=== PATIENT | male | born 1945 | race Caucasian/White ===

== ENCOUNTER → 2018-07-23 21:23 | Emergency (ER) | payer MEDICARE ==
[~2018-07-23 21:23] MED LIST: Albuterol/Ipratropium NEB.SOL* Albuterol 2.5 MG/Ipratropium 0.5 MG 3 ML INH ONE; Azithromycin TAB* 250 MG PO ONE; Benzonatate CAP* 100 MG PO ONE; Furosemide IV* 10 MG/ML VIAL (40 MG) IV SLOW PU ONE; methylPREDNISolone 125 MG* 2 ML VIAL IV ONE
--- NOTE | 2018-07-23 22:07 | ED ---
Respiratory - HPI Summary HPI Summary: 72-year-old male presents with hemoptysis today. He states that he had large amount of blood in sputum but it has now decreased to pink flecks. He is only on daily aspirin. He has history of COPD. He has been using his inhaler more frequently. He says that had a recent changes COPD medication. Has history of open heart surgery and hypertension. Admits to increase swelling in legs. has an increase in cough frequency. no chest pain or abdominal pain. admits to occasionally wheezing and SOB. is not on blood thinners. no fevers. no vomiting. admits to sore throat. no headache. this happened a week ago. is a smoker. had a normal chest CT 6 months ago without any nodules or masses. has not tried anything for symptoms beside albuterol. denies any recent weight change. - History of Current Complaint Chief Complaint: EDUpperRespComplaint Stated Complaint: COUGH Time Seen by Provider: 07/23/18 21:50 Pain Intensity: 0 Sputum Amount: Scant Sputum Color: Red Specks - Allergy/Home Medications Allergies/Adverse Reactions: Allergies Allergy/AdvReac Type Severity Reaction Status Date / Time Sulfa (Sulfonamide Allergy Rash And Verified 07/23/18 21:28 Antibiotics) Itching PMH/Surg Hx/FS Hx/Imm Hx Endocrine/Hematology History: Reports: Hx Diabetes Cardiovascular History: Reports: Hx Congestive Heart Failure, Hx Coronary Artery Disease - QUAD BYPASS, Hx Hypertension, Other Cardiovascular Problems/ Disorders - possible aortic aneurysm vs. scar tissue - Dr. Pringle Denies: Hx Pacemaker/ICD Respiratory History: Reports: Hx Chronic Obstructive Pulmonary Disease (COPD) GI History: Denies: Hx Gall Bladder Disease, Hx Gastroesophageal Reflux Disease History: Denies: Hx Acute Renal Failure, Hx Chronic Renal Failure, Hx Dialysis, Hx Renal Disease Musculoskeletal History: Reports: Other Musculoskeletal History - R below elbow amp RT cancer Sensory History: Denies: Hx Hearing Aid Psychiatric History: Denies: Hx Panic Disorder - Cancer History Cancer Type, Location and Year: bone cancer right arm 1989 - Surgical History Surgery Procedure, Year, and Place: bypass x 4; right arm removed 1989 - Immunization History Date of Tetanus Vaccine: UTD Date of Influenza Vaccine: 04/25/15 Infectious Disease History: No Infectious Disease History: Denies: Hx Clostridium Difficile, Hx Hepatitis, Hx Human Immunodeficiency Virus (HIV), Hx of Known/Suspected MRSA, Hx Shingles, Hx Tuberculosis, Hx Known/ Suspected VRE, Hx Known/Suspected VRSA, History Other Infectious Disease, Traveled Outside the [place] in Last 30 Days - Family History Known Family History: Positive: Other - lung cancer, ovarian ca - Social History Alcohol Use: Rare Substance Use Type: Reports: None Hx Tobacco Use: Yes Smoking Status (MU): Current Every Day Smoker Amount Used/How Often: 1ppd Have You Smoked in the Last Year: Yes Review of Systems Negative: Fever Negative: Chest Pain Positive: Shortness Of Breath, Cough, Other - hemoptysis Negative: Abdominal Pain All Other Systems Reviewed And Are Negative: Yes Physical Exam Triage Information Reviewed: Yes Vital Signs On Initial Exam: Initial Vitals Temp Pulse Resp BP Pulse Ox 97.5 F 78 18 173/82 96 07/23/18 21:24 07/23/18 21:24 07/23/18 21:24 07/23/18 21:24 07/23/18 21:24 Vital Signs Reviewed: Yes Appearance: Positive: Well-Appearing Skin: Positive: Warm, Dry Head/Face: Positive: Normal Head/Face Inspection Eyes: Positive: Normal, EOMI, ZEESHAN, Conjunctiva Clear ENT: Positive: Normal ENT inspection, Pharynx normal, TMs normal Respiratory/Lung Sounds: Positive: Breath Sounds Present, Wheezes Cardiovascular: Positive: Normal, RRR Abdomen Description: Positive: Nontender, Soft Bowel Sounds: Positive: Present Musculoskeletal: Positive: Normal Neurological: Positive: Normal Psychiatric: Positive: Normal Diagnostics - Vital Signs Vital Signs Temp Pulse Resp BP Pulse Ox 07/23/18 22:03 16 07/23/18 21:24 97.5 F 78 18 173/82 96 - Laboratory Result Diagrams: 07/23/18 22:10 07/23/18 22:10 Lab Statement: Any lab studies that have been ordered have been reviewed, and results considered in the medical decision making process. - Radiology chest Radiology Interpretation Completed By: ED Physician Summary of Radiographic Findings: pulmonary edema, may be pneumonia present, COPD - EKG No standard instances Cardiac Rate: NL EKG Rhythm: Sinus Rhythm EKG Comparison: No Significant Change Summary of EKG Findings: sinus rhythm Re-Evaluation - Re-Evaluation First Eval Change: Improved Comment: feeling better after treatment Second Eval Re-Evaluation Time: 23:58 Change: Improved Comment: able to ambulate well in ED, wants to go home Disposition - Course Course Of Treatment: 72 year old male presents with hemoptysis today. He states that the amount has been decreasing. He states that now has some tinted sputum. He admits to worsening cough and shortness breath the past couple days. He has a history of COPD. He denies any chest pain. He admits to sore throat. No fever. On exam some wheezing noted. EKG shows sinus rhythm. Troponin normal. D-dimer normal. White blood cell and CRP normal. Lactic elevated. Chest x-ray read by me as pulmonary edema may be underlying pneumonia. bnp elevated at 382. did not given fluid due to elevated bnp. patient able to ambulate around ED and sats about 90. patient has streaks of blood in sputum in ED but is not coughing frequently and is not losing significant amount of blood. h/h is better than previous. gave duoneb and steriod and feeling better. gave dose of lasix and azithromycin. on evaulation patient states feels comfortable going home. will discharge on azithromycin, steriod and tessalon. told to increase lasix and follow up with primary. gave strict return precautions. patient understand and agrees with plan. - Differential Dx - Cardiopulmonary Differential Diagnoses - Cardiopulmonary: Bronchitis, Exacerbation Of COPD, Influenza, Lower Resp Infection - Diagnoses Provider Diagnoses: COPD (chronic obstructive pulmonary disease), Bronchitis, CHF (congestive heart failure), Hemoptysis Discharge - Sign-Out/Discharge Documenting (check all that apply): Patient Departure - Discharge Plan Condition: Good Disposition: HOME Prescriptions: Azithromycin TAB* [Zithromax TAB (Z-MARISELA) 250 mg #6 tabs] 250 mg PO DAILY #4 tab Benzonatate CAP* [Tessalon 100 MG CAP*] 100 mg PO TID PRN #21 cap PRN Reason: Cough predniSONE TAB* [Deltasone TAB*] 50 mg PO DAILY #4 tab Patient Education Materials: Acute Bronchitis (ED) Referrals: Kesha Goff RN [Primary Care Provider] - Additional Instructions: Use nebulizer every 4 hours for cough and wheezing Take steroid once a day for 4 more days starting tomorrow Take antibiotic once daily starting tomorrow for 4 days take two 20mg lasix in morning and one tablet 20mg evening take tessalon three times a day for cough Take Tylenol for pain every 6 hours follow up with primary within 5 days Return to ED if develop severe shortness of breath, chest pain, or any new or worsening symptoms - Billing Disposition and Condition Condition: GOOD Disposition: Home
[2018-07-23 22:20] LABS: ABS Basophils 0.1 10^3/ul (0-0.2); ABS Eosinophils 0.4 10^3/ul (0-0.6); ABS Neutrophils 4.8 10^3/ul (1.5-7.7); ABS Nucleated RBC 0 10^3/ul; Eosinophil % 4.6 %; Hematocrit 41 % (42-52); Hemoglobin 13.9 g/dl (14.0-18.0); Lymphocyte % 23.9 %; Mean Corpuscular HGB Conc 34 g/dl (31-36); Mean Corpuscular Hemoglobin 30 pg (27-31); Mean Corpuscular Volume 88 fL (80-94); Mean Platelet Volume 7.8 fL (7.4-10.4); Nucleated Red Blood Cells % 0; Platelet Count 256 10^3/ul (150-450); Red Blood Count 4.62 10^6/ul (4.00-5.40); Red Cell Distribution Width 14 % (10.5-15); White Blood Count 8.3 10^3/ul (3.5-10.8)
[2018-07-23 22:33] LABS: INR 0.98 (0.77-1.02)
[2018-07-23 22:38] LABS: Albumin 4.1 g/dL (3.2-5.2); Albumin/Globulin Ratio 1.6 (1-3); BUN/Creatinine Ratio 16.3 (8-20); C Reactive Protein 5.63 mg/L (<8.01); Calcium 9.4 mg/dL (8.6-10.3); EGFR Non-African American 42.8 (>60); Globulin 2.5 g/dL (2-4); Total Bilirubin 0.6 mg/dL (0.2-1.0); Total Protein 6.6 g/dL (6.4-8.9)
[2018-07-24 00:25] VITALS: BP 124/87
== END | disposition home or self-care (01) ==
LOC: ED 21:23
DX: J44.9 Chronic obstructive pulmonary disease, unspecified (principal); I50.9 Heart failure, unspecified; R04.2 Hemoptysis; I25.10 Atherosclerotic heart disease of native coronary artery without angina pectoris; I10 Essential (primary) hypertension; Z95.1 Presence of aortocoronary bypass graft; Z88.2 Allergy status to sulfonamides; F17.200 Nicotine dependence, unspecified, uncomplicated
CPT/HCPCS: 36415; 71046; 80053; 83605; 83880; 84484; 85025; 85379; 85610; 86140; 87040; 93005; 96374; 96375; 99283; A9270-GY; J1940; J2930

== ENCOUNTER 2019-01-15 11:58 | Observation (INO) | payer MEDICARE ==
[2019-01-15 12:45] LABS: ABS Basophils 0.3 10^3/ul (0-0.2); ABS Eosinophils 0.2 10^3/ul (0-0.6); ABS Lymphocytes 1.8 10^3/ul (1.0-4.8); ABS Neutrophils 7.4 10^3/ul (1.5-7.7); Eosinophil % 2.2 %; Hematocrit 42 % (42-52); Hemoglobin 14.3 g/dL (14.0-18.0); Lymphocyte % 16.4 %; Mean Corpuscular HGB Conc 34 g/dL (31-36); Mean Corpuscular Hemoglobin 29 pg (27-31); Mean Corpuscular Volume 86 fL (80-94); Mean Platelet Volume 8.2 fL (7.4-10.4); Nucleated Red Blood Cells % 0.1; Platelet Count 273 10^3/uL (150-450); Red Blood Count 4.87 10^6 /uL (4.18-5.48); Red Cell Distribution Width 15 % (10-15); White Blood Count 10.7 10^3/uL (3.5-10.8)
--- NOTE | 2019-01-15 12:48 | ED ---
Shortness of Breath - HPI Summary HPI Summary: A 73 y/o male presents to [facility] with a chief complaint of intermittent SOB for the past three weeks. He also complains of intermittent chest discomfort and dizziness for the past three weeks. He saw his PCP, Mirtha Tolliver, who did an EKG and told the patient that his Vitamin D was low. He is on his second week of taking 50,000 units Vitamin D. He denies any of his symptoms currently, besides abdominal pain. His last BM was this morning and was normal. He rated his pain as a 0/10 in severity. He has a Hx of COPD, GERD and CHF. He denies taking medication for GERD, and does not use O2 at home. The patient claims that his right arm had to be amputated in 2000 because he had bone cancer in 1990 and his bone broke and never healed well from radiation. 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 Pt has a SHx of bypass. He claims that he is allergic to sulfur and his reaction is breaking out in a rash. - History of Current Complaint Chief Complaint: EDShortnessOfBreath Time Seen by Provider: 01/15/19 12:36 Hx Obtained From: Patient Onset/Duration: Gradual Onset, Lasting Weeks, Still Present Timing: Intermittent Episodes Lasting: - for the past three weeks Current Severity: None Dyspnea At: Rest Aggravating Factors: Nothing Alleviating Factors: Nothing Associated Signs & Symptoms: Chest Pain Unrelated to Cough - Allergy/Home Medications Allergies/Adverse Reactions: Allergies Allergy/AdvReac Type Severity Reaction Status Date / Time Sulfa (Sulfonamide Allergy Rash And Verified 01/15/19 12:05 Antibiotics) Itching Home Medications: Home Medications Ergocalciferol (Vitamin D2) [Drisdol] 1 cap PO WEEKLY 01/15/19 [History Confirmed 01/15/19] Isosorbide Mononitrate [Isosorbide Mononitrate ER] 30 mg PO DAILY 01/15/19 [ History Confirmed 01/15/19] Lisinopril 40 mg PO DAILY 01/15/19 [History Confirmed 01/15/19] Sertraline* [Zoloft*] 25 mg PO DAILY 01/15/19 [History Confirmed 01/15/19] PMH/Surg Hx/FS Hx/Imm Hx Endocrine/Hematology History: Reports: Hx Diabetes Cardiovascular History: Reports: Hx Congestive Heart Failure, Hx Coronary Artery Disease - QUAD BYPASS, Hx Hypertension, Other Cardiovascular Problems/ Disorders - possible aortic aneurysm vs. scar tissue - Dr. Pringle Denies: Hx Pacemaker/ICD Respiratory History: Reports: Hx Asthma, Hx Chronic Obstructive Pulmonary Disease (COPD) GI History: Denies: Hx Gall Bladder Disease, Hx Gastroesophageal Reflux Disease History: Denies: Hx Acute Renal Failure, Hx Chronic Renal Failure, Hx Dialysis, Hx Renal Disease Musculoskeletal History: Reports: Other Musculoskeletal History - R below elbow amp RT cancer Sensory History: Denies: Hx Hearing Aid Psychiatric History: Denies: Hx Panic Disorder - Cancer History Cancer Type, Location and Year: bone cancer right arm 1989 - Surgical History Surgery Procedure, Year, and Place: bypass x 4; right arm removed 1989 - Immunization History Date of Tetanus Vaccine: UTD Date of Influenza Vaccine: 04/25/15 Infectious Disease History: No Infectious Disease History: Denies: Hx Clostridium Difficile, Hx Hepatitis, Hx Human Immunodeficiency Virus (HIV), Hx of Known/Suspected MRSA, Hx Shingles, Hx Tuberculosis, Hx Known/ Suspected VRE, Hx Known/Suspected VRSA, History Other Infectious Disease, Traveled Outside the [place] in Last 30 Days - Family History Known Family History: Positive: Other - lung cancer, ovarian ca - Social History Alcohol Use: Rare Hx Substance Use: No Substance Use Type: Reports: None Hx Tobacco Use: Yes Smoking Status (MU): Light Every Day Tobacco Smoker Amount Used/How Often: 1ppd Have You Smoked in the Last Year: Yes Review of Systems Negative: Fever Positive: Chest Pain Positive: Shortness Of Breath Positive: Abdominal Pain All Other Systems Reviewed And Are Negative: Yes Physical Exam - Summary Physical Exam Summary: GENERAL: Patient is a well-developed and nourished M who is lying comfortable in the stretcher. Patient is not in any acute respiratory distress. HEAD AND FACE: Normocephalic EYES: PERRLA, EOMI x 2. EARS: Hearing grossly intact. MOUTH: Oropharynx within normal limits. NECK: Supple, trachea is midline, no adenopathy, no JVD, no carotid bruit. CHEST: Symmetric, no tenderness at palpation LUNGS: Clear to auscultation bilaterally. No wheezing or crackles. CVS: Regular rate and rhythm, S1 and S2 present, no murmurs or gallops appreciated. ABDOMEN: obese, mild TTP in mid upper abdomen, Bowel sounds OK anteriorly EXTREMITIES: Full ROM in all major joints, no edema, no cyanosis or clubbing. NEURO: Alert and oriented x 3. No acute neurological deficits. Speech is normal and follows commands. SKIN: Dry and warm Triage Information Reviewed: Yes Vital Signs On Initial Exam: Initial Vitals Temp Pulse Resp BP Pulse Ox 98 F 66 16 142/80 95 01/15/19 11:59 01/15/19 11:59 01/15/19 11:59 01/15/19 11:59 01/15/19 11:59 Vital Signs Reviewed: Yes Diagnostics - Vital Signs Vital Signs Temp Pulse Resp BP Pulse Ox 01/15/19 12:26 31 01/15/19 12:22 43 95 01/15/19 11:59 98 F 66 16 142/80 95 - Laboratory Result Diagrams: 01/15/19 12:31 01/15/19 12:31 Lab Statement: Any lab studies that have been ordered have been reviewed, and results considered in the medical decision making process. - Radiology CXR Radiology Interpretation Completed By: Radiologist Summary of Radiographic Findings: Stigmata of chronic obstructive pulmonary disease. Cardiomegaly. No acute cardiopulmonary process evident. ED physician has reviewed this imaging report. - CT abdomen/pelvis CT Interpretation Completed By: Radiologist Summary of CT Findings: Hepatosteatosis. Colonic diverticulosis without findings of acute diverticulitis. Atrophic LEFT kidney. Negative for obstructive uropathy. 4.2 cm maximum diameter fusiform aneurysm of the infrarenal abdominal aorta. ED physician has reviewed this imaging report. Course/Dx - Course Course Of Treatment: A 73 y/o male presents to [facility] with a chief complaint of intermittent SOB for the past three weeks. The physical exam revealed that the patient was obese, mild TTP in mid upper abdomen, Bowel sounds OK anteriorly. CT abdomen/pelvis impression: Hepatosteatosis. Colonic diverticulosis without findings of acute diverticulitis. Atrophic LEFT kidney. Negative for obstructive uropathy. 4.2 cm maximum diameter fusiform aneurysm of the infrarenal abdominal aorta. CXR impression: Stigmata of chronic obstructive pulmonary disease. Cardiomegaly. No acute cardiopulmonary process evident. In the ED course the patient was given Aspirin PO, Iodixanol IV and NTG SL. Bloodwork and chemistries obtained. BUN/Creatinine Ratio 21.4 at 12:31. The patient will be admitted. Case discussed with Dr. Thomas, hospitalist, who accepted the patient for admission. I discussed results with patient. The patient agrees with this plan. - Diagnoses Provider Diagnoses: Chest pain, Abdominal aortic aneurysm (AAA) - Physician Notifications Discussed Care of Patient With: Marlys Thomas Time Discussed With Above Provider: 14:33 Instructed by Provider To: Admit As Inpatient Discharge - Sign-Out/Discharge Documenting (check all that apply): Patient Departure - admit Patient Received Moderate/Deep Sedation with Procedure: No - Discharge Plan Condition: Fair Disposition: ADMITTED TO [facility] - Billing Disposition and Condition Condition: FAIR Disposition: Admitted to [facility] - Attestation Statements Document Initiated by Toñitoibe: Yes Documenting Scribe: Tony Lowe Provider For Whom Inez is Documenting (Include Credential): Toby Lopez MD Scribe Attestation: ITony, scribed for Toby Lopez MD on 01/15/19 at 1812. Scribe Documentation Reviewed: Yes Provider Attestation: The documentation as recorded by the Tony arzola accurately reflects the service I personally performed and the decisions made by me, Jalil Lopez MD Status of Scribe Document: Viewed
[2019-01-15] MEDS ORDERED: Aspirin 81 mg CHEW TAB* 81 MG TAB.CHEW PO ONE (12:59)
[2019-01-15] MEDS ORDERED: Nitroglycerin TAB 0.4 MG* 0.4 MG TAB SL ONE (13:00)
[2019-01-15 13:05] LABS: Albumin 4.1 g/dL (3.2-5.2); Albumin/Globulin Ratio 1.6 (1-3); BUN/Creatinine Ratio 21.4 (8-20); Calcium 9.6 mg/dL (8.6-10.3); EGFR African American 47.2 (>60); Globulin 2.6 g/dL (2-4); Total Bilirubin 0.6 mg/dL (0.2-1.0); Total Protein 6.7 g/dL (6.4-8.9)
[2019-01-15 13:07] LABS: Troponin I 0.03 ng/mL (<0.04)
[2019-01-15 13:17] LABS: INR 1.06 (0.82-1.09)
[2019-01-15] MEDS ORDERED: Iodixanol* (CONTRAST) 320 MG/ML 100 ML SDV IV ONE (13:22)
[2019-01-15] MEDS ORDERED: Acetaminophen TAB* 325 MG PO PRN (15:19)
[2019-01-15] MEDS ORDERED: Albuterol HFA INHALER* 8 gm MDI INH PRN (15:19)
[2019-01-15] MEDS ORDERED: Dextrose 50% Syringe 50 ML* 25 GM/50 ML SYRINGE IV PUSH PRN (15:21)
[2019-01-15] MEDS ORDERED: Ergocalciferol CAP* 50000 UNIT PO SCH (16:00)
[2019-01-15] MEDS: Nitroglycerin TAB 0.4 MG* 0.4 MG TAB SL SCH ×2 (16:06→20:10)
--- NOTE | 2019-01-15 16:45 | HP ---
CC: Mirtha Tolliver NP * [facility] MEDICINE HISTORY AND PHYSICAL: DATE OF PLACEMENT ON OBSERVATION: 01/15/19 PRIMARY CARE PHYSICIAN: Mirtha Tolliver NP. ATTENDING PHYSICIAN: Dr. Marlys Thomas *(dictation provided by Bertha Belle NP) . CHIEF COMPLAINT: Chest pain and feeling fatigued. HISTORY OF PRESENT ILLNESS: Mr. Cabrera is a 73-year-old male with past medical history of coronary artery disease with CABG in 2010, chronic kidney disease, COPD, and dex-[id number] type 2 diabetes, who presents today to the hospital with concern for chest pain and not feeling well for 2 weeks. Mr. Cabrera states that his symptoms began 2 weeks ago. He has been randomly having symptoms of chest pain. He feels much more tired than usual. He feels "lousy." He had some episodes of feeling a bit woozy on his feet and dizzy. He has been feeling a little bit short of breath. He states all these symptoms occur randomly and do not necessarily appear to be related to any particular activity. He states that he had a stress test and echocardiogram about 2 or 3 weeks ago at [facility] and as far as he was aware, these tests showed no concerning abnormalities. He went for these testing as part of routine care and he was not experiencing symptoms at that time and only developed them thereafter. In the emergency room, Mr. Cabrera had labs that showed a troponin of 0.03. His EKG showed a sinus rhythm with no evidence of ischemia, but showing ventricular bigemini. He had chest x-ray that showed no acute process, and abdomen and pelvis CT that showed only an incidental finding of a 4.2 cm infrarenal abdominal aortic aneurysm that he was unaware of previously. PAST MEDICAL HISTORY: 1. Coronary artery disease with CABG in 2010. 2. Chronic kidney disease. 3. COPD. 4. Nqe-csjsbpe-yqoikbsbv type 2 diabetes. 5. Hypertension. 6. Hyperlipidemia. 7. History of bone cancer to the right arm with amputation in the . MEDICATIONS: 1. Lisinopril 40 mg p.o. daily. 2. Trelegy Ellipta 1 puff inhaled daily. 3. Aspirin 81 mg p.o. daily. 4. Ergocalciferol 1 cap p.o. daily. 5. Sertraline 25 mg p.o. daily. 6. Isosorbide mononitrate 30 mg p.o. daily. 7. Albuterol p.r.n. via inhaler. 8. Tylenol 650 mg p.o. q.4 hours p.r.n. 9. Furosemide 40 mg p.o. daily. 10. Clopidogrel 75 mg p.o. daily. 11. Carvedilol 6.25 mg p.o. b.i.d. 12. Atorvastatin 80 mg p.o. daily. 13. Metformin 500 mg p.o. b.i.d. 14. Amlodipine 10 mg p.o. daily. 15. Nitroglycerin 0.4 mg sublingually p.r.n. FAMILY HISTORY: Reviewed, noncontributory. SOCIAL HISTORY: No report of alcohol, tobacco, or drug use. The patient states his daughter Tamara will be his healthcare proxy. REVIEW OF SYSTEMS: A 14-point review of systems was completed with Mr. Cabrera and all those not mentioned above were negative. PHYSICAL EXAMINATION GENERAL: Mr. Cabrera is sitting in the bed. He is in no acute distress. VITAL SIGNS: Temperature 98, pulse rate 70, respiratory rate 26, O2 saturation 95% on room air, and blood pressure 119/60. LUNGS: Clear to auscultation bilaterally with no accessory muscle use and good aeration. HEART: S1, S2. No murmur, rub, or gallop, and regular. ABDOMEN: Soft, nontender with bowel sounds positive x4. EXTREMITIES: No cyanosis, no edema. SKIN: Intact. NEUROLOGIC: He is alert and oriented x3. He moves all extremities equally. There is no facial asymmetry or focal weakness. Extraocular movements are intact. DIAGNOSTIC STUDIES LAB DATA: WBC 10.7, hemoglobin 14.3, hematocrit 42, platelet count 273. INR 1.06. Sodium 136, potassium 5.0, chloride 106, serum bicarbonate 23, BUN 37, creatinine 1.73, glucose 102. Abdomen and pelvis CT is read as follows: Hepatosteatosis, colonic diverticulosis without findings of acute diverticulitis, atrophic left kidney, negative for obstructive uropathy, 4.2 cm maximum diameter fusiform aneurysm of the infrarenal abdominal aorta. ASSESSMENT: Mr. Cabrera is a 73-year-old male with past history of coronary artery disease, coronary artery bypass grafting, type 2 diabetes, hypertension, hyperlipidemia, who presented to the hospital with concern for chest pain, feeling tired, feeling dizzy, feeling short of breath. Plan is for observation in the hospital for the followin. Chest pain: The patient's first troponin is negative. Plan to cycle x2. We will repeat EKGs with his troponins. He is currently chest pain free. We will monitor on the telemetry unit. Given that he had a recent negative stress test, I think that an additional stress testing is unnecessary, but I plan to review the results of the stress test and echocardiogram and I have requested the results from [facility] in the emergency room. The patient is on isosorbide, so presumably he does have some intermittent angina. He may benefit from an adjustment of isosorbide. 2. Shortness of breath. Again, workup as per above. His chest x-ray is negative. He has no evidence of COPD exacerbation. He is not tachycardic or hypoxic. Blood pressure is stable. He is afebrile. 3. Chronic obstructive pulmonary disease. Plan to continue his home therapy, although Alesia Saucedo is not available inpatient. 4. Chronic kidney disease, is at baseline. 5. Type 2 diabetes. Plan to hold metformin and continue with blood glucoses q.a.c. with lispro sliding scale. 6. Hypertension. Continue amlodipine, carvedilol, furosemide, isosorbide, lisinopril. 7. Depression. Continue sertraline. 8. Hyperlipidemia. Continue atorvastatin. 9. History of coronary artery disease. Continue aspirin and Plavix. 10. Code status is full code. TIME SPENT: Approximately 60 minutes were spent on the admission of this patient, more than half of the time spent with the patient at the bedside reviewing the events leading up to this hospitalization, performing the physical examination, and reviewing the plan of care. BERTHA BELLE, ALICJA [id number]/CPS #: [id number] [place]
[2019-01-15] MEDS: Insulin LISPRO* 1 UNITS UNIT SUBCUT SCH (18:37)
[2019-01-15] MEDS: Carvedilol TAB* 6.25 MG PO SCH (20:10)
[2019-01-15] MEDS: Albuterol/Ipratropium NEB.SOL* Albuterol 2.5 MG/Ipratropium 0.5 MG 3 ML INH SCH (20:41)
[2019-01-15] MEDS: Heparin VIAL(*) 5000 UNITS/ML VIAL (FIVE THOUSAND) SUBCUT SCH (22:23)
[2019-01-16] MEDS: Albuterol/Ipratropium NEB.SOL* Albuterol 2.5 MG/Ipratropium 0.5 MG 3 ML INH SCH ×3 (01:16→12:50)
[2019-01-16] MEDS: Nitroglycerin TAB 0.4 MG* 0.4 MG TAB SL SCH (02:46)
[2019-01-16] MEDS ORDERED: Nitroglycerin TAB 0.4 MG* 0.4 MG TAB SL PRN (02:55)
[2019-01-16] MEDS: Heparin VIAL(*) 5000 UNITS/ML VIAL (FIVE THOUSAND) SUBCUT SCH ×2 (05:27→13:27)
[2019-01-16] MEDS: Insulin LISPRO* 1 UNITS UNIT SUBCUT SCH ×2 (07:58→11:32)
[2019-01-16] MEDS ORDERED: amLODIPine TAB* 5 MG PO SCH (09:00)
[2019-01-16] MEDS ORDERED: Furosemide TAB* 40 MG PO SCH (09:00)
[2019-01-16] MEDS ORDERED: Atorvastatin* 80 MG TAB PO SCH (09:00)
[2019-01-16] MEDS ORDERED: Sertraline* 25 MG TAB PO SCH (09:00)
[2019-01-16] MEDS ORDERED: Aspirin EC TAB* 81 MG TAB.EC PO SCH (09:00)
[2019-01-16] MEDS ORDERED: Isosorbide Mononitrate ER TAB* 30 MG PO SCH (09:00)
[2019-01-16] MEDS ORDERED: Clopidogrel TAB* 75 MG PO SCH (09:00)
[2019-01-16] MEDS ORDERED: Lisinopril TAB* 10 MG PO SCH (09:00)
[2019-01-16] MEDS: Carvedilol TAB* 6.25 MG PO SCH (09:02)
[2019-01-16 11:11] VITALS: BP 131/64
--- NOTE | 2019-01-16 13:57 | DS ---
CC: Mirtha Tolliver NP in [place]; Dr. Crowell, Cardiology, at [facility] DISCHARGE SUMMARY: DATE OF ADMISSION: 01/15/2019 DATE OF DISCHARGE: 01/15/2019 PRIMARY DIAGNOSIS: Angina. SECONDARY DIAGNOSES: 1. Coronary artery disease status post myocardial infarction in the past. 2. Status post coronary artery bypass graft in 2010. 3. Chronic kidney disease. 4. Chronic obstructive pulmonary disease. 5. Type 2 diabetes. 6. Hypertension. 7. Hyperlipidemia. 8. Ischemic cardiomyopathy. 9. Depression. 10. History of bone cancer in the right arm, status post amputation in . MEDICATIONS ON DISCHARGE: The only medication change is increase in isosorbide mononitrate to 60 mg p.o. q. day. Other medications are: 1. Ventolin inhaler 2 puffs q.4 hours p.r.n. wheezing. 2. Lipitor 80 mg p.o. q.p.m. 3. Carvedilol 6.25 mg p.o. b.i.d. 4. Clopidogrel 75 mg p.o. q. day. 5. Vitamin D2 50,000 units p.o. weekly. 6. Furosemide 40 mg p.o. q.a.m. 7. Lisinopril 40 mg p.o. q. day. 8. Metformin 500 mg p.o. b.i.d. 9. Nitroglycerin 0.4 mg sublingually q.5 minutes x3, p.r.n. chest pain. 10. Sertraline 25 mg p.o. q.a.m. 11. Trelegy Ellipta 1 inhalation daily. 12. Acetaminophen as needed. 13. Albuterol/ipratropium nebulizer 4 times a day p.r.n. 14. Amlodipine 10 mg p.o. q. day. 15. Aspirin 81 mg p.o. q. day. HOSPITAL COURSE: This 73-year-old male with known heart disease was admitted with chest heaviness and dizziness. He did not have exertional chest pain. He did report some dyspnea when lying flat consistent with orthopnea. The records were obtained from the patient's outpatient providers. He had a transthoracic echocardiogram on 12/30/18, that showed egdl-yu-kzkwirhs aortic stenosis, ejection fraction 35% to 40% with inferolateral akinesis. There is mild-to- moderate mitral regurgitation as well. The patient also had a stress nuclear test on 11/03/18 at [facility], which showed mainly a large infarct in the anterior, anterolateral and inferolateral lin, ejection fraction calculated at 36% with global hypokinesis and no significant reversibility to suggest ischemia. The patient was admitted to observation due to his known heart disease and chest heaviness. His troponin was repeated on 3 occasions and was 0.03 in all 3 occasions. His telemetry showed no arrhythmias. Other laboratory tests of interest showed normal CBC, normal coagulation studies, hemoglobin A1c was 6.8, consistent with good control of his diabetes. His creatinine was 1.73, which is at his baseline. BNP was 346. The patient is suspected to have a degree of angina and suspect some chronic orthopnea due to COPD and/or CHF. Decision was made to increase his isosorbide mononitrate to 60 mg q. day because his blood pressure was in the range of 131/ 54 up to 172/50 in the last 24 hours he is in the hospital, he should be able to tolerate increased nitrates. STATUS: Observation. CONDITION: Fair. DISPOSITION: To home. FOLLOWUP: Should be with his primary care provider, Mirtha Tolliver and his sports medicine specialist, Dr. Crowell. DIET: Low salt, low fat, diabetic. ACTIVITY: As tolerated. [id number]/[facility] #: [id number] [place]
[2019-01-17] MEDS ORDERED: Isosorbide Mononitrate ER TAB* 30 MG PO SCH (09:00)
== END 2019-01-16 15:07 | disposition home or self-care (01) ==
LOC: ED 11:58 → MEDTELE 15:13
PROVIDERS: ADMIT Internal Medicine; ATTEND Internal Medicine
DX: I20.9 Angina pectoris, unspecified (principal); I25.10 Atherosclerotic heart disease of native coronary artery without angina pectoris; I25.2 Old myocardial infarction; Z95.5 Presence of coronary angioplasty implant and graft; E11.22 Type 2 diabetes mellitus with diabetic chronic kidney disease; I12.9 Hypertensive chronic kidney disease with stage 1 through stage 4 chronic kidney disease, or unspecified chronic kidney disease; N18.9 Chronic kidney disease, unspecified; E78.5 Hyperlipidemia, unspecified; I25.5 Ischemic cardiomyopathy; F32.9 Major depressive disorder, single episode, unspecified; Z85.830 Personal history of malignant neoplasm of bone; Z79.899 Other long term (current) drug therapy; Z79.82 Long term (current) use of aspirin; Z88.2 Allergy status to sulfonamides; F17.210 Nicotine dependence, cigarettes, uncomplicated
CPT/HCPCS: 36415; 71045; 74177; 80053; 83036; 83880; 84484; 85025; 85610; 93005; 94640; 94660; 96372; 99284; A9270-GY; G0378; J1644; Q9967

== ENCOUNTER 2019-02-08 15:07 | Emergency (ER) | payer MEDICARE ==
[2019-02-08 15:59] VITALS: BP 00/00
--- NOTE | 2019-02-08 17:27 | UC ---
Knee Pain HPI - HPI Summary HPI Summary: 73-year-old male with a history of COPD, coronary artery disease status post bypass, arthritis who presents with bilateral knee pain ongoing and worsening over several months. Patient reports 3/10 aching pain to his bilateral knees worse in the morning when he goes to stand up that improves with ambulation. Patient states that Tylenol and Motrin [id number]-[id number] helped with his pain. No trauma no fevers or chills. Patient also states that several days ago he had pain radiating in his feet felt like marbles and therefore he was having difficulty ambulating. Patient denies history of diabetes but states he is prediabetic, no known peripheral neuropathy. Patient follows with a outside primary physician - History of Current Complaint Chief Complaint: UCLowerExtremity Stated Complaint: RT. KNEE PAIN, SWOLLEN ANKLES Time Seen by Provider: 02/08/19 16:58 Hx Obtained From: Patient Pain Intensity: 5 - Allergies/Home Medications Allergies/Adverse Reactions: Allergies Allergy/AdvReac Type Severity Reaction Status Date / Time Sulfa (Sulfonamide Allergy Rash And Verified 02/08/19 15:59 Antibiotics) Itching PMH/Surg Hx/FS Hx/Imm Hx - Surgical History Surgical History: Yes Surgery Procedure, Year, and Place: bypass x 4; right arm removed 1989 - Family History Known Family History: Positive: Other - lung cancer, ovarian ca - Social History Alcohol Use: Rare Substance Use Type: None Smoking Status (MU): Heavy Every Day Tobacco Smoker Type: Cigarettes Amount Used/How Often: 1ppd Have You Smoked in the Last Year: Yes When Did the Patient Quit Smoking/Using Tobacco: 3 wks ago - Immunization History Most Recent Influenza Vaccination: n/a Most Recent Tetanus Shot: unk Most Recent Pneumonia Vaccination: <10 yr Review of Systems Constitutional: Positive: Negative Skin: Positive: Negative ENT: Positive: Negative Cardiovascular: Positive: Negative Gastrointestinal: Positive: Negative Genitourinary: Positive: Negative Motor: Positive: Decreased ROM. Negative: Weakness Musculoskeletal: Positive: Arthralgia. Negative: Calf Tenderness, Edema, Myalgia Physical Exam - Summary Physical Exam Summary: Constitutional: Well-developed, Well-nourished, Alert. (-) Distressed Skin: Warm, Dry HENT: Normocephalic; Atraumatic Eyes: Conjunctiva normal Neck: Musculoskeletal ROM normal neck. (-) JVD, (-) Stridor Cardio: Rhythm regular, rate normal, Heart sounds normal; Intact distal pulses; Radial pulses are 2+ and symmetric. DP pulses 1+ (-) Murmur Pulmonary/Chest wall: Effort normal. (-) Respiratory distress, (-) Wheezes, (-) Rales Abd: Soft, (-) tenderness, Musculoskeletal: s/p amputation R forearm. RLE: no deformity effusions, soft tissue swelling or discoloration, no crepitus palpated, compartments soft and compressible 1+ DP brisk cap refill x 5 Hip: no ttp, no pain with log roll Knee: mild ttp, FROM without pain, no lig laxity Ankle: no ttp, FROM without pain, no instability Toes: no ttp, FROM without pain LLE: no deformity effusions, soft tissue swelling or discoloration, no crepitus palpated, compartments soft and compressible 1+ DP brisk cap refill x 5 Hip: no ttp, no pain with log roll Knee: mild ttp, FROM without pain, no lig laxity Ankle: mild ttp, FROM without pain, no instability Toes: no ttp, FROM without pain Lymph: (-) Cervical adenopathy Neuro: Alert, Oriented x3 Psych: Mood and affect Normal Vital Signs: Initial Vital Signs Temp 98.2 F 02/08/19 15:51 Pulse 78 02/08/19 15:51 Resp 18 02/08/19 15:51 BP 00/00 02/08/19 15:51 Pulse Ox 97 02/08/19 15:51 Knee Pain Course/Dx - Course Course Of Treatment: 73-year-old male with a history of arthritis presents with bilateral knee pain worsening over several months Discharge - Discharge Plan Condition: Stable Disposition: HOME Patient Education Materials: Knee Pain (ED), Arthritis (ED) Referrals: Mirtha Tolliver [Primary Care Provider] - 1 Week (for follow up ) Additional Instructions: You were seen in the ER for knee pain. This is likely secondary to arthritis. You were given a referral for physical therapy. You can follow up with your primary care doctor as well to get new insoles for your shoes. Return or go to the ED for worsening symptoms or if you're concerned - Billing Disposition and Condition Condition: STABLE Disposition: Home
--- NOTE | 2019-02-08 17:44 | UC ---
Knee Pain HPI - HPI Summary HPI Summary: 73-year-old male with a history of coronary artery disease status post bypass, COPD and tobacco use, chronic arthritis who presents with worsening bilateral knee pain over the past several months. Patient states he has had E keep in his knees for several years worse when he gets up in the morning. Patient states that the pain improves upon immunizations up-to-date, and was better with Motrin however his doctor told him not to take too much motrin as it can affect his kidneys. Patient states he tried Tylenol and daee-cwv-fldlaze creams with some success. No recent trauma, fevers or chills. Currently rates the pain. 10, achy located in his knees radiating down to his feet. Patient states that several days ago while walking he felt like "there were marbles underneath his feet" however this resolved spontaneously. No weakness numbness or back pain. - History of Current Complaint Chief Complaint: UCLowerExtremity Stated Complaint: RT. KNEE PAIN, SWOLLEN ANKLES Time Seen by Provider: 02/08/19 16:58 Hx Obtained From: Patient Pain Intensity: 3 Pain Scale Used: 0-10 Numeric - Allergies/Home Medications Allergies/Adverse Reactions: Allergies Allergy/AdvReac Type Severity Reaction Status Date / Time Sulfa (Sulfonamide Allergy Rash And Verified 02/08/19 15:59 Antibiotics) Itching PMH/Surg Hx/FS Hx/Imm Hx Previously Healthy: No Endocrine History: Diabetes Cardiovascular History: Cardiac Disease, Hypertension Respiratory History: COPD - Surgical History Surgical History: Yes Surgery Procedure, Year, and Place: bypass x 4; right arm removed 1989 - Family History Known Family History: Positive: Other - lung cancer, ovarian ca - Social History Occupation: Disabled, Retired Alcohol Use: Rare Substance Use Type: None Smoking Status (MU): Heavy Every Day Tobacco Smoker Type: Cigarettes Amount Used/How Often: 1ppd Have You Smoked in the Last Year: Yes When Did the Patient Quit Smoking/Using Tobacco: 3 wks ago Household Exposure Type: Cigarettes Cessation Counseling: Counseled 3+Min - 10 Min - Immunization History Most Recent Influenza Vaccination: n/a Most Recent Tetanus Shot: unk Most Recent Pneumonia Vaccination: <10 yr Review of Systems All Other Systems Reviewed And Are Negative: Yes Musculoskeletal: Positive: Arthralgia, Decreased ROM. Negative: Calf Tenderness , Edema, Myalgia Physical Exam - Summary Physical Exam Summary: Constitutional: NAD, obese elderly male Skin: Warm, Dry HENT: Normocephalic; Atraumatic Eyes: Conjunctiva normal Neck: Musculoskeletal ROM normal neck. (-) JVD, (-) Stridor Cardio: Rhythm regular, rate normal, Heart sounds normal. (-) Murmur Pulmonary/Chest wall: Effort normal. (-) Respiratory distress, (-) Wheezes, (-) Rales Abd: Soft, (-) tenderness, (-) Distension, (-) Guarding, (-) Rebound Musculoskeletal: s/p R forearm amputation RLE: no deformity effusions, soft tissue swelling or discoloration, no crepitus palpated, compartments soft and compressible SILT 1+ DP, brisk cap refill x 5 FROM of joints without pain Hip: no ttp, no pain with log roll Knee: mild ttp, pain w ROM and ambulation, no lig laxity Ankle: no ttp, FROM without pain, no instability Toes: no ttp, FROM without pain LLE: no deformity effusions, soft tissue swelling or discoloration, no crepitus palpated, compartments soft and compressible SILT 1+ DP, brisk cap refill x 5 FROM of joints without pain Hip: no ttp, no pain with log roll Knee: mild ttp, pain w ROM and ambulation, no lig laxity Ankle: mild ttp, FROM without pain, no instability Toes: no ttp, FROM without pain Neuro: Alert, Oriented x3 Psych: Mood and affect Normal Vital Signs: Initial Vital Signs Temp 98.2 F 02/08/19 15:51 Pulse 78 02/08/19 15:51 Resp 18 02/08/19 15:51 BP 00/00 02/08/19 15:51 Pulse Ox 97 02/08/19 15:51 Knee Pain Course/Dx - Course Course Of Treatment: 73-year-old male who presents with gradual worsening of chronic arthritis and bilateral knees No known trauma, no recent fevers or infectious symptoms suspect worsening pain secondary to progressive arthritis Patient advised that he could follow up with physical therapy, referral given. Patient also advised to follow-up with his primary care doctor to get new insoles for his shoes Patient had reported feeling "marbles" under his speech Wednesday could be secondary to peripheral neuropathy this patient has a history of prediabetes however on exam he does not have any obvious sensory deficits. Patient has tenderness near the arch of foot which could be secondary to plantar fasciitis or poor fitting shoes - Differential Dx/Diagnosis Provider Diagnosis: Knee pain, bilateral Discharge - Sign-Out/Discharge Documenting (check all that apply): Patient Departure All imaging exams completed and their final reports reviewed: No Studies - Discharge Plan Condition: Stable Disposition: HOME Patient Education Materials: Knee Pain (ED), Arthritis (ED) Referrals: Mirtha Tolliver [Primary Care Provider] - 1 Week (for follow up ) Additional Instructions: You were seen in the ER for knee pain. This is likely secondary to arthritis. You were given a referral for physical therapy. You can follow up with your primary care doctor as well to get new insoles for your shoes. Return or go to the ED for worsening symptoms or if you're concerned - Billing Disposition and Condition Condition: STABLE Disposition: Home
== END 2019-02-08 17:36 | disposition home or self-care (01) ==
LOC: UCEAST 15:07
DX: M25.562 Pain in left knee (principal); M25.561 Pain in right knee; J44.9 Chronic obstructive pulmonary disease, unspecified; I25.810 Atherosclerosis of coronary artery bypass graft(s) without angina pectoris; E11.9 Type 2 diabetes mellitus without complications; I10 Essential (primary) hypertension; F17.210 Nicotine dependence, cigarettes, uncomplicated; Z89.201 Acquired absence of right upper limb, unspecified level
CPT/HCPCS: 99211; G0463

== ENCOUNTER 2019-09-21 04:04 | Inpatient (IN) | payer MEDICARE ==
[2019-09-21] MEDS ORDERED: Albuterol/Ipratropium NEB.SOL* Albuterol 2.5 MG/Ipratropium 0.5 MG 3 ML INH ONE (04:41)
--- NOTE | 2019-09-21 04:48 | ED ---
HPI Cardiac - HPI Summary HPI Summary: Patient is a 73 y/o M presenting to [facility] with chief complaint of SOB. SOB has been present for the past three days and progressively worsened. He states that he has SOB at rest and has not been wearing his o2 at home. Cough productive of thick white sputum is reported. No fever noted. Hx of CHF, HTN, Diabetes, COPD, emphysema, quadruple bypass 2011 noted. Patient is a current smoker. Home medications and allergies are reviewed. - History of Current Complaint Chief Complaint: EDShortnessOfBreath Stated Complaint: SOB PER PT Time Seen by Provider: 09/21/19 04:23 Hx Obtained From: Patient Onset/Duration: Started Days Ago, Still Present Timing: Lasting Days Current Severity: None Pain Intensity: 0 Pain Scale Used: 0-10 Numeric Associated Signs and Symptoms: Positive: Shortness of Breath, Cough, Productive Cough. Negative: Fever - Additional Pertinent History Primary Care Physician: ZACKERY - Allergy/Home Medications Allergies/Adverse Reactions: Allergies Allergy/AdvReac Type Severity Reaction Status Date / Time Sulfa (Sulfonamide Allergy Rash And Verified 09/21/19 04:25 Antibiotics) Itching Home Medications: Home Medications Atorvastatin* [Lipitor 40 MG*] 80 mg PO DAILY 05/26/15 [History Confirmed ] Acetaminophen TAB* [Tylenol TAB*] 650 mg PO Q4H PRN #0 tab 04/15/16 [Rx Confirmed 09/21/19] Aspirin EC TAB* [Ecotrin EC Low Dose 81 MG*] 81 mg PO DAILY tab.ec 04/15/16 [ Rx Confirmed 09/21/19] amLODIPine TAB* [Norvasc 5 mg TAB*] 10 mg PO DAILY tab 04/15/16 [Rx Confirmed 09/21/19] Albuterol HFA INHALER* [Ventolin HFA Inhaler*] 2 puff INH QID 09/22/18 [History Confirmed 09/21/19] Clopidogrel TAB* [Plavix TAB*] 75 mg PO DAILY 09/22/18 [History Confirmed ] Furosemide TAB* [Lasix TAB*] 40 mg PO DAILY 09/22/18 [History Confirmed 09/21/19 ] Nitroglycerin 0.4 mg SL Q5M PRN MDD 3 09/22/18 [History Confirmed 09/21/19] carvediloL [Carvedilol] 6.25 mg PO BID 09/22/18 [History Confirmed 09/21/19] metFORMIN* [Glucophage 500 MG TAB *] 1,000 mg PO DAILY 09/22/18 [History Confirmed 09/21/19] Ergocalciferol (Vitamin D2) [Drisdol] 50,000 units PO WEEKLY 01/15/19 [History Confirmed 09/21/19] lisinopriL [Lisinopril] 40 mg PO DAILY 01/15/19 [History Confirmed 09/21/19] Albuterol 2.5MG/3ML (0.083%)* [Ventolin 2.5 MG/3 ML NEB.GURINDER*] 2.5 mg INH Q6H PRN 09/21/19 [History Confirmed 09/21/19] Diclofenac 1% GEL (NF) [Voltaren 1% GEL (NF)] 1 applic TOPICAL QID 09/21/19 [ History Confirmed 09/21/19] Fluticasone/Umeclidin/Vilanter [Trelegy Ellipta 100-62.5-25] 1 puff INH DAILY [History Confirmed 09/21/19] Gabapentin CAP(*) [Neurontin 100 mg CAP(*)] 100 mg PO TID 09/21/19 [History Confirmed 09/21/19] Isosorbide Mononitrate ER TAB* [Imdur ER TAB*] 30 mg PO DAILY 09/21/19 [History Confirmed 09/21/19] Nystatin SUSPENSION ORAL SYR* 5 ml PO QID 09/21/19 [History Confirmed 09/21/19] PARoxetine HCL TAB* [Paxil TAB*] 10 mg PO DAILY 09/21/19 [History Confirmed ] PMH/Surg Hx/FS Hx/Imm Hx Endocrine/Hematology History: Reports: Hx Diabetes - type 2 Cardiovascular History: Reports: Hx Angina, Hx Congestive Heart Failure, Hx Coronary Artery Disease - QUAD BYPASS, Hx Hypertension, Other Cardiovascular Problems/Disorders - possible aortic aneurysm vs. scar tissue - Dr. Pringle Denies: Hx Pacemaker/ICD Respiratory History: Reports: Hx Asthma, Hx Chronic Obstructive Pulmonary Disease (COPD), Hx Pneumonia, Hx Sleep Apnea GI History: Denies: Hx Gall Bladder Disease, Hx Gastroesophageal Reflux Disease History: Denies: Hx Acute Renal Failure, Hx Chronic Renal Failure, Hx Dialysis, Hx Renal Disease Musculoskeletal History: Reports: Hx Back Problems, Other Musculoskeletal History - R below elbow amp RT cancer Sensory History: Reports: Hx Contacts or Glasses Denies: Hx Hearing Aid Opthamlomology History: Reports: Hx Contacts or Glasses Psychiatric History: Denies: Hx Panic Disorder - Cancer History Cancer Type, Location and Year: bone cancer right arm 1989 Hx Radiation Therapy: Yes - Surgical History Surgery Procedure, Year, and Place: bypass x 4; right arm removed 1989 - Immunization History Date of Tetanus Vaccine: UTD Date of Influenza Vaccine: 04/25/15 Infectious Disease History: No Infectious Disease History: Denies: Hx Clostridium Difficile, Hx Hepatitis, Hx Human Immunodeficiency Virus (HIV), Hx of Known/Suspected MRSA, Hx Shingles, Hx Tuberculosis, Hx Known/ Suspected VRE, Hx Known/Suspected VRSA, History Other Infectious Disease, Traveled Outside the [place] in Last 30 Days - Family History Known Family History: Positive: Other - lung cancer, ovarian ca - Social History Alcohol Use: Rare Hx Substance Use: No Substance Use Type: Reports: None Hx Tobacco Use: Yes Smoking Status (MU): Current Some Day Smoker Type: Cigarettes Amount Used/How Often: 1ppd Have You Smoked in the Last Year: Yes Review of Systems - ROS Summary Review of Systems Summary: Home Medications Medication Instructions Recorded Confirmed Type Atorvastatin* [Lipitor 40 MG*] 80 mg PO DAILY 05/26/15 01/15/19 History Acetaminophen TAB* [Tylenol TAB*] 650 mg PO Q4H PRN #0 tab 04/15/16 01/15/19 Rx Albuterol/Ipratropium NEB.GURINDER* 1 neb INH [id number] AWAKE 04/15/16 01/15/19 Rx [Duoneb (Albuterol 2.5 neb.soln MG/Ipratropium 0.5 MG)] Aspirin EC TAB* [Ecotrin EC Low 81 mg PO DAILY tab.ec 04/15/16 01/15/19 Rx Dose 81 MG*] amLODIPine TAB* [Norvasc 5 mg TAB*] 10 mg PO DAILY tab 04/15/16 01/15/19 Rx Albuterol HFA INHALER* [Ventolin 2 puff INH Q4H PRN 09/22/18 01/15/19 History HFA Inhaler*] Clopidogrel TAB* [Plavix TAB*] 75 mg PO DAILY 09/22/18 01/15/19 History Furosemide TAB* [Lasix TAB*] 40 mg PO DAILY 09/22/18 01/15/19 History Nitroglycerin 0.4 mg SL Q5H MDD 3 09/22/18 01/15/19 History Trelegy Ellipta 100-62.5-25 1 puff INH DAILY 09/22/18 01/15/19 History carvediloL [Carvedilol] 6.25 mg PO BID 09/22/18 01/15/19 History metFORMIN* [Glucophage 500 MG TAB 500 mg PO BID 09/22/18 01/15/19 History *] Ergocalciferol (Vitamin D2) 1 cap PO WEEKLY 01/15/19 01/15/19 History [Drisdol] Sertraline* [Zoloft*] 25 mg PO DAILY 01/15/19 01/15/19 History lisinopriL [Lisinopril] 40 mg PO DAILY 01/15/19 01/15/19 History Isosorbide Mononitrate ER TAB* 60 mg PO DAILY #30 tab.er 01/16/19 Rx [Imdur ER TAB*] Negative: Fever Positive: Shortness Of Breath, Cough All Other Systems Reviewed And Are Negative: Yes Physical Exam - Summary Physical Exam Summary: General: Well-developed, Obese Male. Moderate respiratory distress. HEENT: Normocephalic, Atraumatic. Eyes: Conjuctiva normal, PERRL. Oropharynx: Clear, mucous membranes moist, (-) exudates. Neck: Soft, FROM, (-) lymphadenopathy, (-) thyromegaly, (-) JVD. Cardiovascular: Tachycardic and with irregularly irregular rhythm, (-) murmur. Lungs: Moderate respiratory distress, pulse ox of 85% on RA, using accessory muscles to breath, decreased breath sounds bilaterally, bibasilar crackles, tight wheezing throughout. Abdomen: Soft, non-tender, non-distended, (-) organomegaly, normal bowel sounds. Back: (-) CVA tenderness Extremities: 1+ BLE edema Skin: Warm, dry, (-) rash. Neuro: Alert and oriented x3, moves all extremities equally. No ataxia. No gait disturbance. No sensory deficit. Normal strength, normal sensation. Psychiatric: Mildly anxious appearing. Triage Information Reviewed: Yes Vital Signs On Initial Exam: Initial Vitals Temp Pulse Resp BP Pulse Ox 100.1 F 124 24 192/104 90 09/21/19 04:05 09/21/19 04:05 09/21/19 04:05 09/21/19 04:05 09/21/19 04:05 Vital Signs Reviewed: Yes Procedures - Procedure Summary Procedure Summary: At 0543, Etomidate 30 mg and Succinylcholine 100 mg administered. 8.0 tube was used. The first attempt was unsuccessful due to thick, white secretions in the oropharynx. Suction was used, secretions removed. Second attempt was successful , no complications. ET tube is 24 cm at the lip. Breath sounds equal bilaterally. Good color change. Patient started on Propofol drip. Post- intubation CXR showed significant cephalization indicating CHF, tube above balta. - Sedation Patient Received Moderate/Deep Sedation with Procedure: No - Intubation Time of Intubation: 05:46 - finished intubation Tube Size (cm): 8.0 - 24 at the lips Medications: Succinylcholine - w/ etomidate Breath Sounds after Intubation: equal Intubation Complications: oral-unsuccessful attempt - once, suction used to remove white thick secretions, 2nd attempt successful without complication Post Intubation Xray: Yes Progress/Xray Impression: Significant cephalization indicating CHF, tube above balta Diagnostics - Vital Signs Vital Signs Temp Pulse Resp BP Pulse Ox 09/21/19 04:21 118 100 09/21/19 04:05 100.1 F 124 24 192/104 90 - Laboratory Result Diagrams: 09/21/19 20:30 09/21/19 20:30 Lab Statement: Any lab studies that have been ordered have been reviewed, and results considered in the medical decision making process. - Radiology CXR Radiology Interpretation Completed By: ED Physician Summary of Radiographic Findings: CXR showed significant cephalization indicating CHF, tube above balta. Pending official report. - EKG 0416 Cardiac Rate: Other Rate - afib with rate of 133 BPM EKG Rhythm: Atrial Fibrillation Summary of EKG Findings: EKG showed afib with rate of 133 BPM, no STEMI. ED physician has reviewed and interpreted this EKG. Re-Evaluation - Re-Evaluation First Eval Re-Evaluation Time: 04:46 Change: Worse Comment: Patient's o2 saturation decreased to high around 45% while on 5 L o2. Patient placed on bipap. Second Eval Re-Evaluation Time: 05:10 Change: Improved Comment: Currently 88% o2 saturation while on bipap. ABG pending. Review of medical records suggest patient is in new-onset afib. Third Eval Re-Evaluation Time: 05:27 Change: Improved Comment: Nurse reports suctioning out mucus plug from oropharynx, o2 saturation improved to 100% while on bipap. Fourth Eval Re-Evaluation Time: 05:32 Comment: Brief episode of asystole, patients eye open upon arrival to room. Patient still using accessory muscles to breath. Patient to be intubated. Fifth Eval Re-Evaluation Time: 06:03 Comment: Patient is intubated. Daughter arrives to ED and reports Hx of flash pulmonary edema and COPD. Patient to be admitted. Disposition - Course Course Of Treatment: 73-year-old male presents with shortness of breath. States he hasn't been able to breathe for about 3 days now. Describes cough with thick phlegm. Known COPD. Describes chest tightness. Pulse ox 85% on room air upon arrival. Patient notes he has not been on his oxygen at home. Has stopped using it. Still smoking. On physical exam pulse ox 85% on room air. Patient with moderate respiratory distress. Given DuoNeb. Steroids. Blood work drawn and patient placed on oxygen. During his history and physical patient has sudden decrease in consciousness. Pulse ox decreased significantly. His skin started modeling. ABG on BiPAP are ordered. Patient improved significantly with suction and a large amount of mucous plug was removed. Patient became more alert. ABG showed a significant abnormalities in pH and retention of CO2. Patient was intubated via RSI. Etomidate and succinylcholine were used and 8.0 ETT at 24 cm placed at the lip. Chest x-ray confirmed placement. Patient ventilated well. Placed on propofol drip for sedation. Laboratories demonstrated a significantly elevated BNP. Troponin 0.07. Slightly elevated white count. Chest x-ray also demonstrated CHF. Patient was given 80 mg of Lasix after exam. He is referred to hospitalist for admission. - Diagnoses Provider Diagnoses: Flash pulmonary edema, Acute respiratory failure - Physician Notifications Discussed Care Of Patient With: Vielka Villa Time Discussed With Above Provider: 06:07 Instructed by Provider To: Other - Patient's case was discussed with Dr. Villa , Dr. Villa accepts for admission. - Critical Care Time Critical Care Time: 75-104 min - 76 minutes CCT Discharge ED - Sign-Out/Discharge Documenting (check all that apply): Patient Departure - admit - Discharge Plan Condition: Guarded Disposition: ADMITTED TO [facility] - Billing Disposition and Condition Condition: GUARDED Disposition: Admitted to [facility] - Attestation Statements Document Initiated by Inez: Yes Documenting Scribe: BARRERA CRUZ Provider For Whom Inez is Documenting (Include Credential): MICHAEL MELVIN MD Scribe Attestation: I, BARRERA CRUZ, scribed for MICHAEL MELVIN MD on 09/21/19 at 2311. Scribe Documentation Reviewed: Yes Provider Attestation: The documentation as recorded by the scribeBARRERA accurately reflects the service I personally performed and the decisions made by me, MICHAEL MELVIN MD Status of Scribe Document: Viewed
[2019-09-21 05:01] LABS: ABS Basophils 0.1 10^3/ul (0-0.2); ABS Lymphocytes 0.9 10^3/ul (1.0-4.8); ABS Monocytes 1.3 10^3/ul (0-0.8); ABS Neutrophils 9.4 10^3/ul (1.5-7.7); Eosinophil % 0.4 %; Hematocrit 44 % (42-52); Hemoglobin 14.8 g/dL (14.0-18.0); Lymphocyte % 7.6 %; Mean Corpuscular HGB Conc 34 g/dL (31-36); Mean Corpuscular Hemoglobin 30 pg (27-31); Mean Corpuscular Volume 88 fL (80-94); Mean Platelet Volume 8.1 fL (7.4-10.4); Platelet Count 273 10^3/uL (150-450); Red Blood Count 4.97 10^6 /uL (4.18-5.48); Red Cell Distribution Width 15 % (10-15); White Blood Count 11.8 10^3/uL (3.5-10.8)
[2019-09-21] MEDS ORDERED: Furosemide IV* 10 MG/ML VIAL (40 MG) ONE (05:09)
[2019-09-21] MEDS ORDERED: Furosemide IV* 10 MG/ML VIAL (40 MG) IV SLOW PU ONE ×2 (05:10→13:53)
[2019-09-21 05:21] LABS: Activated Partial Thrombo Time 35.1 seconds (26.0-38.0); INR 1.11 (0.82-1.09)
[2019-09-21 05:24] LABS: Albumin 4.5 g/dL (3.2-5.2); Anion Gap 11 mmol/L (2-11); CO2 Carbon Dioxide 22 mmol/L (22-32); Calcium 9.6 mg/dL (8.6-10.3); Chloride 102 mmol/L (101-111); Potassium 4.4 mmol/L (3.5-5.0); Sodium 135 mmol/L (135-145)
[2019-09-21 05:30] LABS: ALT 18 U/L (7-52); AST 18 U/L (13-39); Albumin/Globulin Ratio 1.5 (1-3); Alkaline Phosphatase 113 U/L (34-104); Blood Urea Nitrogen 23 mg/dL (6-24); EGFR African American 54.4 (>60); Globulin 3.1 g/dL (2-4); Glucose 140 mg/dL (70-100); Total Protein 7.6 g/dL (6.4-8.9)
[2019-09-21] MEDS ORDERED: Diltiazem IV push/loading dose 5 MG/ML 5 ML vial (25 mg) ONE (05:35)
[2019-09-21 05:37] LABS: Troponin I 0.07 ng/mL (<0.03)
[2019-09-21] MEDS ORDERED: Propofol* 100 ML ONE (05:41)
[2019-09-21] MEDS ORDERED: Etomidate* 2 MG/ML 20 ML VIAL (40 MG) ONE (05:43)
[2019-09-21] MEDS ORDERED: Succinylcholine* 20 MG/ML 10 ML VIAL ONE (05:43)
[2019-09-21] MEDS: Propofol* 100 ML IV ONE ×4 (05:51→10:42)
[2019-09-21] MEDS ORDERED: Diltiazem IV push/loading dose 5 MG/ML 5 ML vial (25 mg) IV SLOW PU ONE (05:57)
[2019-09-21] MEDS ORDERED: methylPREDNISolone 125 MG* 2 ML VIAL IV ONE (06:27)
[2019-09-21] MEDS ORDERED: Albuterol/Ipratropium NEB.SOL* Albuterol 2.5 MG/Ipratropium 0.5 MG 3 ML INH PRN (06:27)
[2019-09-21] MEDS ORDERED: Enoxaparin(*) 150 MG/ML 1 ML SYRINGE SUBCUT ONE (07:03)
[2019-09-21 07:18] LABS: Influenza A Molecular POSITIVE (Negative)
[2019-09-21 07:32] LABS: Urine Appearance Cloudy; Urine Bilirubin Negative (Negative); Urine Blood 2+ (Negative); Urine Color Yellow; Urine Glucose Negative (Negative); Urine Ketones Negative (Negative); Urine Nitrite Negative (Negative); Urine Protein 2+(100 mg/dL) (Negative); Urine Specific Gravity 1.017 (1.010-1.030); Urine Urobilinogen Negative (Negative)
[2019-09-21 07:35] LABS: Urine Bacteria Absent (Absent); Urine Red Blood Cell 2+(6-10/hpf) (Absent); Urine Squamous Epithelial Cell Present (Absent); Urine White Blood Cell 1+(6-10/hpf) (Absent)
[2019-09-21] MEDS ORDERED: Diltiazem IV BAG* D5W Premix 125 MG/125 ML BAG IV SCH (08:00)
[2019-09-21] MEDS ORDERED: Acetaminophen TAB* 325 MG PO PRN (08:26)
[2019-09-21] MEDS: Insulin REGULAR(*) 1 UNITS UNIT SUBCUT SCH ×3 (09:16→17:28)
[2019-09-21 09:24] LABS: Troponin I 0.82 ng/mL (<0.03)
[2019-09-21] MEDS: Albuterol/Ipratropium NEB.SOL* Albuterol 2.5 MG/Ipratropium 0.5 MG 3 ML INH SCH ×5 (10:00→23:05)
[2019-09-21] MEDS: Acetaminophen ADULT LIQ* 650 MG/20.3 ML UDC PO PRN (10:40)
[2019-09-21] MEDS: Oseltamivir SUSP* ORALSYR 6 MG/ML PO SCH ×2 (10:41→21:16)
[2019-09-21] MEDS ORDERED: Perflutren Lipid Microsphere* 3 ML VIAL ONE (11:19)
[2019-09-21] MEDS: Propofol* 100 ML IV SCH ×4 (11:55→23:22)
--- NOTE | 2019-09-21 12:52 | HP ---
CC: Mirtha Tolliver NP * HISTORY AND PHYSICAL: DATE OF ADMISSION: 09/21/19 TIME OF EVALUATION: 6:15 a.m. PRIMARY CARE PROVIDER: Mirtha Tolliver NP CHIEF COMPLAINT: Shortness of breath. HISTORY OF PRESENT ILLNESS: Mr. 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 At the time of my evaluation, the patient is intubated, so my history is obtained from his records and some limited information from his daughter at bedside. The patient's daughter states that he is always short of breath and she last saw him 2 days ago and he seemed to be in good spirits with no complaints. As per ED documentation, the patient had complaints of dyspnea for 3 days associated with productive cough with thick white sputum. He was described as tachypneic with audible wheezing and also had chest pain from coughing. He was taken to the emergency room bed and his oxygen saturation dropped to 45% on 5 L nasal cannula while he was trying to boost himself in bed. The emergency room provider was at the bedside immediately and the patient was started on BiPAP. His blood gas showed a pH of 7.03 with a pCO2 of 83 and he was intubated. At the time of my evaluation, the patient is lying in the ED stretcher, intubated, still tachypneic, but he had just been started on propofol. The patient is not able to provide any other meaningful information. PAST MEDICAL HISTORY: 1. Coronary artery disease status post CABG in 2010. 2. CKD stage 3. 3. COPD. 4. Type 2 diabetes. 5. Hypertension. 6. Hyperlipidemia. 7. History of bone malignancy in the arm requiring forearm amputation in the . 8. Hyperlipidemia. 9. Hypertension. 10. History of admission to [facility] [place] in 2016 with severe sepsis secondary to right arm stump cellulitis and possible osteomyelitis. During that admission the patient developed flash pulmonary edema and required intubation. MEDICATIONS: Medication list is not available at this time but will be obtained. ALLERGIES: With SULFA the patient had a rash. FAMILY HISTORY: I am unable to obtain from the patient at this time due to the fact he is intubated and sedated. As per old records, his mother in her 70s of a malignancy and father of heart disease. SOCIAL HISTORY: I am unable to obtain from the patient. As per prior records, he was a smoker, 3 packs a day for more than 20 years, but he quit 5 or 6 years ago. The daughter is not sure if he has really quit or not. No history of alcohol or drug use. 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 Surrogate decision maker is his daughter, Tamara Tuan, phone number is [phone]. REVIEW OF SYSTEMS: I am not able to obtain 14-point review of systems as the patient is sedated and intubated. PHYSICAL EXAMINATION GENERAL: The patient is a morbid obese gentleman with significant central obesity, lying in the ED stretcher, intubated with tachypnea but not in respiratory distress at this time. VITAL SIGNS: Temperature 100.1, heart rate is 117, respiratory rate is 30, oxygen saturation is 96% after the patient is intubated, blood pressure is 169/ 82. HEENT: Pupils are equal. Moist mucous membranes. CHEST: Breath sounds bilaterally with diffuse rhonchi and wheezing, bibasilar crackles. CVS: Normal S1, S2. Regular rate and rhythm. ABDOMEN: Morbidly obese, soft, nontender, nondistended. Bowel sounds present. When I arrived to the bedside the patient had some accessory muscle use including abdominal muscles but as his propofol infusion was increased, the patient further relaxed and by the time I left the room, his accessory muscle use was much improved. EXTREMITIES: No edema. NEURO: The patient is sedated on propofol at this time. Withdraws all 4 extremities from touch. SKIN: The patient has multiple purple lesions on lower extremities and abdomen that appear to be mottling but the patient's daughter states that those are chronic. DIAGNOSTIC STUDIES/LAB DATA: The patient had a CBC that showed WBC of 11.8, hemoglobin 14.8, hematocrit 44, platelets of 273 with 79% neutrophils. INR 1.1. APTT was 35.1. ABG showed a pH of 7.03, pCO2 of 83, PaO2 of 72, bicarb of 16.4, oxygen saturation of 90%. Chemistry showed sodium of 135, potassium of 4.4, chloride 102, bicarb 22, BUN of 23, creatinine 1.5, glucose of 140. Lactic acid 4.2. Calcium 9.6. LFTs are normal except for an Alk phos 113. Troponin of 0.07. BNP 448. EKG done 09/21/19 at 4:14 a.m. shows atrial fibrillation at 133 beats per minute with some ST depressions in the lateral leads. This is new from his prior EKG from December 2018. Chest x-ray is not yet officially read, but shows significant pulmonary edema. Repeat chest x-ray was done at 5:54 a.m. and the ET tube appears to be in appropriate position, but we will need to follow up the official report. ASSESSMENT AND PLAN: Mr. Cabrera is a 73-year-old male with multiple comorbidities including morbid obesity, type 2 diabetes, coronary artery disease , bone malignancy of the right upper extremity requiring right forearm amputation, hyperlipidemia, hypertension, prior admission in 2016 with severe sepsis secondary to right stump cellulitis and probable osteomyelitis complicated by flash pulmonary edema requiring intubation, who presented to the emergency room with complaints of a couple days of shortness of breath, who developed flash pulmonary edema in the emergency room once again. 1. Acute hypoxemic and hypercapnic respiratory failure. This is secondary to a combination of chronic obstructive pulmonary disease exacerbation and pulmonary edema. The patient was already intubated in the emergency room and he will be admitted to the intensive care unit for further management. 2. Systemic inflammatory response syndrome. The patient does meet systemic inflammatory response syndrome criteria with his tachycardia and tachypnea but it is unclear to me if this patient has a true infection, although information is limited. As per daughter, he was at his baseline a couple days ago and the sudden onset of his symptoms suggest likely a chronic obstructive pulmonary disease exacerbation that drove the pulmonary edema. I did discuss the case with the brothel keeper (Dr. Albert) and we will not start antibiotics at this time. We will check a flu swab and we will continue to monitor. Of course, if he develops other signs of infection, the management will be changed but at this time, I do not believe this patient is septic. 3. Acute chronic obstructive pulmonary disease exacerbation. The patient will be continued on bronchodilators. We will add steroids. Flu swab will be checked. 4. Flash pulmonary edema. The patient's echocardiogram in 2016 showed the ejection fraction of 40% to 50%, although it was a limited study due to his body habitus and history of chronic obstructive pulmonary disease. We will repeat an echocardiogram to reassess his left ventricle function. 5. Lactic acidosis. I believe, this is secondary to per perfusion in the setting of impending respiratory arrest. I do not think this number is related to sepsis. The patient is hypertensive, has good peripheral perfusion and although, he has some areas on lower extremities and abdomen that to me looks like mottling. The daughter tells me that those are chronic. I believe as we diurese him, control his atrial fibrillation, and his respiratory failure, his perfusion should improve and his lactic acid should trend down too. We do not have a current medication list, but in the past the patient was on metformin that can also cause lactic acidosis. 6. Atrial fibrillation with rapid ventricular rate. This appears to be new. The patient does not have a history of atrial fibrillation. We will start him on a Cardizem drip for rate control. His CHADs-2 VASc score is 5, so we will also give him one dose of Lovenox, and I will request a cardiology consultation to see if cardioversion or any other measures are indicated. 7. Type 2 diabetes. This patient is going to be n.p.o. for now and he will have a regular insulin sliding scale. 8. DVT prophylaxis: The patient has a score of 3 on the DVT prophylaxis Assessment Guide, and he will receive Lovenox. 9. Code status is full. TIME SPENT: Approximately 65 minutes of critical care time was spent to complete admission. This case was discussed and signed out to Dr. Albert who will be assuming his care. [id number]/[facility] #: [id number] [place]
[2019-09-21] MEDS ORDERED: Heparin VIAL(*) 5000 UNITS/ML VIAL (FIVE THOUSAND) SUBCUT SCH (14:00)
[2019-09-21] MEDS: methylPREDNISolone SOD 40 MG* 1 ML VIAL IV SCH (17:29)
[2019-09-21 17:51] LABS: Troponin I 5.81 ng/mL (<0.03)
[2019-09-21] MEDS: cefTRIAXone(*) 1 GM in NS 0.9% 50 ML* 50 ML IVPB SCH (18:36)
[2019-09-21] MEDS: Azithromycin 500 mg/250 ml NS 500 MG/250 ML BAG IVPB SCH (19:34)
[2019-09-21] MEDS ORDERED: Heparin DRIP 25,000 UNITS(*) 25,000 UNITS/500 ML BAG IV SCH (19:45)
[2019-09-21] MEDS ORDERED: NS 0.9% 1000 ML** 1,000 ML IV ONE (19:51)
[2019-09-21] MEDS ORDERED: Heparin VIAL(*) 5000 UNITS/ML VIAL (FIVE THOUSAND) IV SCH (20:00)
--- NOTE | 2019-09-21 20:11 | CONS ---
CARDIOLOGY CONSULTATION REPORT: DATE OF CONSULT: 09/21/19 REFERRAL PHYSICIAN: Vielka Gauthier MD REASON FOR CARDIOLOGY CONSULTATION: Paroxysmal atrial fibrillation. HISTORY OF PRESENT ILLNESS: I was kindly asked to see this patient by Dr. Gauthier for cardiology consultation regarding PAF. The patient is currently intubated and mechanically ventilated. His daughter is present, but is only able to offer that the patient had some respiratory distress according to a friend of his yesterday, apparently developed respiratory failure this morning and required intubation. She saw the patient several days ago and he did not have any acute complaints at that time. He is currently intubated, mechanically ventilated. The patient has a history of CAD, status post four-vessel bypass surgery 2010 further details unknown; and cardiomyopathy. He may have a history of an arrhythmia (as his daughter states the patient had a heart monitor in the past year and then "started a new medication"). The patient when he was admitted to the hospital today with respiratory failure was found to have transient atrial fibrillation, but he has reverted back to normal sinus rhythm. OTHER PAST MEDICAL HISTORY: 1. Coronary artery disease, status post CABG in 2010, four vessels, further details unknown. 2. Chronic kidney disease, stage 3. 3. COPD. 4. Type 2 diabetes. 5. Hypertension. 6. Hyperlipidemia. 7. 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 8. Cardiomyopathy. MEDICATIONS: Outpatient medications are listed as: 1. Lipitor 80 mg p.o. daily. 2. Aspirin 81 mg once a day. 3. Norvasc 10 mg once a day. 4. Plavix 75 mg once a day. 5. Coreg 6.25 mg once a day. 6. Glucophage 1 g p.o. daily. 7. Lasix 40 mg p.o. daily. 8. Lisinopril 40 mg p.o. daily. 9. Paxil 10 mg p.o. daily. 10. Imdur 30 mg p.o. daily. 11. Albuterol inhalers. ALLERGIES TO MEDICATIONS: Listed as SULFA. FAMILY HISTORY: Unable to obtain. SOCIAL HISTORY: Unable to obtain other than the patient's daughter notes that the patient occasionally smokes cigarettes. REVIEW OF SYSTEMS: Unable to obtain other than as above. PHYSICAL EXAM: Vital Signs: Temperature 99.5 degrees Fahrenheit, pulse 74, O2 saturation 94%, blood pressure 119/57. General Exam: He is intubated and appears comfortable. HEENT: Shows cranium is normocephalic and atraumatic. He has dry mucosal membranes. Neck veins unable to assess. There are no carotid bruits. Visible skin warm and perfused. Affect unable to ascertain. There is no significant kyphoscoliosis on recumbent back exam. Lungs: Reveal occasional rhonchi. Cardiac Exam: S1, S2. Regular rate. Soft holosystolic murmur heard without radiation. No rub or gallop. PMI is nondisplaced. Abdomen: Soft, appears obese. Extremities: With 1+ peripheral edema. Pulses appear grossly intact. DIAGNOSTIC STUDIES/LAB DATA: A 12-lead EKG completed 09/21/19 at 4:14 a.m. demonstrates atrial fibrillation with borderline low voltage, nonspecific ST-T wave changes and a nonspecific QRS widening. Telemetry now clearly shows NSR. Transthoracic echocardiogram done earlier today (please also see full report for further details) showed ejection fraction of 35% to 40%. Right ventricle dilated and hypokinetic. White blood cell count 11.8, hematocrit 44, platelet count 273. Sodium 135, potassium 4.4, chloride 102, bicarbonate 22, BUN 23, creatinine 1.53, troponin is 5.8 and had been 5.81 earlier today and was 0.07 on admission. IMPRESSION: Mr. Cabrera is a 73-year-old gentleman with known history of coronary artery disease, status post bypass surgery with known cardiomyopathy, questionable history of paroxysmal atrial fibrillation and chronic obstructive pulmonary disease admitted with respiratory failure due to the flu. His prior paroxysmal atrial fibrillation is now resolved. He does have elevated troponin , likely related to myocardial strain from his respiratory failure and prior rapid atrial fibrillation. The patient is back in sinus rhythm at this time. Echocardiogram shows persistent, but stable cardiomyopathy and decreased RV function is likely due to his history of chronic obstructive pulmonary disease compounded by current respiratory failure. RECOMMENDATIONS: 1. Continue supportive management per Critical Care Medicine. 2. Obtain old cardiac records from prior network internship. 3. Would recommend restarting aspirin, Coreg, lisinopril, statin. 4. Recommend start of Eliquis 5 mg p.o. b.i.d. when able to start an oral anticoagulant. 5. The patient should follow up with his usual network internship in [place], [place] post discharge. 6. Would give IV heparin until troponin peaks. 7. Diurese as able to. 8. Further management as per the Critical Care Medicine Service. I have discussed the case with Dr. Albert of [facility]. Dear Dr. Gauthier, many thanks for this kind cardiac consultation opportunity. Please do not hesitate contact me if you have any questions or concerns regarding this patient's cardiovascular consultative care. [id number] #: [id number] MTDD
[2019-09-21 20:47] LABS: ABS Lymphocytes 0.4 10^3/ul (1.0-4.8); ABS Monocytes 0.7 10^3/ul (0-0.8); Hematocrit 37 % (42-52); Hemoglobin 12.7 g/dL (14.0-18.0); Lymphocyte % 2.4 %; Mean Corpuscular HGB Conc 35 g/dL (31-36); Mean Corpuscular Hemoglobin 30 pg (27-31); Mean Corpuscular Volume 88 fL (80-94); Mean Platelet Volume 8.4 fL (7.4-10.4); Platelet Count 216 10^3/uL (150-450); Red Blood Count 4.17 10^6 /uL (4.18-5.48); Red Cell Distribution Width 15 % (10-15); White Blood Count 17.2 10^3/uL (3.5-10.8)
[2019-09-21 21:03] LABS: EGFR African American 30.7 (>60); EGFR Non-African American 25.4 (>60)
[2019-09-22 00:03] LABS: Troponin I 4.48 ng/mL (<0.03)
[2019-09-22] MEDS ORDERED: NS 0.9% 1000 ML** 1,000 ML IV SCH (00:30)
[2019-09-22] MEDS: Insulin REGULAR(*) 1 UNITS UNIT SUBCUT SCH ×4 (00:58→18:27)
[2019-09-22] MEDS: Propofol* 100 ML IV SCH ×10 (01:25→23:59)
[2019-09-22] MEDS: Pantoprazole IV* 40 MG IV SCH ×2 (03:14→21:04)
[2019-09-22 03:46] LABS: ABS Lymphocytes 0.6 10^3/ul (1.0-4.8); ABS Neutrophils 15.2 10^3/ul (1.5-7.7); Hematocrit 36 % (42-52); Lymphocyte % 3.6 %; Mean Corpuscular HGB Conc 34 g/dL (31-36); Mean Corpuscular Hemoglobin 30 pg (27-31); Mean Corpuscular Volume 88 fL (80-94); Mean Platelet Volume 8.2 fL (7.4-10.4); Platelet Count 221 10^3/uL (150-450); Red Blood Count 4.04 10^6 /uL (4.18-5.48); Red Cell Distribution Width 15 % (10-15); White Blood Count 16.8 10^3/uL (3.5-10.8)
[2019-09-22 04:01] LABS: BUN/Creatinine Ratio 17.8 (8-20); Calcium 8.2 mg/dL (8.6-10.3); EGFR African American 30.4 (>60); EGFR Non-African American 25.2 (>60); Potassium 4.4 mmol/L (3.5-5.0)
[2019-09-22] MEDS: Albuterol/Ipratropium NEB.SOL* Albuterol 2.5 MG/Ipratropium 0.5 MG 3 ML INH SCH ×6 (04:05→23:17)
[2019-09-22] MEDS: methylPREDNISolone SOD 40 MG* 1 ML VIAL IV SCH ×2 (05:11→18:28)
[2019-09-22] MEDS: Chlorhexidine MOUTHWASH 0.12%* 15 ML UDC SWISH SPIT SCH ×5 (05:11→20:20)
[2019-09-22] MEDS ORDERED: Heparin VIAL(*) 5000 UNITS/ML VIAL (FIVE THOUSAND) SUBCUT SCH (06:00)
[2019-09-22] MEDS: Sodium Bicarbonate 8.4% IV* 75 MEQ in NS 0.45% 1000 ML BAG* 1,000 ML IV SCH (09:22)
[2019-09-22] MEDS: Gabapentin CAP(*) 100 MG PO SCH ×3 (09:32→21:07)
[2019-09-22] MEDS: Atorvastatin* 80 MG TAB PO SCH (09:33)
[2019-09-22] MEDS: Clopidogrel TAB* 75 MG PO SCH (09:33)
[2019-09-22] MEDS: Aspirin EC TAB* 81 MG TAB.EC PO SCH (09:33)
[2019-09-22] MEDS: Isosorbide Mononitrate ER TAB* 30 MG PO SCH (09:35)
[2019-09-22] MEDS: Oseltamivir SUSP* ORALSYR 6 MG/ML PO SCH ×2 (09:36→21:21)
--- NOTE | 2019-09-22 09:58 | PN ---
Date of Service: 09/22/19 Critical Care Services: 73 y.o male admitted with Flu pneumonitis, vent dependent hypercapnic failure; follows commands off sedation intubated not on pressors. Vital Signs: Temp Pulse Resp BP SpO2 FiO2 99.1 F 109 26 156/73 93 40 09/22/19 09:00 09/22/19 09:00 09/22/19 09:00 09/22/19 09:00 09/22/19 09:00 09/22 08:00 Physical Exam: Gen: intubated and sedated currently HEENT: nc/at perrla Lungs: Rhonchi and bilateral Air entry Cardiac: s1 s2 rrr no murmurs and no rubs Abdomen: soft nt/nd bs+ and no guarding and no rebound tenderness Extremities: no edema. wamr extremiteis Neuro: Alert and awake off sedation Fluid Balance (Past 24 Hours): I= O= Net Intake & Output 09/20/19 09/21/19 09/22/19 09/23/19 06:59 06:59 06:59 06:59 Intake Total 2684 52.8 Output Total 1290 200 Balance 1394 -147.2 Weight 270 lb 272 lb 1.937 oz Intake: IV Fluids 1771 ABX - AZITHROMYCIN 265 NS (0.9%) 1411 Medicated IV 913 CC - Propofol/Diprivan 753 Heparin 160 Heparin 52.8 Output: Motta 1290 200 Other: Date of Last Bowel unknown Movement Labs: Laboratory Results - last 24 hr 09/21/19 09/21/19 09/21/19 11:45 17:18 17:20 WBC RBC Hgb Hct MCV MCH MCHC RDW Plt Count MPV Neut % (Auto) Lymph % (Auto) Lipscomb % (Auto) Eos % (Auto) Baso % (Auto) Absolute Neuts (auto) Absolute Lymphs (auto) Absolute Monos (auto) Absolute Eos (auto) Absolute Basos (auto) Absolute Nucleated RBC Nucleated RBC % APTT Sodium Potassium Chloride Carbon Dioxide Anion Gap BUN Creatinine Est GFR ( Amer) Est GFR (Non-Af Amer) BUN/Creatinine Ratio Glucose POC Glucose (mg/dL) 125 H 131 H Calcium Troponin I 5.81 H* 09/21/19 09/21/19 09/21/19 18:14 20:30 20:30 WBC RBC Hgb Hct MCV MCH MCHC RDW Plt Count MPV Neut % (Auto) Lymph % (Auto) Lipscomb % (Auto) Eos % (Auto) Baso % (Auto) Absolute Neuts (auto) Absolute Lymphs (auto) Absolute Monos (auto) Absolute Eos (auto) Absolute Basos (auto) Absolute Nucleated RBC Nucleated RBC % APTT 34.2 Sodium Potassium Chloride Carbon Dioxide Anion Gap BUN 38 H Creatinine 2.51 H Est GFR ( Amer) 30.7 Est GFR (Non-Af Amer) 25.4 BUN/Creatinine Ratio Glucose POC Glucose (mg/dL) Calcium Troponin I 5.80 H* 09/21/19 09/21/19 09/22/19 20:30 23:31 03:12 WBC 17.2 H RBC 4.17 L Hgb 12.7 L Hct 37 L MCV 88 MCH 30 MCHC 35 RDW 15 Plt Count 216 MPV 8.4 Neut % (Auto) 93.2 Lymph % (Auto) 2.4 Lipscomb % (Auto) 4.3 Eos % (Auto) 0.0 Baso % (Auto) 0.1 Absolute Neuts (auto) 16.0 H Absolute Lymphs (auto) 0.4 L Absolute Monos (auto) 0.7 Absolute Eos (auto) 0.0 Absolute Basos (auto) 0.0 Absolute Nucleated RBC 0.0 Nucleated RBC % 0.0 APTT 73.2 H Sodium Potassium Chloride Carbon Dioxide Anion Gap BUN Creatinine Est GFR ( Amer) Est GFR (Non-Af Amer) BUN/Creatinine Ratio Glucose POC Glucose (mg/dL) Calcium Troponin I 4.48 H* 09/22/19 09/22/19 03:12 03:12 WBC 16.8 H RBC 4.04 L Hgb 12.0 L Hct 36 L MCV 88 MCH 30 MCHC 34 RDW 15 Plt Count 221 MPV 8.2 Neut % (Auto) 90.5 Lymph % (Auto) 3.6 Lipscomb % (Auto) 5.9 Eos % (Auto) 0.0 Baso % (Auto) 0.0 Absolute Neuts (auto) 15.2 H Absolute Lymphs (auto) 0.6 L Absolute Monos (auto) 1.0 H Absolute Eos (auto) 0.0 Absolute Basos (auto) 0.0 Absolute Nucleated RBC 0.0 Nucleated RBC % 0.0 APTT Sodium 134 L Potassium 4.4 Chloride 104 Carbon Dioxide 21 L Anion Gap 9 BUN 45 H Creatinine 2.53 H Est GFR ( Amer) 30.4 Est GFR (Non-Af Amer) 25.2 BUN/Creatinine Ratio 17.8 Glucose 151 H POC Glucose (mg/dL) Calcium 8.2 L Troponin I Impression: Assessment 1. Acute hypercapnic vent dependent respiratory failure 2. Flu pneumonitis 3. Acute CHF with depressed EF 35-40% 4. acute on chronic kidney dz 5. COPD not on home oxygen 6. CAD 7. 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 Nstemi Plan: -Continue ventilatory support. Reduce inspiratory time for auto peep -Chest ray congesion or pneumonitis; hold diuretics in light of worsening renal failure -Continue abx and await culture as well as tamiflu -continue cardiac meds -Insulin sliding scale tube feed continue -on steroid taper he is not wheezing currently -Troponins going down; stop the Heparin gtt and we will switch to heparin 5000 units tid -Cardiology is on board; no immediate plans for a cardiac cath -1/2 ns with 0.45 sodium bicarbonate at 50 ml/hr -Daughter is updated -Daily chest xrarys Critical Care Time: The patient requires intensive medical decison making to prevent adverse outcomes. The ccm time is 32 minutes.
[2019-09-22] MEDS: Heparin VIAL(*) 5000 UNITS/ML VIAL (FIVE THOUSAND) SUBCUT SCH ×2 (14:05→21:03)
[2019-09-22] MEDS: cefTRIAXone(*) 1 GM in NS 0.9% 50 ML* 50 ML IVPB SCH (18:29)
[2019-09-22] MEDS: Azithromycin 500 mg/250 ml NS 500 MG/250 ML BAG IVPB SCH (18:33)
[2019-09-22] MEDS: fentaNYL* 50 MCG/ML 2 ML VIAL (100 MCG VIAL) IV SLOW PU PRN ×2 (19:58→22:22)
[2019-09-23] MEDS: Insulin REGULAR(*) 1 UNITS UNIT SUBCUT SCH ×4 (01:43→17:14)
[2019-09-23] MEDS: Chlorhexidine MOUTHWASH 0.12%* 15 ML UDC SWISH SPIT SCH ×6 (01:43→21:38)
[2019-09-23] MEDS: Propofol* 100 ML IV SCH ×9 (01:44→23:12)
[2019-09-23] MEDS: Albuterol/Ipratropium NEB.SOL* Albuterol 2.5 MG/Ipratropium 0.5 MG 3 ML INH SCH ×2 (02:56→07:50)
[2019-09-23] MEDS: Heparin VIAL(*) 5000 UNITS/ML VIAL (FIVE THOUSAND) SUBCUT SCH ×3 (05:44→21:38)
[2019-09-23] MEDS: methylPREDNISolone SOD 40 MG* 1 ML VIAL IV SCH ×2 (05:46→17:14)
[2019-09-23] MEDS: Sodium Bicarbonate 8.4% IV* 75 MEQ in NS 0.45% 1000 ML BAG* 1,000 ML IV SCH (05:47)
[2019-09-23 06:06] LABS: Hematocrit 36 % (42-52); Hemoglobin 12.1 g/dL (14.0-18.0); Mean Corpuscular HGB Conc 34 g/dL (31-36); Mean Corpuscular Hemoglobin 30 pg (27-31); Mean Corpuscular Volume 89 fL (80-94); Platelet Count 234 10^3/uL (150-450); Red Blood Count 4.07 10^6 /uL (4.18-5.48); Red Cell Distribution Width 15 % (10-15); White Blood Count 17.6 10^3/uL (3.5-10.8)
[2019-09-23 06:23] LABS: BUN/Creatinine Ratio 26.4 (8-20); Calcium 7.9 mg/dL (8.6-10.3); EGFR African American 41.6 (>60); EGFR Non-African American 34.4 (>60); Potassium 4.9 mmol/L (3.5-5.0)
[2019-09-23] MEDS: Aspirin EC TAB* 81 MG TAB.EC PO SCH (08:09)
[2019-09-23] MEDS: Gabapentin CAP(*) 100 MG PO SCH ×3 (08:09→21:38)
[2019-09-23] MEDS: Clopidogrel TAB* 75 MG PO SCH (08:09)
[2019-09-23] MEDS: Isosorbide Mononitrate ER TAB* 30 MG PO SCH (08:09)
[2019-09-23] MEDS: Oseltamivir SUSP* ORALSYR 6 MG/ML PO SCH ×2 (08:09→21:39)
[2019-09-23] MEDS: Atorvastatin* 80 MG TAB PO SCH (08:09)
[2019-09-23 10:08] LABS: Albumin 3.3 g/dL (3.2-5.2); Albumin/Globulin Ratio 1.4 (1-3); Globulin 2.4 g/dL (2-4); Indirect Bilirubin 0.4 mg/dL (0.3-1.0); Total Bilirubin 0.5 mg/dL (0.2-1.0); Total Protein 5.7 g/dL (6.4-8.9)
--- NOTE | 2019-09-23 10:47 | PN ---
Date of Service: 09/23/19 Critical Care Services: On the vent oxygen requirements increased overnight; tube feed type secretions coming out. Vital Signs: Temp Pulse Resp BP SpO2 FiO2 100.0 F 89 30 136/64 93 70 09/23/19 10:00 09/23/19 10:00 09/23/19 10:00 09/23/19 10:00 09/23/19 10:00 08:00 Physical Exam: Gen: on the vent and sedated on propfol HEENT: nc/at perrla Lungs: Rhonchi and Bilateral Air entry Cardiac: s1s2 rrr no murmurs an no rub Abdomen: soft nt/nt and bs+ with no guarding and no rebound tenderness Extremities: no edema. Neuro: moves extremities sedation vacation is planned. Fluid Balance (Past 24 Hours): I= O= Net Intake & Output 09/21/19 09/22/19 09/23/19 09/24/19 06:59 06:59 06:59 06:59 Intake Total 2684 2794.8 120 Output Total 1290 2291 475 Balance 1394 503.8 -355 Weight 270 lb 272 lb 1.937 oz 274 lb 11.135 oz Intake: IV Fluids 1771 1689 ABX - AZITHROMYCIN 265 NS (0.9%) 1411 466 sodium bicarbonate 1223 Medicated IV 913 1008 CC - Propofol/Diprivan 753 1008 Heparin 160 Heparin 52.8 Tube Feeding 45 120 Output: Motta 1290 2291 475 Other: Date of Last Bowel unknown unknown Movement Labs: Laboratory Results - last 24 hr 09/21/19 09/22/19 09/22/19 23:39 05:11 12:38 WBC RBC Hgb Hct MCV MCH MCHC RDW Plt Count MPV Sodium Potassium Chloride Carbon Dioxide Anion Gap BUN Creatinine Est GFR ( Amer) Est GFR (Non-Af Amer) BUN/Creatinine Ratio Glucose POC Glucose (mg/dL) 179 H 152 H 143 H Calcium Total Bilirubin Direct Bilirubin Indirect Bilirubin AST ALT Alkaline Phosphatase Total Protein Albumin Globulin Albumin/Globulin Ratio 09/22/19 09/23/19 09/23/19 17:47 00:02 05:57 WBC RBC Hgb Hct MCV MCH MCHC RDW Plt Count MPV Sodium 134 L Potassium 4.9 Chloride 107 Carbon Dioxide 21 L Anion Gap 6 BUN 51 H Creatinine 1.93 H Est GFR ( Amer) 41.6 Est GFR (Non-Af Amer) 34.4 BUN/Creatinine Ratio 26.4 H Glucose 140 H POC Glucose (mg/dL) 151 H 167 H Calcium 7.9 L Total Bilirubin 0.50 Direct Bilirubin 0.10 Indirect Bilirubin 0.4 AST 34 ALT 23 Alkaline Phosphatase 69 Total Protein 5.7 L Albumin 3.3 Globulin 2.4 Albumin/Globulin Ratio 1.4 09/23/19 05:57 WBC 17.6 H RBC 4.07 L Hgb 12.1 L Hct 36 L MCV 89 MCH 30 MCHC 34 RDW 15 Plt Count 234 MPV 8.0 Sodium Potassium Chloride Carbon Dioxide Anion Gap BUN Creatinine Est GFR ( Amer) Est GFR (Non-Af Amer) BUN/Creatinine Ratio Glucose POC Glucose (mg/dL) Calcium Total Bilirubin Direct Bilirubin Indirect Bilirubin AST ALT Alkaline Phosphatase Total Protein Albumin Globulin Albumin/Globulin Ratio Impression: 1. Acute hypercapnic vent dependent respiratory failure 2. Flu pneumonitis 3. Acute CHF with depressed EF 35-40% 4. acute on chronic kidney dz 5. COPD not on home oxygen 6. CAD 7. 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 Nstemi Plan: Plan: -Oxygenation is worse now n 60% fio2 and a peep of 8. -Ng tube was possible in the Right mainstem bronchus. -We will consider a bronchoscopy -Stop IV fluids and monitor Urine output -new ng tube and start tube feeds -Cardiac meds and antiplatlet agents to continue -cardiology following; no plans for a cath -change tamiflu to 75 mg po bid -Renal function is better avoid nephrotoxic meds. -We will do sbt; he will most likely need precedex at extubation per history -ppi and chemical dvt ppx -spoke to the daughter. -30 minutes into the SBT the patient's HR went up to 40. He is put back on the AC/VC mode. Critical Care Time: The pateint requires intensive medical decision making to prevent adverse outcomes. The ccm time is 32 minutes.
[2019-09-23] MEDS ORDERED: Oseltamivir SUSP* ORALSYR 6 MG/ML PO ONE (11:00)
[2019-09-23 11:17] LABS: ABS Lymphocytes 0.9 10^3/ul (1.0-4.8); ABS Monocytes 1.8 10^3/ul (0-0.8); ABS Neutrophils 15.2 10^3/ul (1.5-7.7); Eosinophil % 0.1 %
[2019-09-23] MEDS: cefTRIAXone(*) 1 GM in NS 0.9% 50 ML* 50 ML IVPB SCH (17:13)
[2019-09-23] MEDS: Azithromycin 500 mg/250 ml NS 500 MG/250 ML BAG IVPB SCH (18:02)
[2019-09-23] MEDS: Pantoprazole IV* 40 MG IV SCH (21:38)
[2019-09-24] MEDS: Insulin REGULAR(*) 1 UNITS UNIT SUBCUT SCH ×4 (00:59→18:43)
[2019-09-24] MEDS: Propofol* 100 ML IV SCH ×10 (00:59→23:44)
[2019-09-24] MEDS: Sodium Bicarbonate 8.4% IV* 75 MEQ in NS 0.45% 1000 ML BAG* 1,000 ML IV SCH (01:33)
[2019-09-24] MEDS: Chlorhexidine MOUTHWASH 0.12%* 15 ML UDC SWISH SPIT SCH ×6 (03:23→21:39)
[2019-09-24 05:37] LABS: Hematocrit 36 % (42-52); Mean Corpuscular HGB Conc 34 g/dL (31-36); Mean Corpuscular Hemoglobin 29 pg (27-31); Mean Corpuscular Volume 87 fL (80-94); Platelet Count 235 10^3/uL (150-450); Red Blood Count 4.08 10^6 /uL (4.18-5.48); Red Cell Distribution Width 15 % (10-15); White Blood Count 11.6 10^3/uL (3.5-10.8)
[2019-09-24] MEDS: methylPREDNISolone SOD 40 MG* 1 ML VIAL IV SCH ×2 (05:43→18:29)
[2019-09-24] MEDS: Heparin VIAL(*) 5000 UNITS/ML VIAL (FIVE THOUSAND) SUBCUT SCH ×3 (05:43→21:39)
[2019-09-24 05:54] LABS: BUN/Creatinine Ratio 36.2 (8-20); Calcium 8.3 mg/dL (8.6-10.3); EGFR African American 46.9 (>60); EGFR Non-African American 38.8 (>60); Magnesium 3.2 mg/dL (1.9-2.7); Phosphorus 4.8 mg/dL (2.5-5.0); Potassium 5.4 mmol/L (3.5-5.0)
[2019-09-24] MEDS: Aspirin EC TAB* 81 MG TAB.EC PO SCH (08:16)
[2019-09-24] MEDS: Atorvastatin* 80 MG TAB PO SCH (08:16)
[2019-09-24] MEDS: Oseltamivir SUSP* ORALSYR 6 MG/ML PO SCH ×2 (08:16→21:40)
[2019-09-24] MEDS: Gabapentin CAP(*) 100 MG PO SCH ×3 (08:16→21:40)
[2019-09-24] MEDS: Isosorbide Mononitrate ER TAB* 30 MG PO SCH (08:16)
[2019-09-24] MEDS: Clopidogrel TAB* 75 MG PO SCH (08:17)
--- NOTE | 2019-09-24 10:30 | PN ---
Date of Service: 09/24/19 Critical Care Services: Stable on vent overnight Vital Signs: Temp Pulse Resp BP SpO2 FiO2 37.9 C 77 25 158/76 93 50 09/24/19 10:15 09/24/19 10:15 09/24/19 06:00 09/24/19 10:15 09/24/19 10:15 09/23 07:20 Physical Exam: Gen: sedated HEENT: intubated, NCAT, PERRL Lungs: coarse entry bilat Cardiac: S1S2 regular Abdomen: soft, NT, ND, +BS Extremities: mild edema Neuro: moves all 4 spont Fluid Balance (Past 24 Hours): I= O= Net Intake & Output 09/22/19 09/23/19 09/24/19 09/25/19 06:59 06:59 06:59 06:59 Intake Total 2684 2794.8 3044 821 Output Total 1290 2291 1945 365 Balance 1394 503.8 1099 456 Weight 123.432 kg 124.6 kg 127.006 kg Intake: IV Fluids 1771 1689 241 ABX - AZITHROMYCIN 265 NS (0.9%) 1411 466 19 sodium bicarbonate 1223 222 Medicated IV 913 1008 1295 CC - Propofol/Diprivan 753 1008 1295 Heparin 160 Heparin 52.8 Tube Feeding 45 1448 821 NG Tube Irrigate Amount 60 Output: Motta 1290 2291 1945 365 Other: Date of Last Bowel unknown unknown Movement Labs: Laboratory Results - last 24 hr 09/23/19 09/23/19 09/23/19 05:57 12:01 13:25 WBC RBC Hgb Hct MCV MCH MCHC RDW Plt Count MPV Neut % (Auto) 84.7 Lymph % (Auto) 5.0 Alpine % (Auto) 9.9 Eos % (Auto) 0.1 Baso % (Auto) 0.3 Absolute Neuts (auto) 15.2 H Absolute Lymphs (auto) 0.9 L Absolute Monos (auto) 1.8 H Absolute Eos (auto) 0.0 Absolute Basos (auto) 0.0 Absolute Nucleated RBC 0.0 Nucleated RBC % 0.0 Sodium Potassium Chloride Carbon Dioxide Anion Gap BUN Creatinine Est GFR ( Amer) Est GFR (Non-Af Amer) BUN/Creatinine Ratio Glucose POC Glucose (mg/dL) 186 H Lactic Acid 1.1 Calcium Phosphorus Magnesium 09/23/19 09/24/19 09/24/19 17:07 00:50 05:23 WBC RBC Hgb Hct MCV MCH MCHC RDW Plt Count MPV Neut % (Auto) Lymph % (Auto) Alpine % (Auto) Eos % (Auto) Baso % (Auto) Absolute Neuts (auto) Absolute Lymphs (auto) Absolute Monos (auto) Absolute Eos (auto) Absolute Basos (auto) Absolute Nucleated RBC Nucleated RBC % Sodium Potassium Chloride Carbon Dioxide Anion Gap BUN Creatinine Est GFR ( Amer) Est GFR (Non-Af Amer) BUN/Creatinine Ratio Glucose POC Glucose (mg/dL) 144 H 188 H 154 H Lactic Acid Calcium Phosphorus Magnesium 09/24/19 09/24/19 09/24/19 05:32 05:32 05:32 WBC 11.6 H RBC 4.08 L Hgb 12.0 L Hct 36 L MCV 87 MCH 29 MCHC 34 RDW 15 Plt Count 235 MPV 8.0 Neut % (Auto) Lymph % (Auto) Alpine % (Auto) Eos % (Auto) Baso % (Auto) Absolute Neuts (auto) Absolute Lymphs (auto) Absolute Monos (auto) Absolute Eos (auto) Absolute Basos (auto) Absolute Nucleated RBC Nucleated RBC % Sodium 136 Potassium 5.4 H Chloride 106 Carbon Dioxide 27 Anion Gap 3 BUN 63 H Creatinine 1.74 H Est GFR ( Amer) 46.9 Est GFR (Non-Af Amer) 38.8 BUN/Creatinine Ratio 36.2 H Glucose 137 H POC Glucose (mg/dL) Lactic Acid Calcium 8.3 L Phosphorus 4.8 Magnesium 3.2 H Studies: ECHO with EF 35-40, biatrial enlargement, CXR with pulmonary edema Nutrition: TF Impression: 74 y/o male with COPD/CHF and Flu now intubated for same, improving slowly. Plan: Acute Hypoxic Respiratory Failure - stable ventilator requirement. CXR with CHF , will diurese today. Acute on Chronic Combined Systolic and Diastolic Heart Failure - BP high, will use it support diuresis. When euvolemic, if still hypertensive will focus on afterload reduction. Influenza - continue Tamiflu and droplet isolation. COPD Exacerbation - steroids, bronchodilators, and CAP Abx for possible pneumonia. GI/DVT prophylaxis and TF with glycemic control continue. Critical Care Time: 35 minutes
[2019-09-24] MEDS: Furosemide IV* 10 MG/ML 10 ML VIAL (100 MG) IV SCH ×2 (12:50→23:26)
[2019-09-24] MEDS: Azithromycin 500 mg/250 ml NS 500 MG/250 ML BAG IVPB SCH (18:29)
[2019-09-24] MEDS: cefTRIAXone(*) 1 GM in NS 0.9% 50 ML* 50 ML IVPB SCH (18:29)
[2019-09-24] MEDS: Pantoprazole IV* 40 MG IV SCH (21:39)
[2019-09-24] MEDS: fentaNYL* 50 MCG/ML 2 ML VIAL (100 MCG VIAL) IV SLOW PU PRN (22:12)
[2019-09-24] MEDS: Acetaminophen ADULT LIQ* 650 MG/20.3 ML UDC PO PRN (22:13)
[2019-09-25] MEDS: Chlorhexidine MOUTHWASH 0.12%* 15 ML UDC SWISH SPIT SCH ×7 (01:59→23:41)
[2019-09-25] MEDS: Insulin REGULAR(*) 1 UNITS UNIT SUBCUT SCH ×4 (01:59→17:36)
[2019-09-25] MEDS: Propofol* 100 ML IV SCH ×8 (01:59→23:40)
[2019-09-25 04:53] LABS: Hematocrit 38 % (42-52); Hemoglobin 13.2 g/dL (14.0-18.0); Mean Corpuscular HGB Conc 34 g/dL (31-36); Mean Corpuscular Hemoglobin 30 pg (27-31); Mean Corpuscular Volume 87 fL (80-94); Mean Platelet Volume 8.2 fL (7.4-10.4); Platelet Count 264 10^3/uL (150-450); Red Blood Count 4.39 10^6 /uL (4.18-5.48); Red Cell Distribution Width 15 % (10-15); White Blood Count 12.6 10^3/uL (3.5-10.8)
[2019-09-25 05:10] LABS: Albumin 3.6 g/dL (3.2-5.2); Albumin/Globulin Ratio 1.2 (1-3); BUN/Creatinine Ratio 39.3 (8-20); EGFR African American 47.2 (>60); Globulin 2.9 g/dL (2-4); Magnesium 3.1 mg/dL (1.9-2.7); Phosphorus 5.3 mg/dL (2.5-5.0); Total Bilirubin 0.5 mg/dL (0.2-1.0); Total Protein 6.5 g/dL (6.4-8.9)
[2019-09-25 05:25] LABS: Potassium 5.4 mmol/L (3.5-5.0)
[2019-09-25] MEDS: Heparin VIAL(*) 5000 UNITS/ML VIAL (FIVE THOUSAND) SUBCUT SCH ×3 (06:21→21:22)
[2019-09-25] MEDS: methylPREDNISolone SOD 40 MG* 1 ML VIAL IV SCH ×2 (06:22→17:36)
[2019-09-25] MEDS: fentaNYL* 50 MCG/ML 2 ML VIAL (100 MCG VIAL) IV SLOW PU PRN ×5 (06:42→19:45)
[2019-09-25] MEDS: Oseltamivir SUSP* ORALSYR 6 MG/ML PO SCH (08:17)
[2019-09-25] MEDS: Clopidogrel TAB* 75 MG PO SCH (08:17)
[2019-09-25] MEDS: Gabapentin CAP(*) 100 MG PO SCH ×2 (08:17→14:57)
[2019-09-25] MEDS: Atorvastatin* 80 MG TAB PO SCH (08:17)
[2019-09-25] MEDS: Polyethylene Glycol 3350* 17 GM PACKET PO PRN (09:11)
[2019-09-25] MEDS ORDERED: Aspirin 81 mg CHEW TAB* 81 MG TAB.CHEW ONE (09:50)
[2019-09-25] MEDS: Carvedilol TAB* 6.25 MG PO SCH (09:54)
[2019-09-25] MEDS: amLODIPine TAB* 5 MG PO SCH (09:54)
[2019-09-25] MEDS: Aspirin 81 mg CHEW TAB* 81 MG TAB.CHEW PO SCH (09:54)
[2019-09-25] MEDS: Furosemide IV* 10 MG/ML VIAL (40 MG) IV SCH ×2 (09:55→23:40)
[2019-09-25] MEDS: Aspirin EC TAB* 81 MG TAB.EC PO SCH (10:11)
[2019-09-25] MEDS: Isosorbide Mononitrate ER TAB* 30 MG PO SCH (10:22)
[2019-09-25] MEDS ORDERED: Calcium Gluconate INJ* 2 GM in NS 0.9% 100 ML* 100 ML IV ONE (10:30)
--- NOTE | 2019-09-25 11:23 | PN ---
Date of Service: 09/25/19 Critical Care Services: Stable on vent Vital Signs: Temp Pulse Resp BP SpO2 FiO2 37.7 C 82 30 167/80 91 50 09/25/19 11:00 09/25/19 11:00 09/25/19 10:00 09/25/19 11:00 09/25/19 11:00 09/24 08:00 Physical Exam: Gen: comfortably sedated HEENT: intubated, NCAT, PERRL Lungs: rales Cardiac: S1S2 regular Abdomen: soft, NT, +BS Extremities: no edema Neuro: sedated, moves ext x 4 Fluid Balance (Past 24 Hours): I= O= Net Intake & Output 09/23/19 09/24/19 09/25/19 09/26/19 06:59 06:59 06:59 06:59 Intake Total 2794.8 3044 2526 100 Output Total 2291 1945 6065 1085 Balance 503.8 1099 -3539 -985 Weight 124.6 kg 127.006 kg 120.4 kg Intake: IV Fluids 1689 241 267 ABX - AZITHROMYCIN 267 NS (0.9%) 466 19 sodium bicarbonate 1223 222 Medicated IV 1008 1295 970 CC - Propofol/Diprivan 1008 1295 970 Heparin 52.8 Oral 0 Tube Feeding 45 1448 1289 Tube Feeding Flush Amount 100 NG Tube Irrigate Amount 60 Output: G Tube 300 Motta 2291 1945 5765 1085 Other: Date of Last Bowel unknown unknown Movement Labs: Laboratory Results - last 24 hr 09/24/19 09/24/19 09/25/19 11:58 18:29 04:31 WBC RBC Hgb Hct MCV MCH MCHC RDW Plt Count MPV Sodium 138 Potassium 5.4 H Chloride 102 Carbon Dioxide 30 Anion Gap 6 BUN 68 H Creatinine 1.73 H Est GFR ( Amer) 47.2 Est GFR (Non-Af Amer) 39.0 BUN/Creatinine Ratio 39.3 H Glucose 142 H POC Glucose (mg/dL) 165 H 131 H Calcium 9.0 Ionized Calcium Phosphorus 5.3 H Magnesium 3.1 H Total Bilirubin 0.50 AST 18 ALT 29 Alkaline Phosphatase 61 Total Protein 6.5 Albumin 3.6 Globulin 2.9 Albumin/Globulin Ratio 1.2 03/02/20 03/02/20 04:31 04:31 WBC 12.6 H RBC 4.39 Hgb 13.2 L Hct 38 L MCV 87 MCH 30 MCHC 34 RDW 15 Plt Count 264 MPV 8.2 Sodium Potassium Chloride Carbon Dioxide Anion Gap BUN Creatinine Est GFR ( Amer) Est GFR (Non-Af Amer) BUN/Creatinine Ratio Glucose POC Glucose (mg/dL) Calcium Ionized Calcium 1.12 L Phosphorus Magnesium Total Bilirubin AST ALT Alkaline Phosphatase Total Protein Albumin Globulin Albumin/Globulin Ratio Nutrition: Awais TF at goal Impression: Acute Hypoxic Respiratory Failure secondary to Influenza and decompensated heart failure Plan: Acute Hypoxic Respiratory Failure - secondary to Influenza and decompensated heart failure. Negative balance 4.5 liters last 24H with stable Cr and BP actually up. Restarted his Coreg and Amlodipine this AM to get his afterload under control. Stable ventilator requirement. Needs time for Flu to run its course. Acute on Chronic Combined Systolic and Diastolic Heart Failure - BP higher today as above, negative balance 4.5 liters and will start afterload reduction. Influenza - continue Tamiflu and droplet isolation. COPD Exacerbation - steroids, bronchodilators, and CAP Abx for possible pneumonia to continue GI/DVT prophylaxis and TF with glycemic control continue. D/W daughter at bedside on AM rounds. Critical Care Time: 40 minutes
[2019-09-25] MEDS: cefTRIAXone(*) 1 GM in NS 0.9% 50 ML* 50 ML IVPB SCH (17:35)
[2019-09-25] MEDS: Azithromycin 500 mg/250 ml NS 500 MG/250 ML BAG IVPB SCH (18:36)
[2019-09-25] MEDS: Pantoprazole IV* 40 MG IV SCH (23:40)
[2019-09-26] MEDS: Gabapentin CAP(*) 100 MG PO SCH ×4 (00:18→21:20)
[2019-09-26] MEDS: Oseltamivir SUSP* ORALSYR 6 MG/ML PO SCH ×3 (00:18→21:59)
[2019-09-26] MEDS: Carvedilol TAB* 6.25 MG PO SCH ×4 (00:18→21:56)
[2019-09-26] MEDS: Insulin REGULAR(*) 1 UNITS UNIT SUBCUT SCH ×4 (00:59→17:40)
[2019-09-26 04:10] LABS: Albumin 3.5 g/dL (3.2-5.2); Albumin/Globulin Ratio 1.3 (1-3); BUN/Creatinine Ratio 49.7 (8-20); Calcium 8.8 mg/dL (8.6-10.3); EGFR African American 50.6 (>60); EGFR Non-African American 41.8 (>60); Globulin 2.7 g/dL (2-4); Magnesium 3.1 mg/dL (1.9-2.7); Phosphorus 5.7 mg/dL (2.5-5.0); Total Bilirubin 0.5 mg/dL (0.2-1.0); Total Protein 6.2 g/dL (6.4-8.9)
[2019-09-26 04:35] LABS: Potassium 5.6 mmol/L (3.5-5.0)
[2019-09-26] MEDS ORDERED: Sodium Polystyrene ORAL.SUSP* 15 GM/60 ML BTL PO ONE (05:00)
[2019-09-26] MEDS: Chlorhexidine MOUTHWASH 0.12%* 15 ML UDC SWISH SPIT SCH ×5 (05:11→20:47)
[2019-09-26] MEDS: Heparin VIAL(*) 5000 UNITS/ML VIAL (FIVE THOUSAND) SUBCUT SCH ×3 (05:11→21:07)
[2019-09-26] MEDS: methylPREDNISolone SOD 40 MG* 1 ML VIAL IV SCH (05:11)
[2019-09-26] MEDS: Polyethylene Glycol 3350* 17 GM PACKET PO PRN (05:12)
[2019-09-26] MEDS: Propofol* 100 ML IV SCH ×5 (06:23→22:46)
[2019-09-26] MEDS: Atorvastatin* 80 MG TAB PO SCH (09:20)
[2019-09-26] MEDS: Furosemide IV* 10 MG/ML VIAL (40 MG) IV SCH ×2 (09:20→20:59)
[2019-09-26] MEDS: Clopidogrel TAB* 75 MG PO SCH (09:20)
[2019-09-26] MEDS: Aspirin 81 mg CHEW TAB* 81 MG TAB.CHEW PO SCH (09:20)
[2019-09-26] MEDS: amLODIPine TAB* 5 MG PO SCH (09:20)
[2019-09-26] MEDS: Isosorbide Mononitrate ER TAB* 30 MG PO SCH (09:22)
--- NOTE | 2019-09-26 10:42 | PN ---
Date of Service: 09/26/19 Critical Care Services: Stable overnight with thick creamy secretions via ETT Vital Signs: Temp Pulse Resp BP SpO2 FiO2 37.9 C 78 27 154/73 90 50 09/26/19 10:01 09/26/19 10:01 09/26/19 08:15 09/26/19 10:01 09/26/19 10:01 09/25 08:15 Physical Exam: Gen: rousing off diprivan HEENT: intubated, NCAT, PERRL Lungs: rhonchi bilat Cardiac: S1S2 regular Abdomen: obese, soft, NT, ND, +BS Extremities: no edema Neuro: moves ext x 4, sedation wearing off Fluid Balance (Past 24 Hours): I= O= Net Intake & Output 09/24/19 09/25/19 09/26/19 09/27/19 06:59 06:59 06:59 06:59 Intake Total 3044 2526 3142 70 Output Total 0628 4926 3065 150 Balance 1099 -3539 -628 -80 Weight 127.006 kg 120.4 kg 118.2 kg Intake: IV Fluids 241 267 206 ABX - AZITHROMYCIN 267 ABX - CEFTRIAXONE 33 NS (0.9%) 19 173 sodium bicarbonate 222 IVPB 467 ABX - AZITHROMYCIN 271 ABX - CEFTRIAXONE 72 Calcium gluconate 124 Medicated IV 1295 970 670 CC - Propofol/Diprivan 1295 970 670 Oral 0 Tube Feeding 1448 1289 1699 Tube Feeding Flush Amount 100 NG Tube Irrigate Amount 60 70 Output: G Tube 300 Motta 1942 3150 3771 150 Other: Date of Last Bowel unknown Movement Labs: Laboratory Results - last 24 hr 09/25/19 09/25/19 09/25/19 00:38 11:07 17:06 Sodium Potassium Chloride Carbon Dioxide Anion Gap BUN Creatinine Est GFR ( Amer) Est GFR (Non-Af Amer) BUN/Creatinine Ratio Glucose POC Glucose (mg/dL) 205 H 178 H 141 H Calcium Ionized Calcium Phosphorus Magnesium Total Bilirubin AST ALT Alkaline Phosphatase Total Protein Albumin Globulin Albumin/Globulin Ratio 09/26/19 09/26/19 09/26/19 00:53 03:36 03:36 Sodium 136 Potassium 5.6 H Chloride 100 L Carbon Dioxide 30 Anion Gap 6 BUN 81 H Creatinine 1.63 H Est GFR ( Amer) 50.6 Est GFR (Non-Af Amer) 41.8 BUN/Creatinine Ratio 49.7 H Glucose 140 H POC Glucose (mg/dL) 169 H Calcium 8.8 Ionized Calcium 1.04 L Phosphorus 5.7 H Magnesium 3.1 H Total Bilirubin 0.50 AST 14 ALT 23 Alkaline Phosphatase 56 Total Protein 6.2 L Albumin 3.5 Globulin 2.7 Albumin/Globulin Ratio 1.3 09/26/19 05:49 Sodium Potassium Chloride Carbon Dioxide Anion Gap BUN Creatinine Est GFR ( Amer) Est GFR (Non-Af Amer) BUN/Creatinine Ratio Glucose POC Glucose (mg/dL) 142 H Calcium Ionized Calcium Phosphorus Magnesium Total Bilirubin AST ALT Alkaline Phosphatase Total Protein Albumin Globulin Albumin/Globulin Ratio Studies: Persistent LLL pneumonia Nutrition: Awais TF Impression: Acute Hypoxic Respiratory Failure secondary to Influenza and decompensated heart failure with persistent LLL pneumonia Plan: Acute Hypoxic Respiratory Failure - secondary to Influenza and decompensated heart failure. CXR this AM with persistent LLL pneumonia. Increased secretions last 24H but no new sig fever, WBC stable at 12. Will send for sputum culture, broaden Abx to cefepime to include more broad GNR coverage in this diabetic. Also noted to have thrush on exam this AM, will add nystatin for now. Vent adjusted to APRV to try and enhance his recruitment of that LLL. Acute on Chronic Combined Systolic and Diastolic Heart Failure - BP better today on his antiHTN regimen. Influenza - continue Tamiflu and droplet isolation. COPD Exacerbation - steroids, bronchodilators, and Abx as above GI/DVT prophylaxis and TF with glycemic control continue. D/W daughter at bedside on AM rounds. Critical Care Time: 40 minutes
[2019-09-26] MEDS: Cefepime 1 GM in Dextrose(*) 1 GM/50 ML BAG IV SCH ×2 (11:10→22:46)
[2019-09-26] MEDS: Nystatin SUSPENSION* 100000 UNITS/ML 5 ML UDC PO SCH ×3 (13:37→21:08)
[2019-09-26] MEDS: Acetaminophen ADULT LIQ* 650 MG/20.3 ML UDC PO PRN ×2 (15:06→21:20)
[2019-09-26] MEDS ORDERED: Norepinephrine 16MCG/ML IVPRE* 4,000 MCG/250 ML BAG IV ONE (15:41)
[2019-09-26] MEDS: Azithromycin 500 mg/250 ml NS 500 MG/250 ML BAG IVPB SCH (17:42)
[2019-09-26] MEDS: Norepinephrine 16MCG/ML IVPRE* 4,000 MCG/250 ML BAG IV SCH (18:40)
[2019-09-26] MEDS: Pantoprazole IV* 40 MG IV SCH (21:03)
[2019-09-27] MEDS: Insulin REGULAR(*) 1 UNITS UNIT SUBCUT SCH ×4 (00:24→17:16)
[2019-09-27] MEDS: Chlorhexidine MOUTHWASH 0.12%* 15 ML UDC SWISH SPIT SCH ×6 (00:24→21:10)
[2019-09-27] MEDS: Propofol* 100 ML IV SCH (04:44)
[2019-09-27 04:49] LABS: Hematocrit 44 % (42-52); Hemoglobin 14.6 g/dL (14.0-18.0); Mean Corpuscular HGB Conc 34 g/dL (31-36); Mean Corpuscular Hemoglobin 29 pg (27-31); Mean Corpuscular Volume 87 fL (80-94); Mean Platelet Volume 8.4 fL (7.4-10.4); Platelet Count 291 10^3/uL (150-450); Red Blood Count 4.98 10^6 /uL (4.18-5.48); Red Cell Distribution Width 15 % (10-15); White Blood Count 20.3 10^3/uL (3.5-10.8)
[2019-09-27 05:05] LABS: Albumin 3.5 g/dL (3.2-5.2); Albumin/Globulin Ratio 1.1 (1-3); BUN/Creatinine Ratio 49.3 (8-20); Calcium 9.4 mg/dL (8.6-10.3); EGFR African American 36.7 (>60); EGFR Non-African American 30.4 (>60); Globulin 3.2 g/dL (2-4); Magnesium 3.4 mg/dL (1.9-2.7); Phosphorus 5.7 mg/dL (2.5-5.0); Potassium 4.7 mmol/L (3.5-5.0); Total Bilirubin 0.6 mg/dL (0.2-1.0); Total Protein 6.7 g/dL (6.4-8.9)
[2019-09-27] MEDS: Heparin VIAL(*) 5000 UNITS/ML VIAL (FIVE THOUSAND) SUBCUT SCH ×3 (05:17→21:11)
[2019-09-27 05:39] LABS: ABS Basophils 0.2 10^3/ul (0-0.2); ABS Lymphocytes 2.8 10^3/ul (1.0-4.8); ABS Monocytes 2.8 10^3/ul (0-0.8); ABS Neutrophils 14.5 10^3/ul (1.5-7.7); Eosinophil % 0.1 %; Lymphocyte % 13.6 %; Nucleated Red Blood Cells % 0.1
[2019-09-27] MEDS: Polyethylene Glycol 3350* 17 GM PACKET PO PRN (05:41)
[2019-09-27] MEDS: Nystatin SUSPENSION* 100000 UNITS/ML 5 ML UDC PO SCH ×4 (08:40→21:10)
[2019-09-27] MEDS: Clopidogrel TAB* 75 MG PO SCH (08:40)
[2019-09-27] MEDS: Furosemide IV* 10 MG/ML VIAL (40 MG) IV SCH (08:40)
[2019-09-27] MEDS: amLODIPine TAB* 5 MG PO SCH (08:40)
[2019-09-27] MEDS: Carvedilol TAB* 6.25 MG PO SCH ×2 (08:40→21:10)
[2019-09-27] MEDS: Atorvastatin* 80 MG TAB PO SCH (08:40)
[2019-09-27] MEDS: Oseltamivir SUSP* ORALSYR 6 MG/ML PO SCH (08:40)
[2019-09-27] MEDS: Aspirin 81 mg CHEW TAB* 81 MG TAB.CHEW PO SCH (08:40)
[2019-09-27] MEDS: Acetaminophen ADULT LIQ* 650 MG/20.3 ML UDC PO PRN ×3 (08:40→21:20)
[2019-09-27] MEDS: Gabapentin CAP(*) 100 MG PO SCH ×3 (08:40→21:10)
--- NOTE | 2019-09-27 09:56 | PN ---
Date of Service: 09/27/19 Critical Care Services: Some fever overnight, improving ventilator requirement. Vital Signs: Temp Pulse Resp BP SpO2 FiO2 38.2 C 82 14 123/72 97 40 09/27/19 09:15 09/27/19 09:15 09/27/19 09:00 09/27/19 09:15 09/27/19 09:15 09/26 07:38 Physical Exam: Gen: sedated on vent, appears comfortable HEENT: intubated, NCAT, PERRL Lungs: decreased entry to exam Cardiac: S1S2 regular Abdomen: obese, soft, NT, ND, +BS Extremities: trace edema Neuro: sedated, spont moves ext Fluid Balance (Past 24 Hours): I= O= Net Intake & Output 09/25/19 09/26/19 09/27/19 09/28/19 06:59 06:59 06:59 06:59 Intake Total 2526 3142 2511 Output Total 6018 5840 4171 315 Balance -3539 -628 12 -315 Weight 120.4 kg 118.2 kg 116.5 kg Intake: IV Fluids 267 206 226 ABX - AZITHROMYCIN 267 ABX - CEFEPIME 55 ABX - CEFTRIAXONE 33 NS (0.9%) 173 171 IVPB 467 343 ABX - AZITHROMYCIN 271 279 ABX - CEFEPIME 64 ABX - CEFTRIAXONE 72 Calcium gluconate 124 Medicated IV 970 670 514 CC - Norepinephrine/ 57 Levophed CC - Propofol/Diprivan 970 670 457 Oral 0 60 Tube Feeding 1289 1699 1238 Tube Feeding Flush Amount 100 60 NG Tube Irrigate Amount 70 Output: G Tube 300 Motta 5765 3770 7853 218 Labs: Laboratory Results - last 24 hr 09/26/19 09/26/19 09/26/19 12:32 15:56 17:27 WBC RBC Hgb Hct MCV MCH MCHC RDW Plt Count MPV Neut % (Auto) Lymph % (Auto) [place] % (Auto) Eos % (Auto) Baso % (Auto) Absolute Neuts (auto) Absolute Lymphs (auto) Absolute Monos (auto) Absolute Eos (auto) Absolute Basos (auto) Absolute Nucleated RBC Nucleated RBC % Sodium Potassium Chloride Carbon Dioxide Anion Gap BUN Creatinine Est GFR ( Amer) Est GFR (Non-Af Amer) BUN/Creatinine Ratio Glucose POC Glucose (mg/dL) 159 H 150 H Lactic Acid 2.1 H* Calcium Ionized Calcium Phosphorus Magnesium Total Bilirubin AST ALT Alkaline Phosphatase Total Protein Albumin Globulin Albumin/Globulin Ratio 09/27/19 09/27/19 09/27/19 04:40 04:40 04:40 WBC 20.3 H RBC 4.98 Hgb 14.6 Hct 44 MCV 87 MCH 29 MCHC 34 RDW 15 Plt Count 291 MPV 8.4 Neut % (Auto) 71.5 Lymph % (Auto) 13.6 [place] % (Auto) 13.7 Eos % (Auto) 0.1 Baso % (Auto) 1.1 Absolute Neuts (auto) 14.5 H Absolute Lymphs (auto) 2.8 Absolute Monos (auto) 2.8 H Absolute Eos (auto) 0.0 Absolute Basos (auto) 0.2 Absolute Nucleated RBC 0.0 Nucleated RBC % 0.1 Sodium 141 Potassium 4.7 Chloride 102 Carbon Dioxide 28 Anion Gap 11 BUN 106 H Creatinine 2.15 H Est GFR ( Amer) 36.7 Est GFR (Non-Af Amer) 30.4 BUN/Creatinine Ratio 49.3 H Glucose 167 H POC Glucose (mg/dL) Lactic Acid Calcium 9.4 Ionized Calcium 1.03 L Phosphorus 5.7 H Magnesium 3.4 H Total Bilirubin 0.60 AST 14 ALT 26 Alkaline Phosphatase 60 Total Protein 6.7 Albumin 3.5 Globulin 3.2 Albumin/Globulin Ratio 1.1 Studies: CXR with stable LLL infiltrate but with vastly improved aeration Nutrition: Awais TF Impression: Acute Hypoxic Respiratory Failure secondary to Influenza and decompensated heart failure with persistent LLL pneumonia Plan: Acute Hypoxic Respiratory Failure - secondary to Influenza and decompensated heart failure. CXR this AM with persistent LLL pneumonia but improved from yesterday with much better aeration. Increased secretions last 24H and new fever with WBC at 20. Sputum from yesterday now with GPC, will add linezolid for MRSA even though nares negative not responding to cefepime/azithro and GPC with sig REENA will avoid the Vanco. Acute on Chronic Combined Systolic and Diastolic Heart Failure - BP better today on his antiHTN regimen, actually probably lower than his baseline when sedated and was briefly on levo. Now with worsening REENA, will add back some fluid and hold lasix. Now off the sedation BP has risen to the 170s, will not hold the antiHTN regimen. Influenza - Tamiflu complete today. DC. COPD Exacerbation - steroids, bronchodilators, and Abx as above GI/DVT prophylaxis and TF with glycemic control continue. D/W daughter at bedside on AM rounds. Critical Care Time: 35 minutes
[2019-09-27] MEDS: Linezolid 600 MG IVPREMIX(*) 600 MG/300 ML BAG IVPB SCH ×2 (10:23→21:33)
[2019-09-27] MEDS ORDERED: Calcium Gluconate INJ* 2 GM in NS 0.9% 100 ML* 100 ML IV ONE (10:30)
[2019-09-27] MEDS: Cefepime 1 GM in Dextrose(*) 1 GM/50 ML BAG IV SCH ×2 (10:32→22:31)
[2019-09-27] MEDS: Dexmedetomidine* 1,000 MCG in NS 0.9% 250 ML* 240 ML IV SCH (15:55)
[2019-09-27] MEDS: Isosorbide Dinitrate TAB* 10 MG PO SCH (17:06)
[2019-09-27] MEDS: Pantoprazole IV* 40 MG IV SCH (21:11)
[2019-09-28] MEDS: Insulin REGULAR(*) 1 UNITS UNIT SUBCUT SCH ×4 (00:26→17:57)
[2019-09-28] MEDS: Chlorhexidine MOUTHWASH 0.12%* 15 ML UDC SWISH SPIT SCH ×6 (00:26→20:19)
[2019-09-28] MEDS: Isosorbide Dinitrate TAB* 10 MG PO SCH ×2 (02:00→16:45)
[2019-09-28] MEDS: Acetaminophen ADULT LIQ* 650 MG/20.3 ML UDC PO PRN (03:40)
[2019-09-28 05:21] LABS: Hematocrit 42 % (42-52); Hemoglobin 14.1 g/dL (14.0-18.0); Mean Corpuscular HGB Conc 34 g/dL (31-36); Mean Corpuscular Hemoglobin 29 pg (27-31); Mean Corpuscular Volume 87 fL (80-94); Mean Platelet Volume 8.7 fL (7.4-10.4); Platelet Count 292 10^3/uL (150-450); Red Blood Count 4.83 10^6 /uL (4.18-5.48); Red Cell Distribution Width 15 % (10-15); White Blood Count 20.6 10^3/uL (3.5-10.8)
[2019-09-28 05:35] LABS: Albumin 3.4 g/dL (3.2-5.2); Albumin/Globulin Ratio 1.1 (1-3); BUN/Creatinine Ratio 55.6 (8-20); Calcium 8.9 mg/dL (8.6-10.3); EGFR African American 36.9 (>60); EGFR Non-African American 30.5 (>60); Globulin 3.2 g/dL (2-4); Magnesium 3.4 mg/dL (1.9-2.7); Phosphorus 5.3 mg/dL (2.5-5.0); Potassium 4.7 mmol/L (3.5-5.0); Total Bilirubin 0.7 mg/dL (0.2-1.0); Total Protein 6.6 g/dL (6.4-8.9)
[2019-09-28] MEDS: Heparin VIAL(*) 5000 UNITS/ML VIAL (FIVE THOUSAND) SUBCUT SCH (05:44)
[2019-09-28] MEDS: fentaNYL* 50 MCG/ML 2 ML VIAL (100 MCG VIAL) IV SLOW PU PRN (06:22)
[2019-09-28] MEDS ORDERED: Diltiazem IV push/loading dose 5 MG/ML 5 ML vial (25 mg) ONE (07:43)
[2019-09-28] MEDS ORDERED: Diltiazem IV push/loading dose 5 MG/ML 5 ML vial (25 mg) IV SLOW PU ONE (07:43)
[2019-09-28] MEDS ORDERED: Diltiazem IV BAG* D5W Premix 125 MG/125 ML BAG IV SCH (08:00)
[2019-09-28] MEDS: Gabapentin CAP(*) 100 MG PO SCH ×3 (08:28→20:19)
[2019-09-28] MEDS: Carvedilol TAB* 6.25 MG PO SCH ×2 (08:28→20:20)
[2019-09-28] MEDS: amLODIPine TAB* 5 MG PO SCH (08:28)
[2019-09-28] MEDS: Atorvastatin* 80 MG TAB PO SCH (08:28)
[2019-09-28] MEDS: Aspirin 81 mg CHEW TAB* 81 MG TAB.CHEW PO SCH (08:28)
[2019-09-28] MEDS: Clopidogrel TAB* 75 MG PO SCH (08:28)
[2019-09-28] MEDS: Acetaminophen IV 1GM/100ML * 100 ML IVPB SCH ×2 (08:39→17:20)
[2019-09-28] MEDS: Linezolid 600 MG IVPREMIX(*) 600 MG/300 ML BAG IVPB SCH ×2 (10:33→22:14)
[2019-09-28] MEDS: Nystatin SUSPENSION* 100000 UNITS/ML 5 ML UDC PO SCH ×4 (10:34→20:19)
--- NOTE | 2019-09-28 11:15 | PN ---
Date of Service: 09/28/19 Vital Signs: Temp Pulse Resp BP SpO2 FiO2 39.1 C 88 19 136/75 96 30 09/28/19 07:16 09/28/19 10:01 09/28/19 10:00 09/28/19 10:01 09/28/19 10:01 09/27 08:00 Physical Exam: Gen: HEENT: Lungs: Cardiac: Abdomen: Extremities: Neuro: Fluid Balance (Past 24 Hours): I= O= Net Intake & Output 09/26/19 09/27/19 09/28/19 09/29/19 06:59 06:59 06:59 06:59 Intake Total 3142 2511 3880 Output Total 3571 3814 5963 305 Balance -452 18 77402012 Weight 118.2 kg 116.5 kg 117.4 kg Intake: IV Fluids 206 226 315 ABX - CEFEPIME 55 ABX - CEFTRIAXONE 33 NS (0.9%) 173 171 315 IVPB 467 343 882 ABX - AZITHROMYCIN 271 279 ABX - CEFEPIME 64 127 ABX - CEFTRIAXONE 72 ABX - LINEZOLID 627 Calcium gluconate 124 128 Medicated IV 670 514 98 CC - Dexmedetomidine/ 54 Precedex CC - Norepinephrine/ 57 Levophed CC - Propofol/Diprivan 670 457 44 Oral 60 Tube Feeding 1699 1238 1310 Tube Feeding Flush Amount 342 62 5984 NG Tube Irrigate Amount 70 Output: [place] 8480 6621 1262 305 Labs: Laboratory Results - last 24 hr 09/28/19 09/28/19 05:09 05:09 WBC 20.6 H RBC 4.83 Hgb 14.1 Hct 42 MCV 87 MCH 29 MCHC 34 RDW 15 Plt Count 292 MPV 8.7 Sodium 138 Potassium 4.7 Chloride 100 L Carbon Dioxide 28 Anion Gap 10 BUN 119 H Creatinine 2.14 H Est GFR ( Amer) 36.9 Est GFR (Non-Af Amer) 30.5 BUN/Creatinine Ratio 55.6 H Glucose 155 H Calcium 8.9 Phosphorus 5.3 H Magnesium 3.4 H Total Bilirubin 0.70 AST 15 ALT 25 Alkaline Phosphatase 53 Total Protein 6.6 Albumin 3.4 Globulin 3.2 Albumin/Globulin Ratio 1.1 Impression: Acute Hypoxic Respiratory Failure secondary to Influenza and decompensated heart failure with persistent LLL pneumonia now improving. Plan: Acute Hypoxic Respiratory Failure - secondary to Influenza and decompensated heart failure with persistent LLL pneumonia but improving the last 48H with ventilator now on 30% FIO2 and compliance dramatically improved after opening him up with APRV. WBC stable at 20 on Cefepime and Lizezolid with sputum showing GPCs, C&S pending. Finished a course of azithro. New significant fever last 24H with improving respiratory status speaks against pneumonia being the source. It is worth noting that Tamiflu DC'd 24H ago. May need to reswab him. Maintain droplet for now. Acute on Chronic Combined Systolic and Diastolic Heart Failure - BP better overall. Now well controlled on his home agents and Precedex. Afib RVR today, now on cardizem gtt, allowing a little more fluid back the next 24H as well and should help the RVR. Will need to start anticoagulation now that he's out of sinus. Influenza - Tamiflu complete / and DC'd. COPD Exacerbation - steroids, bronchodilators, and Abx as above GI/DVT prophylaxis and TF with glycemic control continue. Encephalopathy - vastly improved, off diprivan x 24H and using precedex for his agitation. He was able to follow commands late yesterday and we are backing off the precedex now hoping to get him back to RASS 0 if possible. With his ventilator success and improving mentation we may be able to look at extubation in the next 24-48H. D/W daughter at bedside on AM rounds. Critical Care Time: 40 minutes
[2019-09-28] MEDS ORDERED: Calcium Gluconate INJ* 2 GM in NS 0.9% 100 ML* 100 ML IV ONE (11:16)
[2019-09-28] MEDS: Cefepime 1 GM in Dextrose(*) 1 GM/50 ML BAG IV SCH ×2 (11:41→23:24)
[2019-09-28 12:12] LABS: Influenza A Molecular POSITIVE (Negative)
[2019-09-28] MEDS: Heparin DRIP 25,000 UNITS(*) 25,000 UNITS/500 ML BAG IV SCH (18:10)
[2019-09-28] MEDS ORDERED: Digoxin TAB* 0.25 MG PO ONE (19:57)
[2019-09-28] MEDS ORDERED: Digoxin IV* 0.5 MG/2 ML AMP (0.25 MG/ML) IV SLOW PU ONE (20:30)
[2019-09-28] MEDS: Norepinephrine 16MCG/ML IVPRE* 4,000 MCG/250 ML BAG IV SCH (22:14)
[2019-09-28] MEDS: Pantoprazole IV* 40 MG IV SCH (22:14)
[2019-09-29] MEDS: Acetaminophen IV 1GM/100ML * 100 ML IVPB SCH (00:24)
[2019-09-29] MEDS: Chlorhexidine MOUTHWASH 0.12%* 15 ML UDC SWISH SPIT SCH ×6 (00:25→21:18)
[2019-09-29] MEDS: Insulin REGULAR(*) 1 UNITS UNIT SUBCUT SCH ×4 (00:33→18:05)
[2019-09-29] MEDS: Dexmedetomidine* 1,000 MCG in NS 0.9% 250 ML* 240 ML IV SCH (01:34)
[2019-09-29] MEDS ORDERED: Digoxin TAB* 0.25 MG PO ONE (02:00)
[2019-09-29] MEDS ORDERED: Digoxin IV* 0.5 MG/2 ML AMP (0.25 MG/ML) IV SLOW PU ONE (02:00)
[2019-09-29] MEDS: Isosorbide Dinitrate TAB* 10 MG PO SCH ×2 (02:48→17:52)
[2019-09-29 05:33] LABS: Hematocrit 39 % (42-52); Mean Corpuscular HGB Conc 33 g/dL (31-36); Mean Corpuscular Hemoglobin 29 pg (27-31); Mean Corpuscular Volume 88 fL (80-94); Mean Platelet Volume 9.1 fL (7.4-10.4); Platelet Count 260 10^3/uL (150-450); Red Blood Count 4.45 10^6 /uL (4.18-5.48); Red Cell Distribution Width 15 % (10-15); White Blood Count 21.8 10^3/uL (3.5-10.8)
[2019-09-29 05:52] LABS: ABS Basophils 0.1 10^3/ul (0-0.2); ABS Monocytes 3.3 10^3/ul (0-0.8); ABS Neutrophils 16.4 10^3/ul (1.5-7.7); Eosinophil % 0.2 %
[2019-09-29 06:25] LABS: Albumin 3.1 g/dL (3.2-5.2); Calcium 8.3 mg/dL (8.6-10.3); Magnesium 3.5 mg/dL (1.9-2.7); Potassium 4.7 mmol/L (3.5-5.0); Total Bilirubin 0.7 mg/dL (0.2-1.0)
[2019-09-29 06:32] LABS: Albumin/Globulin Ratio 1.1 (1-3); EGFR African American 36.9 (>60); EGFR Non-African American 30.5 (>60); Globulin 2.9 g/dL (2-4); Phosphorus 5.9 mg/dL (2.5-5.0)
[2019-09-29 06:47] LABS: BUN/Creatinine Ratio 62.1 (8-20)
[2019-09-29] MEDS: Atorvastatin* 80 MG TAB PO SCH (09:20)
[2019-09-29] MEDS: Clopidogrel TAB* 75 MG PO SCH (09:20)
[2019-09-29] MEDS: amLODIPine TAB* 5 MG PO SCH (09:20)
[2019-09-29] MEDS: Aspirin 81 mg CHEW TAB* 81 MG TAB.CHEW PO SCH (09:20)
[2019-09-29] MEDS: Gabapentin CAP(*) 100 MG PO SCH ×3 (09:20→21:18)
[2019-09-29] MEDS: Carvedilol TAB* 6.25 MG PO SCH ×2 (09:20→20:22)
[2019-09-29] MEDS: Nystatin SUSPENSION* 100000 UNITS/ML 5 ML UDC PO SCH ×4 (09:40→20:23)
[2019-09-29] MEDS: Linezolid 600 MG IVPREMIX(*) 600 MG/300 ML BAG IVPB SCH ×2 (09:42→21:27)
[2019-09-29] MEDS: Cefepime 1 GM in Dextrose(*) 1 GM/50 ML BAG IV SCH ×2 (13:27→23:18)
[2019-09-29] MEDS: Norepinephrine 16MCG/ML IVPRE* 4,000 MCG/250 ML BAG IV SCH (13:48)
[2019-09-29] MEDS: Heparin DRIP 25,000 UNITS(*) 25,000 UNITS/500 ML BAG IV SCH (13:49)
[2019-09-29] MEDS ORDERED: Acetaminophen TAB* 325 MG PO PRN (17:36)
--- NOTE | 2019-09-29 18:17 | PN ---
Date of Service: 09/29/19 - [facility] note Critical Care Services: Pt seen and examined at bedside. Plan of care discussed in interdisciplinary rounds. Pt intermittently in A.fib/A.flutter. Is febrile UO remains good Levo off last night, needing 1mcg this am. PICC line was placed Vital Signs: Temp Pulse Resp BP SpO2 FiO2 101.2 F 89 16 139/79 97 30 09/29/19 17:55 09/29/19 17:16 09/29/19 06:00 09/29/19 17:16 09/29/19 17:16 09/28 16:00 Physical Exam: Gen: Pt in NAD HEENT: PERRLA, ETT+ Lungs: Clear to auscultation, scaterred wheeze+ Cardiac: S1, S2+ Abdomen: Soft, BS+ Extremities: Normal ROM Neuro: Responds appropriately when sedation is lowered Fluid Balance (Past 24 Hours): I= 3477 O= 650 Net 2827 Intake & Output 09/27/19 09/28/19 09/29/19 09/30/19 06:59 06:59 06:59 06:59 Intake Total 2511 3880 2326.4 3477.7 Output Total 2499 1867 1270 650 Balance 2012 1056.4 2827.7 Weight 256 lb 13.416 oz 258 lb 13.163 oz 268 lb 11.896 oz Intake: IV Fluids 226 315 483 368 ABX - CEFEPIME 55 ABX - LINEZOLID 298 Calcium gluconate 100 NS (0.9%) 171 315 85 368 IVPB 343 882 ABX - AZITHROMYCIN 279 ABX - CEFEPIME 64 127 ABX - LINEZOLID 627 Calcium gluconate 128 Medicated IV 514 98 661.7 440 CC - Dexmedetomidine/ 54 223.7 113 Precedex CC - Norepinephrine/ 57 84 68 Levophed CC - Propofol/Diprivan 457 44 GEN - Diltiazem/Cardizem 80 Heparin 274 259 Heparin 48.7 283.7 Oral 60 Tube Feeding 1238 7036 076 2513 Tube Feeding Flush Amount 60 2197 454 3316 NG Tube Irrigate Amount 70 Output: Urine 100 Motta 2499 1867 1270 550 Labs: Laboratory Results - last 24 hr 09/27/19 09/27/19 09/27/19 00:18 05:08 11:35 WBC RBC Hgb Hct MCV MCH MCHC RDW Plt Count MPV Neut % (Auto) Lymph % (Auto) [place] % (Auto) Eos % (Auto) Baso % (Auto) Absolute Neuts (auto) Absolute Lymphs (auto) Absolute Monos (auto) Absolute Eos (auto) Absolute Basos (auto) Absolute Nucleated RBC Nucleated RBC % APTT Sodium Potassium Chloride Carbon Dioxide Anion Gap BUN Creatinine Est GFR ( Amer) Est GFR (Non-Af Amer) BUN/Creatinine Ratio Glucose POC Glucose (mg/dL) 174 H 157 H 233 H Calcium Ionized Calcium Phosphorus Magnesium Total Bilirubin AST ALT Alkaline Phosphatase Total Protein Albumin Globulin Albumin/Globulin Ratio 09/27/19 09/28/19 09/28/19 17:09 00:16 05:37 WBC RBC Hgb Hct MCV MCH MCHC RDW Plt Count MPV Neut % (Auto) Lymph % (Auto) [place] % (Auto) Eos % (Auto) Baso % (Auto) Absolute Neuts (auto) Absolute Lymphs (auto) Absolute Monos (auto) Absolute Eos (auto) Absolute Basos (auto) Absolute Nucleated RBC Nucleated RBC % APTT Sodium Potassium Chloride Carbon Dioxide Anion Gap BUN Creatinine Est GFR ( Amer) Est GFR (Non-Af Amer) BUN/Creatinine Ratio Glucose POC Glucose (mg/dL) 153 H 212 H 152 H Calcium Ionized Calcium Phosphorus Magnesium Total Bilirubin AST ALT Alkaline Phosphatase Total Protein Albumin Globulin Albumin/Globulin Ratio 09/28/19 09/28/19 09/28/19 11:57 23:24 23:34 WBC RBC Hgb Hct MCV MCH MCHC RDW Plt Count MPV Neut % (Auto) Lymph % (Auto) [place] % (Auto) Eos % (Auto) Baso % (Auto) Absolute Neuts (auto) Absolute Lymphs (auto) Absolute Monos (auto) Absolute Eos (auto) Absolute Basos (auto) Absolute Nucleated RBC Nucleated RBC % APTT 68.4 H Sodium Potassium Chloride Carbon Dioxide Anion Gap BUN Creatinine Est GFR ( Amer) Est GFR (Non-Af Amer) BUN/Creatinine Ratio Glucose POC Glucose (mg/dL) 270 H 281 H Calcium Ionized Calcium Phosphorus Magnesium Total Bilirubin AST ALT Alkaline Phosphatase Total Protein Albumin Globulin Albumin/Globulin Ratio 09/29/19 09/29/19 09/29/19 05:11 05:11 05:11 WBC 21.8 H RBC 4.45 Hgb 13.0 L Hct 39 L MCV 88 MCH 29 MCHC 33 RDW 15 Plt Count 260 MPV 9.1 Neut % (Auto) 75.2 Lymph % (Auto) 9.0 [place] % (Auto) 15.1 Eos % (Auto) 0.2 Baso % (Auto) 0.5 Absolute Neuts (auto) 16.4 H Absolute Lymphs (auto) 2.0 Absolute Monos (auto) 3.3 H Absolute Eos (auto) 0.0 Absolute Basos (auto) 0.1 Absolute Nucleated RBC 0.0 Nucleated RBC % 0.0 APTT Sodium 132 L Potassium 4.7 Chloride 96 L Carbon Dioxide 23 Anion Gap 13 H BUN 133 H Creatinine 2.14 H Est GFR ( Amer) 36.9 Est GFR (Non-Af Amer) 30.5 BUN/Creatinine Ratio 62.1 H Glucose 230 H POC Glucose (mg/dL) Calcium 8.3 L Ionized Calcium 0.95 L Phosphorus 5.9 H Magnesium 3.5 H Total Bilirubin 0.70 AST 15 ALT 25 Alkaline Phosphatase 45 Total Protein 6.0 L Albumin 3.1 L Globulin 2.9 Albumin/Globulin Ratio 1.1 09/29/19 09/29/19 09/29/19 05:11 07:40 13:55 WBC RBC Hgb Hct MCV MCH MCHC RDW Plt Count MPV Neut % (Auto) Lymph % (Auto) [place] % (Auto) Eos % (Auto) Baso % (Auto) Absolute Neuts (auto) Absolute Lymphs (auto) Absolute Monos (auto) Absolute Eos (auto) Absolute Basos (auto) Absolute Nucleated RBC Nucleated RBC % APTT >240.0 H* 57.0 H 68.6 H Sodium Potassium Chloride Carbon Dioxide Anion Gap BUN Creatinine Est GFR ( Amer) Est GFR (Non-Af Amer) BUN/Creatinine Ratio Glucose POC Glucose (mg/dL) Calcium Ionized Calcium Phosphorus Magnesium Total Bilirubin AST ALT Alkaline Phosphatase Total Protein Albumin Globulin Albumin/Globulin Ratio Studies: CXR: ETT, PICC line in place. 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 Pt admitted with acute Hypoxic Respiratory Failure secondary to Influenza and decompensated heart failure with persistent LLL pneumonia now improving. Acute hypoxic resp failure s/p intubation Hypotension requiring vasopressors Sepsis 2/2 Influenza and LLL PNA Decompensated heart failure A.fib, rate controlled CRF Fever Plan: 1. Neuro: Sedated with propofol. Sedation vacation daily. Vent bundle ordered. Pt appropriate when sedation lowered. RASS score-2 2. Resp: Acute hypoxic resp failure 2/2 Influenza, LLL PNA. SBT daily. Not ready for extubation. Pulm toilet, nebs prn 3. CVS: A.fib/A.flutter, rate controlled currently. C/w Digoxin. Septic shock- Levophed at 1mcg. H/o CAD. On Heparin drip, f/u PTT 4. ID: Continues to spike fevers. On broad spectrum abx for PNA- Cefepime, Linezolid. Will rpt septic w/u. Tylenol prn 5. Renal: H/o CRF. UO good. No electrolyte abnormalities. 6. GI: c/w tube feeds, c/w PPI 7. Haem: Leucocytosis +, No anemia 8. Musculoskeltal: Frequent positioning and turning 9. DVT px: Pt on Heparin for A.fib Critical Care Time: 30 min
[2019-09-29] MEDS ORDERED: fentaNYL PATCH 50 MCG/HR TRANSDERM SCH (21:00)
[2019-09-29] MEDS: fentaNYL* 50 MCG/ML 2 ML VIAL (100 MCG VIAL) IV SLOW PU PRN (21:17)
[2019-09-29] MEDS: Pantoprazole IV* 40 MG IV SCH (21:18)
[2019-09-30] MEDS: fentaNYL* 50 MCG/ML 2 ML VIAL (100 MCG VIAL) IV SLOW PU PRN ×3 (00:29→05:41)
[2019-09-30] MEDS: Chlorhexidine MOUTHWASH 0.12%* 15 ML UDC SWISH SPIT SCH ×6 (00:32→20:01)
[2019-09-30] MEDS: Insulin REGULAR(*) 1 UNITS UNIT SUBCUT SCH ×4 (00:54→18:34)
[2019-09-30] MEDS: Isosorbide Dinitrate TAB* 10 MG PO SCH ×2 (01:18→18:29)
[2019-09-30] MEDS: Dexmedetomidine* 1,000 MCG in NS 0.9% 250 ML* 240 ML IV SCH ×3 (01:27→13:03)
[2019-09-30] MEDS: Norepinephrine 16MCG/ML IVPRE* 4,000 MCG/250 ML BAG IV SCH (02:17)
[2019-09-30] MEDS: Acetaminophen ADULT LIQ* 650 MG/20.3 ML UDC NG TUBE PRN ×2 (03:40→10:18)
[2019-09-30] MEDS ORDERED: Acetaminophen ADULT LIQ* 650 MG/20.3 ML UDC PO PRN (04:00)
[2019-09-30 04:24] LABS: Hematocrit 38 % (42-52); Hemoglobin 12.4 g/dL (14.0-18.0); Mean Corpuscular HGB Conc 33 g/dL (31-36); Mean Corpuscular Hemoglobin 29 pg (27-31); Mean Corpuscular Volume 88 fL (80-94); Mean Platelet Volume 9.9 fL (7.4-10.4); Platelet Count 232 10^3/uL (150-450); Red Blood Count 4.29 10^6 /uL (4.18-5.48); Red Cell Distribution Width 15 % (10-15); White Blood Count 18.2 10^3/uL (3.5-10.8)
[2019-09-30 04:28] LABS: ABS Lymphocytes 1.5 10^3/ul (1.0-4.8); ABS Monocytes 2.4 10^3/ul (0-0.8); ABS Neutrophils 14.2 10^3/ul (1.5-7.7); Eosinophil % 0.1 %; Lymphocyte % 8.2 %
[2019-09-30 04:47] LABS: Calcium 8.3 mg/dL (8.6-10.3); EGFR African American 27.9 (>60)
[2019-09-30 04:49] LABS: Potassium 5.4 mmol/L (3.5-5.0)
[2019-09-30] MEDS ORDERED: Acetaminophen IV 1GM/100ML * 100 ML IVPB ONE (05:15)
[2019-09-30 05:39] LABS: BUN/Creatinine Ratio 52.7 (8-20)
[2019-09-30] MEDS: Clopidogrel TAB* 75 MG PO SCH (08:54)
[2019-09-30] MEDS: Nystatin SUSPENSION* 100000 UNITS/ML 5 ML UDC PO SCH ×4 (08:54→20:02)
[2019-09-30] MEDS: Atorvastatin* 80 MG TAB PO SCH (08:55)
[2019-09-30] MEDS: amLODIPine TAB* 5 MG PO SCH (08:56)
[2019-09-30] MEDS: Gabapentin CAP(*) 100 MG PO SCH ×3 (08:57→20:02)
[2019-09-30] MEDS: Carvedilol TAB* 6.25 MG PO SCH ×2 (08:57→20:03)
[2019-09-30] MEDS: Aspirin 81 mg CHEW TAB* 81 MG TAB.CHEW PO SCH (09:00)
[2019-09-30 09:01] LABS: Urine Appearance Cloudy; Urine Bilirubin Negative (Negative); Urine Blood Negative (Negative); Urine Color Yellow; Urine Glucose Negative (Negative); Urine Ketones Negative (Negative); Urine Nitrite Negative (Negative); Urine Protein 2+(100 mg/dL) (Negative); Urine Urobilinogen Negative (Negative)
[2019-09-30 09:02] LABS: Urine Bacteria Absent (Absent); Urine Red Blood Cell Absent (Absent); Urine White Blood Cell Trace(0-5/hpf) (Absent)
[2019-09-30] MEDS ORDERED: Norepinephrine 16MCG/ML IVPRE* 4,000 MCG/250 ML BAG IV SCH (09:17)
--- NOTE | 2019-09-30 09:44 | PN ---
Date of Service: 09/30/19 - [facility] note Critical Care Services: Pt seen and examined at bedside this am. Overnight events noted - Pt spiking high grade fevers - On Levophed 4mcg - Septic w/u negative to date, resent this am - UO has been stable - Slight drop in H&H with no active bleeding, likely dilutional - Remains tachycardic Plan of care discussed with bedside RN Vital Signs: Temp Pulse Resp BP SpO2 FiO2 104.0 F 93 22 120/82 97 30 09/30/19 06:30 09/30/19 06:30 09/30/19 06:00 09/30/19 06:30 09/30/19 06:30 09/29 04:00 Physical Exam: Gen: Pt in NAD HEENT: PERRLA, ETT+ Lungs: Diminished air entry b/l Cardiac: S1, S2+ Abdomen: Obese, BS+ Extremities: Cold, clammy, trace edema in LE, RUE- s/p forearm amputation Neuro: Sedated with precedex, able to follow simple commands, RASS -2 Skin: No rash IV access: Lt PICC Fluid Balance (Past 24 Hours): I= 5521 O= 1365 Net 4156 Intake & Output 09/28/19 09/29/19 09/30/19 10/01/19 06:59 06:59 06:59 07:59 Intake Total 3880 2326.4 5521.3 Output Total 1867 1270 1365 Balance 2013 1056.4 4156.3 Weight 258 lb 13.163 oz 268 lb 11.896 oz 265 lb 15.539 oz Intake: IV Fluids 315 483 919 ABX - LINEZOLID 298 300 Calcium gluconate 100 NS (0.9%) 315 85 504 iv tylenol 115 IVPB 882 ABX - CEFEPIME 127 ABX - LINEZOLID 627 Calcium gluconate 128 Medicated IV 98 661.7 1037 CC - Dexmedetomidine/ 54 223.7 448 Precedex CC - Norepinephrine/ 84 146 Levophed CC - Propofol/Diprivan 44 GEN - Diltiazem/Cardizem 80 Heparin 274 443 Heparin 48.7 665.3 Tube Feeding 5867 001 5746 Tube Feeding Flush Amount 3340 494 3885 Output: Urine 815 Mot[place] 1867 1270 550 Other: Estimated Void Large Labs: Laboratory Results - last 24 hr 09/29/19 09/29/19 09/29/19 00:24 06:30 12:47 WBC RBC Hgb Hct MCV MCH MCHC RDW Plt Count MPV Neut % (Auto) Lymph % (Auto) [place] % (Auto) Eos % (Auto) Baso % (Auto) Absolute Neuts (auto) Absolute Lymphs (auto) Absolute Monos (auto) Absolute Eos (auto) Absolute Basos (auto) Absolute Nucleated RBC Nucleated RBC % APTT Sodium Potassium Chloride Carbon Dioxide Anion Gap BUN Creatinine Est GFR ( Amer) Est GFR (Non-Af Amer) BUN/Creatinine Ratio Glucose POC Glucose (mg/dL) 266 H 189 H 184 H Calcium Urine Color Urine Appearance Urine pH Ur Specific [place] Urine Protein Urine Ketones Urine Blood Urine Nitrate Urine Bilirubin Urine Urobilinogen Ur Leukocyte Esterase Urine WBC (Auto) Urine RBC (Auto) Urine Bacteria Urine Glucose 09/29/19 09/29/19 09/29/19 13:55 17:49 20:06 WBC RBC Hgb Hct MCV MCH MCHC RDW Plt Count MPV Neut % (Auto) Lymph % (Auto) [place] % (Auto) Eos % (Auto) Baso % (Auto) Absolute Neuts (auto) Absolute Lymphs (auto) Absolute Monos (auto) Absolute Eos (auto) Absolute Basos (auto) Absolute Nucleated RBC Nucleated RBC % APTT 68.6 H 81.8 H Sodium Potassium Chloride Carbon Dioxide Anion Gap BUN Creatinine Est GFR ( Amer) Est GFR (Non-Af Amer) BUN/Creatinine Ratio Glucose POC Glucose (mg/dL) 171 H Calcium Urine Color Urine Appearance Urine pH Ur Specific [place] Urine Protein Urine Ketones Urine Blood Urine Nitrate Urine Bilirubin Urine Urobilinogen Ur Leukocyte Esterase Urine WBC (Auto) Urine RBC (Auto) Urine Bacteria Urine Glucose 09/30/19 09/30/19 09/30/19 00:39 03:56 03:56 WBC RBC Hgb Hct MCV MCH MCHC RDW Plt Count MPV Neut % (Auto) Lymph % (Auto) [place] % (Auto) Eos % (Auto) Baso % (Auto) Absolute Neuts (auto) Absolute Lymphs (auto) Absolute Monos (auto) Absolute Eos (auto) Absolute Basos (auto) Absolute Nucleated RBC Nucleated RBC % APTT 89.9 H Sodium 129 L Potassium 5.4 H Chloride 95 L Carbon Dioxide 25 Anion Gap 9 BUN 144 H Creatinine 2.73 H Est GFR ( Amer) 27.9 Est GFR (Non-Af Amer) 23.0 BUN/Creatinine Ratio 52.7 H Glucose 149 H POC Glucose (mg/dL) 167 H Calcium 8.3 L Urine Color Urine Appearance Urine pH Ur Specific [place] Urine Protein Urine Ketones Urine Blood Urine Nitrate Urine Bilirubin Urine Urobilinogen Ur Leukocyte Esterase Urine WBC (Auto) Urine RBC (Auto) Urine Bacteria Urine Glucose 09/30/19 09/30/19 03:56 08:35 WBC 18.2 H RBC 4.29 Hgb 12.4 L Hct 38 L MCV 88 MCH 29 MCHC 33 RDW 15 Plt Count 232 MPV 9.9 Neut % (Auto) 78.1 Lymph % (Auto) 8.2 [place] % (Auto) 13.4 Eos % (Auto) 0.1 Baso % (Auto) 0.2 Absolute Neuts (auto) 14.2 H Absolute Lymphs (auto) 1.5 Absolute Monos (auto) 2.4 H Absolute Eos (auto) 0.0 Absolute Basos (auto) 0.0 Absolute Nucleated RBC 0.0 Nucleated RBC % 0.0 APTT Sodium Potassium Chloride Carbon Dioxide Anion Gap BUN Creatinine Est GFR ( Amer) Est GFR (Non-Af Amer) BUN/Creatinine Ratio Glucose POC Glucose (mg/dL) Calcium Urine Color Yellow Urine Appearance Cloudy Urine pH 5.0 Ur Specific [place] 1.020 Urine Protein 2+(100 mg/dl) A Urine Ketones Negative Urine Blood Negative Urine Nitrate Negative Urine Bilirubin Negative Urine Urobilinogen Negative Ur Leukocyte Esterase Negative Urine WBC (Auto) Trace(0-5/hpf) Urine RBC (Auto) Absent Urine Bacteria Absent Urine Glucose Negative Studies: CXR: ETT, PICC line in place. Clear lung [place] Nutrition: Tube feeds Impression: 73 y o obese m with h/o COPD, CAD s/p CABG, bone malignancy s/p rt fore arm amputation. Pt admitted with acute Hypoxic Respiratory Failure secondary to Influenza and decompensated heart failure with LLL pneumonia now improving. Pt has been having hyperpyrexia for 24 hrs. Levo requirement increased slightly. A.fib, HR 90-110. Hyperpyrexia- Drug fever versus infectious source Acute hypoxic resp failure s/p intubation Hypotension requiring vasopressors Sepsis 2/2 Influenza and LLL PNA, improving Decompensated heart failure, stable A.fib, on heparin. On Cardizem drip CRF Plan: 1. Neuro: Sedated with precedex. RASS score -1. Pt able to follow simple commands, was able to recognize family, no focal deficits. Sedation vacation daily. Vent bundle ordered. 2. Resp: Acute hypoxic resp failure 2/2 Influenza, LLL PNA, improving. SBT daily. Not ready for extubation given metabolic issues. Pulm toilet, nebs prn. Pt without signficant secretions. Pt on APRV, pulling good tidal volumes. Resp mechanics are acceptable. 3. CVS: A.fib/A.flutter, rate controlled currently. Received Digoxin yesterday. Septic shock-Levophed at 4mcg. H/o CAD. On Heparin drip, PTT therapeutic 4. ID: Continues to spike fevers. External cooling in place. On broad spectrum abx for PNA- Cefepime, Linezolid d/jm due to concern with drug fever, renal dosing of Vancomycin. Rpt septic w/u sent this am. Tylenol prn 5. Renal: H/o CRF. UO good. No electrolyte abnormalities. Hyponatremia noted today, ? volume overload. Will rpt labs this afternoon. 6. GI: c/w tube feeds, c/w PPI 7. Haem: Leucocytosis +, Slight drop in H&H, no active bleeding, likely dilutional. 8. Musculoskeltal: Frequent positioning and turning. Will order PT for passive ROM on Wednesday. 9. DVT px: Pt on Heparin for A.fib 10. Psycho/Social: Daughter updated at bedside. pt is critically ill requiring ICU care IV access Lt PICC line 09/29/19 Full code Critical Care Time: 40 min
[2019-09-30] MEDS ORDERED: Vancomycin(*) 1,000 MG in NS 0.9% 250 ML* 250 ML IV ONE (10:19)
[2019-09-30] MEDS: Heparin DRIP 25,000 UNITS(*) 25,000 UNITS/500 ML BAG IV SCH (13:04)
[2019-09-30] MEDS: Cefepime 1 GM in Dextrose(*) 1 GM/50 ML BAG IV SCH ×2 (13:05→22:37)
[2019-09-30] MEDS ORDERED: Propofol* 100 ML IV SCH (15:19)
[2019-09-30 20:27] LABS: Hematocrit 37 % (42-52); Hemoglobin 12.8 g/dL (14.0-18.0); Mean Corpuscular HGB Conc 34 g/dL (31-36); Mean Corpuscular Hemoglobin 30 pg (27-31); Mean Corpuscular Volume 86 fL (80-94); Mean Platelet Volume 10.1 fL (7.4-10.4); Platelet Count 213 10^3/uL (150-450); Red Blood Count 4.33 10^6 /uL (4.18-5.48); Red Cell Distribution Width 15 % (10-15)
[2019-09-30 20:44] LABS: Calcium 7.6 mg/dL (8.6-10.3); EGFR African American 32.1 (>60); EGFR Non-African American 26.5 (>60); Potassium 4.4 mmol/L (3.5-5.0)
[2019-09-30 21:14] LABS: BUN/Creatinine Ratio 59.5 (8-20)
[2019-09-30] MEDS: Pantoprazole IV* 40 MG IV SCH (22:37)
[2019-10-01] MEDS: Insulin REGULAR(*) 1 UNITS UNIT SUBCUT SCH ×5 (00:32→23:29)
[2019-10-01] MEDS: Chlorhexidine MOUTHWASH 0.12%* 15 ML UDC SWISH SPIT SCH ×7 (00:34→23:09)
[2019-10-01] MEDS: Isosorbide Dinitrate TAB* 10 MG PO SCH ×2 (03:01→17:19)
[2019-10-01 06:05] LABS: Hematocrit 30 % (42-52); Mean Corpuscular HGB Conc 33 g/dL (31-36); Mean Corpuscular Hemoglobin 29 pg (27-31); Mean Corpuscular Volume 88 fL (80-94); Mean Platelet Volume 9.7 fL (7.4-10.4); Platelet Count 159 10^3/uL (150-450); Red Cell Distribution Width 15 % (10-15)
[2019-10-01 06:07] LABS: ABS Lymphocytes 1.5 10^3/ul (1.0-4.8); ABS Monocytes 2.9 10^3/ul (0-0.8); ABS Neutrophils 15.6 10^3/ul (1.5-7.7); Lymphocyte % 7.6 %
[2019-10-01 06:22] LABS: Calcium 7.7 mg/dL (8.6-10.3); EGFR African American 32.4 (>60); EGFR Non-African American 26.7 (>60); Magnesium 3.8 mg/dL (1.9-2.7); Potassium 4.7 mmol/L (3.5-5.0)
[2019-10-01 06:51] LABS: BUN/Creatinine Ratio 60.4 (8-20)
[2019-10-01] MEDS ORDERED: CALCIUM GLUCONATE 1GM/50ML NS 1 GM/50 ML BAG IV ONE (07:49)
[2019-10-01] MEDS ORDERED: Vancomycin per Pharmacy* NOTE FOLLOW UP PRN (08:13)
[2019-10-01] MEDS: Clopidogrel TAB* 75 MG PO SCH (08:16)
[2019-10-01] MEDS: amLODIPine TAB* 5 MG PO SCH (08:16)
[2019-10-01] MEDS: Carvedilol TAB* 6.25 MG PO SCH ×2 (08:16→21:02)
[2019-10-01] MEDS: Gabapentin CAP(*) 100 MG PO SCH ×3 (08:16→21:02)
[2019-10-01] MEDS: Nystatin SUSPENSION* 100000 UNITS/ML 5 ML UDC PO SCH ×4 (08:16→21:02)
[2019-10-01] MEDS: Atorvastatin* 80 MG TAB PO SCH (08:16)
[2019-10-01] MEDS: Aspirin 81 mg CHEW TAB* 81 MG TAB.CHEW PO SCH (08:16)
[2019-10-01] MEDS ORDERED: Vancomycin Random Level* NOTE FOLLOW UP ONE (08:30)
[2019-10-01] MEDS: fentaNYL* 50 MCG/ML 2 ML VIAL (100 MCG VIAL) IV SLOW PU PRN ×2 (09:42→17:19)
[2019-10-01] MEDS ORDERED: fentaNYL* 50 MCG/ML 2 ML VIAL (100 MCG VIAL) IV SLOW PU ONE (11:20)
--- NOTE | 2019-10-01 12:39 | PN ---
Date of Service: 10/01/19 - [facility] progress note Critical Care Services: Pt seen and examined at bedside. Plan of care discussed with bedside RN and pts daughter Labs, meds reviewed Pt titrated off Levophed last night Temperatures normalized Propofol was held this am for SBT. Pt was also switched to spontaneous mode, required CMV back up. Pt had eyes open however was not tracking or following commands. He became tachypneic, desaturated, vent support was increased. Fentanyl administered with good effect. CT brain and EEG ordered. Neurology consulted. Cefepime was held. Mental status slowly improving, pt able to track voice and was able to follow simple commands when daughter at bedside. Vital Signs: Temp Pulse Resp BP SpO2 FiO2 99.1 F 86 26 120/53 96 40 10/01/19 12:01 10/01/19 12:01 10/01/19 12:00 10/01/19 12:01 10/01/19 12:09/30 11:43 Physical Exam: Gen: Pt is awake HEENT: ETT+, mucus membranes moist Lungs: Diminished at bases, scaterred wheeze+ Cardiac: S1, S2+ Abdomen: Obese, BS+ Extremities: Trace edema, Rt forearm s/p amputation Neuro: Was not able to follow commands even after hr of propofol being held. Gradually improving since, now able to follow simple commands and track voice Skin: No rash IV access Lt PICC Fluid Balance (Past 24 Hours): O=[id number] O= 1425 Net 1789 Intake & Output 09/29/19 09/30/19 10/01/19 10/02/19 05:59 05:59 06:59 06:59 Intake Total 1033 Output Total Balance 1033 Weight Intake: IV Fluids ABX - LINEZOLID Calcium gluconate NS (0.9%) iv tylenol IVPB ABX - CEFEPIME NS (0.9%) Medicated IV CC - Dexmedetomidine/ Precedex CC - Norepinephrine/ Levophed CC - Propofol/Diprivan GEN - Diltiazem/Cardizem Heparin Heparin Tube Feeding 718 Tube Feeding Flush Amount 315 Output: Urine Motta Other: Estimated Void Large # Bowel Movements 2 Estimated Stool Amount Medium # Voids 1 Labs: Laboratory Results - last 24 hr 09/30/19 09/30/19 09/30/19 12:20 18:00 18:26 WBC RBC Hgb Hct MCV MCH MCHC RDW Plt Count MPV Neut % (Auto) Lymph % (Auto) [place] % (Auto) Eos % (Auto) Baso % (Auto) Absolute Neuts (auto) Absolute Lymphs (auto) Absolute Monos (auto) Absolute Eos (auto) Absolute Basos (auto) Absolute Nucleated RBC Nucleated RBC % APTT 95.1 H Sodium Potassium Chloride Carbon Dioxide Anion Gap BUN Creatinine Est GFR ( Amer) Est GFR (Non-Af Amer) BUN/Creatinine Ratio Glucose POC Glucose (mg/dL) 152 H 149 H Calcium Magnesium Random Vancomycin 09/30/19 09/30/19 09/30/19 20:10 20:10 23:55 WBC 21.0 H RBC 4.33 Hgb 12.8 L Hct 37 L MCV 86 MCH 30 MCHC 34 RDW 15 Plt Count 213 MPV 10.1 Neut % (Auto) Lymph % (Auto) [place] % (Auto) Eos % (Auto) Baso % (Auto) Absolute Neuts (auto) Absolute Lymphs (auto) Absolute Monos (auto) Absolute Eos (auto) Absolute Basos (auto) Absolute Nucleated RBC Nucleated RBC % APTT Sodium 130 L Potassium 4.4 Chloride 97 L Carbon Dioxide 22 Anion Gap 11 BUN 144 H Creatinine 2.42 H Est GFR ( Amer) 32.1 Est GFR (Non-Af Amer) 26.5 BUN/Creatinine Ratio 59.5 H Glucose 148 H POC Glucose (mg/dL) 150 H Calcium 7.6 L Magnesium Random Vancomycin 10/01/19 10/01/19 10/01/19 03:09 05:49 05:49 WBC 20.0 H RBC 3.40 L Hgb 10.0 L Hct 30 L MCV 88 MCH 29 MCHC 33 RDW 15 Plt Count 159 MPV 9.7 Neut % (Auto) 77.9 Lymph % (Auto) 7.6 [place] % (Auto) 14.3 Eos % (Auto) 0.0 Baso % (Auto) 0.2 Absolute Neuts (auto) 15.6 H Absolute Lymphs (auto) 1.5 Absolute Monos (auto) 2.9 H Absolute Eos (auto) 0.0 Absolute Basos (auto) 0.0 Absolute Nucleated RBC 0.0 Nucleated RBC % 0.0 APTT 57.6 H Sodium 129 L Potassium 4.7 Chloride 96 L Carbon Dioxide 24 Anion Gap 9 BUN 145 H Creatinine 2.40 H Est GFR ( Amer) 32.4 Est GFR (Non-Af Amer) 26.7 BUN/Creatinine Ratio 60.4 H Glucose 140 H POC Glucose (mg/dL) Calcium 7.7 L Magnesium 3.8 H Random Vancomycin 10/01/19 10/01/19 11:35 11:35 WBC RBC Hgb Hct MCV MCH MCHC RDW Plt Count MPV Neut % (Auto) Lymph % (Auto) [place] % (Auto) Eos % (Auto) Baso % (Auto) Absolute Neuts (auto) Absolute Lymphs (auto) Absolute Monos (auto) Absolute Eos (auto) Absolute Basos (auto) Absolute Nucleated RBC Nucleated RBC % APTT 79.3 H Sodium Potassium Chloride Carbon Dioxide Anion Gap BUN Creatinine Est GFR ( Amer) Est GFR (Non-Af Amer) BUN/Creatinine Ratio Glucose POC Glucose (mg/dL) Calcium Magnesium Random Vancomycin 6.2 Studies: CXR 09/30: ETT in place, no acute air space opacities CT brain-pending Nutrition: Tube feeds Impression: 73 y o obese m with h/o COPD, CAD s/p CABG, bone malignancy s/p rt fore arm amputation. Pt admitted with acute Hypoxic Respiratory Failure secondary to Influenza and decompensated heart failure with LLL pneumonia now improving. Pt has been having hyperpyrexia for 24 hrs. Levo requirement increased slightly. A.fib, HR 90-110. AMS- Metabolic encephalopathy versus post ictal state Hyperpyrexia- resolved Acute hypoxic resp failure s/p intubation Hypotension requiring vasopressors Sepsis 2/2 Influenza and LLL PNA improved, abx d/jm Decompensated heart failure, stable A.fib, on heparin. On Cardizem drip CRF Plan: 1. Neuro: Precedex held yesterday due to concern with drug fever, was started on Propofol which was held this am for weaning trial. Pt was not able to follow commnds and was not tracking which is change from yesterday even after Propofol was held for 2 hrs. Pupils were reactive, pt had corneal reflex, didnot withdraw with pain. CT brain ordered, EEG ordered. Pt with some improvement over the past 30min. Neurology consulted. Suspect metabolic encephalopathy 2/2 Cefepime in setting of underlying RF. Cefepime was d/jm. Will monitor neuro status closely. Vent bundle ordered. 2. Resp: Acute hypoxic resp failure 2/2 Influenza, LLL PNA, Pt on CMV, tolerating well. No infiltrates noted on CXR. Not ready for extubation given metabolic and neurologic issues. Pulm toilet, nebs prn. 3. CVS: A.fib/A.flutter, rate controlled currently. Off vasopressors. Will hold off on Digoxin. On Heparin drip, PTT therapeutic 4. ID: Hyperthermia resolved. Was on abx since 09/25 for presumed PNA post Influenza infection. Received for 7 days. Fever likely drug fever, resolved since linezolid and Precedex have been discontinued. Septic w/u negative to date. Concern with metabolic encephalopathy with Cefepime. Will d/c abx and monitor for now. Tylenol prn 5. Renal: H/o CRF. UO good. No electrolyte abnormalities. Hyponatremia stable. ? volume overload. Will check serum and uring osmolarity, avoid hypotonic fluids. Monitor I/O, Creatinine is improved. 6. GI: c/w tube feeds, c/w PPI 7. Haem: Leucocytosis +, Slight drop in H&H, no active bleeding, likely dilutional and critical illness. F/u CBC closely 8. Musculoskeltal: Frequent positioning and turning. Will order PT for passive ROM on Wednesday. 9. DVT px: Pt on Heparin IV for A.fib 10. Psycho/Social: Daughter updated at bedside. pt is critically ill requiring ICU care IV access Lt PICC line 09/29/19 Full code Critical Care Time: 40 min
[2019-10-01] MEDS ORDERED: Vancomycin(*) 2,000 MG in NS 0.9% 500 ML* 500 ML IVPB ONE (13:00)
[2019-10-01] MEDS: fentaNYL INFUSION 50 MCG/ML* 2,500 MCG/50 ML BAG IV SCH (18:36)
[2019-10-01] MEDS: Pantoprazole IV* 40 MG IV SCH (21:02)
[2019-10-01 23:21] LABS: TSH (Thyroid Stimulating Horm) 0.51 mcIU/mL (0.34-5.60)
--- NOTE | 2019-10-02 00:48 | CONS ---
NEUROLOGY CONSULTATION NOTE: DATE OF CONSULT: 10/01/19 CONSULTING PROVIDER: Dr. Waldron REASON FOR CONSULT: Worsening confusion. CHIEF COMPLAINT: The patient is intubated. HISTORY OF PRESENT ILLNESS: Mr. 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 He was found to have positive influenza A. He was intubated and required sedation due to respiratory insufficiency. The history was mostly obtained by the patient's daughter October via telephone. October stated that over the past 1 week, the patient has had waxing and waning mentation. Initially, it was thought that he may have had too much sedation with propofol. During a sedation holiday, the patient would follow command and squeeze family member's hand. Therefore, the patient was then switched from propofol to Precedex. While on Precedex, the patient developed very high fevers. He has had fevers of 104. The fevers immediately resolved after discontinuing the Precedex and therefore, it was thought that he may have had drug-induced fevers. Please note that the patient started on cefepime on . The cefepime was started for suspected left lower lung pneumonia. Furthermore, he was on linezolid and Precedex at one point during the hospitalization, but those were stopped due to suspected drug-induced fevers. Over the past 48 hours, the patient has had reduction in his interaction. He is still intubated. He does not respond to command. He opens his eyes spontaneously. He no longer squeezes his hand since Wednesday evening and Wednesday morning, so it has been about 48 hours. The patient appears in no acute distress and is resting comfortably on the ventilator. He was given small doses of propofol today. The cefepime has been discontinued yesterday. The patient had laboratory abnormality of WBC of 20,000, which has been stable and has not worsened over the last few days, hemoglobin of 10, hematocrit of 30 , APTT 79 for atrial fibrillation, sodium of 129, chloride of 96, BUN of 145, creatinine is 2.40, glucose of 140. This has been the highest BUN since the patient's hospitalization. PAST MEDICAL HISTORY: Coronary artery disease, status post CABG in 2010; chronic kidney disease, stage 3; COPD; type 2 diabetes mellitus; hypertension; dyslipidemia; cardiomyopathy; history of bone malignancy, status post amputation of the arm in the . The patient does have history of a concussion 20 years ago. HOME MEDICATIONS: 1. Atorvastatin 80 mg nightly. 2. Acetaminophen 650 mg p.o. every 4 hours as needed. 3. Aspirin 81 mg daily. 4. Amlodipine 10 mg p.o. daily. 5. Clopidogrel 75 mg p.o. daily. 6. Carvedilol 6.25 mg p.o. b.i.d. 7. Metformin 1000 mg p.o. daily. 8. Albuterol 2 puffs inhaled 4 times a day. 9. Nitroglycerin 0.4 mg every 5 minutes as needed. 10. Furosemide 40 mg p.o. daily. 11. Lisinopril 40 mg p.o. daily. 12. Vitamin D2 50 units p.o. weekly. 13. Paroxetine 10 mg p.o. daily. 14. Nystatin suspension 5 mg 4 times a day. 15. Isosorbide mononitrate 30 mg p.o. daily. 16. Gabapentin 100 mg p.o. t.i.d. FAMILY HISTORY: No family history of stroke or seizures. NEUROLOGICAL HISTORY: The patient does have a history of a concussion 20 years ago where he fell and hit his head and passed out. He did not require any hospitalization. SOCIAL HISTORY: Unable to obtain due to the patient's intubation. REVIEW OF SYSTEMS: Unable to obtain due to the patient's intubation. PHYSICAL EXAMINATION: Vitals: Temperature of 99.5, heart rate of 112, respiratory rate of 29, oxygen saturation of 95, blood pressure of 150/98. General: Ill- appearing elderly man, who appears older than stated age. Intubated and is off sedation since 8 a.m. today. He was on propofol 5 mcg an hour. Head: Atraumatic and normocephalic without any obvious abnormality. Neck is supple and symmetrical with no carotid bruits. Chest: Diminished breath sounds, especially in the bibasilar area. Cardiovascular: Regular rate and rhythm with normal S1, S2. Extremities: No hammertoes or high arches. Skin : No skin lesions or lacerations. Neurological Examination: Mental Status: The patient is intubated. He is awake. He opens his eyes spontaneously and blinks the eyes bilaterally. With nasal stimulation, the patient withdraws in both areas as well as had an elevation in heart rate during this time. Pupils equal, round and reactive to light. Extraocular muscles are intact when moving from right to left. Corneal reflexes intact. Gag is present. Motor Examination: The patient grimaced and flexed both upper extremities as well as the knees to the distal noxious stimuli. New plantar responses bilaterally. Reflexes are trace throughout with 0 in the lower extremities. Gait was not assessed. ASSESSMENT: Mr. Phillip Cabrera is a 73-year-old man with a history of hypertension, dyslipidemia, coronary artery disease, amputation of the distal right upper extremity due to bone cancer, who presented on 09/21/19 with respiratory failure, thought to be due to pneumonia as well as influenza A. The patient is intubated. He is off sedation. Neurology was consulted to evaluate the patient's waxing and waning mentation over the past 24 to 48 hours. On neurological examination, the patient is awake, does not respond to the examiner, but does have some retained purposeful movements. He has only been off sedation for approximately 4-5 hours before my assessment. CT of the head showed a left frontal encephalomalacia with surrounding calcification with ex vacuo dilatation of the left ventricle. Overall, I suspect the patient has acute toxic-metabolic encephalopathy, which is multifactorial and related to acute kidney injury with elevated uremia causing uremic encephalopathy and toxic encephalopathy, possibly related to cefepime therapy. The patient's mentation worsened after his kidney function worsened and after he was started on cefepime therapy. Other possibility includes nonconvulsive status epilepticus, which is less likely given that he does have retained purposeful movement. I do not think he had a stroke, especially since he is on a heparin drip for atrial fibrillation. RECOMMENDATIONS: Please obtain an EEG to evaluate the degree of encephalopathy and rule out nonconvulsive status epilepticus, which is very low on the differential. Continue neuro checks every 1 hour. Continue to hold all sedation, but treat small doses of propofol or Versed as needed for agitation. Obtain an MRI of the brain to evaluate for the calcified lesion, which I do not suspect it's related to metastatic disease as there is no evidence of vasogenic edema on imaging. Furthermore, I also do not suspect this is an acute stroke given the area of encephalomalacia. However, the family were unaware of this finding. They were updated and informed that further evaluation should be done to exclude any potential [employer] structural abnormality that may be attributing to his encephalopathy. I have ordered an ammonia level, B12, TSH, and a CK level. The CK level was also obtained to rule out any potential underlying myopathy or assess for critical illness myopathy. Please substitute cefepime with a less neurotoxic antibiotic. I have discussed these recommendations with Dr. Waldron. Dr. Gentile will be covering the Neurology Service starting tomorrow. We will discuss this case and sign out. Please call me for any questions or concerns. [id number]/[facility] #: [id number] [place]
[2019-10-02] MEDS: Isosorbide Dinitrate TAB* 10 MG PO SCH ×2 (01:43→17:38)
[2019-10-02] MEDS: Chlorhexidine MOUTHWASH 0.12%* 15 ML UDC SWISH SPIT SCH ×5 (04:00→21:05)
[2019-10-02] MEDS ORDERED: Artificial Tear OPHTH.OINT* 3.5 GM BOTH EYES PRN (04:17)
[2019-10-02] MEDS ORDERED: Vancomycin Random Level* NOTE FOLLOW UP ONE (06:00)
[2019-10-02] MEDS: Insulin REGULAR(*) 1 UNITS UNIT SUBCUT SCH ×3 (06:43→18:19)
[2019-10-02 07:24] LABS: Vancomycin Random 17.3 mcg/mL
[2019-10-02] MEDS: Heparin DRIP 25,000 UNITS(*) 25,000 UNITS/500 ML BAG IV SCH ×2 (08:01→08:39)
[2019-10-02] MEDS: Nystatin SUSPENSION* 100000 UNITS/ML 5 ML UDC PO SCH ×4 (08:23→21:05)
[2019-10-02] MEDS: Gabapentin CAP(*) 100 MG PO SCH ×2 (08:24→21:05)
[2019-10-02] MEDS: Atorvastatin* 80 MG TAB PO SCH (08:24)
[2019-10-02] MEDS: Aspirin 81 mg CHEW TAB* 81 MG TAB.CHEW PO SCH (08:24)
[2019-10-02] MEDS: Carvedilol TAB* 6.25 MG PO SCH ×2 (08:24→21:05)
[2019-10-02] MEDS: amLODIPine TAB* 5 MG PO SCH (08:24)
[2019-10-02] MEDS: Clopidogrel TAB* 75 MG PO SCH (08:24)
[2019-10-02 08:55] LABS: EGFR African American 36.7 (>60); EGFR Non-African American 30.4 (>60)
[2019-10-02] MEDS ORDERED: Furosemide IV* 10 MG/ML VIAL (40 MG) IV ONE (11:35)
--- NOTE | 2019-10-02 11:45 | PN ---
Progress Note - Progress Note Date of Service: 10/02/19 Note: Progress Note -- Critical Care 24 hour events/significant events: -overnight tmax 100, today temp 100.8 this morning -no pressors required; BP stable -on fentanyl infusion -awakens to stimuli but not responsive to commands, some spontaneous movements but not alert/oriented -remains intubated ROS: ROS unable to be obtained secondary to intubated/mental status change Tele: NSR Vitals: Vital Signs Temp 100.8 F 10/02/19 10:31 Pulse 101 10/02/19 10:31 Resp 22 10/02/19 10:00 BP 135/67 10/02/19 10:31 Pulse Ox 96 10/02/19 10:31 Intake & Output 10/01/19 10/02/19 10/02/19 18:59 06:59 18:59 Intake Total 1688 1805 100 Output Total 1000 Balance 688 1805 100 Weight 126.3 kg Intake: IV Fluids 55 93 Calcium gluconate 55 NS (0.9%) 93 IVPB 590 49 NS (0.9%) 60 vancomycin 530 49 Medicated IV 10 271 CC - Propofol/Diprivan 10 Heparin 271 IV Narcotic Infusion 4 Fentanyl 4 Oral 0 Tube Feeding 718 613 Tube Feeding Flush Amount 315 775 100 Output: Urine 1000 Other: Estimated Void Large Large Large # Bowel Movements 2 Estimated Stool Amount Medium # Voids 1 1 1 O2/Vent: PS 10/10 40%; RR 24 now, TV 600-700s Infusions: fentanyl Medications: Acetaminophen (Tylenol Adult Liq*) 650 mg NG TUBE Q6H PRN PRN Reason: TEMPERATURE > 100.4 Last Admin: 09/30/19 10:18 Dose: 650 mg Albuterol/Ipratropium (Duoneb (Albuterol 2.5 Mg/Ipratropium 0.5 Mg)) 1 neb INH Q2H PRN PRN Reason: SOB/WHEEZING Albuterol/Ipratropium (Duoneb (Albuterol 2.5 Mg/Ipratropium 0.5 Mg)) 1 neb INH Q4H PRN PRN Reason: SOB/WHEEZING Amlodipine Besylate (Norvasc Tab*) 10 mg PO DAILY [facility] Last Admin: 10/02/19 08:24 Dose: 10 mg Artificial Tears (Lacrilube Oint*) 1 applic BOTH EYES Q4H PRN PRN Reason: DRY EYE Aspirin (Aspirin 81 Mg Chew Tab*) 81 mg PO DAILY [facility] Last Admin: 10/02/19 08:24 Dose: 81 mg Atorvastatin Calcium (Lipitor*) 80 mg PO DAILY [facility] Last Admin: 10/02/19 08:24 Dose: 80 mg Carvedilol (Coreg Tab*) 6.25 mg PO BID [facility] Last Admin: 10/02/19 08:24 Dose: 6.25 mg Chlorhexidine Gluconate (Peridex Mouth Wash 0.12%*) 15 ml SWISH SPIT Q4H [facility] Last Admin: 10/02/19 08:23 Dose: 15 ml Clopidogrel Bisulfate (Plavix Tab*) 75 mg PO DAILY [facility] Last Admin: 10/02/19 08:24 Dose: 75 mg Fentanyl Citrate (Fentanyl*) 50 mcg IV SLOW PU Q1H PRN PRN Reason: PAIN - SEVERE Last Admin: 10/01/19 17:19 Dose: 50 mcg Gabapentin (Neurontin Cap(*)) 100 mg PO BID [facility] Heparin Sodium (Porcine) (Heparin Flush Picc/Ml/Cvc(*)) 0 ml FLUSH .PER PROTOCOL [facility] Heparin Sodium (Porcine) (Heparin Vial(*)) 0 units IV .PER PROTOCOL [facility] Heparin Sodium/Dextrose (Heparin Drip 25,000 Units(*)) 25,000 units in 500 mls @ 0 mls/hr IV PER RATE [facility]; Protocol Last Admin: 10/02/19 08:39 Dose: 11 mls/hr Fentanyl Citrate (Fentanyl Infusion Bag 50 Mcg/Ml 50 Ml) 2,500 mcg in 50 mls @ 0.5 mls/hr IV Q72H [facility]; Protocol Last Admin: 10/01/19 18:36 Dose: 0.5 mls/hr Insulin Human Regular (Insulin Regular(*)) 0 units SUBCUT Q6HR [facility]; Protocol Last Admin: 10/02/19 06:43 Dose: 3 units Isosorbide Dinitrate (Isordil Tab*) 10 mg PO BID@0200,1600 [facility] Last Admin: 10/02/19 01:43 Dose: Not Given Nystatin (Nystatin Suspension*) 200,000 units PO QID [facility] Last Admin: 10/02/19 08:23 Dose: 200,000 units Pantoprazole Sodium (Protonix Iv*) 40 mg IV 2200 [facility] Last Admin: 10/01/19 21:02 Dose: 40 mg Polyethylene Glycol/Electrolytes (Miralax (17 Gm Dose Demario)) 17 gm PO DAILY PRN PRN Reason: CONSTIPATION Last Admin: 09/27/19 05:41 Dose: 17 gm Physical Exam: Constitutional: intbated, awakens, but not responsive to commands, no distress, no diaphoresis Head: normocephalic, atraumatic Eyes: no pallor, no icterus ENT: moist mucous membranes Neck: soft, supple, no jvd CVS: normal rate, regular, no murmur Chest/Resp: bilateral air entry, no rhales, no wheeze, no rhonchi, no acc muscle use Abdomen/GI: soft, nontender, nondistended, BS+ Ext/Msk: warm, pulses+, no edema Skin: intact, warm Neuro: awakens but not responsive to commands, not alert, not oriented, some spontaneous movements of extremities Psych: unable to assess due to change in mental status Labs: Laboratory Results - last 24 hr 10/01/19 10/01/19 10/01/19 04:49 11:09 11:35 APTT 79.3 H BUN Creatinine Est GFR ( Amer) Est GFR (Non-Af Amer) POC Glucose (mg/dL) 147 H 172 H Serum Osmolality Ammonia Total Creatine Kinase Vitamin B12 TSH Urine Osmolality U Sodium Concentration Random Vancomycin 10/01/19 10/01/19 10/01/19 11:35 15:41 15:41 APTT BUN Creatinine Est GFR ( Amer) Est GFR (Non-Af Amer) POC Glucose (mg/dL) Serum Osmolality Ammonia Total Creatine Kinase Vitamin B12 TSH Urine Osmolality 561 U Sodium Concentration 18 Random Vancomycin 6.2 10/01/19 10/01/19 10/01/19 17:24 17:25 22:24 APTT BUN Creatinine Est GFR ( Amer) Est GFR (Non-Af Amer) POC Glucose (mg/dL) 159 H Serum Osmolality 322 H Ammonia Total Creatine Kinase 581 H Vitamin B12 341 TSH 0.51 Urine Osmolality U Sodium Concentration Random Vancomycin 10/01/19 10/02/19 10/02/19 22:24 06:28 06:30 APTT BUN Creatinine Est GFR ( Amer) Est GFR (Non-Af Amer) POC Glucose (mg/dL) 171 H Serum Osmolality Ammonia 60 H 54 H Total Creatine Kinase Vitamin B12 TSH Urine Osmolality U Sodium Concentration Random Vancomycin 10/02/19 06:30 APTT BUN 135 H Creatinine 2.15 H Est GFR ( Amer) 36.7 Est GFR (Non-Af Amer) 30.4 POC Glucose (mg/dL) Serum Osmolality Ammonia Total Creatine Kinase Vitamin B12 TSH Urine Osmolality U Sodium Concentration Random Vancomycin 17.3 Imaging: Assessment: 73y M w/pmhx of obesity, DM, CAD/CABG, h/o bone malignancy s/p Right forearm amputation, HLD, HLD, Chronic LV diastolic dysfunction, COPD, CKD3 , ex-smoker; admitted 09/21 for SOB/cough, wheezing, found acutely hypoxic and hypercapneic, req NIV, eventually intubated in ER for pulmonary edema/COPD exaccerbation/CHF exacc. He also had new-onset AFib with RVR. EKG demonstrated new ST depressions, elevated troponins. He was found to have new acute LV systolic heart failure, Influenza A+, NSTEMI. Since admission he was empirically treated with tamiflu. He has a LLL consolidation which was also treated with cefepime, culture negative since 09/25. He has been having ongoing fevers since 09/28, peaking to 104 09/29, decreased 09/30 after discontinuation of precedex -acute hypoxic and hypercapnic respiratory failure, int 09/21 -acute COPD exaccerbation -Acute pulmonary edema -acute decompensated LV systolic heart failure -NSTEMI -new onset Afib with RVR -Left lower lobe pneumonia, unspec organism -Influenza A infection -Severe Sepsis 2/2 influenza -REENA on CKD3 -acute encephalopathy, unspecified type DM CAD/CABG Plan: Neuro- -on fentanyl only -still has ongoing delirium, wakens but doesnt follow commands. CT brain was negative 09/30. EEG done today. Plan for MRI brain. no other sedatives on board. no clinical seizures appreciated. continues on gabapentin. -will cont to minimize sedation,followup MRI and EEG. -fevers have decreased, but back to 100.8 -will have to consider a LP if other imaging studies are negative. -IV abx revmoed yesterday as well as precedex and fevers have come down, no further 104 temp spikes noted -also possibility of uremia given high BUN earlier, will have to consider this also -ammonia level 54 today, was 60s -Delirium prec; avoid BDZ CVS- -BP stable -CAD/CABG - cont DAPT/statin -CMP - cont coreg, cont imdur/norvasc -holding ACEI for REENA -noted some gross overload, add IV lasix 40mg x1 today as trial; clinically no pulm congestion noted -Afib - rate controlled, cont coreg; IV heparin for AC, follow protocol ptts -Maintain MAP>65 Resp- -Remains intubated; on PA 04/29 40% -CT Chest 05/02 - with some basal infiltrates noted only -secretions are still tannish/dark; no noted sputum growth though -no plan for extubation yet till improved mental status -no active wheezing -Wean Fio2 to keep sat>92% -Bronchodilators PRN, Aspiration prec, Pulmonary Toilet -VAP bundle ID- tmax 100.8, wbc still ~20s. -CT chest 09/30 - basal atelectic changes/small consolidation -no growht in sputum/blood cultures from rpior -IV abx stopped 09/30 - cefepime/vanco -if he spikes to 101 or above, will obtain blood culture repeat and urine culture repeat; noted last u/a 09/29 without any wbc/bacteria -observe off abx for now, central? drug induced? -pendign MRI brain today, EEG GI- -TF via NGT - glucerna ongoing -GI prophylaxis - ppi Renal- -REENA on CKD3; fluctuating Cr in mid 2s, lower today; BUN was elevated also -overall positive balance, add lasix 40mg iv x1 today to see effect, then daily if tolerating -no beltran at this time -strict I/O, replete to keep K>4, Mg>2 -beltran as indicated Heme- -hg 10-12s; lower but also appears more volume positive -cont IV heparin for Afib AC, follow protocol -no active bleeding noted Endo-Maintain BG<200, insulin protocol as needed Musculsk- pressure ulcer prophylaxis. Bedrest. Wounds- none Nutrition- NGT TF DVT prophylaxis: heparin IV GI prophylaxis: ppi Central Line: PICC Arterial Line: no Beltran Cathetor: no Disposition: Patient requires Critical Care/ICU for respiratory failure, encephalopathy, pneumonia Patient clinical status: guarded Code Status: full code Total Critical Care time is 45 minutes, excluding procedures/teaching Eber Whitman MD Project Planner (Electronically Signed)
[2019-10-02 12:18] LABS: Hematocrit 33 % (42-52); Hemoglobin 10.9 g/dL (14.0-18.0); Mean Corpuscular HGB Conc 33 g/dL (31-36); Mean Corpuscular Hemoglobin 29 pg (27-31); Mean Corpuscular Volume 87 fL (80-94); Mean Platelet Volume 10.1 fL (7.4-10.4); Platelet Count 172 10^3/uL (150-450); Red Blood Count 3.77 10^6 /uL (4.18-5.48); Red Cell Distribution Width 15 % (10-15); White Blood Count 26.8 10^3/uL (3.5-10.8)
[2019-10-02 12:36] LABS: Calcium 7.8 mg/dL (8.6-10.3); EGFR African American 37.1 (>60); EGFR Non-African American 30.7 (>60)
[2019-10-02 12:38] LABS: Potassium 5.2 mmol/L (3.5-5.0)
[2019-10-02 13:21] LABS: ABS Basophils 0.1 10^3/ul (0-0.2); ABS Lymphocytes 0.5 10^3/ul (1.0-4.8); ABS Monocytes 2.5 10^3/ul (0-0.8); ABS Neutrophils 23.7 10^3/ul (1.5-7.7); Eosinophil % 0.1 %; Lymphocyte % 1.7 %
[2019-10-02] MEDS: fentaNYL INFUSION 50 MCG/ML* 2,500 MCG/50 ML BAG IV SCH (14:36)
[2019-10-02] MEDS ORDERED: fentaNYL* 50 MCG/ML 2 ML VIAL (100 MCG VIAL) IV SLOW PU PRN (15:38)
[2019-10-02] MEDS ORDERED: fentaNYL* 50 MCG/ML 2 ML VIAL (100 MCG VIAL) ONE (15:42)
[2019-10-02] MEDS: Pantoprazole IV* 40 MG IV SCH (21:05)
--- NOTE | 2019-10-02 23:45 | EEG ---
ELECTROENCEPHALOGRAPHY: DATE OF STUDY: 10/01/28 - ROOM #ICU-01 PATIENT OF: Dr. Waldron. CLINICAL PROBLEM: This is a 73-year-old man being evaluated for encephalopathy with history of chronic kidney disease, coronary artery disease, bone malignancy , cardiomyopathy, left frontal encephalomalacia. He is sedated and intubated and is on a decreasing fentanyl drip. MEDICATIONS: Include vancomycin, Norvasc, aspirin, Lipitor, Coreg, Plavix, Neurontin, nystatin, insulin, Isordil, Protonix, DuoNeb, fentanyl, MiraLAX, Cardizem, and heparin. REPORT: Background cerebral activity consists of moderate amplitude diffuse 5 Hz rhythm which at times reaches 6 to 7 Hz in frequency. No focal abnormalities , epileptiform potentials, or major asymmetries of background were noted. CLINICAL IMPRESSION: This awake and sedated EEG shows no subclinical seizures or major asymmetries of background. [id number]/CPS #: [id number] MTDD
[2019-10-03] MEDS: Chlorhexidine MOUTHWASH 0.12%* 15 ML UDC SWISH SPIT SCH ×6 (01:05→21:46)
[2019-10-03] MEDS: Insulin REGULAR(*) 1 UNITS UNIT SUBCUT SCH ×4 (01:05→17:35)
[2019-10-03 03:03] LABS: Urine Appearance Cloudy; Urine Bilirubin Negative (Negative); Urine Blood 2+ (Negative); Urine Color Yellow; Urine Glucose Negative (Negative); Urine Ketones Negative (Negative); Urine Nitrite Negative (Negative); Urine Protein 2+(100 mg/dL) (Negative); Urine Specific Gravity 1.014 (1.010-1.030); Urine Urobilinogen Negative (Negative)
[2019-10-03 03:08] LABS: Urine Bacteria 1+ (Absent); Urine Red Blood Cell 2+(6-10/hpf) (Absent); Urine Squamous Epithelial Cell Present (Absent); Urine White Blood Cell 1+(6-10/hpf) (Absent)
[2019-10-03] MEDS: Isosorbide Dinitrate TAB* 10 MG PO SCH (03:43)
[2019-10-03 05:12] LABS: Hematocrit 32 % (42-52); Hemoglobin 10.6 g/dL (14.0-18.0); Mean Corpuscular HGB Conc 33 g/dL (31-36); Mean Corpuscular Hemoglobin 29 pg (27-31); Mean Corpuscular Volume 87 fL (80-94); Mean Platelet Volume 10.4 fL (7.4-10.4); Platelet Count 194 10^3/uL (150-450); Red Blood Count 3.69 10^6 /uL (4.18-5.48); Red Cell Distribution Width 15 % (10-15); White Blood Count 28.2 10^3/uL (3.5-10.8)
[2019-10-03 05:28] LABS: BUN/Creatinine Ratio 57.5 (8-20); Calcium 8.1 mg/dL (8.6-10.3); EGFR African American 35.6 (>60); EGFR Non-African American 29.4 (>60); Potassium 4.9 mmol/L (3.5-5.0)
[2019-10-03] MEDS: Atorvastatin* 80 MG TAB PO SCH (07:37)
[2019-10-03] MEDS: Acetaminophen ADULT LIQ* 650 MG/20.3 ML UDC NG TUBE PRN ×2 (07:37→21:46)
[2019-10-03] MEDS: Carvedilol TAB* 6.25 MG PO SCH ×3 (07:37→22:55)
[2019-10-03] MEDS: Gabapentin CAP(*) 100 MG PO SCH ×3 (07:37→22:55)
[2019-10-03] MEDS: amLODIPine TAB* 5 MG PO SCH (07:37)
[2019-10-03] MEDS ORDERED: Furosemide IV* 10 MG/ML VIAL (40 MG) IV ONE (09:09)
[2019-10-03] MEDS: Nystatin SUSPENSION* 100000 UNITS/ML 5 ML UDC PO SCH ×4 (09:16→21:47)
[2019-10-03] MEDS: Heparin VIAL(*) 5000 UNITS/ML VIAL (FIVE THOUSAND) IV SCH ×2 (12:43→21:42)
--- NOTE | 2019-10-03 12:47 | PN ---
Progress Note - Progress Note Date of Service: 10/03/19 Note: Progress Note -- Critical Care 24 hour events/significant events: -tmax 101.5, BP stable sometimes lower and meds held, no pressors -Afib, rate controlled -not on sedation, opens eyes but doesnt respond to any commands -making urine ROS: ROS unable to be obtained secondary to intubated/mental status change Tele: afib, rate controlled Vitals: Vital Signs Temp 100.9 F 10/03/19 11:01 Pulse 92 10/03/19 11:01 Resp 18 10/03/19 11:00 BP 125/49 10/03/19 11:01 Pulse Ox 94 10/03/19 11:01 Intake & Output 10/02/19 10/03/19 10/03/19 18:59 06:59 18:59 Intake Total 2196 428.2 70 Output Total 50 2975 610 Balance 2146 -2546.8 -540 Weight 126.3 kg 127.097 kg Intake: IV Fluids 83 NS (0.9%) 83 Medicated IV 92 141.2 Heparin 92 141.2 IV Narcotic Infusion 52 Fentanyl 52 Oral 0 0 0 Tube Feeding 869 287 Tube Feeding Flush Amount 1100 NG Tube Irrigate Amount 70 Output: Urine 50 30 Beltran 1795 610 Residual 1150 Beltran Temperature Probe 1150 Other: Estimated Void Medium # Voids 1 O2/Vent: AC 15/500/+10/+45%; RR 20s, TV 500-600 Infusions: fentanyl off Medications: Acetaminophen (Tylenol Adult Liq*) 650 mg NG TUBE Q6H PRN PRN Reason: TEMPERATURE > 100.4 Last Admin: 10/03/19 07:37 Dose: 650 mg Albuterol/Ipratropium (Duoneb (Albuterol 2.5 Mg/Ipratropium 0.5 Mg)) 1 neb INH Q2H PRN PRN Reason: SOB/WHEEZING Albuterol/Ipratropium (Duoneb (Albuterol 2.5 Mg/Ipratropium 0.5 Mg)) 1 neb INH Q4H PRN PRN Reason: SOB/WHEEZING Amlodipine Besylate (Norvasc Tab*) 10 mg PO DAILY [facility] Last Admin: 10/03/19 07:37 Dose: 10 mg Artificial Tears (Lacrilube Oint*) 1 applic BOTH EYES Q4H PRN PRN Reason: DRY EYE Atorvastatin Calcium (Lipitor*) 80 mg PO DAILY [facility] Last Admin: 10/03/19 07:37 Dose: 80 mg Carvedilol (Coreg Tab*) 6.25 mg PO BID [facility] Last Admin: 10/03/19 07:37 Dose: 6.25 mg Chlorhexidine Gluconate (Peridex Mouth Wash 0.12%*) 15 ml SWISH SPIT Q4H [facility] Last Admin: 10/03/19 12:26 Dose: 15 ml Fentanyl Citrate (Fentanyl*) 100 mcg IV SLOW PU Q1H PRN PRN Reason: PAIN - SEVERE Last Admin: 10/02/19 16:30 Dose: 100 mcg Gabapentin (Neurontin Cap(*)) 100 mg PO BID [facility] Last Admin: 10/03/19 07:37 Dose: 100 mg Heparin Sodium (Porcine) (Heparin Flush Picc/Ml/Cvc(*)) 0 ml FLUSH .PER PROTOCOL [facility] Heparin Sodium (Porcine) (Heparin Vial(*)) 0 units IV .PER PROTOCOL [facility] [place] Heparin Sodium/Dextrose (Heparin Drip 25,000 Units(*)) 25,000 units in 500 mls @ 0 mls/hr IV PER RATE [facility]; Protocol Last Admin: 10/02/19 08:39 Dose: 11 mls/hr Fentanyl Citrate (Fentanyl Infusion Bag 50 Mcg/Ml 50 Ml) 2,500 mcg in 50 mls @ 0.5 mls/hr IV Q72H [facility] [place]; Protocol Last Admin: 10/02/19 14:36 Dose: 1 mls/hr Insulin Human Regular (Insulin Regular(*)) 0 units SUBCUT Q6HR [facility] [place]; Protocol Last Admin: 10/03/19 12:27 Dose: 6 units Isosorbide Dinitrate (Isordil Tab*) 10 mg PO BID@0200,1600 [facility] Last Admin: 10/03/19 03:43 Dose: Not Given Lactulose (Lactulose*) 30 ml NG TUBE TID [facility] Last Admin: 10/03/19 10:54 Dose: 30 ml Nystatin (Nystatin Suspension*) 200,000 units PO QID [facility] Last Admin: 10/03/19 09:16 Dose: 200,000 units Pantoprazole Sodium (Protonix Iv*) 40 mg IV 2200 [facility] Last Admin: 10/02/19 21:05 Dose: 40 mg Polyethylene Glycol/Electrolytes (Miralax (17 Gm Dose Demario)) 17 gm PO DAILY PRN PRN Reason: CONSTIPATION Last Admin: 09/27/19 05:41 Dose: 17 gm Physical Exam: Constitutional: intubated, awakens, but not responsive to commands, no distress , no diaphoresis Head: normocephalic, atraumatic Eyes: no pallor, no icterus ENT: moist mucous membranes Neck: soft, supple, no jvd CVS: normal rate, regular, no murmur Chest/Resp: bilateral air entry, no rhales, no wheeze, no rhonchi, no acc muscle use Abdomen/GI: soft, nontender, nondistended, BS+ Ext/Msk: warm, pulses+, no edema Skin: intact, warm Neuro: awakens but not responsive to commands, not alert, not oriented, some spontaneous movements of extremities Psych: unable to assess due to change in mental status Labs: Laboratory Results - last 24 hr 10/01/19 10/02/19 10/02/19 23:25 12:07 12:07 WBC RBC Hgb Hct MCV MCH MCHC RDW Plt Count MPV Neut % (Auto) 88.5 Lymph % (Auto) 1.7 [place] % (Auto) 9.4 Eos % (Auto) 0.1 Baso % (Auto) 0.3 Absolute Neuts (auto) 23.7 H Absolute Lymphs (auto) 0.5 L Absolute Monos (auto) 2.5 H Absolute Eos (auto) 0.0 Absolute Basos (auto) 0.1 Absolute Nucleated RBC 0.0 Nucleated RBC % 0.0 APTT Sodium 133 L Potassium 5.2 H Chloride 99 L Carbon Dioxide 28 Anion Gap 6 BUN 132 H Creatinine 2.13 H Est GFR ( Amer) 37.1 Est GFR (Non-Af Amer) 30.7 BUN/Creatinine Ratio 62.0 H Glucose 184 H POC Glucose (mg/dL) 168 H Calcium 7.8 L Magnesium Urine Color Urine Appearance Urine pH Ur Specific [place] Urine Protein Urine Ketones Urine Blood Urine Nitrate Urine Bilirubin Urine Urobilinogen Ur Leukocyte Esterase Urine WBC (Auto) Urine RBC (Auto) Ur Squamous Epith Cells Urine Bacteria Urine Glucose 10/03/19 10/03/19 10/03/19 02:48 05:00 05:00 WBC 28.2 H RBC 3.69 L Hgb 10.6 L Hct 32 L MCV 87 MCH 29 MCHC 33 RDW 15 Plt Count 194 MPV 10.4 Neut % (Auto) Lymph % (Auto) [place] % (Auto) Eos % (Auto) Baso % (Auto) Absolute Neuts (auto) Absolute Lymphs (auto) Absolute Monos (auto) Absolute Eos (auto) Absolute Basos (auto) Absolute Nucleated RBC Nucleated RBC % APTT Sodium 135 Potassium 4.9 Chloride 100 L Carbon Dioxide 29 Anion Gap 6 BUN 127 H Creatinine 2.21 H Est GFR ( Amer) 35.6 Est GFR (Non-Af Amer) 29.4 BUN/Creatinine Ratio 57.5 H Glucose 186 H POC Glucose (mg/dL) Calcium 8.1 L Magnesium 4.0 H Urine Color Yellow Urine Appearance Cloudy Urine pH 5.0 Ur Specific [place] 1.014 Urine Protein 2+(100 mg/dl) A Urine Ketones Negative Urine Blood 2+ A Urine Nitrate Negative Urine Bilirubin Negative Urine Urobilinogen Negative Ur Leukocyte Esterase Negative Urine WBC (Auto) 1+(6-10/hpf) A Urine RBC (Auto) 2+(6-10/hpf) A Ur Squamous Epith Cells Present A Urine Bacteria 1+ A Urine Glucose Negative 10/03/19 11:07 WBC RBC Hgb Hct MCV MCH MCHC RDW Plt Count MPV Neut % (Auto) Lymph % (Auto) [place] % (Auto) Eos % (Auto) Baso % (Auto) Absolute Neuts (auto) Absolute Lymphs (auto) Absolute Monos (auto) Absolute Eos (auto) Absolute Basos (auto) Absolute Nucleated RBC Nucleated RBC % APTT 35.4 Sodium Potassium Chloride Carbon Dioxide Anion Gap BUN Creatinine Est GFR ( Amer) Est GFR (Non-Af Amer) BUN/Creatinine Ratio Glucose POC Glucose (mg/dL) Calcium Magnesium Urine Color Urine Appearance Urine pH Ur Specific [place] Urine Protein Urine Ketones Urine Blood Urine Nitrate Urine Bilirubin Urine Urobilinogen Ur Leukocyte Esterase Urine WBC (Auto) Urine RBC (Auto) Ur Squamous Epith Cells Urine Bacteria Urine Glucose Imaging: MRI brain 10/01 - left frontal encephalopmalacia+; no other acute findings EEG 10/01 - slowing+, no epileptiform discharges noted Assessment: 73y M w/pmhx of obesity, DM, CAD/CABG, h/o bone malignancy s/p Right forearm amputation, HLD, HLD, Chronic LV diastolic dysfunction, COPD, CKD3 , ex-smoker; admitted 09/21 for SOB/cough, wheezing, found acutely hypoxic and hypercapneic, req NIV, eventually intubated in ER for pulmonary edema/COPD exaccerbation/CHF exacc. He also had new-onset AFib with RVR. EKG demonstrated new ST depressions, elevated troponins. He was found to have new acute LV systolic heart failure, Influenza A+, NSTEMI. Since admission he was empirically treated with tamiflu. He has a LLL consolidation which was also treated with cefepime, culture negative since 09/25. He has been having ongoing fevers since 09/28, peaking to 104 09/29, decreased 09/30 after discontinuation of precedex -acute hypoxic and hypercapnic respiratory failure, int 09/21 -acute COPD exaccerbation -Acute pulmonary edema -acute decompensated LV systolic heart failure -NSTEMI -new onset Afib with RVR -Left lower lobe pneumonia, unspec organism -Influenza A infection -Severe Sepsis 08/27 influenza -severe sepsis 08/27 to gram neg tracheitis/pneumonia -REENA on CKD3 -acute encephalopathy, unspecified type DM CAD/CABG Plan: Neuro- -off fentanyl infusion; PRN as needed -still has ongoing delirium, wakens but doesnt follow commands. CT brain was negative 09/30. EEG 10/01 iwthout epileptiform d/c, some slowing+. MRI 39 - no acute findings, left encephalomalacia+. -continue gabapentin. -will cont to minimize sedation -suspect metabolic/toxic; have d/c'ed asa/plavix, will consider LP tomorrow if fevers still persistent -also possibility of uremia given high BUN earlier, will have to consider this also -last ammonit 50s; cont lactulose, check tomorrow -Delirium prec; avoid BDZ CVS- -BP stable -CAD/CABG - holding DAPT for possible LP; cont statin -CMP - cont coreg; hold bidil/norvasc for low BPs -holding ACEI for REENA -gross overload, cont IV lasix 20mg daily -Afib - rate controlled, cont coreg; IV heparin for AC, follow protocol ptts -Maintain MAP>65 Resp- -Remains intubated; on AC 15/500/+10/45% -check CXR today -CT Chest 05/02 - with some basal infiltrates noted only -sputum culture 10/02 with gram negs on smear; restart IV abx -secretions are still tannish/dark; no noted sputum growth though -no plan for extubation yet till improved mental status -no active wheezing -Wean Fio2 to keep sat>92% -Bronchodilators PRN, Aspiration prec, Pulmonary Toilet -VAP bundle ID- tmax 101.5, wbc 20-26-28 -CT chest 09/30 - basal atelectic changes/small consolidation -sputum 10/02 with gram negs on smear; pending ID/culture -IV abx stopped 09/30 - cefepime/vanco -repeated blood and urine culture; neg beltran placed last night -completed tamiflu 5 day course for influenza A -start merrem 1gm iv q12h (renal dosing) GI- -TF via NGT - glucerna -GI prophylaxis - ppi Renal- -REENA on CKD3; fluctuating Cr in mid 2s; BUN slow decline -hyperkalemia - improved after diuresis; s/p kayexelate x1 yesterday -still positive balance; cont lasix 20mg iv daily, reassess tomorrow -no beltran at this time -strict I/O, replete to keep K>4, Mg>2 -beltran as indicated Heme- -hg 10-11s; stable; no bleeding noted -cont IV heparin for Afib AC, follow protocol -no active bleeding noted Endo-Maintain BG<200, insulin protocol as needed Musculsk- pressure ulcer prophylaxis. Bedrest. Wounds- none Nutrition- NGT TF DVT prophylaxis: heparin IV GI prophylaxis: ppi Central Line: PICC Arterial Line: no Beltran Cathetor: yes 10/01 Disposition: Patient requires Critical Care/ICU for respiratory failure, encephalopathy, sepsis Patient clinical status: guarded Code Status: full code Total Critical Care time is 45 minutes, excluding procedures/teaching Eber Whitman MD Contract Administration Coordinator (Electronically Signed)
[2019-10-03] MEDS: Meropenem 1 GM PREMIX(*) 1 GM/50 ML BAG IV SCH (14:17)
[2019-10-03] MEDS: fentaNYL* 50 MCG/ML 2 ML VIAL (100 MCG VIAL) IV SLOW PU PRN ×3 (17:36→22:45)
--- NOTE | 2019-10-03 20:42 | PN ---
NEUROLOGICAL FOLLOWUP NOTE: DATE OF SERVICE: 10/03/19 HISTORY: Seen by Dr. Ross on 10/01/19. This is a 73-year-old man who has multiple medical problems including chronic kidney disease; coronary artery disease; bone malignancy, status post right arm amputation; cardiomyopathy; left frontal encephalomalacia on CT scan, who presented on 09/21/19 with positive influenza A and respiratory insufficiency. He was intubated and developed high fevers on Precedex, which was stopped and he has had low-grade fever since of 100.9. He has been now most recently sedated with fentanyl. He remains unable to follow commands and I was recontacted. I discussed the case last night with Dr. Whitman and we were holding the aspirin and Plavix for a couple days' time so he would be in position to do a spinal tap if it was needed. CURRENT MEDICATIONS: Include: 1. Albuterol 1 neb q.2 hours p.r.n. 2. Lipitor 80 mg daily. 3. Coreg 6.25 mg b.i.d. 4. Gabapentin 100 b.i.d. 5. Lactulose. 6. Meropenem q.12 hours. 7. Nystatin. 8. Protonix 40 mg at 2200. His fentanyl is in the process of being held. PHYSICAL EXAMINATION: Temperature 100.9; pulse 103; respirations 20, on a vent ; blood pressure 125/49. He wakes easily and appears alert. He looked towards a preference other than looking away but did not follow hands or any commands. He moves both sides with at least 5-/5 power. Sensation grossly intact to light noxious stimuli on both sides. Chest showed rales and rhonchi bilaterally. Cardiovascular: Regular rate and rhythm. Abdomen is soft with positive bowel sounds. DIAGNOSTIC STUDIES/LAB DATA: His MRI scan showed his left frontal area of encephalomalacia, but no new findings. It was done without contrast. His labs continued to show elevated BUN of 127 most recently from today, creatinine 2.2, glucose 186, calcium 8.1. Most recent ammonia was 54 and he is on lactulose. His PTT from today was 35, INR 1.1 on admission. White count 28,000 today, hematocrit 32. IMPRESSION AND PLAN: Given his persistent fever and white count and his unimproved mental status, apparently he was like this for the past couple days and does not follow commands, it would be reasonable if he persists this way to check a spinal tap to make sure that there is no other infectious agent causing problems. I discussed with Dr. Whitman, the patient's aspirin and Plavix have been held so that he would be in position to have a spinal tap. I would recommend checking for things such as cryptococcal antigen, herpes PCR, although I think that these things are unlikely and that he would have been sicker by this time if he had a significant infectious illness and it seems like he may just slowly be getting better. His EEG just showed diffuse slowing and did not show subclinical status, which was an issue raised by Dr. Ross. Thank you for sharing his case. [id number]/[facility] #: [id number] [place]
[2019-10-03] MEDS: Pantoprazole IV* 40 MG IV SCH (21:47)
[2019-10-03] MEDS ORDERED: Propofol* 100 ML ONE (23:45)
[2019-10-03] MEDS: Heparin DRIP 25,000 UNITS(*) 25,000 UNITS/500 ML BAG IV SCH (23:54)
[2019-10-03] MEDS: Propofol* 100 ML IV SCH (23:56)
[2019-10-04] MEDS: Meropenem 1 GM PREMIX(*) 1 GM/50 ML BAG IV SCH ×2 (00:20→13:14)
[2019-10-04] MEDS: Insulin REGULAR(*) 1 UNITS UNIT SUBCUT SCH ×4 (00:20→18:23)
[2019-10-04] MEDS: Chlorhexidine MOUTHWASH 0.12%* 15 ML UDC SWISH SPIT SCH ×6 (00:20→20:45)
[2019-10-04 04:31] LABS: Hematocrit 29 % (42-52); Hemoglobin 9.5 g/dL (14.0-18.0); Mean Corpuscular HGB Conc 33 g/dL (31-36); Mean Corpuscular Hemoglobin 29 pg (27-31); Mean Corpuscular Volume 88 fL (80-94); Platelet Count 196 10^3/uL (150-450); Red Blood Count 3.31 10^6 /uL (4.18-5.48); Red Cell Distribution Width 15 % (10-15); White Blood Count 22.2 10^3/uL (3.5-10.8)
[2019-10-04 04:45] LABS: BUN/Creatinine Ratio 55.5 (8-20); Calcium 8.1 mg/dL (8.6-10.3); EGFR African American 37.5 (>60); Magnesium 3.8 mg/dL (1.9-2.7); Potassium 4.2 mmol/L (3.5-5.0)
[2019-10-04] MEDS: Heparin VIAL(*) 5000 UNITS/ML VIAL (FIVE THOUSAND) IV SCH (04:58)
[2019-10-04] MEDS: fentaNYL* 50 MCG/ML 2 ML VIAL (100 MCG VIAL) IV SLOW PU PRN ×4 (07:37→23:41)
[2019-10-04] MEDS: Gabapentin CAP(*) 100 MG PO SCH ×2 (07:56→20:45)
[2019-10-04] MEDS: Nystatin SUSPENSION* 100000 UNITS/ML 5 ML UDC PO SCH ×4 (07:56→20:45)
[2019-10-04] MEDS: Atorvastatin* 80 MG TAB PO SCH (07:56)
[2019-10-04] MEDS: Carvedilol TAB* 6.25 MG PO SCH ×2 (07:56→20:45)
[2019-10-04] MEDS ORDERED: Furosemide IV* 10 MG/ML VIAL (40 MG) IV ONE (12:56)
--- NOTE | 2019-10-04 13:13 | PN ---
Progress Note - Progress Note Date of Service: 10/04/19 Note: Progress Note -- Critical Care 24 hour events/significant events: -tmax 102, ventilated, still opens eyes only -mild secretions from ett -restarted on propofol for tachypnea and restlessness overnight and this morning -bedside POC US chest done - noted bilateral bibasilar consolidations of lungs noted, no effusion -increased fio2 overnight to 65%, was on peep 8 and increased to 10 overnight ROS: ROS unable to be obtained secondary to intubated/mental status change Tele: afib, rate controlled Vitals: Vital Signs Temp 101.5 F 10/04/19 12:01 Pulse 82 10/04/19 12:01 Resp 25 10/04/19 10:34 BP 130/70 10/04/19 12:01 Pulse Ox 100 10/04/19 12:01 Intake & Output 10/03/19 10/04/19 10/04/19 18:59 06:59 18:59 Intake Total 2035 1510 95 Output Total 1510 1065 375 Balance 525 445 -280 Weight 124.6 kg Intake: IV Fluids 186 Meropenem 50 NS (0.9%) 136 IVPB 50 Meropenem 50 Medicated IV 106 320 CC - Propofol/Diprivan 28 Heparin 106 292 Oral 0 0 Tube Feeding 939 481 Tube Feeding Flush Amount 920 473 NG Tube Irrigate Amount 70 95 Output: Beltran 1510 1065 375 O2/Vent: AC 15/500/+10/+65%; RR 20s, TV 500-600 Infusions: propofol, heparin IV Medications: Acetaminophen (Tylenol Adult Liq*) 650 mg NG TUBE Q6H PRN PRN Reason: TEMPERATURE > 100.4 Last Admin: 10/03/19 07:37 Dose: 650 mg Albuterol/Ipratropium (Duoneb (Albuterol 2.5 Mg/Ipratropium 0.5 Mg)) 1 neb INH Q2H PRN PRN Reason: SOB/WHEEZING Albuterol/Ipratropium (Duoneb (Albuterol 2.5 Mg/Ipratropium 0.5 Mg)) 1 neb INH Q4H PRN PRN Reason: SOB/WHEEZING Artificial Tears (Lacrilube Oint*) 1 applic BOTH EYES Q4H PRN PRN Reason: DRY EYE Atorvastatin Calcium (Lipitor*) 80 mg PO DAILY [facility] Last Admin: 10/04/19 07:56 Dose: 80 mg Carvedilol (Coreg Tab*) 6.25 mg PO BID [facility] Last Admin: 10/04/19 07:56 Dose: 6.25 mg Chlorhexidine Gluconate (Peridex Mouth Wash 0.12%*) 15 ml SWISH SPIT Q4H [facility] Last Admin: 10/04/19 12:22 Dose: 15 ml Fentanyl Citrate (Fentanyl*) 50 mcg IV SLOW PU Q1H PRN PRN Reason: PAIN - SEVERE Last Admin: 10/04/19 10:34 Dose: 50 mcg Gabapentin (Neurontin Cap(*)) 100 mg PO BID [facility] Last Admin: 10/04/19 07:56 Dose: 100 mg Heparin Sodium (Porcine) (Heparin Flush Picc/Ml/Cvc(*)) 0 ml FLUSH .PER PROTOCOL [facility] Heparin Sodium (Porcine) (Heparin Vial(*)) 0 units IV .PER PROTOCOL [facility] Last Admin: 10/04/19 04:58 Dose: 3,150 units Heparin Sodium/Dextrose (Heparin Drip 25,000 Units(*)) 25,000 units in 500 mls @ 0 mls/hr IV PER RATE [facility]; Protocol Last Admin: 10/03/19 23:54 Dose: 22 mls/hr Meropenem (Merrem 1 Gm Premix(*)) 1 gm in 50 mls @ 100 mls/hr IV Q12H [facility]; Protocol Last Admin: 10/04/19 00:20 Dose: 100 mls/hr Propofol (Diprivan*) 100 mls @ 7.626 mls/hr IV .PER PROTOCOL [facility]; Protocol Last Admin: 10/03/19 23:56 Dose: 7.626 mls/hr Insulin Human Regular (Insulin Regular(*)) 0 units SUBCUT Q6HR [facility]; Protocol Last Admin: 10/04/19 12:22 Dose: 6 units Lactulose (Lactulose*) 30 ml NG TUBE TID [facility] Last Admin: 10/04/19 10:33 Dose: 30 ml Nystatin (Nystatin Suspension*) 200,000 units PO QID [facility] Last Admin: 10/04/19 07:56 Dose: 200,000 units Pantoprazole Sodium (Protonix Iv*) 40 mg IV 2200 [facility] Last Admin: 10/03/19 21:47 Dose: 40 mg Polyethylene Glycol/Electrolytes (Miralax (17 Gm Dose Demario)) 17 gm PO DAILY PRN PRN Reason: CONSTIPATION Last Admin: 09/27/19 05:41 Dose: 17 gm Physical Exam: Constitutional: intubated, awakens, but not responsive to commands, mild distress, no diaphoresis Head: normocephalic, atraumatic Eyes: no pallor, no icterus ENT: moist mucous membranes Neck: soft, supple, no jvd CVS: normal rate, regular, no murmur Chest/Resp: bilateral air entry, bibasilar rhonchi++, no rhales, no wheeze, no acc muscle use Abdomen/GI: soft, nontender, nondistended, BS+ Ext/Msk: warm, pulses+, no edema Skin: intact, warm Neuro: awakens but not responsive to commands, not alert, not oriented, some spontaneous movements of extremities Psych: unable to assess due to change in mental status Labs: Laboratory Results - last 24 hr 10/02/19 10/03/19 10/03/19 18:12 12:16 17:30 WBC RBC Hgb Hct MCV MCH MCHC RDW Plt Count MPV APTT Sodium Potassium Chloride Carbon Dioxide Anion Gap BUN Creatinine Est GFR ( Amer) Est GFR (Non-Af Amer) BUN/Creatinine Ratio Glucose POC Glucose (mg/dL) 203 H 220 H 221 H Calcium Magnesium Ammonia 10/03/19 10/04/19 10/04/19 19:27 00:02 04:18 WBC RBC Hgb Hct MCV MCH MCHC RDW Plt Count MPV APTT 45.6 H Sodium Potassium Chloride Carbon Dioxide Anion Gap BUN Creatinine Est GFR ( Amer) Est GFR (Non-Af Amer) BUN/Creatinine Ratio Glucose POC Glucose (mg/dL) 209 H Calcium Magnesium Ammonia 46 10/04/19 10/04/19 10/04/19 04:18 04:18 04:18 WBC 22.2 H RBC 3.31 L Hgb 9.5 L Hct 29 L MCV 88 MCH 29 MCHC 33 RDW 15 Plt Count 196 MPV 10.0 APTT 47.7 H Sodium 139 Potassium 4.2 Chloride 103 Carbon Dioxide 28 Anion Gap 8 BUN 117 H Creatinine 2.11 H Est GFR ( Amer) 37.5 Est GFR (Non-Af Amer) 31.0 BUN/Creatinine Ratio 55.5 H Glucose 166 H POC Glucose (mg/dL) Calcium 8.1 L Magnesium 3.8 H Ammonia 10/04/19 10:40 WBC RBC Hgb Hct MCV MCH MCHC RDW Plt Count MPV APTT 58.6 H Sodium Potassium Chloride Carbon Dioxide Anion Gap BUN Creatinine Est GFR ( Amer) Est GFR (Non-Af Amer) BUN/Creatinine Ratio Glucose POC Glucose (mg/dL) Calcium Magnesium Ammonia Imaging: MRI brain 10/01 - left frontal encephalopmalacia+; no other acute findings EEG 10/01 - slowing+, no epileptiform discharges noted cxr 10/03 - ett above balta, left sided consolidation+, right basal consoli+ developing also Assessment: 73y M w/pmhx of obesity, DM, CAD/CABG, h/o bone malignancy s/p Right forearm amputation, HLD, HLD, Chronic LV diastolic dysfunction, COPD, CKD3 , ex-smoker; admitted 09/21 for SOB/cough, wheezing, found acutely hypoxic and hypercapneic, req NIV, eventually intubated in ER for pulmonary edema/COPD exaccerbation/CHF exacc. He also had new-onset AFib with RVR. EKG demonstrated new ST depressions, elevated troponins. He was found to have new acute LV systolic heart failure, Influenza A+, NSTEMI. Since admission he was empirically treated with tamiflu. He has a LLL consolidation which was also treated with cefepime, culture negative since 09/25. He has been having ongoing fevers since 09/28, peaking to 104 09/29, decreased 09/30 after discontinuation of precedex. 10/03-ongoing fevers, being treated for pneumonia, encephalopathy still present. -acute hypoxic and hypercapnic respiratory failure, int 09/21 -ARDS -acute COPD exaccerbation -Acute pulmonary edema -acute decompensated LV systolic heart failure -NSTEMI -new onset Afib with RVR -Left lower lobe pneumonia, unspec organism -Influenza A infection -Severe Sepsis 08/27 influenza -severe sepsis 08/27 to gram neg tracheitis/pneumonia -REENA on CKD3 -acute encephalopathy, unspecified type DM CAD/CABG Plan: Neuro- -started on propofol infusion for vent synchrony and distress -still has ongoing delirium, wakens but doesnt follow commands. CT brain was negative 09/30. EEG 10/01 iwthout epileptiform d/c, some slowing+. MRI 10/01 - no acute findings, left encephalomalacia+. -continue gabapentin. -will cont to minimize sedation -suspect metabolic/toxic; have d/c'ed asa/plavix, will consider LP today or tomorrow -also possibility of uremia m but BUn and Cr improving, making urine -last ammonit 40s; cont lactulose tid -Delirium prec; avoid BDZ CVS- -BP stable -CAD/CABG - holding DAPT for possible LP; cont statin -CMP - cont coreg; hold bidil/norvasc for low BPs -holding ACEI for REENA -gross overload, cont IV lasix 20mg daily as needed -Afib - rate controlled, cont coreg; IV heparin for AC, follow protocol ptts -Maintain MAP>65 Resp- -Remains intubated; on AC 15/500/+10/65% -cxr 10/03 - left sided consolidation at base, right base developing infiltrates+ -bedside POC US with noted consolidation on left>right -secretions+; some bloody but not much otherwise -sputum cx 10/02 in progress still -will consider repeat CT chest -CT Chest 05/02 - with some basal infiltrates noted only -no plan for extubation yet till improved mental status -has been intubated almost 2 weeks, I have brought up tracheostomy to family, will consider by end of week if not improving -no active wheezing -Wean Fio2 to keep sat>92% -Bronchodilators PRN, Aspiration prec, Pulmonary Toilet -VAP bundle ID- tmax 102, wbc 20-26-28-22 -CT chest 09/30 - basal atelectic changes/small consolidation -sputum 10/02 with gram negs on smear; pending ID/culture -IV abx stopped 09/30 - cefepime/vanco -repeated blood and urine culture -completed tamiflu 5 day course for influenza A -cont merrem 1gm iv q12h (renal dosing) (day#2) GI- -TF via NGT - glucerna -GI prophylaxis - ppi Renal- -REENA on CKD3; fluctuating Cr in mid 2s; BUN slow decline -hyperkalemia - improved -some edema+, more euvolemic; cont lasix 40mg iv x1 today, reassess daily need -no beltran at this time -strict I/O, replete to keep K>4, Mg>2 -beltran as indicated Heme- -hg 9-10s; stable; no bleeding noted -cont IV heparin for Afib AC, follow protocol -no active bleeding noted Endo-Maintain BG<200, insulin protocol as needed Musculsk- pressure ulcer prophylaxis. Bedrest. Wounds- none Nutrition- NGT TF DVT prophylaxis: heparin IV GI prophylaxis: ppi Central Line: PICC Arterial Line: no Beltran Cathetor: yes 10/01 Disposition: Patient requires Critical Care/ICU for respiratory failure, encephalopathy, sepsis, pneumonia Patient clinical status: guarded Code Status: full code Total Critical Care time is 50 minutes, excluding procedures/teaching Eber Whitman MD [employer] (Electronically Signed)
[2019-10-04] MEDS: Propofol* 100 ML IV SCH (15:18)
[2019-10-04] MEDS: Heparin DRIP 25,000 UNITS(*) 25,000 UNITS/500 ML BAG IV SCH (21:37)
[2019-10-04] MEDS: Pantoprazole IV* 40 MG IV SCH (21:39)
[2019-10-05] MEDS: Chlorhexidine MOUTHWASH 0.12%* 15 ML UDC SWISH SPIT SCH ×6 (00:40→21:36)
[2019-10-05] MEDS: Insulin REGULAR(*) 1 UNITS UNIT SUBCUT SCH ×4 (00:40→17:28)
[2019-10-05] MEDS: Meropenem 1 GM PREMIX(*) 1 GM/50 ML BAG IV SCH ×3 (00:40→20:51)
[2019-10-05] MEDS: fentaNYL* 50 MCG/ML 2 ML VIAL (100 MCG VIAL) IV SLOW PU PRN (03:09)
[2019-10-05] MEDS: Propofol* 100 ML IV SCH ×2 (05:08→22:09)
[2019-10-05 05:58] LABS: Hematocrit 28 % (42-52); Hemoglobin 9.2 g/dL (14.0-18.0); Mean Corpuscular HGB Conc 34 g/dL (31-36); Mean Corpuscular Hemoglobin 29 pg (27-31); Mean Corpuscular Volume 88 fL (80-94); Platelet Count 204 10^3/uL (150-450); Red Blood Count 3.14 10^6 /uL (4.18-5.48); Red Cell Distribution Width 15 % (10-15); White Blood Count 17.2 10^3/uL (3.5-10.8)
[2019-10-05 06:14] LABS: BUN/Creatinine Ratio 61.1 (8-20); Calcium 7.8 mg/dL (8.6-10.3); EGFR African American 45.1 (>60); EGFR Non-African American 37.3 (>60); Magnesium 3.7 mg/dL (1.9-2.7); Potassium 4.1 mmol/L (3.5-5.0)
[2019-10-05] MEDS: Gabapentin CAP(*) 100 MG PO SCH ×2 (09:00→21:44)
[2019-10-05] MEDS: Carvedilol TAB* 6.25 MG PO SCH ×2 (09:00→21:44)
[2019-10-05] MEDS: Atorvastatin* 80 MG TAB PO SCH (09:01)
[2019-10-05] MEDS: Nystatin SUSPENSION* 100000 UNITS/ML 5 ML UDC PO SCH ×4 (09:01→22:09)
[2019-10-05] MEDS ORDERED: Furosemide IV* 10 MG/ML VIAL (40 MG) IV ONE (11:11)
--- NOTE | 2019-10-05 11:25 | PN ---
Progress Note - Progress Note Date of Service: 10/05/19 Note: Progress Note -- Critical Care 24 hour events/significant events: -tmax 102 yesterday but declining fever curve overnight -BP and HR stable, no pressors -was started on propofol for restlessness, off this morning, opens eyes but doesnt folow commands yet -moving ext spontanoeusly; daughter at bedside -good urine output with lasix yesterday -loose stools+, on lactulose -on IV heparin infusion -remains intubated on AC 50%, peep 10 ROS: ROS unable to be obtained secondary to intubated/mental status change Tele: afib, rate controlled Vitals: Vital Signs Temp 100.6 F 10/05/19 10:16 Pulse 82 10/05/19 10:16 Resp 14 10/05/19 10:00 BP 117/97 10/05/19 10:16 Pulse Ox 99 10/05/19 10:16 Intake & Output 10/04/19 10/05/19 10/05/19 18:59 06:59 18:59 Intake Total 1439 2418 Output Total 750 950 185 Balance 689 1468 -185 Weight 123.405 kg Intake: IV Fluids 131 146 Meropenem 50 NS (0.9%) 81 146 IVPB 55 Meropenem 55 Medicated IV 247 495 CC - Propofol/Diprivan 100 Heparin 247 395 Oral 0 Tube Feeding 466 847 Tube Feeding Flush Amount 500 875 NG Tube Irrigate Amount 95 Output: Beltran 750 950 185 O2/Vent: AC 15/500/+10/+50%; RR 20s, TV 500-600 Infusions: propofol held, heparin IV Medications: Acetaminophen (Tylenol Adult Liq*) 650 mg NG TUBE Q6H PRN PRN Reason: TEMPERATURE > 100.4 Last Admin: 10/03/19 07:37 Dose: 650 mg Albuterol/Ipratropium (Duoneb (Albuterol 2.5 Mg/Ipratropium 0.5 Mg)) 1 neb INH Q2H PRN PRN Reason: SOB/WHEEZING Albuterol/Ipratropium (Duoneb (Albuterol 2.5 Mg/Ipratropium 0.5 Mg)) 1 neb INH Q4H PRN PRN Reason: SOB/WHEEZING Artificial Tears (Lacrilube Oint*) 1 applic BOTH EYES Q4H PRN PRN Reason: DRY EYE Atorvastatin Calcium (Lipitor*) 80 mg PO DAILY [facility] Last Admin: 10/05/19 09:01 Dose: 80 mg Carvedilol (Coreg Tab*) 6.25 mg PO BID [facility] Last Admin: 10/05/19 09:00 Dose: 6.25 mg Chlorhexidine Gluconate (Peridex Mouth Wash 0.12%*) 15 ml SWISH SPIT Q4H [facility] Last Admin: 10/05/19 09:00 Dose: 15 ml Fentanyl Citrate (Fentanyl*) 50 mcg IV SLOW PU Q1H PRN PRN Reason: PAIN - SEVERE Last Admin: 10/05/19 03:09 Dose: 50 mcg Gabapentin (Neurontin Cap(*)) 100 mg PO BID [facility] Last Admin: 10/05/19 09:00 Dose: 100 mg Heparin Sodium (Porcine) (Heparin Flush Picc/Ml/Cvc(*)) 0 ml FLUSH .PER PROTOCOL [facility] Heparin Sodium (Porcine) (Heparin Vial(*)) 0 units IV .PER PROTOCOL [facility] Last Admin: 10/04/19 04:58 Dose: 3,150 units Heparin Sodium/Dextrose (Heparin Drip 25,000 Units(*)) 25,000 units in 500 mls @ 0 mls/hr IV PER RATE [facility]; Protocol Last Admin: 10/04/19 21:37 Dose: 26 mls/hr Meropenem (Merrem 1 Gm Premix(*)) 1 gm in 50 mls @ 100 mls/hr IV Q12H [facility]; Protocol Last Admin: 10/05/19 00:40 Dose: 100 mls/hr Propofol (Diprivan*) 100 mls @ 7.626 mls/hr IV .PER PROTOCOL [facility]; Protocol Last Admin: 10/05/19 05:08 Dose: 7.4 mls/hr Insulin Human Regular (Insulin Regular(*)) 0 units SUBCUT Q6HR [facility]; Protocol Last Admin: 10/05/19 06:14 Dose: 3 units Lactulose (Lactulose*) 30 ml NG TUBE TID [facility] Last Admin: 10/05/19 09:00 Dose: 30 ml Nystatin (Nystatin Suspension*) 200,000 units PO QID [facility] Last Admin: 10/05/19 09:01 Dose: 200,000 units Pantoprazole Sodium (Protonix Iv*) 40 mg IV 2200 [facility] Last Admin: 10/04/19 21:39 Dose: 40 mg Polyethylene Glycol/Electrolytes (Miralax (17 Gm Dose Demario)) 17 gm PO DAILY PRN PRN Reason: CONSTIPATION Last Admin: 09/27/19 05:41 Dose: 17 gm Physical Exam: Constitutional: intubated, awakens, but not responsive to commands, mild distress, no diaphoresis Head: normocephalic, atraumatic Eyes: no pallor, no icterus ENT: moist mucous membranes Neck: soft, supple, no jvd CVS: normal rate, regular, no murmur Chest/Resp: bilateral air entry, bibasilar rhonchi++, no rhales, no wheeze, no acc muscle use Abdomen/GI: soft, nontender, nondistended, BS+ Ext/Msk: warm, pulses+, edema mild Skin: intact, warm Neuro: awakens but not responsive to commands, not alert, not oriented, some spontaneous movements of extremities Psych: unable to assess due to change in mental status Labs: Laboratory Results - last 24 hr 10/02/19 10/04/19 10/04/19 17:16 17:13 18:16 WBC RBC Hgb Hct MCV MCH MCHC RDW Plt Count MPV APTT 56.5 H Sodium Potassium Chloride Carbon Dioxide Anion Gap BUN Creatinine Est GFR ( Amer) Est GFR (Non-Af Amer) BUN/Creatinine Ratio Glucose POC Glucose (mg/dL) 199 H Calcium Magnesium Procalcitonin 4.4 H 10/05/19 10/05/19 10/05/19 00:34 05:32 05:32 WBC RBC Hgb Hct MCV MCH MCHC RDW Plt Count MPV APTT 73.1 H Sodium 141 Potassium 4.1 Chloride 104 Carbon Dioxide 29 Anion Gap 8 BUN 110 H Creatinine 1.80 H Est GFR ( Amer) 45.1 Est GFR (Non-Af Amer) 37.3 BUN/Creatinine Ratio 61.1 H Glucose 156 H POC Glucose (mg/dL) 190 H Calcium 7.8 L Magnesium 3.7 H Procalcitonin 10/05/19 05:32 WBC 17.2 H RBC 3.14 L Hgb 9.2 L Hct 28 L MCV 88 MCH 29 MCHC 34 RDW 15 Plt Count 204 MPV 10.0 APTT Sodium Potassium Chloride Carbon Dioxide Anion Gap BUN Creatinine Est GFR ( Amer) Est GFR (Non-Af Amer) BUN/Creatinine Ratio Glucose POC Glucose (mg/dL) Calcium Magnesium Procalcitonin Imaging: MRI brain 10/01 - left frontal encephalopmalacia+; no other acute findings EEG 10/01 - slowing+, no epileptiform discharges noted cxr 10/03 - ett above balta, left sided consolidation+, right basal consoli+ developing also cxr 10/04 - ett above balta, left sided consolidation+; +/- right basal infiltrate/atelectasis Assessment: 73y M w/pmhx of obesity, DM, CAD/CABG, h/o bone malignancy s/p Right forearm amputation, HLD, HLD, Chronic LV diastolic dysfunction, COPD, CKD3 , ex-smoker; admitted 09/21 for SOB/cough, wheezing, found acutely hypoxic and hypercapneic, req NIV, eventually intubated in ER for pulmonary edema/COPD exaccerbation/CHF exacc. He also had new-onset AFib with RVR. EKG demonstrated new ST depressions, elevated troponins. He was found to have new acute LV systolic heart failure, Influenza A+, NSTEMI. Since admission he was empirically treated with tamiflu. He has a LLL consolidation which was also treated with cefepime, culture negative since 09/25. He has been having ongoing fevers since 09/28, peaking to 104 09/29, decreased 09/30 after discontinuation of precedex. 10/03-ongoing fevers, being treated for pneumonia, encephalopathy still present. -acute hypoxic and hypercapnic respiratory failure, int 09/21 -ARDS -acute COPD exaccerbation -Acute pulmonary edema -acute decompensated LV systolic heart failure -NSTEMI -new onset Afib with RVR -Left lower lobe pneumonia, unspec organism -Influenza A infection -Severe Sepsis 08/27 influenza -severe sepsis 08/27 to gram neg tracheitis/pneumonia -REENA on CKD3 -acute encephalopathy, unspecified type DM CAD/CABG Plan: Neuro- -will hold propofol today as long as possible -still not back to baseline, delirium ongoing -fever curve has come down though -CT brain was negative 09/30. EEG 10/01 iwthout epileptiform d/c, some slowing+. MRI 10/01 - no acute findings, left encephalomalacia+. -continue gabapentin. -suspect metabolic/toxic; have d/c'ed asa/plavix; after discussion with neurology yesterday will have to decide if LP should be considered -also possibility of uremia m but BUn and Cr improving, making urine -last ammonit 40s 10/03; cont lactulose tid -Delirium prec; avoid BDZ CVS- -BP stable -CAD/CABG - holding DAPT for possible LP; cont statin -CMP - cont coreg; hold bidil/norvasc for low BPs -holding ACEI for REENA -gross overload, cont IV lasix 40mg IV x1 today -Afib - rate controlled, cont coreg; IV heparin for AC, follow protocol ptts -Maintain MAP>65 Resp- -Remains intubated; on AC 15/500/+10/50% -cxr 10/04 - left consolidation+ -will obtain CT chest/abd pelvis today -10/03 bedside POC US with noted consolidation on left>right -not much secretions -sputum cx 10/02 with gram negs but labelled normal azul ? -CT Chest 05/02 - with some basal infiltrates noted only -no plan for extubation yet till improved mental status -has been intubated almost 2 weeks, I have brought up tracheostomy to family, will consider by end of week if not improving -no active wheezing -will consider a bronchoscopy if abnormal CT chest -Wean Fio2 to keep sat>92% -Bronchodilators PRN, Aspiration prec, Pulmonary Toilet -VAP bundle ID- tmax 100.4, wbc [id number] -CT chest 09/30 - basal atelectic changes/small consolidation -sputum 10/02 with gram negs on smear; normal azul? -CXR 10/04 - left consolidation -CT chest today -IV abx stopped 09/30 - cefepime/vanco -repeated blood and urine culture - no growth so far -completed tamiflu 5 day course for influenza A -cont merrem 1gm iv q8h (renal dosing) (day#3) GI- -TF via NGT - glucerna -ongoing lactulose; ammonia 40s; loose stools+ -GI prophylaxis - ppi Renal- -REENA on CKD3; decreasing Crs to 1s; BUN slow decline -hyperkalemia - improved -some edema+, more euvolemic, good urine output; cont lasix 40mg iv x1 today, reassess daily need -no beltran at this time -strict I/O, replete to keep K>4, Mg>2 -beltran as indicated Heme- -hg 9-10s; stable; no bleeding noted -cont IV heparin for Afib AC, follow protocol -no active bleeding noted Endo-Maintain BG<200, insulin protocol as needed Musculsk- pressure ulcer prophylaxis. Bedrest. Wounds- none Nutrition- NGT TF DVT prophylaxis: heparin IV GI prophylaxis: ppi Central Line: PICC Arterial Line: no Beltran Cathetor: yes 10/01 Disposition: Patient requires Critical Care/ICU for respiratory failure, encephalopathy, sepsis, pneumonia Patient clinical status: guarded Code Status: full code updated daughter at bedside Total Critical Care time is 40 minutes, excluding procedures/teaching Eber Whitman MD [employer]et [employer] (Electronically Signed)
[2019-10-05] MEDS: Heparin DRIP 25,000 UNITS(*) 25,000 UNITS/500 ML BAG IV SCH (16:43)
[2019-10-05] MEDS: Pantoprazole IV* 40 MG IV SCH (21:36)
[2019-10-05] MEDS: Acetaminophen ADULT LIQ* 650 MG/20.3 ML UDC NG TUBE PRN (21:44)
--- NOTE | 2019-10-05 22:47 | PN ---
NEUROLOGICAL FOLLOWUP NOTE: DATE OF SERVICE: 10/05/19 PATIENT OF: Dr. Whitman, who I had seen yesterday late afternoon. HISTORY: Phillip still febrile with his eyes open and looking around. He is still febrile to 101.5, he was restarted on propofol for agitation. On exam, remains nonfocal in terms of he moves all extremities with power. I discussed this and Dr. Whitman said that this most likely is not a meningoencephalitis due to infection, and to see for other cause for his fever and that he is on propofol, but if he is clinically stable and off aspirin and Plavix for long enough would be reasonable consideration to do the spinal tap. I do not have any further recommendations but Dr. Whitman will call me back as needed as things change. Thank you for sharing his case. [id number]/[facility] #: [id number] [place]
[2019-10-06] MEDS: Insulin REGULAR(*) 1 UNITS UNIT SUBCUT SCH ×4 (00:05→18:38)
[2019-10-06] MEDS: Chlorhexidine MOUTHWASH 0.12%* 15 ML UDC SWISH SPIT SCH ×6 (00:05→21:22)
[2019-10-06] MEDS ORDERED: Dextran 70/Hypromellose Tears Eye Drops 15 ml BTL (for Artificials Tears) BOTH EYES PRN (04:19)
[2019-10-06] MEDS: Meropenem 1 GM PREMIX(*) 1 GM/50 ML BAG IV SCH ×3 (04:54→20:18)
[2019-10-06 06:41] LABS: Hematocrit 29 % (42-52); Hemoglobin 9.7 g/dL (14.0-18.0); Mean Corpuscular HGB Conc 34 g/dL (31-36); Mean Corpuscular Hemoglobin 29 pg (27-31); Mean Corpuscular Volume 88 fL (80-94); Mean Platelet Volume 9.8 fL (7.4-10.4); Platelet Count 246 10^3/uL (150-450); Red Blood Count 3.32 10^6 /uL (4.18-5.48); Red Cell Distribution Width 15 % (10-15); White Blood Count 17.8 10^3/uL (3.5-10.8)
[2019-10-06 06:46] LABS: BUN/Creatinine Ratio 62.7 (8-20); Calcium 8.1 mg/dL (8.6-10.3); EGFR African American 51.3 (>60); EGFR Non-African American 42.4 (>60); Magnesium 3.8 mg/dL (1.9-2.7); Potassium 4.3 mmol/L (3.5-5.0)
[2019-10-06] MEDS: Heparin VIAL(*) 5000 UNITS/ML VIAL (FIVE THOUSAND) IV SCH (07:30)
[2019-10-06] MEDS: Carvedilol TAB* 6.25 MG PO SCH ×2 (08:01→21:22)
[2019-10-06] MEDS: Nystatin SUSPENSION* 100000 UNITS/ML 5 ML UDC PO SCH ×4 (08:01→21:22)
[2019-10-06] MEDS: Gabapentin CAP(*) 100 MG PO SCH ×2 (08:01→21:23)
[2019-10-06] MEDS: Atorvastatin* 80 MG TAB PO SCH (08:01)
[2019-10-06] MEDS: Propofol* 100 ML IV SCH (08:15)
--- NOTE | 2019-10-06 09:53 | PN ---
Progress Note - Progress Note Date of Service: 10/06/19 Note: Progress Note -- Critical Care 24 hour events/significant events: -minmal secretions noted -tmax 100.4 -BP stable, afib rate controlled -on low dose propofol; moving spontaneously -moving ext spontanoeusly -good urine output with lasix yesterday -loose stools+, on lactulose -on IV heparin infusion -remains intubated on AC 40%, peep 10 ROS: ROS unable to be obtained secondary to intubated/mental status change Tele: afib, rate controlled Vitals: Vital Signs Temp 100.4 F 10/06/19 09:15 Pulse 78 10/06/19 09:15 Resp 26 10/06/19 09:00 BP 112/53 10/06/19 09:15 Pulse Ox 97 10/06/19 09:15 Intake & Output 10/05/19 10/06/19 10/06/19 18:59 06:59 18:59 Intake Total 1411 2663 Output Total 900 985 185 Balance 511 1678 -185 Weight 121.8 kg Intake: IV Fluids 90 98 NS (0.9%) 90 98 IVPB 63 128 Meropenem 63 128 Medicated IV 286 473 CC - Propofol/Diprivan 36 105 Heparin 250 368 Tube Feeding 526 1214 Tube Feeding Flush Amount 446 750 Output: Beltran 900 985 185 O2/Vent: AC 15/500/+10/+40%; RR 20s, TV 500-600 Infusions: propofol , heparin IV Medications: Acetaminophen (Tylenol Adult Liq*) 650 mg NG TUBE Q6H PRN PRN Reason: TEMPERATURE > 100.4 Last Admin: 10/05/19 21:44 Dose: 650 mg Albuterol/Ipratropium (Duoneb (Albuterol 2.5 Mg/Ipratropium 0.5 Mg)) 1 neb INH Q2H PRN PRN Reason: SOB/WHEEZING Albuterol/Ipratropium (Duoneb (Albuterol 2.5 Mg/Ipratropium 0.5 Mg)) 1 neb INH Q4H PRN PRN Reason: SOB/WHEEZING Artificial Tears (Natural Balance Tears Eye Drop) 1 drop BOTH EYES Q4H PRN PRN Reason: DRY EYE Atorvastatin Calcium (Lipitor*) 80 mg PO DAILY [facility] Last Admin: 10/06/19 08:01 Dose: 80 mg Carvedilol (Coreg Tab*) 6.25 mg PO BID [facility] Last Admin: 10/06/19 08:01 Dose: 6.25 mg Chlorhexidine Gluconate (Peridex Mouth Wash 0.12%*) 15 ml SWISH SPIT Q4H [facility] Last Admin: 10/06/19 08:01 Dose: 15 ml Fentanyl Citrate (Fentanyl*) 50 mcg IV SLOW PU Q1H PRN PRN Reason: PAIN - SEVERE Last Admin: 10/05/19 03:09 Dose: 50 mcg Gabapentin (Neurontin Cap(*)) 100 mg PO BID [facility] Last Admin: 10/06/19 08:01 Dose: 100 mg Heparin Sodium (Porcine) (Heparin Flush Picc/Ml/Cvc(*)) 0 ml FLUSH .PER PROTOCOL [facility] Heparin Sodium (Porcine) (Heparin Vial(*)) 0 units IV .PER PROTOCOL [facility] Last Admin: 10/06/19 07:30 Dose: 6,250 units Heparin Sodium/Dextrose (Heparin Drip 25,000 Units(*)) 25,000 units in 500 mls @ 0 mls/hr IV PER RATE [facility]; Protocol Last Admin: 10/05/19 16:43 Dose: 26 mls/hr Propofol (Diprivan*) 100 mls @ 7.626 mls/hr IV .PER PROTOCOL [facility]; Protocol Last Admin: 10/06/19 08:15 Dose: 7.3 mls/hr Meropenem (Merrem 1 Gm Premix(*)) 1 gm in 50 mls @ 100 mls/hr IV Q8H [facility]; Protocol Last Admin: 10/06/19 04:54 Dose: 100 mls/hr Insulin Human Regular (Insulin Regular(*)) 0 units SUBCUT Q6HR [facility]; Protocol Last Admin: 10/06/19 06:24 Dose: 3 units Lactulose (Lactulose*) 30 ml NG TUBE TID [facility] Last Admin: 10/06/19 08:01 Dose: 30 ml Nystatin (Nystatin Suspension*) 200,000 units PO QID [facility] Last Admin: 10/06/19 08:01 Dose: 200,000 units Pantoprazole Sodium (Protonix Iv*) 40 mg IV 2200 [facility] Last Admin: 10/05/19 21:36 Dose: 40 mg Polyethylene Glycol/Electrolytes (Miralax (17 Gm Dose Demario)) 17 gm PO DAILY PRN PRN Reason: CONSTIPATION Last Admin: 09/27/19 05:41 Dose: 17 gm Physical Exam: Constitutional: intubated, awakens, but not responsive to commands, mild distress, no diaphoresis Head: normocephalic, atraumatic Eyes: no pallor, no icterus ENT: moist mucous membranes Neck: soft, supple, no jvd CVS: normal rate, regular, no murmur Chest/Resp: bilateral air entry, bibasilar rhonchi++, no rhales, no wheeze, no acc muscle use Abdomen/GI: soft, nontender, nondistended, BS+ Ext/Msk: warm, pulses+, edema mild Skin: intact, warm Neuro: awakens but not responsive to commands, not alert, not oriented, some spontaneous movements of extremities Psych: unable to assess due to change in mental status Labs: Laboratory Results - last 24 hr 10/04/19 10/05/19 10/05/19 12:16 06:08 11:24 WBC RBC Hgb Hct MCV MCH MCHC RDW Plt Count MPV APTT Sodium Potassium Chloride Carbon Dioxide Anion Gap BUN Creatinine Est GFR ( Amer) Est GFR (Non-Af Amer) BUN/Creatinine Ratio Glucose POC Glucose (mg/dL) 203 H 176 H 183 H Calcium Magnesium Ammonia 10/05/19 10/05/19 10/06/19 17:04 23:58 06:14 WBC RBC Hgb Hct MCV MCH MCHC RDW Plt Count MPV APTT Sodium Potassium Chloride Carbon Dioxide Anion Gap BUN Creatinine Est GFR ( Amer) Est GFR (Non-Af Amer) BUN/Creatinine Ratio Glucose POC Glucose (mg/dL) 183 H 193 H 185 H Calcium Magnesium Ammonia 10/06/19 10/06/19 10/06/19 06:15 06:15 06:15 WBC RBC Hgb Hct MCV MCH MCHC RDW Plt Count MPV APTT 43.7 H Sodium 139 Potassium 4.3 Chloride 103 Carbon Dioxide 29 Anion Gap 7 BUN 101 H Creatinine 1.61 H Est GFR ( Amer) 51.3 Est GFR (Non-Af Amer) 42.4 BUN/Creatinine Ratio 62.7 H Glucose 150 H POC Glucose (mg/dL) Calcium 8.1 L Magnesium 3.8 H Ammonia 51 10/06/19 06:15 WBC 17.8 H RBC 3.32 L Hgb 9.7 L Hct 29 L MCV 88 MCH 29 MCHC 34 RDW 15 Plt Count 246 MPV 9.8 APTT Sodium Potassium Chloride Carbon Dioxide Anion Gap BUN Creatinine Est GFR ( Amer) Est GFR (Non-Af Amer) BUN/Creatinine Ratio Glucose POC Glucose (mg/dL) Calcium Magnesium Ammonia Imaging: MRI brain 10/01 - left frontal encephalopmalacia+; no other acute findings EEG 10/01 - slowing+, no epileptiform discharges noted cxr 10/03 - ett above balta, left sided consolidation+, right basal consoli+ developing also cxr 10/04 - ett above balta, left sided consolidation+; +/- right basal infiltrate/atelectasis ct chest 10/04 - left lower lobe consolidation+, minimal effusion on left Assessment: 73y M w/pmhx of obesity, DM, CAD/CABG, h/o bone malignancy s/p Right forearm amputation, HLD, HLD, Chronic LV diastolic dysfunction, COPD, CKD3 , ex-smoker; admitted 09/21 for SOB/cough, wheezing, found acutely hypoxic and hypercapneic, req NIV, eventually intubated in ER for pulmonary edema/COPD exaccerbation/CHF exacc. He also had new-onset AFib with RVR. EKG demonstrated new ST depressions, elevated troponins. He was found to have new acute LV systolic heart failure, Influenza A+, NSTEMI. Since admission he was empirically treated with tamiflu. He has a LLL consolidation which was also treated with cefepime, culture negative since 09/25. He has been having ongoing fevers since 09/28, peaking to 104 09/29, decreased 09/30 after discontinuation of precedex. 10/03-ongoing fevers, being treated for pneumonia, encephalopathy still present. -acute hypoxic and hypercapnic respiratory failure, int 09/21 -ARDS -acute COPD exaccerbation -Acute pulmonary edema -acute decompensated LV systolic heart failure -NSTEMI -new onset Afib with RVR -Left lower lobe pneumonia, unspec organism -Influenza A infection -Severe Sepsis 08/27 influenza -severe sepsis 08/27 to gram neg tracheitis/pneumonia -REENA on CKD3 -acute encephalopathy, unspecified type DM CAD/CABG Plan: Neuro- -will hold propofol today -still not back to baseline, delirium ongoing -fever curve has come down though -CT brain was negative 09/30. EEG 10/01 iwthout epileptiform d/c, some slowing+. MRI 10/01 - no acute findings, left encephalomalacia+. -continue gabapentin. -suspect metabolic/toxic; have d/c'ed asa/plavix; today may be day for attempted LP -also possibility of uremia , but BUn and Cr improving -last ammonit 51s 10/05; cont lactulose tid -Delirium prec; avoid BDZ CVS- -BP stable -CAD/CABG - holding DAPT for possible LP; cont statin -CMP - cont coreg; hold bidil/norvasc for low BPs -holding ACEI for REENA -gross overload, start IV lasix 40mg IV daily -Afib - rate controlled, cont coreg; IV heparin for AC, follow protocol ptts -Maintain MAP>65 Resp- -Remains intubated; on AC 15/500/+10/40%; start to dec peep -cxr 10/04 - left consolidation+ -CT chest 10/05 - left lower lobe consol, +/- mucous plugging as per me -not much secretions ; will consider a bronchoscopy to lavage and open anything up in lower lobe -sputum cx 10/02 with gram negs but labelled normal azul ? -CT Chest 05/02 - with some basal infiltrates noted only -no plan for extubation yet till improved mental status; will discuss with family about need for trach by next week if he doesnt wake further by end of weekend -has been intubated 2 weeks -no active wheezing -Wean Fio2 to keep sat>92% -Bronchodilators PRN, Aspiration prec, Pulmonary Toilet -VAP bundle ID- tmax 100.4, wbc [id number] -CT chest 09/30 - basal atelectic changes/small consolidation -ct chest 10/05 - left lower lobe consol -sputum 10/02 with gram negs on smear; normal azul? -IV abx vanco/cefepime stopped 09/30 -repeated blood and urine culture - no growth so far -completed tamiflu 5 day course for influenza A -cont merrem 1gm iv q8h (renal dosing) (day#4) GI- -TF via NGT - glucerna ; decreased free water to 200cc q8h -ongoing lactulose; ammonia 50s; loose stools+ -GI prophylaxis - ppi Renal- -REENA on CKD3; downtrending BUN/Cr still; good urine otuput -hyperkalemia - improved -some edema+, more euvolemic, good urine output; cont lasix 40mg iv daily -no beltran at this time -strict I/O, replete to keep K>4, Mg>2 -beltran as indicated Heme- -hg 9-10s; stable; no bleeding noted -cont IV heparin for Afib AC, follow protocol Endo-Maintain BG<200, insulin protocol as needed Musculsk- pressure ulcer prophylaxis. Bedrest. Wounds- none Nutrition- NGT TF DVT prophylaxis: heparin IV, SCDs GI prophylaxis: ppi Central Line: PICC Arterial Line: no Beltran Cathetor: yes 10/01 Disposition: Patient requires Critical Care/ICU for respiratory failure, encephalopathy, sepsis, pneumonia Patient clinical status: guarded Code Status: full code Total Critical Care time is 40 minutes, excluding procedures/teaching Eber Whitman MD [employer] (Electronically Signed)
[2019-10-06] MEDS: Furosemide IV* 10 MG/ML VIAL (40 MG) IV SCH (10:25)
[2019-10-06] MEDS: Heparin DRIP 25,000 UNITS(*) 25,000 UNITS/500 ML BAG IV SCH (13:02)
[2019-10-06] MEDS ORDERED: Sodium Bicarbonate 8.4% IV* 50 ML VIAL IV ONE (14:58)
[2019-10-06] MEDS ORDERED: fentaNYL* 50 MCG/ML 2 ML VIAL (100 MCG VIAL) ONE (15:15)
[2019-10-06] MEDS: fentaNYL* 50 MCG/ML 2 ML VIAL (100 MCG VIAL) IV SLOW PU PRN (15:30)
--- NOTE | 2019-10-06 15:36 | OP ---
Operative Report - Blank - Operative Report Date of Operation: 10/06/19 Note: Bronchoscopy with BAL and mucous plug removal - Procedure Note Indication: resp failure, PNA, excessive secretions Diagnosis: acute hypecap and hypoxic resp failure, pneumonia Performed by: Dr Eber Whitman Consent: Informed ; placed in bedside chart Risk/Benefits of procedure explained. [place] Protocol: Time-out was performed and the correct patient and site were verified. Patient is low risk of TB; admitted with new acute resp failure with focal consolidation. lives at home, not a health care facility, not on immunocompromised. Prior labs/imaging reviewed before procedure. Patient oxygenated with 100% Fi02, placed on VC ventilation IV propofol infusion and 50mcg of IV fentanyl x1 given for sedation/analgesia Scope inserted via ETT tube through adapter. FINDINGS -ETT clear, in good position above balta, ~4cm -Excessive secretions which are whitish/root in right upper lobe; right lower lobe was clear of secretions. mild scattered whitish/frothy secretions in places throughout -Right lower lobe had mutiple plugs and was lavaged until mucous plugs which were also bloody were aspirated out. Left upper lobe bronchi clear of secretions -No endobronchial lesions noted in proximal segments. -BAL performed from EVELYN/LLL/RLL/RML/RUL segments. Specimens: collected and sent for culture/analysis EBL: none significant Complications: No immediate complications during the procedure Post Procedure CXR: Pending Eber Whitman MD [employer] (Electronically Signed)
[2019-10-06] MEDS: Albuterol/Ipratropium NEB.SOL* Albuterol 2.5 MG/Ipratropium 0.5 MG 3 ML INH PRN ×2 (16:09→23:00)
[2019-10-06] MEDS: Dexmedetomidine* 1,000 MCG in NS 0.9% 250 ML* 240 ML IV SCH (19:18)
[2019-10-06] MEDS: Pantoprazole IV* 40 MG IV SCH (21:23)
[2019-10-07] MEDS: Insulin REGULAR(*) 1 UNITS UNIT SUBCUT SCH ×4 (00:01→18:13)
[2019-10-07] MEDS: Chlorhexidine MOUTHWASH 0.12%* 15 ML UDC SWISH SPIT SCH ×6 (00:01→20:41)
[2019-10-07] MEDS: fentaNYL* 50 MCG/ML 2 ML VIAL (100 MCG VIAL) IV SLOW PU PRN ×3 (01:43→23:04)
[2019-10-07] MEDS: Meropenem 1 GM PREMIX(*) 1 GM/50 ML BAG IV SCH ×3 (04:55→20:08)
[2019-10-07] MEDS: Dexmedetomidine* 1,000 MCG in NS 0.9% 250 ML* 240 ML IV SCH ×2 (05:50→20:08)
[2019-10-07] MEDS: Heparin DRIP 25,000 UNITS(*) 25,000 UNITS/500 ML BAG IV SCH ×2 (05:53→22:42)
[2019-10-07 06:22] LABS: Hematocrit 28 % (42-52); Hemoglobin 9.2 g/dL (14.0-18.0); Mean Corpuscular HGB Conc 34 g/dL (31-36); Mean Corpuscular Hemoglobin 30 pg (27-31); Mean Corpuscular Volume 88 fL (80-94); Mean Platelet Volume 9.6 fL (7.4-10.4); Platelet Count 266 10^3/uL (150-450); Red Blood Count 3.12 10^6 /uL (4.18-5.48); Red Cell Distribution Width 15 % (10-15); White Blood Count 14.4 10^3/uL (3.5-10.8)
[2019-10-07 06:37] LABS: BUN/Creatinine Ratio 64.7 (8-20); Calcium 8.1 mg/dL (8.6-10.3); EGFR African American 53.2 (>60); Magnesium 3.7 mg/dL (1.9-2.7); Potassium 4.6 mmol/L (3.5-5.0)
[2019-10-07] MEDS: Acetaminophen ADULT LIQ* 650 MG/20.3 ML UDC NG TUBE PRN ×2 (07:54→20:41)
[2019-10-07] MEDS: Nystatin SUSPENSION* 100000 UNITS/ML 5 ML UDC PO SCH ×4 (10:24→20:41)
[2019-10-07] MEDS: Carvedilol TAB* 6.25 MG PO SCH ×2 (10:24→20:41)
[2019-10-07] MEDS: Nystatin CREAM* 15 GM TUBE TOPICAL SCH ×2 (10:24→20:41)
[2019-10-07] MEDS: Atorvastatin* 80 MG TAB PO SCH (10:24)
[2019-10-07] MEDS: Gabapentin CAP(*) 100 MG PO SCH (10:24)
[2019-10-07] MEDS: Furosemide IV* 10 MG/ML VIAL (40 MG) IV SCH (10:25)
[2019-10-07] MEDS ORDERED: fentaNYL* 50 MCG/ML 2 ML VIAL (100 MCG VIAL) IV SLOW PU ONE (11:21)
--- NOTE | 2019-10-07 11:55 | PN ---
Progress Note - Progress Note Date of Service: 10/07/19 Note: Progress Note -- Critical Care 24 hour events/significant events: -minmal secretions noted -tmax 101 this morning -had a bronch yesterday but only mucous plugs were pulled from left lower lobe -held precedex, on fent pushes; opens eyes and did close them on command but doesnt follow much else -BP stable, afib rate controlled -moving ext spontanoeusly -good urine output with lasix yesterday -loose stools+, on lactulose -on IV heparin infusion -remains intubated on AC 40%, peep 10 ROS: ROS unable to be obtained secondary to intubated/mental status change Tele: afib, rate controlled Vitals: Vital Signs Temp 101.1 F 10/07/19 10:00 Pulse 78 10/07/19 10:00 Resp 31 10/07/19 11:28 BP 118/62 10/07/19 10:00 Pulse Ox 99 10/07/19 10:00 Intake & Output 10/06/19 10/07/19 10/07/19 18:59 06:59 18:59 Intake Total 604 2159 116.5 Output Total 885 805 270 Balance -281 1354 -153.5 Weight 121 kg Intake: IV Fluids 55 50 NS (0.9%) 55 50 IVPB 62 130 Meropenem 62 130 Medicated IV 487 1000 CC - Dexmedetomidine/ 258 Precedex CC - Propofol/Diprivan 117 Heparin 370 742 Heparin 26.5 Tube Feeding 904 90 Tube Feeding Flush Amount 75 Output: Urine 455 Beltran 885 350 270 O2/Vent: AC 15/500/+10/+40%; RR 20s, TV 500-600 Infusions: off propofol , heparin IV Medications: Acetaminophen (Tylenol Adult Liq*) 650 mg NG TUBE Q6H PRN PRN Reason: TEMPERATURE > 100.4 Last Admin: 10/07/19 07:54 Dose: 650 mg Albuterol/Ipratropium (Duoneb (Albuterol 2.5 Mg/Ipratropium 0.5 Mg)) 1 neb INH Q4H PRN PRN Reason: SOB/WHEEZING Last Admin: 10/06/19 23:00 Dose: 1 neb Artificial Tears (Natural Balance Tears Eye Drop) 1 drop BOTH EYES Q4H PRN PRN Reason: DRY EYE Atorvastatin Calcium (Lipitor*) 80 mg PO DAILY [facility] Last Admin: 10/07/19 10:24 Dose: 80 mg Carvedilol (Coreg Tab*) 6.25 mg PO BID [facility] Last Admin: 10/07/19 10:24 Dose: 6.25 mg Chlorhexidine Gluconate (Peridex Mouth Wash 0.12%*) 15 ml SWISH SPIT Q4H [facility] Last Admin: 10/07/19 09:00 Dose: 15 ml Fentanyl Citrate (Fentanyl*) 50 mcg IV SLOW PU Q1H PRN PRN Reason: PAIN - SEVERE Last Admin: 10/07/19 11:01 Dose: 50 mcg Fentanyl Citrate (Fentanyl*) 50 mcg IV SLOW PU ONCE ONE Stop: 10/07/19 11:22 Last Admin: 10/07/19 11:28 Dose: 50 mcg Fluconazole (Diflucan 150 Mg Tab*) 150 mg PO WEEKLY [facility] Stop: 10/10/19 12:01 Furosemide (Lasix Iv*) 40 mg IV DAILY [facility] Last Admin: 10/07/19 10:25 Dose: 40 mg Gabapentin (Neurontin Cap(*)) 100 mg PO BID [facility] Last Admin: 10/07/19 10:24 Dose: 100 mg Heparin Sodium (Porcine) (Heparin Flush Picc/Ml/Cvc(*)) 0 ml FLUSH .PER PROTOCOL [facility] Heparin Sodium (Porcine) (Heparin Vial(*)) 0 units IV .PER PROTOCOL [facility] Last Admin: 10/06/19 07:30 Dose: 6,250 units Heparin Sodium/Dextrose (Heparin Drip 25,000 Units(*)) 25,000 units in 500 mls @ 0 mls/hr IV PER RATE [facility]; Protocol Last Admin: 10/07/19 05:53 Dose: 33 mls/hr Propofol (Diprivan*) 100 mls @ 7.626 mls/hr IV .PER PROTOCOL [facility]; Protocol Last Admin: 10/06/19 08:15 Dose: 7.3 mls/hr Meropenem (Merrem 1 Gm Premix(*)) 1 gm in 50 mls @ 100 mls/hr IV Q8H [facility]; Protocol Last Admin: 10/07/19 04:55 Dose: 100 mls/hr Dexmedetomidine HCl 1,000 mcg/ (Sodium Chloride) 250 mls @ 15.22 mls/hr IV .PER PROTOCOL [facility]; Protocol Last Admin: 10/07/19 05:50 Dose: 21.4 mls/hr Insulin Human Regular (Insulin Regular(*)) 0 units SUBCUT Q6HR [facility]; Protocol Last Admin: 10/07/19 06:30 Dose: 3 units Lactulose (Lactulose*) 30 ml NG TUBE TID [facility] Last Admin: 10/07/19 10:24 Dose: 30 ml Nystatin (Nystatin Suspension*) 200,000 units PO QID [facility] Last Admin: 10/07/19 10:24 Dose: 200,000 units Nystatin (Nystatin Cream*) 1 applic TOPICAL BID [facility] Last Admin: 10/07/19 10:24 Dose: 1 applic Pantoprazole Sodium (Protonix Iv*) 40 mg IV 2200 [facility] Last Admin: 10/06/19 21:23 Dose: 40 mg Polyethylene Glycol/Electrolytes (Miralax (17 Gm Dose Demario)) 17 gm PO DAILY PRN PRN Reason: CONSTIPATION Last Admin: 09/27/19 05:41 Dose: 17 gm Physical Exam: Constitutional: intubated, awakens, but not responsive to commands, mild distress, no diaphoresis Head: normocephalic, atraumatic Eyes: no pallor, no icterus ENT: moist mucous membranes Neck: soft, supple, no jvd CVS: normal rate, regular, no murmur Chest/Resp: bilateral air entry, minimal rhonchi+, no rhales, no wheeze, no acc muscle use Abdomen/GI: soft, nontender, nondistended, BS+ Ext/Msk: warm, pulses+, edema mild Skin: intact, warm Neuro: awakens but not responsive to commands, not alert, not oriented, some spontaneous movements of extremities Psych: unable to assess due to change in mental status Labs: Laboratory Results - last 24 hr 10/06/19 10/06/19 10/06/19 13:13 21:42 23:46 WBC RBC Hgb Hct MCV MCH MCHC RDW Plt Count MPV APTT 72.2 H 68.5 H Sodium Potassium Chloride Carbon Dioxide Anion Gap BUN Creatinine Est GFR ( Amer) Est GFR (Non-Af Amer) BUN/Creatinine Ratio Glucose POC Glucose (mg/dL) 165 H Calcium Magnesium 10/07/19 10/07/19 10/07/19 06:12 06:12 06:12 WBC 14.4 H RBC 3.12 L Hgb 9.2 L Hct 28 L MCV 88 MCH 30 MCHC 34 RDW 15 Plt Count 266 MPV 9.6 APTT 77.1 H Sodium 141 Potassium 4.6 Chloride 104 Carbon Dioxide 28 Anion Gap 9 BUN 101 H Creatinine 1.56 H Est GFR ( Amer) 53.2 Est GFR (Non-Af Amer) 44.0 BUN/Creatinine Ratio 64.7 H Glucose 171 H POC Glucose (mg/dL) Calcium 8.1 L Magnesium 3.7 H Imaging: MRI brain 10/01 - left frontal encephalopmalacia+; no other acute findings EEG 10/01 - slowing+, no epileptiform discharges noted cxr 10/03 - ett above balta, left sided consolidation+, right basal consoli+ developing also cxr 10/04 - ett above balta, left sided consolidation+; +/- right basal infiltrate/atelectasis ct chest 10/04 - left lower lobe consolidation+, minimal effusion on left cxr 10/05 - similar left side infiltrate , no new congestion/infiltrates Assessment: 73y M w/pmhx of obesity, DM, CAD/CABG, h/o bone malignancy s/p Right forearm amputation, HLD, HLD, Chronic LV diastolic dysfunction, COPD, CKD3 , ex-smoker; admitted 09/21 for SOB/cough, wheezing, found acutely hypoxic and hypercapneic, req NIV, eventually intubated in ER for pulmonary edema/COPD exaccerbation/CHF exacc. He also had new-onset AFib with RVR. EKG demonstrated new ST depressions, elevated troponins. He was found to have new acute LV systolic heart failure, Influenza A+, NSTEMI. Since admission he was empirically treated with tamiflu. He has a LLL consolidation which was also treated with cefepime, culture negative since 09/25. He has been having ongoing fevers since 09/28, peaking to 104 09/29, decreased 09/30 after discontinuation of precedex. 10/03-ongoing fevers, being treated for pneumonia, encephalopathy still present. -acute hypoxic and hypercapnic respiratory failure, int 09/21 -ARDS -acute COPD exaccerbation -Acute pulmonary edema -acute decompensated LV systolic heart failure -NSTEMI -new onset Afib with RVR -Left lower lobe pneumonia, unspec organism -Influenza A infection -Severe Sepsis 2/2 influenza -severe sepsis 2/2 to gram neg tracheitis/pneumonia -REENA on CKD3 -acute encephalopathy, unspecified type -s/p bronchoscopy 10/05 DM CAD/CABG Plan: Neuro- -hold propofol today; started precedex but still needs some sedation for agitation -still not back to baseline, delirium ongoing -fever curve has come down but back to 101 -CT brain was negative 09/30. EEG 10/01 iwthout epileptiform d/c, some slowing+. MRI 10/01 - no acute findings, left encephalomalacia+. -d/c gabapentin and observe off -suspect metabolic/toxic; have d/c'ed asa/plavix; family wanted to wait till today for LP; will discuss today for LP attempt, otherwise restart antiplatelets ; will hold heparin for procedure then -last ammonit 51s 10/05; dec lactulose daily -Delirium prec; avoid BDZ CVS- -BP stable -CAD/CABG - holding DAPT for possible LP today; cont statin -CMP - cont coreg; hold bidil/norvasc for low BPs -holding ACEI for REENA -gross overload, cont IV lasix 40mg IV daily -Afib - rate controlled, cont coreg; IV heparin for AC, follow protocol ptts -Maintain MAP>65 Resp- -Remains intubated; on AC 15/500/+10/40%; start to dec peep -cxr 10/04 - left consolidation+ -s/p bronch 10/05 ; mucous plugs+; BAL cx with some neutrophils only -CT chest 10/05 - left lower lobe consol, +/- mucous plugging as per me -sputum cx 10/02 with gram negs but labelled normal azul ? -CT Chest 05/02 - with some basal infiltrates noted only -no plan for extubation yet till improved mental status; will discuss with family about need for trach by next week if he doesnt wake further by end of weekend -has been intubated 2 weeks -no active wheezing -Wean Fio2 to keep sat>92% -Bronchodilators PRN, Aspiration prec, Pulmonary Toilet -VAP bundle ID- tmax 101, wbc [id number] -CT chest 09/30 - basal atelectic changes/small consolidation -ct chest 10/05 - left lower lobe consol -sputum 10/02 with gram negs on smear; normal azul? -s/p bronch 10/05 - BAL cx in progress, nothing on smear but neutrophils, pending -IV abx vanco/cefepime stopped 09/30 -repeated blood and urine culture - no growth so far -completed tamiflu 5 day course for influenza A -cont merrem 1gm iv q8h (renal dosing) (day#5), will d/c today -will obtain ID consult for fevers GI- -TF via NGT - glucerna ; free water to 200cc q8h -ongoing lactulose; ammonia 50s; loose stools+ -GI prophylaxis - ppi Renal- -REENA on CKD3; downtrending BUN/Cr still; good urine otuput -hyperkalemia - improved -some edema+, more euvolemic, good urine output; cont lasix 40mg iv daily -no beltran at this time -strict I/O, replete to keep K>4, Mg>2 -beltran as indicated Heme- -hg 9-10s; stable; no bleeding noted -cont IV heparin for Afib AC, follow protocol Endo-Maintain BG<200, insulin protocol as needed Musculsk- pressure ulcer prophylaxis. Bedrest. Wounds- none Nutrition- NGT TF DVT prophylaxis: heparin IV, SCDs GI prophylaxis: ppi Central Line: PICC Arterial Line: no Beltran Cathetor: yes 10/01 Disposition: Patient requires Critical Care/ICU for respiratory failure, encephalopathy, sepsis, pneumonia Patient clinical status: guarded Code Status: full code Total Critical Care time is 40 minutes, excluding procedures/teaching Eber Whitman MD [employer] (Electronically Signed)
[2019-10-07] MEDS ORDERED: Fluconazole 150 MG TAB PO SCH (12:00)
[2019-10-07] MEDS: Pantoprazole IV* 40 MG IV SCH (23:04)
[2019-10-08] MEDS: Insulin REGULAR(*) 1 UNITS UNIT SUBCUT SCH ×4 (00:30→18:49)
[2019-10-08] MEDS: Chlorhexidine MOUTHWASH 0.12%* 15 ML UDC SWISH SPIT SCH ×6 (00:30→20:14)
[2019-10-08] MEDS: fentaNYL* 50 MCG/ML 2 ML VIAL (100 MCG VIAL) IV SLOW PU PRN ×10 (00:42→22:58)
[2019-10-08] MEDS: Meropenem 1 GM PREMIX(*) 1 GM/50 ML BAG IV SCH ×3 (04:36→20:14)
[2019-10-08] MEDS: Acetaminophen ADULT LIQ* 650 MG/20.3 ML UDC NG TUBE PRN ×2 (04:36→12:51)
[2019-10-08 05:11] LABS: Hematocrit 27 % (42-52); Hemoglobin 8.8 g/dL (14.0-18.0); Mean Corpuscular HGB Conc 33 g/dL (31-36); Mean Corpuscular Hemoglobin 29 pg (27-31); Mean Corpuscular Volume 89 fL (80-94); Mean Platelet Volume 9.3 fL (7.4-10.4); Platelet Count 269 10^3/uL (150-450); Red Blood Count 3.01 10^6 /uL (4.18-5.48); Red Cell Distribution Width 15 % (10-15); White Blood Count 13.7 10^3/uL (3.5-10.8)
[2019-10-08 05:28] LABS: BUN/Creatinine Ratio 65.1 (8-20); Calcium 7.7 mg/dL (8.6-10.3); EGFR African American 49.5 (>60); EGFR Non-African American 40.9 (>60); Potassium 4.4 mmol/L (3.5-5.0)
[2019-10-08] MEDS: Dexmedetomidine* 1,000 MCG in NS 0.9% 250 ML* 240 ML IV SCH ×3 (06:38→22:54)
[2019-10-08 07:22] LABS: Magnesium 3.7 mg/dL (1.9-2.7)
[2019-10-08] MEDS ORDERED: Gabapentin CAP(*) 100 MG PO SCH (09:00)
[2019-10-08] MEDS: Furosemide IV* 10 MG/ML VIAL (40 MG) IV SCH (09:17)
[2019-10-08] MEDS: Nystatin SUSPENSION* 100000 UNITS/ML 5 ML UDC PO SCH ×4 (09:17→22:04)
[2019-10-08] MEDS: Carvedilol TAB* 6.25 MG PO SCH ×2 (09:17→22:03)
[2019-10-08] MEDS: Atorvastatin* 80 MG TAB PO SCH (09:17)
[2019-10-08] MEDS: Nystatin CREAM* 15 GM TUBE TOPICAL SCH ×2 (10:09→22:04)
[2019-10-08] MEDS: Fluconazole 150 MG TAB PO SCH (11:59)
--- NOTE | 2019-10-08 15:50 | PN ---
Progress Note - Progress Note Date of Service: 10/08/19 Note: Progress Note -- Critical Care 24 hour events/significant events: -minmal secretions noted from ett tube -febrile at 101 still -on precedex; off prop and fentanyl -BP stable, afib rate controlled -moving ext spontanoeusly;eyes open but doesnt follow commands -daughter at bedside and we discussed current course and plan -good urine output with lasix yesterday -loose stools+, on lactulose -on IV heparin infusion -remains intubated on AC 40%, peep 10; was on CPAP for 2 hours but tired out and back on AC mode ROS: ROS unable to be obtained secondary to intubated/mental status change Tele: afib, rate controlled Vitals: Vital Signs Temp 101.7 F 10/08/19 13:30 Pulse 68 10/08/19 13:30 Resp 31 10/08/19 14:20 BP 116/72 10/08/19 13:30 Pulse Ox 100 10/08/19 13:30 Intake & Output 10/07/19 10/08/19 10/08/19 18:59 06:59 18:59 Intake Total 1342.5 2223 1120 Output Total 1125 845 860 Balance 217.5 1378 260 Weight 122.4 kg Intake: IV Fluids 38 51 NS (0.9%) 38 51 IVPB 206 115 Meropenem 206 55 NS (0.9%) 60 Medicated IV 642 971 241 CC - Dexmedetomidine/ 121 429 241 Precedex Heparin 521 542 Heparin 26.5 168 243 Oral 0 Tube Feeding 436 527 321 Tube Feeding Flush Amount 200 300 200 Output: G Tube 600 Beltran 525 845 860 Other: # Bowel Movements 2 Estimated Stool Amount Medium O2/Vent: AC 15/500/+10/+40%; RR 20s, TV 500-600 Infusions: precedex , heparin IV Medications: Acetaminophen (Tylenol Adult Liq*) 650 mg NG TUBE Q6H PRN PRN Reason: TEMPERATURE > 100.4 Last Admin: 10/08/19 12:51 Dose: 650 mg Albuterol/Ipratropium (Duoneb (Albuterol 2.5 Mg/Ipratropium 0.5 Mg)) 1 neb INH Q4H PRN PRN Reason: SOB/WHEEZING Last Admin: 10/06/19 23:00 Dose: 1 neb Artificial Tears (Natural Balance Tears Eye Drop) 1 drop BOTH EYES Q4H PRN PRN Reason: DRY EYE Atorvastatin Calcium (Lipitor*) 80 mg PO DAILY [facility] Last Admin: 10/08/19 09:17 Dose: 80 mg Carvedilol (Coreg Tab*) 6.25 mg PO BID [facility] Last Admin: 10/08/19 09:17 Dose: 6.25 mg Chlorhexidine Gluconate (Peridex Mouth Wash 0.12%*) 15 ml SWISH SPIT Q4H [facility] Last Admin: 10/08/19 15:38 Dose: 15 ml Fentanyl Citrate (Fentanyl*) 50 mcg IV SLOW PU Q1H PRN PRN Reason: PAIN - SEVERE Last Admin: 10/08/19 15:38 Dose: 50 mcg Fluconazole (Diflucan 150 Mg Tab*) 150 mg PO DAILY [facility] Stop: 10/10/19 09:01 Last Admin: 10/08/19 11:59 Dose: 150 mg Heparin Sodium (Porcine) (Heparin Flush Picc/Ml/Cvc(*)) 0 ml FLUSH .PER PROTOCOL [facility] Heparin Sodium (Porcine) (Heparin Vial(*)) 0 units IV .PER PROTOCOL [facility] Last Admin: 10/06/19 07:30 Dose: 6,250 units Heparin Sodium/Dextrose (Heparin Drip 25,000 Units(*)) 25,000 units in 500 mls @ 0 mls/hr IV PER RATE [facility]; Protocol Last Admin: 10/07/19 22:42 Dose: 33 mls/hr Propofol (Diprivan*) 100 mls @ 7.626 mls/hr IV .PER PROTOCOL [facility]; Protocol Last Admin: 10/06/19 08:15 Dose: 7.3 mls/hr Meropenem (Merrem 1 Gm Premix(*)) 1 gm in 50 mls @ 100 mls/hr IV Q8H [facility]; Protocol Last Admin: 10/08/19 11:59 Dose: 100 mls/hr Dexmedetomidine HCl 1,000 mcg/ (Sodium Chloride) 250 mls @ 15.22 mls/hr IV .PER PROTOCOL [facility]; Protocol Last Admin: 10/08/19 14:19 Dose: 33.6 mls/hr Insulin Human Regular (Insulin Regular(*)) 0 units SUBCUT Q6HR [facility]; Protocol Last Admin: 10/08/19 12:51 Dose: 3 units Lactulose (Lactulose*) 30 ml NG TUBE TID [facility] Last Admin: 10/08/19 14:21 Dose: Not Given Nystatin (Nystatin Suspension*) 200,000 units PO QID [facility] Last Admin: 10/08/19 12:00 Dose: 200,000 units Nystatin (Nystatin Cream*) 1 applic TOPICAL BID [facility] Last Admin: 10/08/19 10:09 Dose: 1 applic Pantoprazole Sodium (Protonix Iv*) 40 mg IV 2200 [facility] Last Admin: 10/07/19 23:04 Dose: 40 mg Polyethylene Glycol/Electrolytes (Miralax (17 Gm Dose Demario)) 17 gm PO DAILY PRN PRN Reason: CONSTIPATION Last Admin: 09/27/19 05:41 Dose: 17 gm Physical Exam: Constitutional: intubated, awakens, but not responsive to commands, mild distress, no diaphoresis Head: normocephalic, atraumatic Eyes: no pallor, no icterus ENT: moist mucous membranes Neck: soft, supple, no jvd CVS: normal rate, regular, no murmur Chest/Resp: bilateral air entry, minimal rhonchi+, no rhales, no wheeze, no acc muscle use Abdomen/GI: soft, nontender, nondistended, BS+ Ext/Msk: warm, pulses+, edema mild Skin: intact, warm Neuro: awakens but not responsive to commands, not alert, not oriented, some spontaneous movements of extremities Psych: unable to assess due to change in mental status Labs: Laboratory Results - last 24 hr 10/06/19 10/06/19 10/07/19 12:04 18:33 06:21 WBC RBC Hgb Hct MCV MCH MCHC RDW Plt Count MPV APTT Sodium Potassium Chloride Carbon Dioxide Anion Gap BUN Creatinine Est GFR ( Amer) Est GFR (Non-Af Amer) BUN/Creatinine Ratio Glucose POC Glucose (mg/dL) 184 H 160 H 190 H Calcium Magnesium 10/07/19 10/07/19 10/08/19 11:53 17:41 00:21 WBC RBC Hgb Hct MCV MCH MCHC RDW Plt Count MPV APTT Sodium Potassium Chloride Carbon Dioxide Anion Gap BUN Creatinine Est GFR ( Amer) Est GFR (Non-Af Amer) BUN/Creatinine Ratio Glucose POC Glucose (mg/dL) 165 H 154 H 180 H Calcium Magnesium 10/08/19 10/08/19 10/08/19 04:50 04:50 04:50 WBC 13.7 H RBC 3.01 L Hgb 8.8 L Hct 27 L MCV 89 MCH 29 MCHC 33 RDW 15 Plt Count 269 MPV 9.3 APTT Cancelled Sodium 144 Potassium 4.4 Chloride 109 Carbon Dioxide 27 Anion Gap 8 BUN 108 H Creatinine 1.66 H Est GFR ( Amer) 49.5 Est GFR (Non-Af Amer) 40.9 BUN/Creatinine Ratio 65.1 H Glucose 134 H POC Glucose (mg/dL) Calcium 7.7 L Magnesium 3.7 H 10/08/19 10/08/19 06:15 12:06 WBC RBC Hgb Hct MCV MCH MCHC RDW Plt Count MPV APTT 81.2 H Sodium Potassium Chloride Carbon Dioxide Anion Gap BUN Creatinine Est GFR ( Amer) Est GFR (Non-Af Amer) BUN/Creatinine Ratio Glucose POC Glucose (mg/dL) 198 H Calcium Magnesium Imaging: MRI brain 10/01 - left frontal encephalopmalacia+; no other acute findings EEG 10/01 - slowing+, no epileptiform discharges noted cxr 10/03 - ett above bal[place], left sided consolidation+, right basal consoli+ developing also cxr 10/04 - ett above [place], left sided consolidation+; +/- right basal infiltrate/atelectasis ct chest 10/04 - left lower lobe consolidation+, minimal effusion on left cxr 10/05 - similar left side infiltrate , no new congestion/infiltrates Assessment: 73y M w/pmhx of obesity, DM, CAD/CABG, h/o bone malignancy s/p Right forearm amputation, HLD, HLD, Chronic LV diastolic dysfunction, COPD, CKD3 , ex-smoker; admitted 09/21 for SOB/cough, wheezing, found acutely hypoxic and hypercapneic, req NIV, eventually intubated in ER for pulmonary edema/COPD exaccerbation/CHF exacc. He also had new-onset AFib with RVR. EKG demonstrated new ST depressions, elevated troponins. He was found to have new acute LV systolic heart failure, Influenza A+, NSTEMI. Since admission he was empirically treated with tamiflu. He has a LLL consolidation which was also treated with cefepime, culture negative since 09/25. He has been having ongoing fevers since 09/28, peaking to 104 09/29, decreased 09/30 after discontinuation of precedex. 10/03-ongoing fevers, being treated for pneumonia, encephalopathy still present. -acute hypoxic and hypercapnic respiratory failure, int 09/21 -ARDS -acute COPD exaccerbation -Acute pulmonary edema -acute decompensated LV systolic heart failure -NSTEMI -new onset Afib with RVR -Left lower lobe pneumonia, unspec organism; improved -Influenza A infection -Severe Sepsis 08/27 influenza -severe sepsis 08/27 to gram neg tracheitis/pneumonia -REENA on CKD3 -acute encephalopathy, unspecified type -s/p bronchoscopy 10/05 DM CAD/CABG Plan: Neuro- -cont precedex; has not had a temp spike from precedex -stll with ongoing delirium, suspected to be metabolic/toxic given ongoing fevers, has not changed much; may need neuro to see patient again tomorrow. discussed with daughter and reviewed imaging results and prior EEGs. Will attempt LP today, consent obtained. Holding IV heparin today. -fevers+; but nontoxic -CT brain was negative 09/30. EEG 10/01 iwthout epileptiform d/c, some slowing+. MRI 10/01 - no acute findings, left encephalomalacia+. -off gabapentin -last ammonia 51s 10/05; d/c lactulose, has not improved it -Delirium prec; avoid BDZ CVS- -BP stable -CAD/CABG - holding DAPT for possible LP TODAY; cont statin -CMP - cont coreg; hold bidil/norvasc for low BPs -holding ACEI for REENA -gross overload, diuresing; lasix today but hold and redose daily as needed, noted Na rising, likely to need small dose daily to dry up -Afib - rate controlled, cont coreg; IV heparin for AC, follow protocol ptts -Maintain MAP>65 Resp- -Remains intubated; on AC 15/500/+10/40%; CPAP as tolerated -cxrs reviewed; left stable infiltrates -no growth on cultures and BAL -s/p bronch 10/05 ; mucous plugs+; BAL cx with some neutrophils only -CT chest 10/05 - left lower lobe consol, +/- mucous plugging as per me -CT Chest 05/02 - with some basal infiltrates noted only -no plan for extubation yet till improved mental status; discussed with daughter about need for tracheostomy given >2 weeks intubation and that it will not change course but allow more comfortable way to ventilate while ongoing care /tx is given and is not optional but required by now, and likely complications of watermelon inspector intubation would arise. This daughter will agree and she will talk to other sister. -no active wheezing -Wean Fio2 to keep sat>92% -Bronchodilators PRN, Aspiration prec, Pulmonary Toilet -VAP bundle ID- tmax 101, wbc [id number] -CT chest 09/30 - basal atelectic changes/small consolidation -ct chest 10/05 - left lower lobe consol -sputum 10/02 with gram negs on smear; normal azul? -s/p bronch 10/05 - BAL cx in progress, nothing on smear but neutrophils, pending -IV abx vanco/cefepime stopped 09/30 -repeated blood and urine culture - no growth so far -completed tamiflu 5 day course for influenza A -cont merrem 1gm iv q8h (renal dosing) (day#6); can likely d/c this -suspect fevers are not influenza since he had treatment >1.5 weeks back, this has to be another reason; no clear central source; LP may help to rule out viral source or other. -rash in leg an lower abd - drug? not very fungal appearing; will stop merrem tomorrow ; rash started prior to merrem being started -ID consult tomorrow for further evaluation GI- -TF via NGT - glucerna ; free water to 200cc q8h -d/c lactulose; ammonia 50s; loose stools+ -GI prophylaxis - ppi Renal- -REENA on CKD3; flucuating Cr in mid 1-2 range; making urine -Na rising; given lasix today; re-eval need for lasix tomorrow, has swelling still thought so likely to need more diuretics slowly -hyperkalemia - improved -edema+, good urine output; d/c lasix for tomorrow, re-eval daily -no beltran at this time -strict I/O, replete to keep K>4, Mg>2 -beltran as indicated Heme- -hg 9-10s; stable; no bleeding noted -cont IV heparin for Afib AC, follow protocol Endo-Maintain BG<200, insulin protocol as needed Musculsk- pressure ulcer prophylaxis. Bedrest. -noted rash in leg prior days and lower abd, some raised features; no on chest or arms or face; was present prior ot merrem being started; on fluconazole for 3 days to see if any improvement. drug? consider d/c merrem tomorrow after 7 days tx. Wounds- none Nutrition- NGT TF DVT prophylaxis: heparin IV, SCDs GI prophylaxis: ppi Central Line: PICC Arterial Line: no Beltran Cathetor: yes 10/01 Disposition: Patient requires Critical Care/ICU for respiratory failure, encephalopathy, sepsis, pneumonia Patient clinical status: guarded Code Status: full code at length discusiion with daughter at bedside about sedation and other caused of delirium and fevers. we discussed use of haldol as potential for delirium too. i discussed that we need to find reasons for fevers though he doesnt appear very toxic but that may be causing this encephalopathy/delirium. Trach discussed, to have decision hopefully by wednesday. They want to continue aggressive care and have him return to his baseline which was functional prior to this hospitalization. Total Critical Care time is 45 minutes, excluding procedures/teaching Eber Whitman MD Rn Documentation Specialist (Electronically Signed)
[2019-10-08] MEDS ORDERED: Haloperidol INJ IV/IM* 5 MG/ML AMP IV SLOW PU ONE ×2 (16:02→16:04)
[2019-10-08 17:04] LABS: Hematocrit 28 % (42-52)
[2019-10-08] MEDS ORDERED: Midazolam* 1 MG/ML 2 ML VIAL (2 MG) IV SLOW PU ONE (17:19)
--- NOTE | 2019-10-08 18:23 | OP ---
Operative Report - Blank - Operative Report Date of Operation: 10/08/19 Note: Lumbar Puncture Note (attempted) Indication: delirium, fever Diagnosis: encephalopathy, fever, sepsis Performed by: Dr Eber Whitman and Michelle Arreola NP Consent: Informed ; placed in bedside chart Risk/Benefits of procedure explained [place] Protocol: Time-out was performed and the correct patient and site were verified -Previous imaging and lab work (coags/platelets), medications were reviewed. -IV heparin was discontinued and repeat coags normalized; asa/plavix held for past 5 days -Full sterile precautions with Chlorhexidine/full drapes/gowns/gloves were utilized. -Patient was positioned in right lateral decubitus -Lower lumbar intervertebral space (L4-L5) was marked. -SC lidocaine used for local anesthesia. -22 gauge needle was used. We attempted to enter space multiple times but unable to access subarachnoid space Will have neurology or anesthesia try for LP tomorrow -Patient tolerated procedure well, no immediate complications noted. EBL - none Eber Whitman MD Gm Video (Electronically Signed)
[2019-10-08 19:43] LABS: Influenza A Molecular POSITIVE (Negative)
[2019-10-08] MEDS: Pantoprazole IV* 40 MG IV SCH (22:04)
[2019-10-08] MEDS ORDERED: fentaNYL* 50 MCG/ML 2 ML VIAL (100 MCG VIAL) IV SLOW PU ONE (23:03)
[2019-10-09] MEDS: Heparin DRIP 25,000 UNITS(*) 25,000 UNITS/500 ML BAG IV SCH ×2 (00:36→16:53)
[2019-10-09] MEDS: Chlorhexidine MOUTHWASH 0.12%* 15 ML UDC SWISH SPIT SCH ×6 (00:38→20:58)
[2019-10-09] MEDS: fentaNYL* 50 MCG/ML 2 ML VIAL (100 MCG VIAL) IV SLOW PU PRN ×6 (00:55→08:36)
[2019-10-09] MEDS: Insulin REGULAR(*) 1 UNITS UNIT SUBCUT SCH ×4 (00:55→18:08)
[2019-10-09] MEDS: Heparin VIAL(*) 5000 UNITS/ML VIAL (FIVE THOUSAND) IV SCH (02:57)
[2019-10-09] MEDS: Meropenem 1 GM PREMIX(*) 1 GM/50 ML BAG IV SCH ×2 (04:35→12:42)
[2019-10-09] MEDS: Dexmedetomidine* 1,000 MCG in NS 0.9% 250 ML* 240 ML IV SCH ×5 (05:36→23:43)
[2019-10-09 05:37] LABS: Hematocrit 27 % (42-52); Hemoglobin 8.8 g/dL (14.0-18.0); Mean Corpuscular HGB Conc 33 g/dL (31-36); Mean Corpuscular Hemoglobin 29 pg (27-31); Mean Corpuscular Volume 89 fL (80-94); Platelet Count 264 10^3/uL (150-450); Red Blood Count 3.02 10^6 /uL (4.18-5.48); Red Cell Distribution Width 15 % (10-15); White Blood Count 12.2 10^3/uL (3.5-10.8)
[2019-10-09 05:54] LABS: BUN/Creatinine Ratio 69.3 (8-20); Calcium 8.1 mg/dL (8.6-10.3); EGFR African American 55.7 (>60)
[2019-10-09 05:57] LABS: Potassium 5.2 mmol/L (3.5-5.0)
[2019-10-09] MEDS: Acetaminophen ADULT LIQ* 650 MG/20.3 ML UDC NG TUBE PRN ×2 (06:06→20:58)
[2019-10-09] MEDS: Propofol* 100 ML IV SCH ×3 (09:16→20:41)
[2019-10-09 10:32] LABS: C Reactive Protein 133.55 mg/L (<8.01)
--- NOTE | 2019-10-09 11:00 | PN ---
Date of Service: 10/09/19 Critical Care Services: Febrile overnight and this morning despite Tylenol, Tmax 101.8. Remains intubated and sedated with precedex. He was agitated this morning, and propofol was restarted. Mental status has not improved. LP attempted yesterday but was unsuccessful. Dobhoff tube dislodged and replaced this morning. ROS: unable to obtain due to intubation and mental status Vital Signs: Temp Pulse Resp BP SpO2 FiO2 100.9 F 102 31 114/61 93 35 10/09/19 10:31 10/09/19 10:31 10/09/19 10:00 10/09/19 10:10/09/19 10:31 10/08 08:00 Physical Exam: Gen: Agitated HEENT: Normocephalic, atraumatic. Pupils equal but pinpoint. ETT in place. Trachea midline. Lungs: Coarse breath sounds b/l Cardiac: Irregular rhythm, Tachycardic in 110s. Abdomen: Soft, obese. Rash on right flank Extremities: Pedal edema. Warm Neuro: Eyes open spontaneously, moves all extremities spontaneously. Does not follow commands. Fluid Balance (Past 24 Hours): I= O= Net Intake & Output 10/07/19 10/08/19 10/09/19 10/10/19 06:59 06:59 06:59 06:59 Intake Total 2763 3565.5 3992 152 Output Total 1690 1970 2275 225 Balance 1073 1595.5 1717 -73 Weight 266 lb 12.149 oz 269 lb 13.533 oz 274 lb 14.663 oz Intake: IV Fluids 105 89 154 NS (0.9%) 105 89 154 IVPB 192 206 225 Meropenem 192 206 165 NS (0.9%) 60 Medicated IV 1487 1613 1424 CC - Dexmedetomidine/ 258 550 735 Precedex CC - Propofol/Diprivan 117 Heparin 1112 1063 689 Heparin 194.5 243 Oral 0 0 Tube Feeding 380 236 3983 152 Tube Feeding Flush Amount 75 500 600 NG Tube Irrigate Amount 100 Output: G Tube 600 Urine 455 Motta 1235 1370 2275 225 Other: # Bowel Movements 2 Estimated Stool Amount Medium Labs: Laboratory Results - last 24 hr 10/08/19 10/08/19 10/08/19 12:06 16:00 16:30 WBC RBC Hgb 9.0 L Hct 28 L MCV MCH MCHC RDW Plt Count MPV APTT 32.4 Sodium Potassium Chloride Carbon Dioxide Anion Gap BUN Creatinine Est GFR ( Amer) Est GFR (Non-Af Amer) BUN/Creatinine Ratio Glucose POC Glucose (mg/dL) 198 H Calcium C-Reactive Protein Influenza A (Rapid) Influenza B (Rapid) 10/08/19 10/08/19 10/09/19 18:29 19:18 00:40 WBC RBC Hgb Hct MCV MCH MCHC RDW Plt Count MPV APTT Sodium Potassium Chloride Carbon Dioxide Anion Gap BUN Creatinine Est GFR ( Amer) Est GFR (Non-Af Amer) BUN/Creatinine Ratio Glucose POC Glucose (mg/dL) 150 H 159 H Calcium C-Reactive Protein Influenza A (Rapid) Positive H Influenza B (Rapid) Not Reportable 10/09/19 10/09/19 10/09/19 02:23 05:30 05:30 WBC 12.2 H RBC 3.02 L Hgb 8.8 L Hct 27 L MCV 89 MCH 29 MCHC 33 RDW 15 Plt Count 264 MPV 9.0 APTT 52.7 H Sodium 144 Potassium 5.2 H Chloride 109 Carbon Dioxide 29 Anion Gap 6 BUN 104 H Creatinine 1.50 H Est GFR ( Amer) 55.7 Est GFR (Non-Af Amer) 46.0 BUN/Creatinine Ratio 69.3 H Glucose 140 H POC Glucose (mg/dL) Calcium 8.1 L C-Reactive Protein 133.55 H Influenza A (Rapid) Influenza B (Rapid) Studies: MRI 10/01- L frontal encephalomalacia EEG 10/01- slowing, no epileptiform discharges CT chest 10/04- LLL consolidation Nutrition: Glucerna Impression: 73M admitted with respiratory failure, also with persistent fevers of unclear etiology, and encephalopathy. -Acute hypoxic and hypercapnic respiratory failure, intubated 09/21 -LLL PNA -Influenza A, treated with Tamiflu -A fib, now rate controlled -Acute decompensated LV systolic heart failure (NSTEMI during admission) -REENA on CKD, improving -Encephalopathy, likely metabolic -DM -CAD Plan: Neuro: Precedex and propofol for sedation. Minimize propofol if possible Holding off on repeat LP for today, unless recommended by ID/neuro. Neuro to see patient today. Avoid benzodiazepines CV: Heparin gtt for new onset a fib Cont Coreg and statin Hold DAPT in case of possible LP Resp: Remains intubated due to poor neuro status. Need to discuss goals of care with daughters to decide tracheostomy vs comfort measures. One daughter planning to come in this afternoon. Wean FiO2 to keep sat >92% VAP bundle GI: Continue tube feeds Flexiseal for loose stools PPI for GI prophylaxis Renal: Urine output adequate, Cr at baseline Motta for accurate I&Os while intubated ID: Sputum/BAL cx negative. Remains febrile. ID consulted: Will continue meropenem. Influenza A positive, restart Tamiflu. Heme: H&H stable. Daily CBC Heparin gtt for a fib Endo: Insulin sliding scale. Keep BG <200 MSK: Pressure ulcer prophylaxis. Bedrest. Wounds: None Dispo: ICU for respiratory failure, encephalopathy, sepsis Status: Critical Code status: Full Updated daughter over the phone. She thinks that the patient would not want a tracheostomy, and she asked if there was a chance he could come off of the ventilator. I discussed with her that he is very ill. It is unlikely that he could come off of the ventilator in a reasonable amount of time where a tracheostomy could be avoided. She will talk with her sister and find a time when the two of them can come to the hospital to discuss goals of care. I will also ask palliative care to be present if possible. Critical Care Time: 50 min
[2019-10-09] MEDS ORDERED: QUEtiapine TAB* 25 MG PO SCH (12:00)
[2019-10-09] MEDS: Atorvastatin* 80 MG TAB PO SCH (12:09)
[2019-10-09] MEDS: Nystatin CREAM* 15 GM TUBE TOPICAL SCH ×2 (12:09→21:52)
[2019-10-09] MEDS: Nystatin SUSPENSION* 100000 UNITS/ML 5 ML UDC PO SCH ×4 (12:09→20:58)
[2019-10-09] MEDS: Carvedilol TAB* 6.25 MG PO SCH ×3 (12:09→20:58)
[2019-10-09] MEDS: Fluconazole 150 MG TAB PO SCH ×2 (12:09→13:07)
[2019-10-09] MEDS: QUEtiapine TAB* 25 MG PO SCH ×3 (12:59→20:58)
[2019-10-09] MEDS: Oseltamivir SUSP* ORALSYR 6 MG/ML PO SCH ×2 (14:04→20:58)
[2019-10-09] MEDS ORDERED: Chlorhexidine MOUTHWASH 0.12%* 15 ML UDC ONE (20:07)
[2019-10-09] MEDS: NS 0.9% IVPB SCH (20:30)
[2019-10-09] MEDS: MEROPENEM IVPB SCH (20:30)
[2019-10-09] MEDS: Pantoprazole IV* 40 MG IV SCH (21:28)
--- NOTE | 2019-10-09 23:00 | CONS ---
CONSULTATION REPORT: DATE OF CONSULT: 10/09/19 PRIMARY CARE PROVIDER: Mirtha Tolliver NP PROVIDER REQUESTING CONSULTATION: Dr. Bina Gill. CONSULTING SERVICE: Infectious Disease. PROVIDER: Rahul Chaudhry NP ATTENDING PROVIDER: Dr. Phillip Pickens.* (DICTATED BY RAHUL CHAUDHRY NP) REASON FOR CONSULT: Influenza A, fever and possible meningitis. IMPRESSION: 1. Influenza A. The patient continues to have persistent viremia in the setting of influenza, this is an indicator of poor prognosis if the patient is unable to clear the virus. He has previously received 5 days of Tamiflu. He continues to have leukocytosis, although this is improving. He continues to have fevers. 2. Persistent fevers. The patient continues to have persistent fevers with low - grade fevers today of 102 earlier this morning. This has been ongoing for several days. Last normal range for temperature was on 10/07/19. He has blood cultures with no growth to date, with last set checked on the 10/03/19. Differential would include meningitis, influenza, persistent viremia, pneumonia , other sources of infections such as abdominal abscess, urinary tract infection. The patient with urine culture with no growth to date from . Low suspicion for meningitis. 3. Likely post influenza pneumonia. Chest CT from 10/05/19 with consolidation or atelectasis in the left lower lobe with left pleural effusion. Chest x-ray from today with patchy airspace disease of the lung bases bilaterally. 4. Acute hypoxic and hypercarbic respiratory failure. The patient has been intubated since 09/21/19. 5. Acute decompensated LV systolic heart failure with non-ST elevation myocardial infarction during admission. 6. Encephalopathy. Suspect this is likely secondary to infection in the setting of influenza A and pneumonia; and does not represent meningitis. 7. Diabetes mellitus type 2. 8. SULFA allergy. 9. History of bone malignancy, status post right forearm amputation. RECOMMENDATIONS/PLAN: Recommend continuing meropenem for now and restarting Tamiflu. HISTORY OF PRESENT ILLNESS: Mr. 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 The patient's history is obtained through the chart as he is currently sedated and intubated in the intensive care unit. According to the H and P, the patient always complained of shortness of breath and had been in good spirits with no complaints. The ER documentation reports that the patient had 3 days of dyspnea with a productive cough of thick white sputum. He was described as being tachypneic with wheezing and complaints of chest pain from coughing. While in the emergency room, his oxygen saturation decreased to 45% on 5 L via nasal cannula. The patient was started on BiPAP and he was ultimately intubated. He was noted to be tachycardic and tachypneic. He had a flu swab, was felt to be having an acute COPD exacerbation with flash pulmonary edema. He was referred to the hospitalist service and was admitted under the mold filler and drainer for acute hypoxic and hypercarbic respiratory failure in the setting of COPD and pulmonary edema. While in the hospital, his influenza A swab returned positive. His leukocytosis worsened, peaking at 28.2 on 10/03/19 that has been trending down ever since and is improved to 12.2 today. He has not had a CRP done on this admission. Blood cultures with no growth. He is noted to have a sputum culture from with yeast and bronchial lavage with paula albicans. Today, sputum culture from his trach with normal azul. Again, he continued to have persistent fevers while on IV antibiotics. He completed a 5 day course of Tamiflu. He has been on multiple antibiotics including azithromycin, linezolid , cefepime, ceftriaxone, vancomycin and most recently meropenem. Chest x-ray showing persistent left lower lobe pneumonia. He remains intubated, agitation earlier today and had his sedation increased. PAST MEDICAL HISTORY: 1. Coronary artery disease. 2. Chronic kidney disease stage 3. 3. COPD. 4. Diabetes mellitus type 2. 5. Hypertension. 6. Hyperlipidemia. 7. Bone malignancy of the right forearm. PAST SURGICAL HISTORY: 1. Status post coronary artery bypass graft in 2010. 2. 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 MEDICATIONS: Hospital medications: 1. Acetaminophen 650 mg via NG tube every 6 hours as needed for fever. 2. DuoNeb 1 neb inhalation every 4 hours as needed for shortness of breath or wheeze. 3. Artificial tears 1 drop to both eyes every 4 hours as needed for dry eye. 4. Atorvastatin 80 mg by mouth daily. 5. Carvedilol 6.25 mg by mouth twice daily. 6. Chlorhexidine gluconate 15 mL swish and spit every 4 hours. 7. Precedex per protocol. 8. Fentanyl citrate 50 mcg IV push every 1 hour as needed for pain. 9. Fluconazole 150 mg by mouth daily. 10. Heparin sodium PICC flush per protocol. 11. Heparin sodium drip per protocol. 12. Regular insulin sliding scale every 6 hours subcutaneous. 13. Meropenem 1 g IV 3 times daily. 14. Nystatin 200,000 units by mouth 4 times daily. 15. Nystatin cream apply topical twice daily. 16. Protonix 40 mg IV daily. 17. MiraLAX 17 g by mouth daily as needed for constipation. 18. Propofol per protocol. 19. Seroquel 12.5 mg by mouth twice daily. ALLERGIES: SULFA, caused rash and itching. FAMILY HISTORY: Unable to obtain from the patient, but according to his medical record, father passed secondary to heart disease and mother passed in her 70 secondary to cancer. SOCIAL HISTORY: Again, unable to obtain from the patient, but according to his chart, no alcohol or recreational drug use. He is a former smoker. Reporting previously smoking 3 packs a day for 20 years. REVIEW OF SYSTEMS: Unable to perform review of systems as the patient is intubated and sedated in the intensive care unit. PHYSICAL EXAM: Vital Signs: Temperature 101.8, heart rate 83, respiratory rate 21, O2 sat 95% intubated on mechanical ventilation, blood pressure 129/61. General Appearance: The patient is ill-appearing, lying in bed. Head: Normocephalic, atraumatic. EENT: Extraocular movements are intact. No subconjunctival hemorrhage. Moist mucous membranes. Neck: Supple. No lymphadenopathy. Neurological: Opened eyes spontaneously and moves extremities spontaneously. Unable to follow commands or evaluate orientation status. Cardiovascular: Regular rate and rhythm, tachycardic. Respiratory: Lungs with bilateral rhonchi and diminished. Abdomen: Large. Bowel sounds present, soft and obese. Extremities: Bilateral lower extremity edema. Musculoskeletal : No clubbing or cyanosis. Skin: The patient was noted to have a slight flat maculopapular rash to the left upper thigh and abdomen. DIAGNOSTIC STUDIES/LAB DATA: Sodium 144, potassium 5.2, chloride 109, BUN 104, creatinine 1.50, glucose 140. White blood cell count 12.2, hemoglobin 8.8, hematocrit 27, platelets 64. Please see impression and recommendations outlined above, recommendations have been discussed with Dr. Marybeth Albert. Thank you for asking us to see Mr. Cabrera in consultation. The case has been discussed with my attending, Dr. Phillip Pickens, who agrees with the plan of care. Reviewed by DAVID AVILA 10/15/19 [id number]/[facility] #: [id number] MTDD
[2019-10-10] MEDS: Propofol* 100 ML IV SCH ×4 (02:44→19:40)
[2019-10-10] MEDS: Insulin REGULAR(*) 1 UNITS UNIT SUBCUT SCH ×4 (02:55→18:04)
[2019-10-10] MEDS: Chlorhexidine MOUTHWASH 0.12%* 15 ML UDC SWISH SPIT SCH ×6 (02:55→19:40)
[2019-10-10] MEDS: NS 0.9% IVPB SCH ×2 (04:09→12:35)
[2019-10-10] MEDS: MEROPENEM IVPB SCH ×2 (04:09→12:35)
[2019-10-10 04:23] LABS: ABS Basophils 0.1 10^3/ul (0-0.2); ABS Eosinophils 0.2 10^3/ul (0-0.6); ABS Lymphocytes 1.7 10^3/ul (1.0-4.8); ABS Monocytes 0.9 10^3/ul (0-0.8); ABS Neutrophils 8.8 10^3/ul (1.5-7.7); Eosinophil % 1.6 %; Hematocrit 27 % (42-52); Hemoglobin 8.8 g/dL (14.0-18.0); Lymphocyte % 14.4 %; Mean Corpuscular HGB Conc 33 g/dL (31-36); Mean Corpuscular Hemoglobin 30 pg (27-31); Mean Corpuscular Volume 90 fL (80-94); Mean Platelet Volume 9.1 fL (7.4-10.4); Platelet Count 272 10^3/uL (150-450); Red Blood Count 2.96 10^6 /uL (4.18-5.48); Red Cell Distribution Width 15 % (10-15); White Blood Count 11.6 10^3/uL (3.5-10.8)
[2019-10-10 04:40] LABS: BUN/Creatinine Ratio 67.3 (8-20); Calcium 8.2 mg/dL (8.6-10.3); EGFR African American 54.4 (>60); Magnesium 3.6 mg/dL (1.9-2.7)
[2019-10-10 04:42] LABS: Potassium 5.6 mmol/L (3.5-5.0)
[2019-10-10] MEDS: Nystatin SUSPENSION* 100000 UNITS/ML 5 ML UDC PO SCH ×4 (07:53→21:14)
[2019-10-10] MEDS: Atorvastatin* 80 MG TAB PO SCH (07:55)
[2019-10-10] MEDS: Nystatin CREAM* 15 GM TUBE TOPICAL SCH ×2 (07:56→21:16)
[2019-10-10] MEDS: Carvedilol TAB* 6.25 MG PO SCH ×3 (07:56→21:15)
[2019-10-10] MEDS: Fluconazole 150 MG TAB PO SCH (07:56)
[2019-10-10] MEDS: Oseltamivir SUSP* ORALSYR 6 MG/ML PO SCH ×2 (08:00→21:15)
[2019-10-10] MEDS: Dexmedetomidine* 1,000 MCG in NS 0.9% 250 ML* 240 ML IV SCH (08:00)
[2019-10-10] MEDS: QUEtiapine TAB* 25 MG PO SCH ×2 (08:00→21:15)
[2019-10-10] MEDS ORDERED: Furosemide IV* 10 MG/ML VIAL (40 MG) IV SLOW PU ONE (08:30)
[2019-10-10] MEDS: fentaNYL* 50 MCG/ML 2 ML VIAL (100 MCG VIAL) IV SLOW PU PRN (10:21)
--- NOTE | 2019-10-10 11:42 | PN ---
Progress Note - Progress Note Date of Service: 10/10/19 SOAP: Subjective: CC: Influenza A, fevers, and PNA HPI: Mr. Cabrera is a 73 yo male with PMH significant for CAD, CKD 3, COPD, DM2 , HTN, HLD, and bone malignancy s/p right forearm amputation. Unable to perform ROS due to Pt being intubated and sedated. He continues to have a rash to the left high and ABD. Objective: Vital Signs 10/10/19 10/10/19 10/10/19 10:21 10:31 10:46 Temperature 99.1 F Pulse Rate 77 Respiratory 19 Rate Blood Pressure 98/70 98/68 (mmHg) O2 Sat by Pulse 90 Oximetry Physical Exam: General: Sedated, laying in bed Neurological: Alert and Oriented HEENT: Moist MM Cardiovascular: Heart rate regular Respiratory: Lung sounds diminished Abdominal: Bowel sounds present; ABD soft, non tender and obese Skin: There is a maculopapular rash to the left thigh and ABD Laboratory Results - last 24 hr 10/10/19 10/10/19 04:10 04:10 WBC 11.6 H RBC 2.96 L Hgb 8.8 L Hct 27 L MCV 90 MCH 30 MCHC 33 RDW 15 Plt Count 272 MPV 9.1 Neut % (Auto) 75.4 Lymph % (Auto) 14.4 [place] % (Auto) 7.6 Eos % (Auto) 1.6 Baso % (Auto) 1.0 Absolute Neuts (auto) 8.8 H Absolute Lymphs (auto) 1.7 Absolute Monos (auto) 0.9 H Absolute Eos (auto) 0.2 Absolute Basos (auto) 0.1 Absolute Nucleated RBC 0.0 Nucleated RBC % 0.0 Sodium 146 H Potassium 5.6 H Chloride 111 Carbon Dioxide 30 Anion Gap 5 BUN 103 H Creatinine 1.53 H Est GFR ( Amer) 54.4 Est GFR (Non-Af Amer) 45.0 BUN/Creatinine Ratio 67.3 H Glucose 124 H POC Glucose (mg/dL) Calcium 8.2 L Phosphorus 6.0 H Magnesium 3.6 H Microbiology 10/06/19 15:30 Gram Stain - Final Bronch Lavage - Left Lower Lobe Bronchoalveolar Lavage Cult, Quant - Final Ly Albicans 10/03/19 08:22 Aerobic Blood Culture - Final Blood Venous No Growth Day 5 Anaerobic Blood Culture - Final No Growth Day 5 10/03/19 08:22 Aerobic Blood Culture - Final Blood Venous No Growth Day 5 Anaerobic Blood Culture - Final No Growth Day 5 09/30/19 08:35 Blood Fungal Culture - Preliminary Blood Line No Growth Week 1 10/03/19 08:22 Gram Stain - Final Sputum Trach Sputum Culture - Final Normal Mimi 10/03/19 02:48 Urine Culture - Final Urine No Growth (<1,000 CFU/mL) 09/30/19 13:52 Gram Stain - Final Sputum Sputum Culture - Final YEAST 09/30/19 08:35 Urine Culture - Final Urine No Growth (<1,000 CFU/mL) 09/26/19 19:41 Gram Stain - Final Sputum Trach Sputum Culture - Final Normal Mimi 09/21/19 04:26 Aerobic Blood Culture - Final Blood Venous No Growth Day 5 Anaerobic Blood Culture - Final No Growth Day 5 09/21/19 04:32 Aerobic Blood Culture - Final Blood Venous No Growth Day 5 Anaerobic Blood Culture - Final No Growth Day 5 09/21/19 15:10 Gram Stain - Final Sputum Sputum Culture - Final Normal Mimi 09/21/19 07:07 Urine Culture - Final Urine 09/21/19 11:19 Legionella Urinary Antigen - Final Urine Negative Legionella Antigen Streptococcus pneumoniae Ag Screen - Final Negative S. pneumo Antigen 09/21/19 06:58 Nasal Screen MRSA (PCR) - Final Nasal Mrsa Not Detected Assessment: 1. Influenza A. Continues to have persistent viremia. Restarted Tamiflu yesterday. Continues to have leukocytosis. Fevers resolved overnight and he is currently afebrile. 2. Post-influenza PNA. Chest Ct with consolidation or atelectasis in the left lower lobe with left pleural effusion. Chest xray with patchy airspace disease of the lung base. Blood cultures with no growth on day 5. Urine antigens for legionella and S. Pneumonia negative. Continues to have leukocytosis. Fevers resolved overnight and he is currently afebrile. 3. Fevers. Low suspicion for meningitis. Plan for LP later today. Currently afebrile and continues to have leukocytosis. Suspect secondary to PNA and Influenza. 4. Acute hypoxic and hypercarbic respiratory failure. Remains intubated. 5. Encephalopathy. Suspect secondary to infection. 6. Rash. Noted to have a maculopapular rash on the left thigh and ABD. Dx: Drug reaction vs fungal vs cryptococcous 7. Sulfa allergy. Plan: Continue meropenem and Tamiflu. Will add a cryptococcous antigen to last labs.
--- NOTE | 2019-10-10 12:00 | PN ---
Subjective Date of Service: 10/10/19 Length of Stay: 19 Days Neurology is following for global encephalopathy. Interval History: I was requested by Dr. Albert to re-evaluate the patient's encephalopathy and to attempt an LP as it was unable to be completed last week. The patient was last seen by me on 09/30/2019 where an initial consult was performed and was seen by Dr. Gentile on 10/05/2019. Nonconvulsive status epilepticus was ruled out as his EEG on 10/02/2019 showed diffuse encephalopathy. Today, the patient remains on sedation with propofol, Precedex and fentanyl. Propofol was discontinued yesterday. The patient opens his eyes, but does not follow commands. No seizure activity was reported. Labs, imaging, and other diagnostic testing: WBC: 11 Hemoglobin: 8.8 HCT: 27 BUN: 103 Creatinine: 1.53 CRP: 133.55 Proca.4 Ammonia: 51 aPTT: 116 Influenza A: positive MRI brain without contrast completed on 10/02/2019: left frontal lobe encephalomalacia with associated volume loss. There is some evidence of mild ventriculomegaly that appears proportional to the degree of brain atrophy. Review of Systems: The patient cannot provide a [id number] as he is intubated and does not follow commands. Objective Active Medications: Acetaminophen (Tylenol Adult Liq*) 650 mg NG TUBE Q6H PRN PRN Reason: TEMPERATURE > 100.4 Last Admin: 10/09/19 20:58 Dose: 650 mg Albuterol/Ipratropium (Duoneb (Albuterol 2.5 Mg/Ipratropium 0.5 Mg)) 1 neb INH Q4H PRN PRN Reason: SOB/WHEEZING Last Admin: 10/06/19 23:00 Dose: 1 neb Artificial Tears (Natural Balance Tears Eye Drop) 1 drop BOTH EYES Q4H PRN PRN Reason: DRY EYE Atorvastatin Calcium (Lipitor*) 80 mg PO DAILY [facility] Last Admin: 10/10/19 07:55 Dose: 80 mg Carvedilol (Coreg Tab*) 6.25 mg PO BID [facility] Last Admin: 10/10/19 08:27 Dose: Not Given Chlorhexidine Gluconate (Peridex Mouth Wash 0.12%*) 15 ml SWISH SPIT Q4H [facility] Last Admin: 10/10/19 07:53 Dose: 15 ml Fentanyl Citrate (Fentanyl*) 50 mcg IV SLOW PU Q1H PRN PRN Reason: PAIN - SEVERE Last Admin: 10/10/19 10:21 Dose: 50 mcg Fluconazole (Diflucan 150 Mg Tab*) 150 mg PO ONCE ONE Stop: 10/11/19 09:01 Heparin Sodium (Porcine) (Heparin Flush Picc/Ml/Cvc(*)) 0 ml FLUSH .PER PROTOCOL HUGO Heparin Sodium (Porcine) (Heparin Vial(*)) 0 units IV .PER PROTOCOL HUGO Last Admin: 10/09/19 02:57 Dose: 3,150 units Heparin Sodium/Dextrose (Heparin Drip 25,000 Units(*)) 25,000 units in 500 mls @ 0 mls/hr IV PER RATE HUGO; Protocol Last Admin: 10/09/19 16:53 Dose: 45.8 mls/hr Meropenem 1 gm/ Sodium (Chloride) 50 mls @ 100 mls/hr IVPB Q8H HUGO; Protocol Stop: 10/10/19 12:29 Last Admin: 10/10/19 04:09 Dose: 100 mls/hr Meropenem (Merrem 1 Gm Premix(*)) 1 gm in 50 mls @ 100 mls/hr IV 0400,1200, 2000 [facility]; Protocol Dexmedetomidine HCl 1,000 mcg/ (Sodium Chloride) 250 mls @ 15.22 mls/hr IV .PER PROTOCOL HUGO; Protocol Last Admin: 10/10/19 08:00 Dose: 33.6 mls/hr Propofol (Diprivan*) 100 mls @ 7.626 mls/hr IV .PER PROTOCOL HUGO; Protocol Last Admin: 10/10/19 08:01 Dose: 11.3 mls/hr Insulin Human Regular (Insulin Regular(*)) 0 units SUBCUT Q6HR [facility]; Protocol Last Admin: 10/10/19 06:55 Dose: Not Given Nystatin (Nystatin Suspension*) 200,000 units PO QID [facility] Last Admin: 10/10/19 07:53 Dose: 200,000 units Nystatin (Nystatin Cream*) 1 applic TOPICAL BID [facility] Last Admin: 10/10/19 07:56 Dose: 1 applic Oseltamivir Phosphate (Tamiflu Susp* Oralsyr) 75 mg PO BID [facility] Last Admin: 10/10/19 08:00 Dose: 75 mg Pantoprazole Sodium (Protonix Iv*) 40 mg IV 2200 [facility] Last Admin: 10/09/19 21:28 Dose: 40 mg Polyethylene Glycol/Electrolytes (Miralax (17 Gm Dose Demario)) 17 gm PO DAILY PRN PRN Reason: CONSTIPATION Last Admin: 09/27/19 05:41 Dose: 17 gm Quetiapine Fumarate (Seroquel Tab*) 12.5 mg PO BID [facility] Last Admin: 10/10/19 08:00 Dose: 12.5 mg Vital Signs 10/10/19 10/10/19 10:31 10:46 Temperature 99.1 F Pulse Rate 77 Respiratory Rate Blood Pressure 98/70 98/68 (mmHg) O2 Sat by Pulse 90 Oximetry Intake and Output Last 24 Hours 10/08/19 10/09/19 10/10/19 10/11/19 06:59 06:59 06:59 06:59 Intake Total 3565.5 3992 3421 Output Total 1970 2275 2720 1310 Balance 1595.5 1717 701 -1310 Weight 269 lb 13.533 oz 274 lb 14.663 oz 273 lb 1.6 oz Intake: IV Fluids 89 154 219 NS (0.9%) 89 154 219 IVPB 206 225 225 Meropenem 206 165 170 NS (0.9%) 60 55 Medicated IV 1613 1424 1901 CC - Dexmedetomidine/ 550 735 991 Precedex CC - Propofol/Diprivan 228 Heparin 1063 689 682 Heparin 194.5 243 Oral 0 0 Tube Feeding 963 1246 876 Tube Feeding Flush Amount 500 600 200 NG Tube Irrigate Amount 100 Output: G Tube 600 Urine 300 Motta 1370 2275 1820 710 Liquid Stool 600 600 Other: # Bowel Movements 2 Estimated Stool Amount Medium Oxygen Devices in Use Now: Endotracheal Tube, Mechanical Ventilator Neurology Exam: General: Critically ill elderly man who appears disheveled and is older than stated age. HEENT: Normocephelic/atraumatic, sclera anicteric, mucous membranes moist Neck: Supple Chest: diminished airway. Cardiovascular: Regular rate and rhythm without murmurs, rubs, gallops Extremities: No clubbing, cyanosis, or edema Neurological Findings: Sedated and intubated elderly man. He does not follow commands. He was reported to move his arms and legs by the bedside nurse during a sedation holiday. I have not seen him move his extremities. PERRL. Corneal, nasal stimulation and gag reflexes are present. He flexes the arms to minimal distal noxious stimuli. Result Diagrams: 10/10/19 04:10 10/10/19 04:10 Microbiology and Other Data: Microbiology 10/06/19 15:30 Gram Stain - Final Bronch Lavage - Left Lower Lobe Bronchoalveolar Lavage Cult, Quant - Final Ly Albicans 10/03/19 08:22 Aerobic Blood Culture - Final Blood Venous No Growth Day 5 Anaerobic Blood Culture - Final No Growth Day 5 10/03/19 08:22 Aerobic Blood Culture - Final Blood Venous No Growth Day 5 Anaerobic Blood Culture - Final No Growth Day 5 09/30/19 08:35 Blood Fungal Culture - Preliminary Blood Line No Growth Week 1 10/03/19 08:22 Gram Stain - Final Sputum Trach Sputum Culture - Final Normal Mimi 10/03/19 02:48 Urine Culture - Final Urine No Growth (<1,000 CFU/mL) 09/30/19 13:52 Gram Stain - Final Sputum Sputum Culture - Final YEAST 09/30/19 08:35 Urine Culture - Final Urine No Growth (<1,000 CFU/mL) 09/26/19 19:41 Gram Stain - Final Sputum Trach Sputum Culture - Final Normal Mimi 09/21/19 04:26 Aerobic Blood Culture - Final Blood Venous No Growth Day 5 Anaerobic Blood Culture - Final No Growth Day 5 09/21/19 04:32 Aerobic Blood Culture - Final Blood Venous No Growth Day 5 Anaerobic Blood Culture - Final No Growth Day 5 09/21/19 15:10 Gram Stain - Final Sputum Sputum Culture - Final Normal Mimi 09/21/19 07:07 Urine Culture - Final Urine 09/21/19 11:19 Legionella Urinary Antigen - Final Urine Negative Legionella Antigen Streptococcus pneumoniae Ag Screen - Final Negative S. pneumo Antigen 09/21/19 06:58 Nasal Screen MRSA (PCR) - Final Nasal Mrsa Not Detected Assessment/Plan Mr. Phillip Cabrera is a 73-year-old man who was hospitalized at [facility] [place], [place] ICU since for respiratory failure related to Influenza A pneumonia. The hospital course has been complicated by intubation, persistent fevers, encephalopathy manifesting as delirium with intermittent hyperactive agitation, and acute decompensated systolic heart failure. Overall, I suspect the patient's encephalopathy is related to an infectious and metabolic sources. Performing a lumbar puncture would also help evaluate for any potential spread of the infection to the JEWEL STRIPPER and rule out other rare causes of persistent encephalopathy (e.g., cryptococcus). It's highly unlikely that he would have two different infections at the same time. One minimal concern I have pertains to the mild ventriculomegaly seen on MRI. This is most likely a chronic finding. I don't have any prior imaging to compare it to, therefore, performing an LP to check the intracranial pressure will be useful. I discussed the case in length with the patient's daughter Michelle over the telephone. Michelle was asking if her father can have dialysis and if he can be transferred to a neurological institute for a second opinion since he hasn't been improving from the cognitive standpoint. In terms of the dialysis, I informed her that the patient is currently making urine and the BUN and kidney functions are getting better. The neurological problems are related to his overall acute illnesses secondary to the influenza which caused the hypoxia and metabolic derangement. This is not a primarily neurological insult but a sequela from his prolonged hospitalization. We will rule out any potential JEWEL STRIPPER infectious once we obtain the CSF analysis. I am concerned that the patient has not improved and informed Michelle that the longer he is in this state, the less likely he will revert back to his normal baseline. Michelle agreed and consented to the LP today via telephone.
--- NOTE | 2019-10-10 12:24 | PN ---
Date of Service: 10/10/19 Critical Care Services: Has been afebrile since about midnight. Failed spontaneous breathing trial this morning due to tachypnea. Heparin gtt held this morning for LP today. ROS: Unable to obtain due to intubation and altered mental status. Vital Signs: Temp Pulse Resp BP SpO2 FiO2 99.0 F 71 19 102/71 97 35 10/10/19 12:15 10/10/19 12:15 10/10/19 10:21 10/10/19 12:15 10/10/19 12:15 10/09 08:00 Physical Exam: Gen: NAD, sedated with propofol. HEENT: Normocephalic, atraumatic. Pupils equal and reactive. ETT in place, Dobhoff tube in place. Neck supple. Lungs: Coarse breath sounds b/l. Vent Settings Ventilator Mode CMV Set Respiratory Rate 15 Set Pressure 25 FIO2 Setting 35 PEEP Setting (cm H2O) 8 Cardiac: Irregular rhythm, normal rate. Abdomen: Soft, obese. Erythematous patches on lower abdomen, flank, and groin. Extremities: Moderate pedal edema Neuro: Spontaneously opens eyes and moves all extremities. Does not follow commands. Fluid Balance (Past 24 Hours): I= O= Net Intake & Output 10/08/19 10/09/19 10/10/19 10/11/19 06:59 06:59 06:59 06:59 Intake Total 3565.5 3992 3421 Output Total 1970 2275 2720 1520 Balance 1595.5 1717 701 -1520 Weight 269 lb 13.533 oz 274 lb 14.663 oz 273 lb 1.6 oz Intake: IV Fluids 89 154 219 NS (0.9%) 89 154 219 IVPB 206 225 225 Meropenem 206 165 170 NS (0.9%) 60 55 Medicated IV 1613 1424 1901 CC - Dexmedetomidine/ 550 735 991 Precedex CC - Propofol/Diprivan 228 Heparin 1063 689 682 Heparin 194.5 243 Oral 0 0 Tube Feeding 963 1246 876 Tube Feeding Flush Amount 500 600 200 NG Tube Irrigate Amount 100 Output: G Tube 600 Urine 300 Motta 1370 2275 1820 920 Liquid Stool 600 600 Other: # Bowel Movements 2 Estimated Stool Amount Medium Labs: Laboratory Results - last 24 hr 10/09/19 10/09/19 10/09/19 13:15 17:56 19:34 WBC RBC Hgb Hct MCV MCH MCHC RDW Plt Count MPV Neut % (Auto) Lymph % (Auto) Clay % (Auto) Eos % (Auto) Baso % (Auto) Absolute Neuts (auto) Absolute Lymphs (auto) Absolute Monos (auto) Absolute Eos (auto) Absolute Basos (auto) Absolute Nucleated RBC Nucleated RBC % APTT 183.6 H* Sodium Potassium Chloride Carbon Dioxide Anion Gap BUN Creatinine Est GFR ( Amer) Est GFR (Non-Af Amer) BUN/Creatinine Ratio Glucose POC Glucose (mg/dL) 202 H 159 H Calcium Phosphorus Magnesium 10/09/19 10/10/19 10/10/19 20:40 02:09 04:10 WBC RBC Hgb Hct MCV MCH MCHC RDW Plt Count MPV Neut % (Auto) Lymph % (Auto) Clay % (Auto) Eos % (Auto) Baso % (Auto) Absolute Neuts (auto) Absolute Lymphs (auto) Absolute Monos (auto) Absolute Eos (auto) Absolute Basos (auto) Absolute Nucleated RBC Nucleated RBC % APTT 92.0 H 116.0 H* Sodium Potassium Chloride Carbon Dioxide Anion Gap BUN Creatinine Est GFR ( Amer) Est GFR (Non-Af Amer) BUN/Creatinine Ratio Glucose POC Glucose (mg/dL) 155 H Calcium Phosphorus Magnesium 10/10/19 10/10/19 04:10 04:10 WBC 11.6 H RBC 2.96 L Hgb 8.8 L Hct 27 L MCV 90 MCH 30 MCHC 33 RDW 15 Plt Count 272 MPV 9.1 Neut % (Auto) 75.4 Lymph % (Auto) 14.4 Clay % (Auto) 7.6 Eos % (Auto) 1.6 Baso % (Auto) 1.0 Absolute Neuts (auto) 8.8 H Absolute Lymphs (auto) 1.7 Absolute Monos (auto) 0.9 H Absolute Eos (auto) 0.2 Absolute Basos (auto) 0.1 Absolute Nucleated RBC 0.0 Nucleated RBC % 0.0 APTT Sodium 146 H Potassium 5.6 H Chloride 111 Carbon Dioxide 30 Anion Gap 5 BUN 103 H Creatinine 1.53 H Est GFR ( Amer) 54.4 Est GFR (Non-Af Amer) 45.0 BUN/Creatinine Ratio 67.3 H Glucose 124 H POC Glucose (mg/dL) Calcium 8.2 L Phosphorus 6.0 H Magnesium 3.6 H Studies: MRI 10/01- L frontal encephalomalacia EEG 10/01- slowing, no epileptiform discharges CT chest 10/04- LLL consolidation Nutrition: Glucerna tube feeds Impression: 73M admitted with respiratory failure, also with persistent fevers of unclear etiology, and encephalopathy. -Acute hypoxic and hypercapnic respiratory failure, intubated 09/21 -LLL PNA -Influenza A, treated with Tamiflu and continuing treatment -A fib, now rate controlled -Acute decompensated LV systolic heart failure (NSTEMI during admission) -REENA on CKD, improving -Encephalopathy, likely metabolic -DM -CAD Plan: Neuro: Propofol for sedation, goal RASS -1 or -2. Holding Precedex due to pauses LP today by neurology Avoid benzodiazepines CV: Heparin gtt for new onset a fib, held for LP will restart after procedure Cont Coreg and statin Hold DAPT for LP Resp: Remains intubated due to poor neuro status. Need to discuss goals of care with daughters to decide tracheostomy vs comfort measures. Family meeting lexx Wean FiO2 to keep sat >92% VAP bundle GI: Continue tube feeds Flexiseal for loose stools PPI for GI prophylaxis Renal: Urine output adequate, Cr at baseline. Diuresis with lasix Motta for accurate I&Os while intubated ID: Sputum/BAL cx negative. Now afebrile ID following. Will check for crytococcal antigen. Continue meropenem and Tamiflu. If opening pressures high, will send CSF Heme: H&H stable. Daily CBC Heparin gtt for a fib, restart after LP Endo: Insulin sliding scale. Keep BG <200 MSK: Pressure ulcer prophylaxis. Bedrest. Wounds: None Dispo: ICU for respiratory failure, encephalopathy, sepsis Status: Critical Code status: Full Palliative care consulted and plan for meeting with two daughters lexx. If the daughters would like to proceed with trach/PEG, will try to schedule to be done by the end of the week. Critical Care Time: 40 min
[2019-10-10 12:58] LABS: Activated Partial Thrombo Time 31.5 seconds (26.0-38.0); INR 1.32 (0.82-1.09)
--- NOTE | 2019-10-10 13:40 | PN ---
Progress Note - Progress Note Date of Service: 10/10/19 Note: Left message with both of his daughters Michelle [phone] and October to call back for family meeting.
[2019-10-10 14:48] LABS: Body Fluid Source Cerebral Spinal
[2019-10-10 15:01] LABS: CSF Glucose 74 mg/dL (40-70)
--- NOTE | 2019-10-10 15:11 | OP ---
Operative Report - Blank - Operative Report Date of Operation: 10/10/19 Note: Lumbar Puncture Procedure Note Pre-operative Diagnosis: Encephalopathy, ventriculomegaly Post-operative Diagnosis: same Indications: Diagnostic Procedure Details Consent: Informed consent was obtained. Time out was performed with AMERICO Posada at 1410 PM. Risks of the procedure were discussed including: infection, bleeding, pain and headaches were discussed with the patient's daughter Michelle who gave consent over the phone. Under sterile conditions the patient was positioned in the right lateral decubitus position in a semi- position. Betadine solution and sterile drapes were utilize . A 22-gauge 3.5-inch spinal needle was inserted at the L3- L4 interspace. Findings 6 cc of clear spinal fluid was obtained Opening Pressure: 19 cm H2O pressure Complications: none Condition: stable Plan Obtain CSF laboratory data: cell count and differential, gram stain and culture , glucose, protein, IGG index, oligoclonal bands CSF & Serum.. Raul Ross MD 10/10/2019 15:10 PM
[2019-10-10 15:37] LABS: Body Fluid Mono 28 %
[2019-10-10] MEDS: Meropenem 1 GM PREMIX(*) 1 GM/50 ML BAG IV SCH (19:40)
--- NOTE | 2019-10-10 20:26 | CONSULT ---
Palliative / Hospice Consult Ordering Provider: Marybeth Albert - PCPDebbie Referal Reason: Goals of care/PEG/fentanyl - Subjective Code Status: DNR Advance Directives Location: No Advance Directives MOLST Part A Completed: Yes - updated on chart - History or Present Illness History or Present Illness: 73yo male c/o SOB for 3 days. PMH morbid obesity, type 2 DM, CAD s/p CABG 4 vessel 2010, h/o bone malignancy of R upper ext s/p forearm amputation with cellulitis 2015, hyperlipidemia, HTN, CHF diastolic 2015 EF 40-55%, COPD on home O2 and CKD stage 3. 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 Studies Ekg-afib, pvc, CXR- airspace opacification L>R mid lower lung, ECHO-35-40%, moderate global hypokinesis, CXR-LLL pneumonia, Chest CT-#1-?aspiration, emphysema, Chest CT#2-LLL consolidation with L pleural effusion, EEG-no seizures, brain CT- mild chronic small vessel ischemic disease, encephalomalcia L frontal lobe, Brain MRI-no new findings compared to brain CT, H/H 8.8/27, BUN/Cr 104/1.5, egfr 46, Ca 8.1, alb 3.1, CRP 133.55, troponin 5.81, INR 1.11, BC neg and + flu. Pt admitted to ICU intubated due to acute on chronic hypoxic and hypercapnic respiratory failure, COPD, pulmonary edema, flu pneumonitis and NSTEMI. Pt with recurrent fevers and encephalopathy. Pt with 2 prior ER visits in the last year. All history is from family and medical record, pt is unable to respond. Lab Values: Abnormal Lab Results 10/09/19 10/09/19 10/09/19 13:15 17:56 20:40 WBC RBC Hgb Hct MCV MCH MCHC RDW Plt Count MPV Neut % (Auto) Lymph % (Auto) Gordon % (Auto) Eos % (Auto) Baso % (Auto) Absolute Neuts (auto) Absolute Lymphs (auto) Absolute Monos (auto) Absolute Eos (auto) Absolute Basos (auto) Absolute Nucleated RBC Nucleated RBC % INR (Anticoag Therapy) APTT 92.0 H Sodium Potassium Chloride Carbon Dioxide Anion Gap BUN Creatinine Est GFR ( Amer) Est GFR (Non-Af Amer) BUN/Creatinine Ratio Glucose POC Glucose (mg/dL) 202 H 159 H Calcium Phosphorus Magnesium Fluid Source Fluid Volume Fluid Color Fluid Appearance Fluid WBC Fluid RBC Fluid Tot Cell Count Fluid Neutrophils Fluid Lymphocytes Fluid Monocytes Fluid Comment CSF Cell Count Tube # CSF Glucose CSF Total Protein 10/10/19 10/10/19 10/10/19 02:09 04:10 04:10 WBC RBC Hgb Hct MCV MCH MCHC RDW Plt Count MPV Neut % (Auto) Lymph % (Auto) Gordon % (Auto) Eos % (Auto) Baso % (Auto) Absolute Neuts (auto) Absolute Lymphs (auto) Absolute Monos (auto) Absolute Eos (auto) Absolute Basos (auto) Absolute Nucleated RBC Nucleated RBC % INR (Anticoag Therapy) APTT 116.0 H* Sodium 146 H Potassium 5.6 H Chloride 111 Carbon Dioxide 30 Anion Gap 5 BUN 103 H Creatinine 1.53 H Est GFR ( Amer) 54.4 Est GFR (Non-Af Amer) 45.0 BUN/Creatinine Ratio 67.3 H Glucose 124 H POC Glucose (mg/dL) 155 H Calcium 8.2 L Phosphorus 6.0 H Magnesium 3.6 H Fluid Source Fluid Volume Fluid Color Fluid Appearance Fluid WBC Fluid RBC Fluid Tot Cell Count Fluid Neutrophils Fluid Lymphocytes Fluid Monocytes Fluid Comment CSF Cell Count Tube # CSF Glucose CSF Total Protein 10/10/19 10/10/19 10/10/19 04:10 12:21 14:35 WBC 11.6 H RBC 2.96 L Hgb 8.8 L Hct 27 L MCV 90 MCH 30 MCHC 33 RDW 15 Plt Count 272 MPV 9.1 Neut % (Auto) 75.4 Lymph % (Auto) 14.4 Gordon % (Auto) 7.6 Eos % (Auto) 1.6 Baso % (Auto) 1.0 Absolute Neuts (auto) 8.8 H Absolute Lymphs (auto) 1.7 Absolute Monos (auto) 0.9 H Absolute Eos (auto) 0.2 Absolute Basos (auto) 0.1 Absolute Nucleated RBC 0.0 Nucleated RBC % 0.0 INR (Anticoag Therapy) 1.32 H APTT 31.5 Sodium Potassium Chloride Carbon Dioxide Anion Gap BUN Creatinine Est GFR ( Amer) Est GFR (Non-Af Amer) BUN/Creatinine Ratio Glucose POC Glucose (mg/dL) Calcium Phosphorus Magnesium Fluid Source Cerebral spinal Fluid Volume 2.2 Fluid Color Colorless Fluid Appearance Clear Fluid WBC 1 Fluid RBC 2 Fluid Tot Cell Count 25 Fluid Neutrophils 16 Fluid Lymphocytes 56 Fluid Monocytes 28 Fluid Comment CSF Cell Count Tube # 4 CSF Glucose CSF Total Protein 10/10/19 14:35 WBC RBC Hgb Hct MCV MCH MCHC RDW Plt Count MPV Neut % (Auto) Lymph % (Auto) Gordon % (Auto) Eos % (Auto) Baso % (Auto) Absolute Neuts (auto) Absolute Lymphs (auto) Absolute Monos (auto) Absolute Eos (auto) Absolute Basos (auto) Absolute Nucleated RBC Nucleated RBC % INR (Anticoag Therapy) APTT Sodium Potassium Chloride Carbon Dioxide Anion Gap BUN Creatinine Est GFR ( Amer) Est GFR (Non-Af Amer) BUN/Creatinine Ratio Glucose POC Glucose (mg/dL) Calcium Phosphorus Magnesium Fluid Source Fluid Volume Fluid Color Fluid Appearance Fluid WBC Fluid RBC Fluid Tot Cell Count Fluid Neutrophils Fluid Lymphocytes Fluid Monocytes Fluid Comment CSF Cell Count Tube # CSF Glucose 74 H CSF Total Protein 69 H Laboratory Last Values WBC 11.6 10^3/uL (3.5-10.8) H 10/10/19 04:10 RBC 2.96 10^6 /uL (4.18-5.48) L 10/10/19 04:10 Hgb 8.8 g/dL (14.0-18.0) L 10/10/19 04:10 Hct 27 % (42-52) L 10/10/19 04:10 MCV 90 fL (80-94) 10/10/19 04:10 MCH 30 pg (27-31) 10/10/19 04:10 MCHC 33 g/dL (31-36) 10/10/19 04:10 RDW 15 % (10-15) 10/10/19 04:10 Plt Count 272 10^3/uL (150-450) 10/10/19 04:10 MPV 9.1 fL (7.4-10.4) 10/10/19 04:10 Neut % (Auto) 75.4 % 10/10/19 04:10 Lymph % (Auto) 14.4 % 10/10/19 04:10 Gordon % (Auto) 7.6 % 10/10/19 04:10 Eos % (Auto) 1.6 % 10/10/19 04:10 Baso % (Auto) 1.0 % 10/10/19 04:10 Absolute Neuts (auto) 8.8 10^3/ul (1.5-7.7) H 10/10/19 04:10 Absolute Lymphs (auto) 1.7 10^3/ul (1.0-4.8) 10/10/19 04:10 Absolute Monos (auto) 0.9 10^3/ul (0-0.8) H 10/10/19 04:10 Absolute Eos (auto) 0.2 10^3/ul (0-0.6) 10/10/19 04:10 Absolute Basos (auto) 0.1 10^3/ul (0-0.2) 10/10/19 04:10 Absolute Nucleated RBC 0.0 10^3/ul 10/10/19 04:10 Nucleated RBC % 0.0 10/10/19 04:10 INR (Anticoag Therapy) 1.32 (0.82-1.09) H 10/10/19 12:21 APTT 31.5 seconds (26.0-38.0) 10/10/19 12:21 Patient Temperature Not Reportable 09/21/19 07:25 ABG pH 7.22 (7.35-7.45) L 09/21/19 07:25 ABG pH (Temp Correct) Not Reportable 09/21/19 07:25 ABG pCO2 56 mmHg (35-45) H 09/21/19 07:25 ABG pCO2 (Temp Corrct Not Reportable 09/21/19 07:25 ABG pO2 109 mmHg (80-100) H 09/21/19 07:25 ABG pO2 (Temp Correct Not Reportable 09/21/19 07:25 ABG HCO3 20.6 mmol/L (19-31) 09/21/19 07:25 ABG O2 Saturation 99.1 % (94.0-98.0) H 09/21/19 07:25 ABG Base Excess -5.5 mmol/L (-2.0-2.0) L 09/21/19 07:25 Respiration Rate 20 09/21/19 07:25 O2 Delivery Device N/c 09/21/19 05:06 Ventilator Type 500 09/21/19 07:25 Vent Mode Not Reportable 09/21/19 07:25 FiO2 100 09/21/19 07:25 Inspiratory Time .8 09/21/19 07:25 PEEP 5 09/21/19 07:25 Pressure Support Not Reportable 09/21/19 07:25 Pressure Control Not Reportable 09/21/19 07:25 EPAP Not Reportable 09/21/19 07:25 IPAP Not Reportable 09/21/19 07:25 BiPAP Not Reportable 09/21/19 07:25 Sodium 146 mmol/L (135-145) H 10/10/19 04:10 Potassium 5.6 mmol/L (3.5-5.0) H 10/10/19 04:10 Chloride 111 mmol/L (101-111) 10/10/19 04:10 Carbon Dioxide 30 mmol/L (22-32) 10/10/19 04:10 Anion Gap 5 mmol/L (2-11) 10/10/19 04:10 BUN 103 mg/dL (6-24) H 10/10/19 04:10 Creatinine 1.53 mg/dL (0.67-1.17) H 10/10/19 04:10 Est GFR ( Amer) 54.4 (>60) 10/10/19 04:10 Est GFR (Non-Af Amer) 45.0 (>60) 10/10/19 04:10 BUN/Creatinine Ratio 67.3 (8-20) H 10/10/19 04:10 Glucose 124 mg/dL (70-100) H 10/10/19 04:10 POC Glucose (mg/dL) 155 mg/dL (70-100) H 10/10/19 02:09 Serum Osmolality 322 mOsm/kg (275-295) H 10/01/19 17:24 Lactic Acid 2.1 mmol/L (0.5-2.0) H* 09/26/19 15:56 Calcium 8.2 mg/dL (8.6-10.3) L 10/10/19 04:10 Ionized Calcium 0.95 mmol/L (1.16-1.32) L 09/29/19 05:11 Phosphorus 6.0 mg/dL (2.5-5.0) H 10/10/19 04:10 Magnesium 3.6 mg/dL (1.9-2.7) H 10/10/19 04:10 Total Bilirubin 0.70 mg/dL (0.2-1.0) 09/29/19 05:11 Direct Bilirubin 0.10 mg/dL (0.03-0.18) 09/23/19 05:57 Indirect Bilirubin 0.4 mg/dL (0.3-1.0) 09/23/19 05:57 AST 15 U/L (13-39) 09/29/19 05:11 ALT 25 U/L (7-52) 09/29/19 05:11 Alkaline Phosphatase 45 U/L (34-104) 09/29/19 05:11 Ammonia 51 mcmol/L (16-53) 10/06/19 06:15 Total Creatine Kinase 581 U/L (10-223) H 10/01/19 22:24 Troponin I 4.48 ng/mL (<0.03) H* 09/21/19 23:31 C-Reactive Protein 133.55 mg/L (<8.01) H 10/09/19 05:30 B-Natriuretic Peptide 448 pg/mL (<=100) H 09/21/19 04:39 Total Protein 6.0 g/dL (6.4-8.9) L 09/29/19 05:11 Albumin 3.1 g/dL (3.2-5.2) L 09/29/19 05:11 Globulin 2.9 g/dL (2-4) 09/29/19 05:11 Albumin/Globulin Ratio 1.1 (1-3) 09/29/19 05:11 Vitamin B12 341 pg/mL (180-914) 10/01/19 22:24 Procalcitonin 4.4 ng/mL (<=0.15) H 10/02/19 17:16 TSH 0.51 mcIU/mL (0.34-5.60) 10/01/19 22:24 Urine Color Yellow 10/03/19 02:48 Urine Appearance Cloudy 10/03/19 02:48 Urine pH 5.0 (5-9) 10/03/19 02:48 Ur Specific [place] 1.014 (1.010-1.030) 10/03/19 02:48 Urine Protein 2+(100 mg/dl) (Negative) A 10/03/19 02:48 Urine Ketones Negative (Negative) 10/03/19 02:48 Urine Blood 2+ (Negative) A 10/03/19 02:48 Urine Nitrate Negative (Negative) 10/03/19 02:48 Urine Bilirubin Negative (Negative) 10/03/19 02:48 Urine Urobilinogen Negative (Negative) 10/03/19 02:48 Ur Leukocyte Esterase Negative (Negative) 10/03/19 02:48 Urine WBC (Auto) 1+(6-10/hpf) (Absent) A 10/03/19 02:48 Urine RBC (Auto) 2+(6-10/hpf) (Absent) A 10/03/19 02:48 Ur Squamous Epith Cells Present (Absent) A 10/03/19 02:48 Urine Bacteria 1+ (Absent) A 10/03/19 02:48 Urine Osmolality 561 mOsm/kg (100-1150) 10/01/19 15:41 U Sodium Concentration 18 mmol/L 10/01/19 15:41 Urine Glucose Negative (Negative) 10/03/19 02:48 Fluid Source Cerebral spinal 10/10/19 14:35 Fluid Volume 2.2 mL 10/10/19 14:35 Fluid Color Colorless 10/10/19 14:35 Fluid Appearance Clear 10/10/19 14:35 Fluid WBC 1 /mcL 10/10/19 14:35 Fluid RBC 2 /mcL 10/10/19 14:35 Fluid Tot Cell Count 25 10/10/19 14:35 Fluid Neutrophils 16 % 10/10/19 14:35 Fluid Lymphocytes 56 % 10/10/19 14:35 Fluid Monocytes 28 % 10/10/19 14:35 Fluid Comment 10/10/19 14:35 CSF Cell Count Tube # 4 10/10/19 14:35 CSF Glucose 74 mg/dL (40-70) H 10/10/19 14:35 CSF Total Protein 69 mg/dL (15-45) H 10/10/19 14:35 Random Vancomycin 17.3 mcg/mL 10/02/19 06:30 Influenza A (Rapid) Positive (Negative) H 10/08/19 19:18 Influenza B (Rapid) Not Reportable 10/08/19 19:18 - Objective Active Medications: Acetaminophen (Tylenol Adult Liq*) 650 mg NG TUBE Q6H PRN PRN Reason: TEMPERATURE > 100.4 Last Admin: 10/09/19 20:58 Dose: 650 mg Albuterol/Ipratropium (Duoneb (Albuterol 2.5 Mg/Ipratropium 0.5 Mg)) 1 neb INH Q4H PRN PRN Reason: SOB/WHEEZING Last Admin: 10/06/19 23:00 Dose: 1 neb Artificial Tears (Natural Balance Tears Eye Drop) 1 drop BOTH EYES Q4H PRN PRN Reason: DRY EYE Atorvastatin Calcium (Lipitor*) 80 mg PO DAILY [facility] Last Admin: 10/10/19 07:55 Dose: 80 mg Carvedilol (Coreg Tab*) 6.25 mg PO BID [facility] Last Admin: 10/10/19 08:27 Dose: Not Given Chlorhexidine Gluconate (Peridex Mouth Wash 0.12%*) 15 ml SWISH SPIT Q4H [facility] Last Admin: 10/10/19 19:40 Dose: 15 ml Fentanyl Citrate (Fentanyl*) 50 mcg IV SLOW PU Q1H PRN PRN Reason: PAIN - SEVERE Fluconazole (Diflucan 150 Mg Tab*) 150 mg PO ONCE ONE Stop: 10/11/19 09:01 Heparin Sodium (Porcine) (Heparin Flush Picc/Ml/Cvc(*)) 0 ml FLUSH .PER PROTOCOL [facility] Heparin Sodium (Porcine) (Heparin Vial(*)) 0 units IV .PER PROTOCOL [facility] Last Admin: 10/09/19 02:57 Dose: 3,150 units Heparin Sodium/Dextrose (Heparin Drip 25,000 Units(*)) 25,000 units in 500 mls @ 0 mls/hr IV PER RATE [facility]; Protocol Last Admin: 10/09/19 16:53 Dose: 45.8 mls/hr Meropenem (Merrem 1 Gm Premix(*)) 1 gm in 50 mls @ 100 mls/hr IV 0400,1200, 2000 [facility]; Protocol Last Admin: 10/10/19 19:40 Dose: 100 mls/hr Dexmedetomidine HCl 1,000 mcg/ (Sodium Chloride) 250 mls @ 15.22 mls/hr IV .PER PROTOCOL [facility]; Protocol Last Admin: 10/10/19 08:00 Dose: 33.6 mls/hr Propofol (Diprivan*) 100 mls @ 7.626 mls/hr IV .PER PROTOCOL [facility]; Protocol Last Admin: 10/10/19 19:40 Dose: 18.8 mls/hr Insulin Human Regular (Insulin Regular(*)) 0 units SUBCUT Q6HR [facility]; Protocol Last Admin: 10/10/19 18:04 Dose: Not Given Nystatin (Nystatin Suspension*) 200,000 units PO QID [facility] Last Admin: 10/10/19 18:07 Dose: 200,000 units Nystatin (Nystatin Cream*) 1 applic TOPICAL BID [facility] Last Admin: 10/10/19 07:56 Dose: 1 applic Oseltamivir Phosphate (Tamiflu Susp* Oralsyr) 75 mg PO BID [facility] Last Admin: 10/10/19 08:00 Dose: 75 mg Pantoprazole Sodium (Protonix Iv*) 40 mg IV 2200 [facility] Last Admin: 10/09/19 21:28 Dose: 40 mg Polyethylene Glycol/Electrolytes (Miralax (17 Gm Dose Demario)) 17 gm PO DAILY PRN PRN Reason: CONSTIPATION Last Admin: 09/27/19 05:41 Dose: 17 gm Quetiapine Fumarate (Seroquel Tab*) 12.5 mg PO BID [facility] Last Admin: 10/10/19 08:00 Dose: 12.5 mg Vital Signs: Vital Signs: Temp Pulse Resp BP Pulse Ox 99.1 F 78 25 124/89 95 10/10/19 19:46 10/10/19 19:46 10/10/19 19:00 10/10/19 19:46 10/10/19 19:46 Patient Weight: Weight 123.876 kg Intake and Output: Intake & Output 10/08/19 10/09/19 10/10/19 10/11/19 06:59 06:59 06:59 06:59 Intake Total 3565.5 3992 3421 890 Output Total 1970 2275 2720 2140 Balance 1595.5 1717 701 -1250 Weight 122.4 kg 124.7 kg 123.876 kg Intake: IV Fluids 89 154 219 50 NS (0.9%) 89 154 219 50 IVPB 206 225 225 75 Meropenem 206 165 170 75 NS (0.9%) 60 55 Medicated IV 1613 1424 1901 162 CC - Dexmedetomidine/ 550 735 991 Precedex CC - Propofol/Diprivan 228 142 Heparin 1063 689 682 20 Heparin 194.5 243 Oral 0 0 0 Tube Feeding 963 1246 876 225 Tube Feeding Flush Amount 500 600 200 378 NG Tube Irrigate Amount 100 Output: G Tube 600 Urine 300 Motta 1370 2275 1820 1540 Liquid Stool 600 600 Other: # Bowel Movements 2 Estimated Stool Amount Medium ADLs: Meal Record Start: 09/21/19 08: 15 Freq: 09,13,18 Status: Complete Protocol: Created 09/21/19 08:15 System (Rec: 09/21/19 08:15 System ICU-C14) Document 09/21/19 08:47 [id number] (Rec: 09/21/19 08:47 [id number] ICU-C06) Document 09/21/19 13:00 JWD2104 (Rec: 09/21/19 13:14 [id number] ICU-C06) Document 09/21/19 18:00 [id number] (Rec: 09/21/19 18:04 [id number] ICU-C06) Intake and Output Start: 09/21/19 04: 10 Freq: Status: Cancelled Protocol: Created 09/21/19 04:10 System (Rec: 09/21/19 04:10 System ED-C24) Intake and Output Start: 09/21/19 06: 29 Freq: 06,14,2200 Status: Complete Protocol: Created 09/21/19 06:29 [id number] (Rec: 09/21/19 06:29 BK [id number]) Document 09/21/19 14:00 SQZ0958 (Rec: 09/21/19 14:26 [id number] ICU-C06) Intake and Output Start: 09/21/19 08: 15 Freq: Q1HR Status: Active Protocol: Created 09/21/19 08:15 System (Rec: 09/21/19 08:15 System ICU-C14) Document 09/21/19 09:00 [id number] (Rec: 09/21/19 12:29 HUH9225 ICU-C06) Document 09/21/19 10:00 BEI1910 (Rec: 09/21/19 12:29 KMB2588 ICU-C06) Document 09/21/19 11:00 FCT0831 (Rec: 09/21/19 12:29 [id number] ICU-C06) Document 09/21/19 12:00 SUY4629 (Rec: 09/21/19 12:29 EEC2622 ICU-C06) Document 09/21/19 13:00 [id number] (Rec: 09/21/19 14:23 CBW2808 ICU-C06) Document 09/21/19 14:00 QFU3492 (Rec: 09/21/19 14:23 BBX4215 ICU-C06) Document 09/21/19 15:00 NFC9201 (Rec: 09/21/19 17:50 [id number] ICU-C06) Document 09/21/19 16:00 ROP9286 (Rec: 09/21/19 17:50 TBS5077 ICU-C06) Document 09/21/19 17:00 CHH6439 (Rec: 09/21/19 17:50 TVU2837 ICU-C06) Document 09/21/19 17:50 CBG9942 (Rec: 09/21/19 17:50 RLG1913 ICU-C06) Document 09/21/19 20:00 VLS0794 (Rec: 09/21/19 20:07 [id number] ICU-M24) Document 09/21/19 21:00 AMZ0240 (Rec: 09/21/19 21:46 HSE6413 ICU-C10) Document 09/21/19 22:00 SCF0936 (Rec: 09/21/19 22:05 MVP1461 ICU-C10) Document 09/22/19 00:00 EYQ7185 (Rec: 09/22/19 00:12 XZI3398 ICU-C10) Document 09/22/19 01:57 [id number] (Rec: 09/22/19 01:58 BEX9739 ICU-C10) Document 09/22/19 03:00 AIZ6802 (Rec: 09/22/19 03:16 OZX0958 ICU-M24) Document 09/22/19 04:00 JGF4879 (Rec: 09/22/19 04:04 KUW6489 ICU-C10) Document 09/22/19 05:00 [id number] (Rec: 09/22/19 05:14 ZHC0737 ICU-M24) Document 09/22/19 05:54 FRS2052 (Rec: 09/22/19 05:54 IWJ2781 ICU-C10) Document 09/22/19 07:00 CVP7336 (Rec: 09/22/19 08:07 PPJ7026 ICU-C10) Document 09/22/19 08:00 ZCP0610 (Rec: 09/22/19 08:32 CZT5206 ICU-C10) Document 09/22/19 09:00 DRN7932 (Rec: 09/22/19 11:56 QPA1922 ICU-C10) Document 09/22/19 10:00 ZOE0077 (Rec: 09/22/19 11:56 OXA1589 ICU-C10) Document 09/22/19 11:00 HAE0151 (Rec: 09/22/19 11:56 LYV0014 ICU-C10) Document 09/22/19 12:00 NLH4513 (Rec: 09/22/19 13:52 STF9922 ICU-C10) Document 09/22/19 13:00 NGR2962 (Rec: 09/22/19 13:52 QQO3491 ICU-C10) Document 09/22/19 14:00 BCZ0055 (Rec: 09/22/19 16:01 PZC0723 ICU-C10) Document 09/22/19 15:00 IAH3379 (Rec: 09/22/19 16:01 CGL1866 ICU-C10) Document 09/22/19 16:00 KCY7783 (Rec: 09/22/19 16:01 GYZ4193 ICU-C10) Document 09/22/19 17:00 ZJP2984 (Rec: 09/22/19 17:32 [id number] ICU-C06) Document 09/22/19 18:00 CPU7817 (Rec: 09/22/19 18:26 IMV8713 ICU-M24) Document 09/22/19 20:00 CGQ6923 (Rec: 09/22/19 20:02 ELC7621 ICU-M24) Document 09/22/19 21:00 KCB0903 (Rec: 09/22/19 21:09 OZQ7927 ICU-M24) Document 09/22/19 22:00 RIL3865 (Rec: 09/22/19 22:25 FZL7196 ICU-C10) Document 09/22/19 23:00 SYG1394 (Rec: 09/22/19 23:21 RDJ2395 ICU-C10) Document 09/23/19 00:00 NOX7037 (Rec: 09/23/19 00:02 BYU9625 ICU-M24) Document 09/23/19 01:00 GKD1827 (Rec: 09/23/19 01:37 CKL9479 ICU-C10) Document 09/23/19 02:00 GFG3703 (Rec: 09/23/19 02:03 DIW9764 ICU-C10) Document 09/23/19 06:00 KAT3451 (Rec: 09/23/19 06:02 JKP7883 ICU-C10) Document 09/23/19 08:00 ONV4325 (Rec: 09/23/19 08:38 YQC4265 ICU-C10) Document 09/23/19 09:00 QLM1403 (Rec: 09/23/19 10:11 BLS0955 ICU-C10) Document 09/23/19 10:00 BQV9592 (Rec: 09/23/19 10:11 MBG3204 ICU-C10) Document 09/23/19 11:00 AMH9185 (Rec: 09/23/19 11:53 JFN5176 ICU-C10) Document 09/23/19 11:53 XZO2482 (Rec: 09/23/19 11:58 JKM6536 ICU-C10) Document 09/23/19 13:00 IED0154 (Rec: 09/23/19 13:18 JJS8824 ICU-C10) Document 09/23/19 13:00 NHM7915 (Rec: 09/23/19 13:15 QAB9641 ICU-M24) Document 09/23/19 14:00 NQS7096 (Rec: 09/23/19 15:33 QGO8025 ICU-C25) Document 09/23/19 15:00 WFA3210 (Rec: 09/23/19 15:56 RLQ1763 ICU-M24) Document 09/23/19 15:54 CQL2030 (Rec: 09/23/19 15:56 OVT9390 ICU-M24) Document 09/23/19 16:00 ERM3217 (Rec: 09/23/19 16:02 GGO8596 ICU-M24) Document 09/23/19 17:00 SNF1466 (Rec: 09/23/19 17:07 SIP6366 ICU-M24) Document 09/23/19 18:00 OWU7772 (Rec: 09/23/19 18:04 VVU5755 ICU-M24) Document 09/23/19 20:00 UFN4207 (Rec: 09/23/19 20:58 TGS0385 ICU-C10) Document 09/23/19 22:00 CDM3741 (Rec: 09/23/19 22:18 LPH5130 ICU-C10) Document 09/23/19 23:00 KDC5418 (Rec: 09/23/19 23:35 LQL3765 ICU-C10) Document 09/24/19 00:00 XQB6269 (Rec: 09/24/19 00:21 UBL4295 ICU-M24) Document 09/24/19 01:00 RGM2310 (Rec: 09/24/19 01:31 QRC9626 ICU-C10) Document 09/24/19 03:00 IYS8268 (Rec: 09/24/19 03:30 CTE6436 ICU-M24) Document 09/24/19 05:00 XSR3492 (Rec: 09/24/19 05:42 [id number] ICU-M24) Document 09/24/19 06:00 RZX8549 (Rec: 09/24/19 06:25 KSZ3449 ICU-C10) Document 09/24/19 07:00 VBS6701 (Rec: 09/24/19 08:22 MWB7347 ICU-M24) Document 09/24/19 08:00 QWK9362 (Rec: 09/24/19 08:22 SXQ4125 ICU-M24) Document 09/24/19 09:00 IJM8561 (Rec: 09/24/19 10:23 EAP5055 ICU-M24) Document 09/24/19 10:00 PWT9466 (Rec: 09/24/19 10:23 BCB3201 ICU-M24) Document 09/24/19 11:00 FON5611 (Rec: 09/24/19 12:09 RGT1102 ICU-M24) Document 09/24/19 12:00 DVE4778 (Rec: 09/24/19 12:09 SON9585 ICU-M24) Document 09/24/19 12:59 NNL6228 (Rec: 09/24/19 12:59 CUB0429 ICU-M24) Document 09/24/19 14:00 EID4036 (Rec: 09/24/19 14:24 TYR1897 ICU-M24) Document 09/24/19 15:00 IFA7224 (Rec: 09/24/19 15:27 TRV6180 ICU-M24) Document 09/24/19 15:51 GNU1463 (Rec: 09/24/19 15:51 GZW4237 ICU-M24) Document 09/24/19 17:00 MQW5654 (Rec: 09/24/19 18:20 LPW9801 ICU-C10) Document 09/24/19 18:00 MXA4605 (Rec: 09/24/19 18:20 YHP5380 ICU-C10) Document 09/24/19 20:00 AVS0365 (Rec: 09/24/19 20:06 LNH6252 ICU-C10) Document 09/24/19 21:00 RDA3026 (Rec: 09/24/19 21:02 UCZ3432 ICU-M24) Document 09/24/19 23:00 SXS2801 (Rec: 09/24/19 23:45 FEZ6088 ICU-M24) Document 09/25/19 00:00 BSF3233 (Rec: 09/25/19 00:28 LOK7740 ICU-C10) Document 09/25/19 00:48 OHM7824 (Rec: 09/25/19 00:48 AZV0906 ICU-C10) Document 09/25/19 02:00 HYT4213 (Rec: 09/25/19 02:32 KHX5514 ICU-C10) Document 09/25/19 04:00 ZOS5949 (Rec: 09/25/19 04:16 EUM9425 ICU-M24) Document 09/25/19 05:00 HYO3893 (Rec: 09/25/19 05:14 KYM3062 ICU-C10) Document 09/25/19 06:00 WKC2150 (Rec: 09/25/19 06:29 ZTP3888 ICU-C10) Document 09/25/19 07:00 USH5654 (Rec: 09/25/19 07:21 OMT2287 ICU-M24) Document 09/25/19 08:00 QKQ7619 (Rec: 09/25/19 08:18 TPP9831 ICU-M24) Document 09/25/19 09:00 SGV8121 (Rec: 09/25/19 09:04 NWA3187 ICU-C10) Document 09/25/19 10:00 NXH8385 (Rec: 09/25/19 10:20 LQK7392 ICU-M24) Document 09/25/19 10:46 UTK9030 (Rec: 09/25/19 10:46 ZNV5121 ICU-C10) Document 09/25/19 11:00 LKF1225 (Rec: 09/25/19 11:08 OFC1035 ICU-M24) Document 09/25/19 11:32 ODC8490 (Rec: 09/25/19 11:32 CTQ2807 ICU-M24) Document 09/25/19 12:00 ZGQ4607 (Rec: 09/25/19 12:11 ZTN5001 ICU-M24) Document 09/25/19 13:00 AVE3320 (Rec: 09/25/19 13:19 LIO6949 ICU-M24) Document 09/25/19 14:00 DWE1604 (Rec: 09/25/19 15:07 MDA2772 ICU-M24) Document 09/25/19 15:00 FIH8422 (Rec: 09/25/19 15:07 AGT5808 ICU-M24) Document 09/25/19 16:59 MXW7580 (Rec: 09/25/19 16:59 VJP4142 ICU-M24) Document 09/25/19 18:00 FTG1442 (Rec: 09/25/19 18:14 YEA6136 ICU-C10) Document 09/25/19 19:00 UZG9700 (Rec: 09/25/19 20:08 YTY8285 ICU-M24) Document 09/25/19 20:00 CVE5310 (Rec: 09/25/19 20:08 QKK6670 ICU-M24) Document 09/25/19 21:00 WMI3618 (Rec: 09/25/19 23:44 JRB6424 ICU-M24) Document 09/25/19 22:00 PTE7347 (Rec: 09/25/19 23:44 FWK4203 ICU-M24) Document 09/25/19 23:00 YDS4672 (Rec: 09/25/19 23:44 LAN6749 ICU-M24) Document 09/26/19 01:00 DQU6298 (Rec: 09/26/19 01:00 BJX5718 ICU-M24) Document 09/26/19 02:00 GDO8727 (Rec: 09/26/19 04:12 QXA1256 ICU-C16) Document 09/26/19 03:00 ASE7176 (Rec: 09/26/19 04:12 XOB8229 ICU-C16) Document 09/26/19 04:00 EWM9116 (Rec: 09/26/19 04:12 XCW2386 ICU-C16) Document 09/26/19 05:00 AVG1541 (Rec: 09/26/19 06:20 HJD4566 ICU-M24) Document 09/26/19 06:00 KTG8032 (Rec: 09/26/19 06:20 IIV4946 ICU-M24) Document 09/26/19 07:00 XYN9552 (Rec: 09/26/19 08:05 WLU1580 ICU-C25) Document 09/26/19 08:00 FJT5159 (Rec: 09/26/19 08:05 KGV5760 ICU-C25) Document 09/26/19 09:00 ONC9990 (Rec: 09/26/19 09:45 OZB9628 ICU-C10) Document 09/26/19 10:00 UYF1520 (Rec: 09/26/19 10:36 YOK7507 ICU-M24) Document 09/26/19 11:00 WNL8451 (Rec: 09/26/19 11:01 KBS5151 ICU-C10) Document 09/26/19 12:00 YHQ3122 (Rec: 09/26/19 12:05 NTU5487 ICU-M24) Document 09/26/19 13:00 NAI5015 (Rec: 09/26/19 13:11 PTK1807 ICU-C10) Document 09/26/19 14:00 BUM4187 (Rec: 09/26/19 14:27 CKK0498 ICU-M24) Document 09/26/19 15:00 KPI5780 (Rec: 09/26/19 15:20 PSB1508 ICU-C10) Document 09/26/19 16:00 FZR0519 (Rec: 09/26/19 16:28 STF8073 ICU-M24) Document 09/26/19 17:00 TUM1377 (Rec: 09/26/19 18:08 UZE7261 ICU-C10) Document 09/26/19 18:00 RCI7107 (Rec: 09/26/19 18:08 UNN9836 ICU-C10) Document 09/26/19 18:53 HBA1443 (Rec: 09/26/19 18:53 XVA4426 ICU-C10) Document 09/26/19 19:00 MAO9034 (Rec: 09/26/19 21:31 YIA5520 ICU-C16) Document 09/26/19 20:00 DLQ5058 (Rec: 09/26/19 21:31 XUV1356 ICU-C16) Document 09/26/19 21:00 RRS1071 (Rec: 09/26/19 21:31 OXU4981 ICU-C16) Document 09/26/19 22:00 NMF2437 (Rec: 09/26/19 22:01 DKU1334 ICU-M24) Document 09/26/19 23:00 BOD3516 (Rec: 09/26/19 23:05 TBD7658 ICU-C16) Document 09/27/19 00:00 SHO6963 (Rec: 09/27/19 00:14 XNK7853 ICU-C16) Document 09/27/19 01:00 TUX9155 (Rec: 09/27/19 01:16 ATX9508 ICU-C16) Document 09/27/19 02:00 RAA5943 (Rec: 09/27/19 03:06 RIY9033 ICU-C16) Document 09/27/19 03:00 JYY2422 (Rec: 09/27/19 03:06 TDF5860 ICU-C16) Document 09/27/19 04:00 YHE8185 (Rec: 09/27/19 05:10 SCM6700 ICU-M24) Document 09/27/19 05:00 OQU2146 (Rec: 09/27/19 05:10 RNH1452 ICU-M24) Document 09/27/19 06:00 YZQ9436 (Rec: 09/27/19 07:17 ZBJ3322 ICU-C16) Document 09/27/19 07:00 PEN8061 (Rec: 09/27/19 07:17 SZH1175 ICU-C16) Document 09/27/19 08:00 WOJ6658 (Rec: 09/27/19 09:23 XIH2680 ICU-C16) Document 09/27/19 09:00 RGI6117 (Rec: 09/27/19 09:52 QOE4511 ICU-C16) Document 09/27/19 09:52 BVJ2698 (Rec: 09/27/19 09:52 PDF0551 ICU-C16) Document 09/27/19 11:00 CFD0237 (Rec: 09/27/19 11:24 TQX5716 ICU-C15) Document 09/27/19 12:00 ORC6133 (Rec: 09/27/19 15:26 LBF4717 ICU-C16) Document 09/27/19 13:00 ZMG3002 (Rec: 09/27/19 15:26 ROB9873 ICU-C16) Document 09/27/19 14:00 (Rec: 09/27/19 15:26 QLE7955 ICU-C16) Document 09/27/19 15:00 OEA2962 (Rec: 09/27/19 15:26 GAC8024 ICU-C16) Document 09/27/19 16:00 BDC3263 (Rec: 09/27/19 17:28 XUH7636 ICU-C16) Document 09/27/19 17:00 DKU4702 (Rec: 09/27/19 17:28 DJZ0079 ICU-C16) Document 09/27/19 18:00 RVF7610 (Rec: 09/27/19 18:00 EXO8361 ICU-C16) Document 09/27/19 19:00 QHO3081 (Rec: 09/27/19 20:09 MOL9308 ICU-M24) Document 09/27/19 20:00 XPH4853 (Rec: 09/27/19 20:09 MTW0295 ICU-M24) Document 09/27/19 21:00 IOI0225 (Rec: 09/27/19 21:09 BUH8243 ICU-M24) Document 09/27/19 22:00 IMB7087 (Rec: 09/27/19 22:04 PAN5824 ICU-M24) Document 09/27/19 23:00 IEH5696 (Rec: 09/27/19 23:17 MBK3859 ICU-M24) Document 09/28/19 00:00 XCK4796 (Rec: 09/28/19 00:16 GDK8997 ICU-M24) Document 09/28/19 01:00 LBS1487 (Rec: 09/28/19 03:55 ZCA3604 ICU-C16) Document 09/28/19 02:00 RSM5731 (Rec: 09/28/19 03:55 FPJ9485 ICU-C16) Document 09/28/19 03:00 CJS6133 (Rec: 09/28/19 03:55 LJV9556 ICU-C16) Document 09/28/19 04:00 IVR3105 (Rec: 09/28/19 04:17 OJA5434 ICU-C16) Document 09/28/19 05:00 LBV1706 (Rec: 09/28/19 05:57 UEI4990 ICU-M24) Document 09/28/19 05:56 FDA2828 (Rec: 09/28/19 05:57 WEN1994 ICU-M24) Document 09/28/19 07:00 WQK7096 (Rec: 09/28/19 08:06 TNN4894 ICU-C10) Document 09/28/19 08:00 DZM0187 (Rec: 09/28/19 08:07 EWE8174 ICU-C10) Document 09/28/19 08:58 GFG0902 (Rec: 09/28/19 08:58 MNN0914 ICU-C10) Document 09/28/19 10:00 OCX5327 (Rec: 09/28/19 10:37 APU8718 ICU-C10) Document 09/28/19 11:00 KIW4736 (Rec: 09/28/19 11:08 DDG8756 ICU-C10) Document 09/28/19 12:00 FZM8371 (Rec: 09/28/19 12:08 SXF6442 ICU-C10) Document 09/28/19 13:00 VXZ6451 (Rec: 09/28/19 13:25 GOB7243 ICU-C10) Document 09/28/19 14:00 PAL0524 (Rec: 09/28/19 16:41 BDS7765 ICU-C10) Document 09/28/19 15:00 RLC7526 (Rec: 09/28/19 16:41 YKG3663 ICU-C10) Document 09/28/19 16:00 QVJ8443 (Rec: 09/28/19 16:41 ARC1427 ICU-C10) Document 09/28/19 17:00 ALT8975 (Rec: 09/28/19 17:18 HHL8033 ICU-M24) Document 09/28/19 17:56 IQY6676 (Rec: 09/28/19 17:56 ICU-M24) Document 09/28/19 20:00 LZU6385 (Rec: 09/28/19 20:40 IFX3803 ICU-M24) Document 09/28/19 21:00 ZSM0412 (Rec: 09/28/19 21:27 PYR9388 ICU-C16) Document 09/28/19 22:00 RJP5266 (Rec: 09/28/19 22:57 ETI6654 ICU-C16) Document 09/28/19 23:00 TLG0790 (Rec: 09/28/19 23:24 WCU6979 ICU-M24) Document 09/29/19 00:00 GRX1514 (Rec: 09/29/19 00:27 LJW2817 ICU-M24) Document 09/29/19 01:00 APF4726 (Rec: 09/29/19 01:18 XYE4666 ICU-C16) Document 09/29/19 03:00 BVS3851 (Rec: 09/29/19 03:01 RNN7537 ICU-C16) Document 09/29/19 04:00 UOC3056 (Rec: 09/29/19 04:31 YQT7464 ICU-C16) Document 09/29/19 05:00 HXU1690 (Rec: 09/29/19 05:22 IUZ6174 ICU-C16) Document 09/29/19 06:00 BXW0648 (Rec: 09/29/19 06:11 HHM6986 ICU-C16) Document 09/29/19 08:00 NPS4025 (Rec: 09/29/19 08:54 XPU0738 ICU-C10) Document 09/29/19 09:00 SOG9471 (Rec: 09/29/19 15:36 UEX7729 ICU-C10) Document 09/29/19 10:00 PXZ1544 (Rec: 09/29/19 15:36 QSP5802 ICU-C10) Document 09/29/19 12:00 XDQ2335 (Rec: 09/29/19 15:36 DKP3535 ICU-C10) Document 09/29/19 13:00 MDS3697 (Rec: 09/29/19 15:36 SWZ9493 ICU-C10) Document 09/29/19 13:30 ZZQ8152 (Rec: 09/29/19 15:36 HOU1013 ICU-C10) Document 09/29/19 15:36 YEP2000 (Rec: 09/29/19 15:36 YQV9296 ICU-C10) Document 09/29/19 16:00 VSI8904 (Rec: 09/29/19 16:59 BHD7779 ICU-C10) Document 09/29/19 17:53 TIM5242 (Rec: 09/29/19 17:53 BVY7280 ICU-M24) Document 09/29/19 20:00 PYX7148 (Rec: 09/29/19 20:09 DPG0670 ICU-M24) Document 09/29/19 22:00 YOF9404 (Rec: 09/29/19 22:20 KPR7111 ICU-C16) Document 09/29/19 23:00 FGV5145 (Rec: 09/29/19 23:22 TEG0423 ICU-M24) Document 09/30/19 00:00 SYN6327 (Rec: 09/30/19 00:34 NYX5856 ICU-M24) Document 09/30/19 01:00 OCF8914 (Rec: 09/30/19 01:29 IMI5642 ICU-M24) Document 09/30/19 03:00 BJG3201 (Rec: 09/30/19 03:47 XAL1127 ICU-M24) Document 09/30/19 04:00 RSK1526 (Rec: 09/30/19 04:25 PZF6474 ICU-C16) Document 09/30/19 05:00 SCG2098 (Rec: 09/30/19 05:51 LCQ1267 ICU-C16) Document 09/30/19 06:00 INE1869 (Rec: 09/30/19 06:34 AIC1741 ICU-M24) Document 09/30/19 10:00 BNT3307 (Rec: 09/30/19 19:55 RTX5652 ICU-C10) Document 09/30/19 12:00 PRM9550 (Rec: 09/30/19 19:55 JXJ6707 ICU-C10) Document 09/30/19 16:00 WYK3739 (Rec: 09/30/19 19:55 YRJ1447 ICU-C10) Document 09/30/19 16:00 GGF3388 (Rec: 09/30/19 20:46 MQI0146 ICU-C10) Document 09/30/19 18:00 IWM3517 (Rec: 09/30/19 19:55 EQN1338 ICU-C10) Document 09/30/19 20:00 ZXH1636 (Rec: 09/30/19 20:13 DCD8028 ICU-M24) Document 09/30/19 21:00 VFQ5472 (Rec: 09/30/19 21:05 SOO8317 ICU-C16) Document 09/30/19 21:39 QJW1321 (Rec: 09/30/19 21:40 HBA2519 IMG-M07) Document 09/30/19 22:51 RRA0948 (Rec: 09/30/19 22:51 RMZ8658 ICU-M24) Document 09/30/19 23:41 MRJ5247 (Rec: 09/30/19 23:44 IJC8623 ICU-C16) Document 10/01/19 00:08 IUA9294 (Rec: 10/01/19 00:08 VKW8028 ICU-C16) Document 10/01/19 01:00 LBA4709 (Rec: 10/01/19 01:05 TTW8155 ICU-C16) Document 10/01/19 03:00 WOZ6031 (Rec: 10/01/19 03:06 RTN8433 ICU-M24) Document 10/01/19 03:59 DFD6339 (Rec: 10/01/19 03:59 WNS7155 ICU-M24) Document 10/01/19 04:00 HLG3740 (Rec: 10/01/19 04:49 WMU1283 ICU-C16) Document 10/01/19 05:00 SOS9250 (Rec: 10/01/19 05:14 ROZ6055 ICU-C16) Document 10/01/19 06:00 CKT0614 (Rec: 10/01/19 06:06 RER8730 ICU-M24) Document 10/01/19 08:00 QGH1114 (Rec: 10/01/19 10:52 PLP0265 ICU-C10) Document 10/01/19 09:00 RQK0800 (Rec: 10/01/19 10:52 SHY6688 ICU-C10) Document 10/01/19 14:00 OSB6656 (Rec: 10/01/19 14:49 MAT8199 ICU-M24) Document 10/01/19 15:42 REF8446 (Rec: 10/01/19 15:42 CKC4499 ICU-M24) Document 10/01/19 18:00 JUI6570 (Rec: 10/01/19 18:19 HIB4912 ICU-C10) Document 10/01/19 19:00 WST5551 (Rec: 10/01/19 19:22 MWT9834 ICU-M24) Document 10/01/19 19:53 XUM8708 (Rec: 10/01/19 19:55 TJR7296 ICU-C16) Document 10/01/19 21:00 EAU8861 (Rec: 10/01/19 21:13 SQY8961 ICU-M24) Document 10/01/19 21:49 ADR8829 (Rec: 10/01/19 21:51 OSR8564 ICU-C16) Document 10/01/19 22:47 QGZ3379 (Rec: 10/01/19 22:48 WXD5195 ICU-C16) Document 10/01/19 22:49 HJB2866 (Rec: 10/01/19 22:50 ZRE6787 ICU-C16) Document 10/01/19 23:43 THK3303 (Rec: 10/01/19 23:47 BYG4894 ICU-C16) Document 10/02/19 01:00 UYH9749 (Rec: 10/02/19 01:05 PKQ9445 ICU-C16) Document 10/02/19 02:00 MUX9853 (Rec: 10/02/19 02:21 KOR4653 ICU-C16) Document 10/02/19 03:00 NEP2837 (Rec: 10/02/19 03:11 ULU2318 ICU-C16) Document 10/02/19 04:00 ZBJ8706 (Rec: 10/02/19 04:16 SZU6285 ICU-C16) Document 10/02/19 05:00 VDH2539 (Rec: 10/02/19 05:13 SJA9211 ICU-M24) Document 10/02/19 06:00 YDX6077 (Rec: 10/02/19 06:35 XIG9677 ICU-M24) Document 10/02/19 07:00 HXY7150 (Rec: 10/02/19 08:09 OIZ8283 ICU-C16) Document 10/02/19 08:00 ZSW6508 (Rec: 10/02/19 10:31 IOU9839 ICU-C16) Document 10/02/19 09:00 ZUM9188 (Rec: 10/02/19 10:32 ROM4024 ICU-C16) Document 10/02/19 10:00 XPA4804 (Rec: 10/02/19 10:34 NMZ9543 ICU-C16) Document 10/02/19 11:00 PLQ8451 (Rec: 10/02/19 12:02 HTD3152 ICU-C16) Document 10/02/19 12:00 EZJ3751 (Rec: 10/02/19 14:25 PHV5645 ICU-C16) Document 10/02/19 13:00 OJI5398 (Rec: 10/02/19 15:09 MDH2814 ICU-M24) Document 10/02/19 14:00 GQN6300 (Rec: 10/02/19 15:11 GDM5870 ICU-M24) Document 10/02/19 15:00 OUU1672 (Rec: 10/02/19 15:12 VIK1369 ICU-M24) Document 10/02/19 17:00 TUT3941 (Rec: 10/02/19 17:17 FVG9541 ICU-M24) Document 10/02/19 18:00 XIN4075 (Rec: 10/02/19 18:24 TEO6990 ICU-C16) Document 10/02/19 19:00 GZQ2848 (Rec: 10/02/19 19:14 OZR1719 ICU-C10) Document 10/02/19 19:54 PPN9163 (Rec: 10/02/19 19:54 BIR0992 ICU-C10) Document 10/02/19 21:00 NCM8180 (Rec: 10/02/19 21:30 BEC5406 ICU-C10) Document 10/02/19 22:00 PTL2393 (Rec: 10/02/19 22:56 BYI7632 ICU-C10) Document 10/03/19 01:00 VJL0252 (Rec: 10/03/19 01:03 GLP6024 ICU-M24) Document 10/03/19 01:37 QOY4713 (Rec: 10/03/19 01:37 XAM0698 ICU-M24) Document 10/03/19 03:00 XCT5198 (Rec: 10/03/19 03:30 BVY5465 IMG-M07) Document 10/03/19 04:00 YCQ1909 (Rec: 10/03/19 04:26 VVX7268 ICU-C10) Document 10/03/19 05:00 PZF9347 (Rec: 10/03/19 05:06 FLX2561 ICU-C10) Document 10/03/19 05:47 ISV9588 (Rec: 10/03/19 05:47 JHE4988 ICU-M24) Document 10/03/19 07:00 CWI3873 (Rec: 10/03/19 07:08 DGK2946 ICU-C10) Document 10/03/19 08:00 KRK2947 (Rec: 10/03/19 08:40 RFA5586 ICU-C10) Document 10/03/19 09:00 ZPY6613 (Rec: 10/03/19 09:25 MPD1734 ICU-C10) Document 10/03/19 10:00 BKE3077 (Rec: 10/03/19 10:16 GSU3236 ICU-C10) Document 10/03/19 11:00 TSV2906 (Rec: 10/03/19 11:15 OUL5273 ICU-C10) Document 10/03/19 13:00 GXE2986 (Rec: 10/03/19 13:44 HUZ1723 ICU-C10) Document 10/03/19 15:00 RNA1625 (Rec: 10/03/19 15:39 DTF8050 ICU-C10) Document 10/03/19 16:00 HBZ8860 (Rec: 10/03/19 16:32 MQZ9991 ICU-C10) Document 10/03/19 17:00 UOW7821 (Rec: 10/03/19 17:23 ZUP7199 ICU-C10) Document 10/03/19 18:00 YBG6761 (Rec: 10/03/19 18:38 ZMZ4295 ICU-C10) Document 10/03/19 19:00 ECY2624 (Rec: 10/03/19 19:39 UJQ3055 ICU-C10) Document 10/03/19 20:00 NFI7717 (Rec: 10/03/19 22:15 TXR3369 ICU-C10) Document 10/03/19 21:00 ZJF1783 (Rec: 10/03/19 22:15 NEF3846 ICU-C10) Document 10/03/19 22:00 DCX6992 (Rec: 10/03/19 22:27 QEI6156 ICU-C10) Document 10/03/19 23:00 DHQ3041 (Rec: 10/04/19 00:13 BJB4348 ICU-C10) Document 10/04/19 00:00 ACA0528 (Rec: 10/04/19 00:14 FWU1657 ICU-C10) Document 10/04/19 01:00 TVI0331 (Rec: 10/04/19 01:49 CST4866 ICU-C10) Document 10/04/19 02:00 LNW3486 (Rec: 10/04/19 02:03 CDP7702 ICU-C10) Document 10/04/19 03:00 GNZ2498 (Rec: 10/04/19 03:10 IXL1662 ICU-C10) Document 10/04/19 04:00 XIS6910 (Rec: 10/04/19 04:44 BUT0563 ICU-C10) Document 10/04/19 05:00 VIT5287 (Rec: 10/04/19 05:07 WPH3741 ICU-M24) Document 10/04/19 05:08 VXA9218 (Rec: 10/04/19 05:08 VDX2241 ICU-M24) Document 10/04/19 06:00 OLP0203 (Rec: 10/04/19 06:21 FCA7492 ICU-C10) Document 10/04/19 07:00 MEZ1775 (Rec: 10/04/19 08:20 QBH3396 ICU-C10) Document 10/04/19 08:00 TKW7075 (Rec: 10/04/19 08:34 BRU1877 ICU-C10) Document 10/04/19 09:00 VBN8442 (Rec: 10/04/19 09:33 OLG0741 ICU-C10) Document 10/04/19 10:00 UIG2218 (Rec: 10/04/19 10:49 JNX6961 ICU-C10) Document 10/04/19 13:00 YRS7769 (Rec: 10/04/19 14:04 FGD0499 ICU-C10) Document 10/04/19 14:00 ZAB0147 (Rec: 10/04/19 19:20 NMK1736 ICU-C10) Document 10/04/19 18:00 MMQ1778 (Rec: 10/04/19 18:25 VEN4560 ICU-M24) Document 10/04/19 20:00 UQO2478 (Rec: 10/04/19 20:58 RGF2628 ICU-C10) Document 10/04/19 20:58 ZJA6383 (Rec: 10/04/19 20:58 RGE2058 ICU-C10) Document 10/04/19 22:00 VPT2582 (Rec: 10/04/19 22:12 LOH2558 ICU-C10) Document 10/04/19 23:00 CAJ5619 (Rec: 10/04/19 23:16 TWA1657 ICU-C10) Document 10/05/19 00:00 KBD1012 (Rec: 10/05/19 01:21 CVX5210 ICU-C10) Document 10/05/19 01:00 KTK7805 (Rec: 10/05/19 01:21 XVO5623 ICU-C10) Document 10/05/19 02:00 DRR8685 (Rec: 10/05/19 02:09 KHY3397 ICU-C10) Document 10/05/19 03:00 TWR9102 (Rec: 10/05/19 06:01 OVA7386 ICU-C10) Document 10/05/19 04:00 FIE1250 (Rec: 10/05/19 06:01 HIV2812 ICU-C10) Document 10/05/19 05:00 SYR3462 (Rec: 10/05/19 06:01 TSZ8661 ICU-C10) Document 10/05/19 06:00 JJQ8962 (Rec: 10/05/19 06:01 QEI2514 ICU-C10) Document 10/05/19 06:02 HFK1362 (Rec: 10/05/19 06:03 OBL2370 ICU-C10) Document 10/05/19 07:00 ZJB7873 (Rec: 10/05/19 08:29 XNO0473 ICU-C16) Document 10/05/19 08:00 ZLG4905 (Rec: 10/05/19 08:29 EOD1226 ICU-C16) Document 10/05/19 09:00 DSV0799 (Rec: 10/05/19 09:37 XSF3149 ICU-C16) Document 10/05/19 10:00 XPV6517 (Rec: 10/05/19 11:49 PLV7084 ICU-C16) Document 10/05/19 11:00 UYY6263 (Rec: 10/05/19 11:49 THP5399 ICU-C16) Document 10/05/19 11:56 ECB4266 (Rec: 10/05/19 11:56 WGH8443 ICU-C16) Document 10/05/19 13:00 YXN5894 (Rec: 10/05/19 13:34 YTL8533 ICU-C16) Document 10/05/19 14:00 IZV1468 (Rec: 10/05/19 15:23 SNW7929 ICU-C16) Document 10/05/19 15:00 IWM8405 (Rec: 10/05/19 15:23 WWC3661 ICU-C16) Document 10/05/19 15:24 OOX3003 (Rec: 10/05/19 15:41 KAZ9887 ICU-C16) Document 10/05/19 17:00 CZS9944 (Rec: 10/05/19 17:48 PMI7107 ICU-C16) Document 10/05/19 18:00 XXE6331 (Rec: 10/05/19 18:05 ZJW6563 ICU-C16) Document 10/05/19 19:00 OUM0372 (Rec: 10/05/19 22:59 HUT2686 ICU-C16) Document 10/05/19 20:00 ZEM5501 (Rec: 10/05/19 22:59 JDF1327 ICU-C16) Document 10/05/19 21:00 ITH6102 (Rec: 10/05/19 22:59 YKU7232 ICU-C16) Document 10/05/19 22:00 FYZ5657 (Rec: 10/05/19 22:59 EBB9004 ICU-C16) Document 10/05/19 23:00 XTN8702 (Rec: 10/05/19 23:18 BOI3989 ICU-C16) Document 10/05/19 23:20 YYX9317 (Rec: 10/05/19 23:20 MOP3429 ICU-C16) Document 10/06/19 00:00 VRY1037 (Rec: 10/06/19 05:49 QIM5179 ICU-C16) Document 10/06/19 01:00 TFI7746 (Rec: 10/06/19 05:49 BEN3457 ICU-C16) Document 10/06/19 02:00 BMR3323 (Rec: 10/06/19 05:49 ZYM8992 ICU-C16) Document 10/06/19 03:00 RWV4912 (Rec: 10/06/19 05:49 GXH7732 ICU-C16) Document 10/06/19 04:00 QVI3004 (Rec: 10/06/19 06:27 QRQ7874 ICU-M24) Document 10/06/19 05:00 SYI7958 (Rec: 10/06/19 06:27 HRK2812 ICU-M24) Document 10/06/19 06:00 ZMN7945 (Rec: 10/06/19 06:27 KCO2366 ICU-M24) Document 10/06/19 07:00 PLZ7748 (Rec: 10/06/19 08:40 XNA3289 ICU-C16) Document 10/06/19 08:00 HKJ9790 (Rec: 10/06/19 09:16 JGM7617 ICU-C16) Document 10/06/19 09:00 FJF1803 (Rec: 10/06/19 09:16 MFE7679 ICU-C16) Document 10/06/19 10:00 CZH3914 (Rec: 10/06/19 11:57 SGO7555 ICU-C16) Document 10/06/19 11:00 WMJ1902 (Rec: 10/06/19 11:57 FWN8463 ICU-C16) Document 10/06/19 11:57 IAJ5898 (Rec: 10/06/19 11:57 YFY1912 ICU-C16) Document 10/06/19 13:00 LRD5537 (Rec: 10/06/19 13:40 UOF1365 ICU-C16) Document 10/06/19 14:00 XPG7587 (Rec: 10/06/19 14:34 NKQ7070 ICU-C16) Document 10/06/19 15:00 VME7200 (Rec: 10/06/19 16:41 YHL1406 ICU-C16) Document 10/06/19 16:00 MYV0034 (Rec: 10/06/19 16:41 JHN0437 ICU-C16) Document 10/06/19 17:00 JJZ3714 (Rec: 10/06/19 18:40 DFJ2534 ICU-M24) Document 10/06/19 18:00 DLR9340 (Rec: 10/06/19 18:40 IVG8663 ICU-M24) Document 10/06/19 19:00 GOH0728 (Rec: 10/07/19 02:18 EPM4589 ICU-C16) Document 10/06/19 20:00 HAG8132 (Rec: 10/07/19 02:18 TFV5822 ICU-C16) Document 10/06/19 21:00 CGO0754 (Rec: 10/07/19 02:18 ORB6227 ICU-C16) Document 10/06/19 22:00 YSB3288 (Rec: 10/07/19 02:18 VOW6634 ICU-C16) Document 10/06/19 22:00 MDF3954 (Rec: 10/07/19 02:18 CFP2664 ICU-C16) Document 10/06/19 23:00 KZC6034 (Rec: 10/07/19 02:18 BAY2511 ICU-C16) Document 10/07/19 00:00 QPY2897 (Rec: 10/07/19 02:18 CID6381 ICU-C16) Document 10/07/19 01:00 VVB8949 (Rec: 10/07/19 02:18 SDP4652 ICU-C16) Document 10/07/19 02:00 VGP7041 (Rec: 10/07/19 06:26 MLG2032 ICU-M24) Document 10/07/19 03:00 HSY2505 (Rec: 10/07/19 06:26 NFU7171 ICU-M24) Document 10/07/19 04:00 RES3716 (Rec: 10/07/19 06:26 FFT8996 ICU-M24) Document 10/07/19 05:00 JAQ9079 (Rec: 10/07/19 06:26 WCJ8212 ICU-M24) Document 10/07/19 06:00 NWB0800 (Rec: 10/07/19 06:26 OBV9888 ICU-M24) Document 10/07/19 07:00 DKY6636 (Rec: 10/07/19 10:11 NUY5309 ICU-C10) Document 10/07/19 08:00 HUO2055 (Rec: 10/07/19 10:11 GRD5359 ICU-C10) Document 10/07/19 09:00 ERJ0779 (Rec: 10/07/19 11:31 RQU9667 ICU-M24) Document 10/07/19 10:00 YEF2455 (Rec: 10/07/19 11:31 WMV9143 ICU-M24) Document 10/07/19 11:00 WAW4198 (Rec: 10/07/19 11:31 GRH5539 ICU-M24) Document 10/07/19 11:31 RLY5969 (Rec: 10/07/19 11:38 ZPR9582 ICU-M24) Document 10/07/19 14:00 VVJ1336 (Rec: 10/07/19 14:09 NVD7153 ICU-M24) Document 10/07/19 14:10 BIK8352 (Rec: 10/07/19 14:10 WQL2770 ICU-M24) Document 10/07/19 15:00 RMT6042 (Rec: 10/07/19 15:20 TKB0161 ICU-M24) Document 10/07/19 16:00 TLR6448 (Rec: 10/07/19 16:08 FOU6164 ICU-M24) Document 10/07/19 17:00 CWX3027 (Rec: 10/07/19 17:44 JUX4101 ICU-C15) Document 10/07/19 18:00 LDB3633 (Rec: 10/07/19 18:13 BHL1389 ICU-M24) Document 10/07/19 19:00 GPP8183 (Rec: 10/07/19 21:03 VXE2663 ICU-M24) Document 10/07/19 20:00 JDO9816 (Rec: 10/07/19 21:03 RPW6490 ICU-M24) Document 10/07/19 21:00 HKJ9816 (Rec: 10/07/19 21:03 ABZ1456 ICU-M24) Document 10/07/19 22:00 XVD6686 (Rec: 10/07/19 23:13 LME3848 ICU-M24) Document 10/07/19 23:00 YYP0421 (Rec: 10/07/19 23:13 YSC0082 ICU-M24) Document 10/08/19 00:00 SVT5056 (Rec: 10/08/19 05:19 CTC0995 ICU-C16) Document 10/08/19 01:00 FET3620 (Rec: 10/08/19 05:19 ELN3386 ICU-C16) Document 10/08/19 02:00 QXK3271 (Rec: 10/08/19 05:19 IWY6088 ICU-C16) Document 10/08/19 03:00 POD7425 (Rec: 10/08/19 05:19 LGR9337 ICU-C16) Document 10/08/19 04:00 ZHB9689 (Rec: 10/08/19 05:19 DBP5766 ICU-C16) Document 10/08/19 05:00 DNR2993 (Rec: 10/08/19 05:19 GBR3787 ICU-C16) Document 10/08/19 06:00 WPV9487 (Rec: 10/08/19 08:15 PUN8205 ICU-C16) Document 10/08/19 07:00 REL9583 (Rec: 10/08/19 09:03 JHY1987 ICU-C10) Document 10/08/19 08:00 VRJ5155 (Rec: 10/08/19 09:51 MQZ2190 ICU-C10) Document 10/08/19 09:00 ELQ6455 (Rec: 10/08/19 09:51 GLA2431 ICU-C10) Document 10/08/19 09:51 LQT0793 (Rec: 10/08/19 09:51 MRT9804 ICU-C10) Document 10/08/19 11:00 ITH8517 (Rec: 10/08/19 12:00 KMN5727 ICU-M24) Document 10/08/19 12:00 XJQ7796 (Rec: 10/08/19 12:00 SLC9492 ICU-M24) Document 10/08/19 13:00 QEG3928 (Rec: 10/08/19 14:02 XMQ3345 ICU-C10) Document 10/08/19 14:00 AVZ0699 (Rec: 10/08/19 14:02 HMF2981 ICU-C10) Document 10/08/19 15:00 BFC8394 (Rec: 10/08/19 15:39 HXZ9664 ICU-M24) Document 10/08/19 15:38 LJJ5826 (Rec: 10/08/19 15:39 IXJ6007 ICU-M24) Document 10/08/19 17:00 GTJ2058 (Rec: 10/08/19 18:25 JOX5492 ICU-M24) Document 10/08/19 18:00 BCP7499 (Rec: 10/08/19 18:25 OBF4391 ICU-M24) Document 10/08/19 19:00 FTR1215 (Rec: 10/08/19 19:45 OCG6429 ICU-C16) Document 10/08/19 20:00 GYT7235 (Rec: 10/08/19 21:48 [id number] ICU-C10) Document 10/08/19 21:00 RSD2925 (Rec: 10/08/19 21:48 [id number] ICU-C10) Document 10/08/19 22:00 VBZ6387 (Rec: 10/08/19 22:26 TTO1542 ICU-C10) Document 10/08/19 23:00 OCY4923 (Rec: 10/08/19 23:00 [id number] ICU-C10) Document 10/09/19 00:00 NZN4468 (Rec: 10/09/19 01:05 [id number] ICU-C10) Document 10/09/19 01:00 QVV4996 (Rec: 10/09/19 01:05 SAQ2055 ICU-C10) Document 10/09/19 02:00 TJP3526 (Rec: 10/09/19 02:40 FEF2520 ICU-C10) Document 10/09/19 03:00 MYW7461 (Rec: 10/09/19 04:38 [id number] ICU-C10) Document 10/09/19 04:00 FHG1753 (Rec: 10/09/19 06:11 [id number] ICU-C10) Document 10/09/19 05:00 KLX5503 (Rec: 10/09/19 06:11 [id number] ICU-C10) Document 10/09/19 06:00 NPP2016 (Rec: 10/09/19 06:12 POT4727 ICU-C10) Document 10/09/19 07:00 UAQ8828 (Rec: 10/09/19 07:43 BKZ0251 ICU-C15) Document 10/09/19 08:00 DHV5138 (Rec: 10/09/19 08:24 SYK0921 ICU-C15) Document 10/09/19 09:00 PJG3286 (Rec: 10/09/19 09:11 QPE5715 ICU-M24) Document 10/09/19 10:00 SNR3611 (Rec: 10/09/19 10:34 [id number] ICU-C15) Document 10/09/19 11:00 DDZ5478 (Rec: 10/09/19 12:23 [id number] ICU-M24) Document 10/09/19 12:00 UST7239 (Rec: 10/09/19 12:23 QVO0472 ICU-M24) Document 10/09/19 13:00 ZGD0600 (Rec: 10/09/19 13:23 UYO6655 ICU-M24) Document 10/09/19 13:24 BQH3262 (Rec: 10/09/19 13:24 TIZ3300 ICU-C15) Document 10/09/19 14:00 NAK4242 (Rec: 10/09/19 14:02 [id number] ICU-M24) Document 10/09/19 16:00 EOW8201 (Rec: 10/09/19 16:58 [id number] ICU-M24) Document 10/09/19 16:58 SXD1186 (Rec: 10/09/19 16:58 GWU0106 ICU-M24) Document 10/09/19 18:00 NMX1945 (Rec: 10/09/19 18:22 MAM0560 ICU-M24) Document 10/09/19 19:00 SLJ4779 (Rec: 10/09/19 22:57 [id number] ICU-C16) Document 10/09/19 20:00 OBW9634 (Rec: 10/09/19 22:57 KQJ7982 ICU-C16) Document 10/09/19 21:00 FPE2340 (Rec: 10/09/19 22:57 [id number] ICU-C16) Document 10/09/19 22:00 RKM1178 (Rec: 10/09/19 22:57 TAQ2430 ICU-C16) Document 10/09/19 23:00 GDT0941 (Rec: 10/09/19 23:11 IHG8114 ICU-M24) Document 10/10/19 00:00 EYX4578 (Rec: 10/10/19 02:08 YNH6053 ICU-C16) Document 10/10/19 01:00 AJD0407 (Rec: 10/10/19 02:08 CFM8257 ICU-C16) Document 10/10/19 02:00 YPN2084 (Rec: 10/10/19 02:08 NTF3266 ICU-C16) Document 10/10/19 03:00 DGK6468 (Rec: 10/10/19 04:00 WNV7564 ICU-M24) Document 10/10/19 04:00 YGF7951 (Rec: 10/10/19 04:00 RVW7843 ICU-M24) Document 10/10/19 06:00 WVX0087 (Rec: 10/10/19 06:41 YFC0847 ICU-C11) Document 10/10/19 06:57 WJG4468 (Rec: 10/10/19 06:58 [id number] ICU-M24) Document 10/10/19 08:00 CXD6918 (Rec: 10/10/19 09:52 SCL3281 ICU-C16) Document 10/10/19 09:00 NYV4061 (Rec: 10/10/19 10:48 BAT8966 ICU-C16) Document 10/10/19 10:00 QCK6408 (Rec: 10/10/19 10:51 UAD8387 ICU-C16) Document 10/10/19 11:00 DAI8320 (Rec: 10/10/19 12:23 JCY0878 ICU-C16) Document 10/10/19 12:00 EOG7249 (Rec: 10/10/19 12:23 XQM3502 ICU-C16) Document 10/10/19 13:00 HLG0579 (Rec: 10/10/19 16:07 [id number] ICU-C16) Document 10/10/19 14:00 HNZ7669 (Rec: 10/10/19 16:07 WDW9155 ICU-C16) Document 10/10/19 15:00 UDC8375 (Rec: 10/10/19 16:07 SRG6546 ICU-C16) Document 10/10/19 16:00 HAE3108 (Rec: 10/10/19 18:13 FSF8863 ICU-C16) Document 10/10/19 17:00 MGW2714 (Rec: 10/10/19 18:13 ZJM2785 ICU-C16) Document 10/10/19 18:00 RRY3916 (Rec: 10/10/19 18:13 DRE5993 ICU-C16) Document 10/10/19 18:23 FSK9456 (Rec: 10/10/19 18:23 LUO6247 ICU-C16) Document 10/10/19 19:00 RIQ4823 (Rec: 10/10/19 19:47 [id number] ICU-M24) Head: Normal Ears/Nose/Mouth/Throat: NL Teeth, Lips, Gums Neck: NL Appearance and Movements; NL JVP Cardiovascular: NL Sounds; No Murmurs; No JVD Respiratory: Symmetrical Chest Expansion and Respiratory Effort Abdominal: NL Sounds; No Tenderness; No Distention Neurological: - - sedated with intubation ones eyes to voice - Assessment Assessment: 73yo male with COPD presents with SOB currently intubated with acute on chronic hypoxic and hypercapnic respiratory failure, recurrent fever, flu pneumonitis and encephalopathy - Plan Consult Plan (MU): Palliative Plan: Long discussion with pt's 2 daughters Tamara and Michelle who are HCPs about goals of care. Daughter feels pt was doing better on Wednesday and is wondering why he isn't off ventilator and more responsive. They don't want their father to suffer but they want to give him a chance if he can have meaningful recovery. Dr Albert, buff wheel fabricator explained pt's medical course with recurrent fever , persistent flu and how he has failed many spontaneous breathing trials. Pt has been on ventilator for 19 days and either needs trach or terminal extubation. Explained that pt's encephalopathy may improve but he will have a long rehab course some of which maybe in a vent rehab facility and will not go back to baseline and we doubt he will go back to independent living. I gave a 15%-85% of previous functioning level, they felt if his recovery wasn't close to 80% pt wouldn't enjoy that quality of life. Daughters want to discuss with their brothers and will get back to us tomorrow. They agreed to DNR and pt had a trial of spontaneous breathing this evening but became too agitated and was discontinued.KPS 20%, PPS 10% - Time On Unit Date of Evaluation: 10/10/19 Hospice Consult Time in: 17:30 Hospice Consult Time Out: 19:00 Hospice Consult Time Total: 90 > 50% of Time Spend In Counseling or Coordinating Care: Yes
[2019-10-10] MEDS: Pantoprazole IV* 40 MG IV SCH (21:14)
[2019-10-10] MEDS: Heparin VIAL(*) 5000 UNITS/ML VIAL (FIVE THOUSAND) IV SCH (22:59)
[2019-10-10] MEDS: Heparin DRIP 25,000 UNITS(*) 25,000 UNITS/500 ML BAG IV SCH (23:04)
[2019-10-11] MEDS: Chlorhexidine MOUTHWASH 0.12%* 15 ML UDC SWISH SPIT SCH ×6 (00:57→22:36)
[2019-10-11] MEDS: Insulin REGULAR(*) 1 UNITS UNIT SUBCUT SCH ×4 (01:03→18:02)
[2019-10-11] MEDS: Propofol* 100 ML IV SCH ×4 (01:25→16:42)
[2019-10-11] MEDS: Meropenem 1 GM PREMIX(*) 1 GM/50 ML BAG IV SCH ×3 (04:24→22:15)
[2019-10-11 05:16] LABS: ABS Basophils 0.1 10^3/ul (0-0.2); ABS Eosinophils 0.3 10^3/ul (0-0.6); ABS Lymphocytes 1.2 10^3/ul (1.0-4.8); ABS Monocytes 0.9 10^3/ul (0-0.8); ABS Neutrophils 9.7 10^3/ul (1.5-7.7); Eosinophil % 2.2 %; Hematocrit 29 % (42-52); Hemoglobin 9.5 g/dL (14.0-18.0); Mean Corpuscular HGB Conc 33 g/dL (31-36); Mean Corpuscular Hemoglobin 30 pg (27-31); Mean Corpuscular Volume 90 fL (80-94); Mean Platelet Volume 9.1 fL (7.4-10.4); Platelet Count 297 10^3/uL (150-450); Red Blood Count 3.19 10^6 /uL (4.18-5.48); Red Cell Distribution Width 15 % (10-15); White Blood Count 12.3 10^3/uL (3.5-10.8)
[2019-10-11 05:30] LABS: BUN/Creatinine Ratio 65.4 (8-20); Calcium 8.2 mg/dL (8.6-10.3); EGFR African American 62.3 (>60); EGFR Non-African American 51.5 (>60)
[2019-10-11 05:31] LABS: Potassium 5.1 mmol/L (3.5-5.0)
[2019-10-11] MEDS ORDERED: Fluconazole 150 MG TAB PO ONE (09:00)
[2019-10-11] MEDS: Oseltamivir SUSP* ORALSYR 6 MG/ML PO SCH ×2 (09:43→22:35)
[2019-10-11] MEDS: QUEtiapine TAB* 25 MG PO SCH ×2 (09:43→22:15)
[2019-10-11] MEDS: Carvedilol TAB* 6.25 MG PO SCH ×2 (09:43→22:15)
[2019-10-11] MEDS: Atorvastatin* 80 MG TAB PO SCH (09:43)
[2019-10-11] MEDS: Nystatin CREAM* 15 GM TUBE TOPICAL SCH ×2 (09:43→23:13)
[2019-10-11] MEDS: Nystatin SUSPENSION* 100000 UNITS/ML 5 ML UDC PO SCH ×2 (09:44→13:56)
--- NOTE | 2019-10-11 10:46 | PN ---
Date of Service: 10/11/19 Critical Care Services: Afebrile for about 36 hours. Hemodynamically stable. Was tachycardic during repositioning but normalized. Failed spontaneous breathing trial yesterday. I talked with daughter October this morning who wishes to proceed with tracheostomy. ROS: Unable to obtain due to intubation and mental status. Vital Signs: Temp Pulse Resp BP SpO2 FiO2 99.7 F 81 15 113/71 97 35 10/11/19 10:31 10/11/19 10:31 10/11/19 06:44 10/11/19 10:31 10/11/19 10:31 10/10 04:00 Physical Exam: Gen: NAD HEENT: Normocephalic and atraumatic. Pupils equal and reactive. ETT and dobhoff tube in place. Neck supple. Lungs: Coarse breath sounds b/l Vent Settings Ventilator Mode PCV Set Respiratory Rate 15 Set Pressure 25 FIO2 Setting 35 PEEP Setting (cm H2O) 8 Respiratory End-tidal CO2 32 Cardiac: Irregular rhythm, normal heart rate Abdomen: soft, obese. Extremities: Pedal edema b/l. Warm Neuro: On propofol. Does not open eyes to voice, does not follow commands Fluid Balance (Past 24 Hours): I= O= Net Intake & Output 10/09/19 10/10/19 10/11/19 10/12/19 06:59 06:59 06:59 06:59 Intake Total 3992 3421 2090 Output Total 2275 2720 3190 350 Balance 1717 701 -1100 -350 Weight 274 lb 14.663 oz 273 lb 1.6 oz Intake: IV Fluids 154 219 50 NS (0.9%) 154 219 50 IVPB 225 225 225 Meropenem 165 170 225 NS (0.9%) 60 55 Medicated IV 1424 1901 162 CC - Dexmedetomidine/ 735 991 Precedex CC - Propofol/Diprivan 228 142 Heparin 689 682 20 Heparin 243 Oral 0 0 Tube Feeding 1246 876 875 Tube Feeding Flush Amount 600 200 778 NG Tube Irrigate Amount 100 Output: Urine 300 Motta 2275 1820 2590 350 Liquid Stool 600 600 Labs: Laboratory Results - last 24 hr 10/10/19 10/10/19 10/10/19 12:21 12:26 14:35 WBC RBC Hgb Hct MCV MCH MCHC RDW Plt Count MPV Neut % (Auto) Lymph % (Auto) [place] % (Auto) Eos % (Auto) Baso % (Auto) Absolute Neuts (auto) Absolute Lymphs (auto) Absolute Monos (auto) Absolute Eos (auto) Absolute Basos (auto) Absolute Nucleated RBC Nucleated RBC % INR (Anticoag Therapy) 1.32 H APTT 31.5 Sodium Potassium Chloride Carbon Dioxide Anion Gap BUN Creatinine Est GFR ( Amer) Est GFR (Non-Af Amer) BUN/Creatinine Ratio Glucose POC Glucose (mg/dL) 141 H Calcium Fluid Source Cerebral spinal Fluid Volume 2.2 Fluid Color Colorless Fluid Appearance Clear Fluid WBC 1 Fluid RBC 2 Fluid Tot Cell Count 25 Fluid Neutrophils 16 Fluid Lymphocytes 56 Fluid Monocytes 28 Fluid Comment CSF Cell Count Tube # 4 CSF Glucose CSF Total Protein 10/10/19 10/10/19 10/10/19 14:35 18:03 21:30 WBC RBC Hgb Hct MCV MCH MCHC RDW Plt Count MPV Neut % (Auto) Lymph % (Auto) [place] % (Auto) Eos % (Auto) Baso % (Auto) Absolute Neuts (auto) Absolute Lymphs (auto) Absolute Monos (auto) Absolute Eos (auto) Absolute Basos (auto) Absolute Nucleated RBC Nucleated RBC % INR (Anticoag Therapy) APTT 51.3 H Sodium Potassium Chloride Carbon Dioxide Anion Gap BUN Creatinine Est GFR ( Amer) Est GFR (Non-Af Amer) BUN/Creatinine Ratio Glucose POC Glucose (mg/dL) 134 H Calcium Fluid Source Fluid Volume Fluid Color Fluid Appearance Fluid WBC Fluid RBC Fluid Tot Cell Count Fluid Neutrophils Fluid Lymphocytes Fluid Monocytes Fluid Comment CSF Cell Count Tube # CSF Glucose 74 H CSF Total Protein 69 H 10/11/19 10/11/19 10/11/19 05:01 05:01 05:01 WBC 12.3 H RBC 3.19 L Hgb 9.5 L Hct 29 L MCV 90 MCH 30 MCHC 33 RDW 15 Plt Count 297 MPV 9.1 Neut % (Auto) 79.4 Lymph % (Auto) 10.0 [place] % (Auto) 7.3 Eos % (Auto) 2.2 Baso % (Auto) 1.1 Absolute Neuts (auto) 9.7 H Absolute Lymphs (auto) 1.2 Absolute Monos (auto) 0.9 H Absolute Eos (auto) 0.3 Absolute Basos (auto) 0.1 Absolute Nucleated RBC 0.0 Nucleated RBC % 0.0 INR (Anticoag Therapy) APTT 132.1 H* Sodium 147 H Potassium 5.1 H Chloride 111 Carbon Dioxide 29 Anion Gap 7 BUN 89 H Creatinine 1.36 H Est GFR ( Amer) 62.3 Est GFR (Non-Af Amer) 51.5 BUN/Creatinine Ratio 65.4 H Glucose 134 H POC Glucose (mg/dL) Calcium 8.2 L Fluid Source Fluid Volume Fluid Color Fluid Appearance Fluid WBC Fluid RBC Fluid Tot Cell Count Fluid Neutrophils Fluid Lymphocytes Fluid Monocytes Fluid Comment CSF Cell Count Tube # CSF Glucose CSF Total Protein Studies: MRI 10/01- L frontal encephalomalacia EEG 10/01- slowing, no epileptiform discharges CT chest 10/04- LLL consolidation Nutrition: Glucerna Impression: 73M admitted with respiratory failure, also with persistent fevers of unclear etiology, and encephalopathy. -Acute hypoxic and hypercapnic respiratory failure, intubated 09/21 -LLL PNA -Influenza A, treated with Tamiflu and continuing treatment -A fib, now rate controlled -Acute decompensated LV systolic heart failure (NSTEMI during admission) -REENA on CKD, improving -Encephalopathy, likely metabolic -DM -CAD Plan: Neuro: Propofol for sedation, goal RASS -1 or -2. Will try to add back Precedex in order to minimize propofol Seroquel for delirium Avoid benzodiazepines CV: Heparin gtt for new onset a fib Cont Coreg and statin Hold DAPT for trach Resp: Remains intubated due to poor neuro status. Patient's children wish to proceed with tracheostomy. ENT Dr Taylor consulted, procedure tentatively planned for Wed. Wean FiO2 to keep sat >90%, spontaneous breathing trial as tolerated. VAP bundle GI: Continue tube feeds Flexiseal for loose stools PPI for GI prophylaxis Renal: Urine output adequate, Cr at baseline. Motta for accurate I&Os while intubated ID: Afebrile, mild leukocytosis which is stable. CSF prelim negative ID following. Continue meropenem and Tamiflu. Heme: H&H stable. Daily CBC Heparin gtt for a fib. Endo: Insulin sliding scale. Keep BG <200 MSK: Pressure ulcer prophylaxis. Bedrest. Wounds: None Dispo: ICU for respiratory failure, encephalopathy, sepsis Status: Critical Code status: DNR Critical Care Time: 30 min
[2019-10-11 15:57] LABS: HSV 1 PCR, CSF Negative (Negative); HSV 2 PCR, CSF Negative (Negative)
[2019-10-11] MEDS: Heparin DRIP 25,000 UNITS(*) 25,000 UNITS/500 ML BAG IV SCH (16:42)
[2019-10-11] MEDS: Dexmedetomidine* 1,000 MCG in NS 0.9% 250 ML* 240 ML IV SCH (16:53)
[2019-10-11 16:59] LABS: Albumin 1760 mg/dL; CSF Albumin 25.9 mg/dL (<=27.0); CSF IGG 4.3 mg/dL (<=8.1); Immunoglobulin G 790 mg/dL (767 - 1590)
[2019-10-11] MEDS: Heparin VIAL(*) 5000 UNITS/ML VIAL (FIVE THOUSAND) IV SCH (19:16)
[2019-10-11] MEDS: Pantoprazole IV* 40 MG IV SCH (22:15)
[2019-10-12] MEDS: Insulin REGULAR(*) 1 UNITS UNIT SUBCUT SCH ×5 (00:32→23:11)
[2019-10-12] MEDS: Chlorhexidine MOUTHWASH 0.12%* 15 ML UDC SWISH SPIT SCH ×7 (00:32→23:05)
[2019-10-12] MEDS: Heparin VIAL(*) 5000 UNITS/ML VIAL (FIVE THOUSAND) IV SCH (01:02)
[2019-10-12] MEDS: fentaNYL* 50 MCG/ML 2 ML VIAL (100 MCG VIAL) IV SLOW PU PRN ×2 (02:53→18:10)
[2019-10-12] MEDS: Meropenem 1 GM PREMIX(*) 1 GM/50 ML BAG IV SCH ×3 (04:19→20:56)
[2019-10-12 07:41] LABS: ABS Basophils 0.1 10^3/ul (0-0.2); ABS Eosinophils 0.2 10^3/ul (0-0.6); ABS Lymphocytes 1.3 10^3/ul (1.0-4.8); ABS Monocytes 1.1 10^3/ul (0-0.8); Eosinophil % 1.7 %; Hematocrit 30 % (42-52); Hemoglobin 9.5 g/dL (14.0-18.0); Lymphocyte % 9.7 %; Mean Corpuscular HGB Conc 32 g/dL (31-36); Mean Corpuscular Hemoglobin 29 pg (27-31); Mean Corpuscular Volume 91 fL (80-94); Mean Platelet Volume 9.5 fL (7.4-10.4); Nucleated Red Blood Cells % 0.1; Platelet Count 301 10^3/uL (150-450); Red Blood Count 3.29 10^6 /uL (4.18-5.48); Red Cell Distribution Width 16 % (10-15); White Blood Count 13.7 10^3/uL (3.5-10.8)
[2019-10-12 07:56] LABS: BUN/Creatinine Ratio 54.7 (8-20); Calcium 8.2 mg/dL (8.6-10.3); EGFR African American 55.7 (>60)
[2019-10-12 07:57] LABS: Potassium 5.8 mmol/L (3.5-5.0)
[2019-10-12] MEDS: Atorvastatin* 80 MG TAB PO SCH (08:34)
[2019-10-12] MEDS: Propofol* 100 ML IV SCH ×2 (08:34→22:45)
[2019-10-12] MEDS: Nystatin CREAM* 15 GM TUBE TOPICAL SCH ×2 (08:34→20:57)
[2019-10-12] MEDS: QUEtiapine TAB* 25 MG PO SCH ×2 (08:34→20:56)
[2019-10-12] MEDS: Heparin DRIP 25,000 UNITS(*) 25,000 UNITS/500 ML BAG IV SCH ×2 (08:34→23:05)
[2019-10-12] MEDS: Oseltamivir SUSP* ORALSYR 6 MG/ML PO SCH ×2 (08:34→21:29)
[2019-10-12] MEDS: Carvedilol TAB* 6.25 MG PO SCH ×2 (08:35→21:29)
[2019-10-12] MEDS ORDERED: Sodium Polystyrene ORAL.SUSP* 15 GM/60 ML BTL PO ONE (09:44)
[2019-10-12] MEDS ORDERED: Furosemide IV* 10 MG/ML VIAL (40 MG) IV SLOW PU ONE (09:46)
--- NOTE | 2019-10-12 14:46 | PN ---
Date of Service: 10/12/19 Critical Care Services: Afebrile overnight, Tmax 100 last night. On spontaneous breathing trial this morning. ROS: Unable to obtain due to intubation and mental status Vital Signs: Temp Pulse Resp BP SpO2 FiO2 100.8 F 72 29 114/52 95 35 10/12/19 14:15 10/12/19 14:15 10/12/19 14:00 10/12/19 14:15 10/12/19 14:15 10/11 12:00 Physical Exam: Gen: NAD, sedated HEENT: Normocephalic, atraumatic. Pupils equal and reactive. ETT in place, dobhoff tube left nare. Neck supple Lungs: Coarse breath sounds Cardiac: Irregular rhythm, normal rate Abdomen: soft, obese Extremities: Moderate pedal edema unchanged from yesterday. Warm. Neuro: Intubated and sedated. RASS -3 Fluid Balance (Past 24 Hours): I= O= Net Intake & Output 10/10/19 10/11/19 10/12/19 10/13/19 06:59 06:59 06:59 06:59 Intake Total 3421 2090 3106 110 Output Total 2720 3190 2014 1203 Balance 701 -1100 1091 -1093 Weight 273 lb 1.6 oz 273 lb 12 oz Intake: IV Fluids 219 50 16 NS (0.9%) 219 50 16 IVPB 225 225 158 Meropenem 170 225 158 NS (0.9%) 55 Medicated IV 1901 162 595 CC - Dexmedetomidine/ 991 Precedex CC - Propofol/Diprivan 228 142 300 Heparin 682 20 295 Oral 0 0 0 0 Tube Feeding 276 629 6057 50 Tube Feeding Flush Amount 200 778 485 60 Output: Urine 300 250 Motta 1820 2590 2015 953 Liquid Stool 600 600 Labs: Laboratory Results - last 24 hr 10/10/19 10/10/19 10/11/19 04:10 14:35 11:32 WBC RBC Hgb Hct MCV MCH MCHC RDW Plt Count MPV Neut % (Auto) Lymph % (Auto) [place] % (Auto) Eos % (Auto) Baso % (Auto) Absolute Neuts (auto) Absolute Lymphs (auto) Absolute Monos (auto) Absolute Eos (auto) Absolute Basos (auto) Absolute Nucleated RBC Nucleated RBC % APTT Sodium Potassium Chloride Carbon Dioxide Anion Gap BUN Creatinine Est GFR ( Amer) Est GFR (Non- Amer) BUN/Creatinine Ratio Glucose POC Glucose (mg/dL) 173 H Calcium Albumin 1760 L CSF Albumin 25.9 CSF IgG 4.3 Serum IgG/Albumin 0.45 H CSF IgG/Albumin 0.17 CSF IgG Index 0.38 CSF IgG Synthesis Rate 0.00 CSF Cryptococcus Ag Negative CSF HSV I (PCR) Negative CSF Herpes II DNA (PCR) Negative IgG 790 Cryptococcus Ag Negative 10/11/19 10/11/19 10/12/19 17:55 17:58 00:26 WBC RBC Hgb Hct MCV MCH MCHC RDW Plt Count MPV Neut % (Auto) Lymph % (Auto) [place] % (Auto) Eos % (Auto) Baso % (Auto) Absolute Neuts (auto) Absolute Lymphs (auto) Absolute Monos (auto) Absolute Eos (auto) Absolute Basos (auto) Absolute Nucleated RBC Nucleated RBC % APTT 45.9 H Sodium Potassium Chloride Carbon Dioxide Anion Gap BUN Creatinine Est GFR ([facility] Amer) Est GFR (Non- Amer) BUN/Creatinine Ratio Glucose POC Glucose (mg/dL) 158 H 152 H Calcium Albumin CSF Albumin CSF IgG Serum IgG/Albumin CSF IgG/Albumin CSF IgG Index CSF IgG Synthesis Rate CSF Cryptococcus Ag CSF HSV I (PCR) CSF Herpes II DNA (PCR) IgG Cryptococcus Ag 10/12/19 10/12/19 10/12/19 00:30 07:05 07:05 WBC 13.7 H RBC 3.29 L Hgb 9.5 L Hct 30 L MCV 91 MCH 29 MCHC 32 RDW 16 H Plt Count 301 MPV 9.5 Neut % (Auto) 80.0 Lymph % (Auto) 9.7 [place] % (Auto) 7.7 Eos % (Auto) 1.7 Baso % (Auto) 0.9 Absolute Neuts (auto) 11.0 H Absolute Lymphs (auto) 1.3 Absolute Monos (auto) 1.1 H Absolute Eos (auto) 0.2 Absolute Basos (auto) 0.1 Absolute Nucleated RBC 0.0 Nucleated RBC % 0.1 APTT 54.8 H Sodium 147 H Potassium 5.8 H Chloride 111 Carbon Dioxide 31 Anion Gap 5 BUN 82 H Creatinine 1.50 H Est GFR ( Amer) 55.7 Est GFR (Non-Af Amer) 46.0 BUN/Creatinine Ratio 54.7 H Glucose 155 H POC Glucose (mg/dL) Calcium 8.2 L Albumin CSF Albumin CSF IgG Serum IgG/Albumin CSF IgG/Albumin CSF IgG Index CSF IgG Synthesis Rate CSF Cryptococcus Ag CSF HSV I (PCR) CSF Herpes II DNA (PCR) IgG Cryptococcus Ag 10/12/19 10/12/19 10/12/19 07:05 07:16 11:39 WBC RBC Hgb Hct MCV MCH MCHC RDW Plt Count MPV Neut % (Auto) Lymph % (Auto) [place] % (Auto) Eos % (Auto) Baso % (Auto) Absolute Neuts (auto) Absolute Lymphs (auto) Absolute Monos (auto) Absolute Eos (auto) Absolute Basos (auto) Absolute Nucleated RBC Nucleated RBC % APTT 64.3 H Sodium Potassium Chloride Carbon Dioxide Anion Gap BUN Creatinine Est GFR ( Amer) Est GFR (Non-Af Amer) BUN/Creatinine Ratio Glucose POC Glucose (mg/dL) 176 H 160 H Calcium Albumin CSF Albumin CSF IgG Serum IgG/Albumin CSF IgG/Albumin CSF IgG Index CSF IgG Synthesis Rate CSF Cryptococcus Ag CSF HSV I (PCR) CSF Herpes II DNA (PCR) IgG Cryptococcus Ag 10/12/19 13:56 WBC RBC Hgb Hct MCV MCH MCHC RDW Plt Count MPV Neut % (Auto) Lymph % (Auto) [place] % (Auto) Eos % (Auto) Baso % (Auto) Absolute Neuts (auto) Absolute Lymphs (auto) Absolute Monos (auto) Absolute Eos (auto) Absolute Basos (auto) Absolute Nucleated RBC Nucleated RBC % APTT 57.1 H Sodium Potassium Chloride Carbon Dioxide Anion Gap BUN Creatinine Est GFR ( Amer) Est GFR (Non-Af Amer) BUN/Creatinine Ratio Glucose POC Glucose (mg/dL) Calcium Albumin CSF Albumin CSF IgG Serum IgG/Albumin CSF IgG/Albumin CSF IgG Index CSF IgG Synthesis Rate CSF Cryptococcus Ag CSF HSV I (PCR) CSF Herpes II DNA (PCR) IgG Cryptococcus Ag Studies: MRI 10/01- L frontal encephalomalacia EEG 10/01- slowing, no epileptiform discharges CT chest 10/04- LLL consolidation Nutrition: Glucerna Impression: 73M admitted with respiratory failure, also with persistent fevers of unclear etiology, and encephalopathy. -Acute hypoxic and hypercapnic respiratory failure, intubated 09/21 -LLL PNA -Influenza A, treated with Tamiflu and continuing treatment -A fib, now rate controlled -Acute decompensated LV systolic heart failure (NSTEMI during admission) -REENA on CKD, improving -Encephalopathy, likely metabolic -DM -CAD Plan: Neuro: Propofol and Precedex for sedation, goal RASS -1 or -2. Avoid benzodiazepines CV: Heparin gtt for new onset a fib Cont Coreg and statin Hold DAPT for trach Resp: Remains intubated due to poor neuro status. Trach tomorrow (Wed) morning Wean FiO2 to keep sat >92% VAP bundle GI: Continue tube feeds, hold at midnight Flexiseal for loose stools PPI for GI prophylaxis Renal: Urine output adequate, Cr at baseline. Increase free water flushes for hypernatremia Diuresis with lasix, kayexalate once for mild hyperkalemia Motta for accurate I&Os while intubated ID: Now afebrile Continue meropenem and Tamiflu (day 4) Heme: H&H stable. Daily CBC Heparin gtt for a fib, holding 6 hours before trach. Endo: Insulin sliding scale. Keep BG <200 MSK: Pressure ulcer prophylaxis. Bedrest. Wounds: None Dispo: ICU for respiratory failure, encephalopathy, sepsis Status: Critical Code status: DNR Critical Care Time: 30 min
--- NOTE | 2019-10-12 16:59 | PN ---
Subjective Date of Service: 10/12/19 Length of Stay: 21 Days Neurology is following for encephalopathy. Interval History: The patient is intubated and still on sedation with precedex and propofol. There has been no reported seizures. He is currently on a spontaneous breathing trial and seems to be doing fine for now. CSF results reviewed. The opening pressure is normal and he has no evidence of an infection. The slight elevation in CSF protein is nonspecific and can be seen in diabetics. Review of Systems: The patient cannot provide a ROS. Objective Active Medications: Acetaminophen (Tylenol Adult Liq*) 650 mg NG TUBE Q6H PRN PRN Reason: TEMPERATURE > 100.4 Last Admin: 10/09/19 20:58 Dose: 650 mg Albuterol/Ipratropium (Duoneb (Albuterol 2.5 Mg/Ipratropium 0.5 Mg)) 1 neb INH Q4H PRN PRN Reason: SOB/WHEEZING Last Admin: 10/06/19 23:00 Dose: 1 neb Artificial Tears (Natural Balance Tears Eye Drop) 1 drop BOTH EYES Q4H PRN PRN Reason: DRY EYE Atorvastatin Calcium (Lipitor*) 80 mg PO DAILY [facility] Last Admin: 10/12/19 08:34 Dose: 80 mg Carvedilol (Coreg Tab*) 6.25 mg PO BID [facility] Last Admin: 10/12/19 08:35 Dose: Not Given Chlorhexidine Gluconate (Peridex Mouth Wash 0.12%*) 15 ml SWISH SPIT Q4H [facility] Last Admin: 10/12/19 11:49 Dose: 15 ml Fentanyl Citrate (Fentanyl*) 50 mcg IV SLOW PU Q1H PRN PRN Reason: PAIN - SEVERE Last Admin: 10/12/19 02:53 Dose: 50 mcg Heparin Sodium (Porcine) (Heparin Flush Picc/Ml/Cvc(*)) 0 ml FLUSH .PER PROTOCOL [facility] Heparin Sodium (Porcine) (Heparin Vial(*)) 0 units IV .PER PROTOCOL [facility] Last Admin: 10/12/19 01:02 Dose: 3,150 units Heparin Sodium/Dextrose (Heparin Drip 25,000 Units(*)) 25,000 units in 500 mls @ 0 mls/hr IV PER RATE [facility]; Protocol Last Admin: 10/12/19 08:34 Dose: 32 mls/hr Meropenem (Merrem 1 Gm Premix(*)) 1 gm in 50 mls @ 100 mls/hr IV 0400,1200, 2000 [facility]; Protocol Last Admin: 10/12/19 11:49 Dose: 100 mls/hr Propofol (Diprivan*) 100 mls @ 7.626 mls/hr IV .PER PROTOCOL [facility]; Protocol Last Admin: 10/12/19 08:34 Dose: 7.5 mls/hr Dexmedetomidine HCl 1,000 mcg/ (Sodium Chloride) 250 mls @ 15.22 mls/hr IV .PER PROTOCOL [facility]; Protocol Last Admin: 10/11/19 16:53 Dose: 15.22 mls/hr Insulin Human Regular (Insulin Regular(*)) 0 units SUBCUT Q6HR [facility]; Protocol Last Admin: 10/12/19 11:49 Dose: 3 units Nystatin (Nystatin Cream*) 1 applic TOPICAL BID [facility] Last Admin: 10/12/19 08:34 Dose: 1 applic Oseltamivir Phosphate (Tamiflu Susp* Oralsyr) 75 mg PO BID [facility] Last Admin: 10/12/19 08:34 Dose: 75 mg Pantoprazole Sodium (Protonix Iv*) 40 mg IV 2200 [facility] Last Admin: 10/11/19 22:15 Dose: 40 mg Polyethylene Glycol/Electrolytes (Miralax (17 Gm Dose Demario)) 17 gm PO DAILY PRN PRN Reason: CONSTIPATION Last Admin: 09/27/19 05:41 Dose: 17 gm Quetiapine Fumarate (Seroquel Tab*) 12.5 mg PO BID [facility] Last Admin: 10/12/19 08:34 Dose: 12.5 mg Vital Signs 10/12/19 10/12/19 14:01 14:15 Temperature 100.6 F 100.8 F Pulse Rate 68 72 Respiratory Rate Blood Pressure 99/57 114/52 (mmHg) O2 Sat by Pulse 96 95 Oximetry Intake and Output Last 24 Hours 10/10/19 10/11/19 10/12/19 10/13/19 06:59 06:59 06:59 06:59 Intake Total 3421 2090 3106 2714 Output Total 3341 1750 2014 150 Balance 701 -1100 1091 1211 Weight 273 lb 1.6 oz 273 lb 12 oz Intake: IV Fluids 219 50 16 52 NS (0.9%) 219 50 16 52 IVPB 225 225 158 106 Meropenem 170 225 158 106 NS (0.9%) 55 Medicated IV 1901 162 595 681 CC - Dexmedetomidine/ 991 250 Precedex CC - Propofol/Diprivan 228 142 300 63 Heparin 682 20 295 368 Oral 0 0 0 0 Tube Feeding 607 332 4479 1365 Tube Feeding Flush Amount 200 778 485 510 Output: Urine 300 250 Motta 1820 2590 2015 1253 Liquid Stool 600 600 Oxygen Devices in Use Now: Mechanical Ventilator Neurology Exam: General: Ill appearing obese man in no distress. 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 Neurological Findings: Opens eyes spontaneously. Intact pupillary, corneal, and gag reflexes. He was reported to move all extremities spontaneously off sedation. Result Diagrams: 10/12/19 07:05 10/12/19 07:05 Microbiology and Other Data: Microbiology 10/06/19 15:30 Gram Stain - Final Bronch Lavage - Left Lower Lobe Bronchoalveolar Lavage Cult, Quant - Final Ly Albicans 10/03/19 08:22 Aerobic Blood Culture - Final Blood Venous No Growth Day 5 Anaerobic Blood Culture - Final No Growth Day 5 10/03/19 08:22 Aerobic Blood Culture - Final Blood Venous No Growth Day 5 Anaerobic Blood Culture - Final No Growth Day 5 09/30/19 08:35 Blood Fungal Culture - Preliminary Blood Line No Growth Week 1 10/03/19 08:22 Gram Stain - Final Sputum Trach Sputum Culture - Final Normal Mimi 10/03/19 02:48 Urine Culture - Final Urine No Growth (<1,000 CFU/mL) 09/30/19 13:52 Gram Stain - Final Sputum Sputum Culture - Final YEAST 09/30/19 08:35 Urine Culture - Final Urine No Growth (<1,000 CFU/mL) 09/26/19 19:41 Gram Stain - Final Sputum Trach Sputum Culture - Final Normal Mimi 09/21/19 04:26 Aerobic Blood Culture - Final Blood Venous No Growth Day 5 Anaerobic Blood Culture - Final No Growth Day 5 09/21/19 04:32 Aerobic Blood Culture - Final Blood Venous No Growth Day 5 Anaerobic Blood Culture - Final No Growth Day 5 09/21/19 15:10 Gram Stain - Final Sputum Sputum Culture - Final Normal Mimi 09/21/19 07:07 Urine Culture - Final Urine 09/21/19 11:19 Legionella Urinary Antigen - Final Urine Negative Legionella Antigen Streptococcus pneumoniae Ag Screen - Final Negative S. pneumo Antigen 09/21/19 06:58 Nasal Screen MRSA (PCR) - Final Nasal Mrsa Not Detected Assessment/Plan Mr. Phillip Cabrera is a 73-year-old man who was hospitalized at [facility] [place] since for respiratory failure related to Influenza A pneumonia. The hospital course has been complicated by intubation, persistent fevers, encephalopathy manifesting as delirium with intermittent hyperactive agitation, and acute decompensated systolic heart failure. Overall, I suspect the patient's encephalopathy is multifactorial and is related to an infectious (influenza), toxic (sedation), and metabolic (uremic encephalopathy) sources. He does not have a stroke, no clinical or electrographic seizures, or [employer] infection. We are unable to wean him off sedation, but the team has been able to improve his kidney function and slightly control the fevers. The ventriculomegaly is proportional to the cortical atrophy and his opening pressure was normal. The family has agreed to tracheostomy placement and allowing the patient time to recover. I recommend weaning off the sedation if possible and using anti- psychotic or anti-seizure medications (Depakote) to control his delirium. He has received propofol intermittently since admission which may take some time to be metabolized out of his system due to his adiposity. Please contact me for any questions or concerns.
[2019-10-12] MEDS: Pantoprazole IV* 40 MG IV SCH (20:56)
[2019-10-13] MEDS: fentaNYL* 50 MCG/ML 2 ML VIAL (100 MCG VIAL) IV SLOW PU PRN (02:10)
[2019-10-13] MEDS: Propofol* 100 ML IV SCH ×2 (04:16→12:13)
[2019-10-13] MEDS: Chlorhexidine MOUTHWASH 0.12%* 15 ML UDC SWISH SPIT SCH ×3 (04:26→12:40)
[2019-10-13] MEDS: Meropenem 1 GM PREMIX(*) 1 GM/50 ML BAG IV SCH ×2 (04:35→12:13)
[2019-10-13 04:43] LABS: Hematocrit 28 % (42-52); Hemoglobin 8.9 g/dL (14.0-18.0); Mean Corpuscular HGB Conc 32 g/dL (31-36); Mean Corpuscular Hemoglobin 29 pg (27-31); Mean Corpuscular Volume 92 fL (80-94); Mean Platelet Volume 9.2 fL (7.4-10.4); Platelet Count 290 10^3/uL (150-450); Red Blood Count 3.06 10^6 /uL (4.18-5.48); Red Cell Distribution Width 16 % (10-15); White Blood Count 11.6 10^3/uL (3.5-10.8)
[2019-10-13 04:50] LABS: INR 1.2 (0.82-1.09)
[2019-10-13 04:58] LABS: BUN/Creatinine Ratio 50.3 (8-20); Calcium 8.3 mg/dL (8.6-10.3); EGFR African American 55.2 (>60); EGFR Non-African American 45.7 (>60)
[2019-10-13] MEDS: Insulin REGULAR(*) 1 UNITS UNIT SUBCUT SCH ×2 (05:25→12:40)
[2019-10-13] MEDS: Atorvastatin* 80 MG TAB PO SCH (08:41)
[2019-10-13] MEDS: Carvedilol TAB* 6.25 MG PO SCH (08:41)
[2019-10-13] MEDS: Oseltamivir SUSP* ORALSYR 6 MG/ML PO SCH (08:41)
[2019-10-13] MEDS: QUEtiapine TAB* 25 MG PO SCH (08:41)
[2019-10-13] MEDS: Nystatin CREAM* 15 GM TUBE TOPICAL SCH (08:43)
[2019-10-13] MEDS: Dexmedetomidine* 1,000 MCG in NS 0.9% 250 ML* 240 ML IV SCH (12:39)
[2019-10-13] MEDS ORDERED: Morphine INJ* 4 MG/ML 1 ML SYRINGE (NEW SYRINGE VERSION) ONE (14:30)
[2019-10-13] MEDS ORDERED: Morphine 10 MG/ML VIAL (1 ml) ONE (14:37)
[2019-10-13] MEDS ORDERED: LORazepam INJ* 2 MG/ML 1 ML VIAL IV PUSH PRN (16:59)
[2019-10-13] MEDS ORDERED: Lorazepam PYXIS KEY PRN ×4 (16:59→19:36)
[2019-10-13] MEDS ORDERED: Morphine PCA ADULT* 5 MG/ML 30 ML PCA SCH (17:00)
[2019-10-13] MEDS ORDERED: Atropine 1% (ORAL/SL)* 15 ML BTL SL PRN (18:20)
--- NOTE | 2019-10-13 18:20 | PN ---
Date of Service: 10/13/19 Critical Care Services: Patient seen and examined. Discussed overnight events with overnight stocker RN. Patient had 2 runs of VT overnight with desaturation each time and hypotension. Patient broke on his own during each episode. This morning, patient was scheduled for tracheostomy, however, he continues to have tachycardia (no further VT) and hypotension. Also throughout the morning, patient having periods of hypoxia to the 70s on the vent with elevated CO2 in the 80s-90s. We placed a call to the patient's daughters to advise of change in clinical status. Also canceled trach this morning, as patient appears now to be more clinically unstable. The daughters were planing on discussing goals of care today further when patient became hypoxic into the 40s again, then bradycardic with a rate in the 40s. Suctioning was non-productive. We took him off the vent and tried to ambu-bag him through the episode. He was given morphine for air hunger. He was persistently hypoxic for 15 minutes with SBP of 48, then lost his pulse when his heart rate went down to low 30s and appeared to be in PEA for about a minute. He gasped once and then appeared to have a more organized rhythm and weak carotid pulse. He was placed back on the ventilator, then slowly recovered. Respiratory suctioned again several more times, then thick secretions were noted. Daughters then arrived at bedside and we had another serious discussion about goals, daughters are in agreement that they do not want their father to suffer and he appears to be now having arrhythmias and unstable cardiac status, as well as mucous plugging. They have agreed now that all measures up to this point have been tried and their father is now declining. They see that his arrest today is a sign to them that they should discontinue care and would like comfort measures only. They have agreed to terminally extubate their father and that this would be in accordance with his wishes, and treat with morphine for comfort. Vital Signs: Temp Pulse Resp BP SpO2 FiO2 99.5 F 94 16 109/82 100 35 10/13/19 15:01 10/13/19 15:01 10/13/19 17:30 10/13/19 15:01 10/13/19 15:01 10/12 12:00 Physical Exam: Gen: Unresponsive, intubated HEENT: Normocephalic, atraumatic, non-icteric sclera, dry oral mucosa Neck: soft, supple, no JVD CV: Irregular rate and rhythm, no murmurs or rubs Pulm/Chest: Poor bilateral air entry diminished throughout lung hartman Abdomen/GI: soft, nontender, nondistended, +BS noted MSK/Skin: warm, dry, generalized edema Neuro: intubated, minimal sedation with precedex, but no response to deep tactile stimulation Fluid Balance (Past 24 Hours): I= O= Net Intake & Output 10/11/19 10/12/19 10/13/19 10/14/19 06:59 06:59 06:59 06:59 Intake Total 209 3106 3601 379.8 Output Total 3189 2014 2448 650 Balance -1100 1091 1153 -270.2 Weight 273 lb 12 oz 271 lb 6.224 oz Intake: IV Fluids 50 16 150 43.4 Meropenem 64 43.4 NS (0.9%) 50 16 86 IVPB 225 158 106 100 Meropenem 225 158 106 100 Medicated IV 618 552 9685 236.4 CC - Dexmedetomidine/ 437 142 Precedex CC - Propofol/Diprivan 142 300 171 94.4 Heparin 20 295 586 Oral 0 0 0 Tube Feeding 875 1852 1641 Tube Feeding Flush Amount 778 485 510 Output: Urine 250 Motta 2590 2015 2198 650 Liquid Stool 600 Labs: Laboratory Results - last 24 hr 10/10/19 10/12/19 10/12/19 14:35 17:45 23:06 WBC RBC Hgb Hct MCV MCH MCHC RDW Plt Count MPV INR (Anticoag Therapy) Sodium Potassium Chloride Carbon Dioxide Anion Gap BUN Creatinine Est GFR ( Amer) Est GFR (Non-Af Amer) BUN/Creatinine Ratio Glucose POC Glucose (mg/dL) 138 H 169 H Calcium Lyme INTERNATIONAL REPRESENTATIVE IgG Ab See comment CSF Lyme INTERNATIONAL REPRESENTATIVE IgG Ab Negative CSF Lyme INTERNATIONAL REPRESENTATIVE IgG Interp See comment 10/13/19 10/13/19 10/13/19 04:25 04:25 04:25 WBC 11.6 H RBC 3.06 L Hgb 8.9 L Hct 28 L MCV 92 MCH 29 MCHC 32 RDW 16 H Plt Count 290 MPV 9.2 INR (Anticoag Therapy) 1.20 H Sodium 147 H Potassium 5.0 Chloride 111 Carbon Dioxide 29 Anion Gap 7 BUN 76 H Creatinine 1.51 H Est GFR ( Amer) 55.2 Est GFR (Non-Af Amer) 45.7 BUN/Creatinine Ratio 50.3 H Glucose 128 H POC Glucose (mg/dL) Calcium 8.3 L Lyme INTERNATIONAL REPRESENTATIVE IgG Ab CSF Lyme INTERNATIONAL REPRESENTATIVE IgG Ab CSF Lyme INTERNATIONAL REPRESENTATIVE IgG Interp 10/13/19 12:34 WBC RBC Hgb Hct MCV MCH MCHC RDW Plt Count MPV INR (Anticoag Therapy) Sodium Potassium Chloride Carbon Dioxide Anion Gap BUN Creatinine Est GFR ( Amer) Est GFR (Non-Af Amer) BUN/Creatinine Ratio Glucose POC Glucose (mg/dL) 191 H Calcium Lyme INTERNATIONAL REPRESENTATIVE IgG Ab CSF Lyme INTERNATIONAL REPRESENTATIVE IgG Ab CSF Lyme INTERNATIONAL REPRESENTATIVE IgG Interp Impression: 73M admitted with respiratory failure with persistent fevers of unclear etiology (persistent influenza a?), NSTEMI and metabolic encephalopathy. Diagnoses - Acute hypoxic and hypercapnic respiratory failure, intubated 09/21 - LLL PNA - Influenza A, treated with Tamiflu x2 - A fib, rate controlled - Acute decompensated LV systolic heart failure (NSTEMI during admission) - REENA on CKD - Encephalopathy, likely metabolic - DM - CAD - Vtach, self limited - Bradycardic arrest Plan: As noted above, patient's daughters have opted for comfort measures: - Will place on morphine drip - Atropine SL for secretions - INTERNET MARKETING COORDINATOR notified of terminal extubation - Family support provided Critical Care Time: 60 minutes
[2019-10-13] MEDS ORDERED: LORazepam INJ* 2 MG/ML 1 ML VIAL ONE (18:25)
[2019-10-13 19:11] VITALS: BP 128/65
[2019-10-13] MEDS ORDERED: LORazepam INJ* 2 MG/ML 1 ML VIAL IV PUSH ONE ×3 (19:16→19:36)
--- NOTE | 2019-10-14 02:01 | DS ---
CC: Mirtha Tolliver NP; Dr. Ross; Adamaris Daniels NP; Dr. Pickens; Dr. Gentile; Dr. Salvador * DISCHARGE/ SUMMARY: DATE OF ADMISSION: 09/21/19 DATE OF : 10/14/19 TIME OF : 12:03 a.m. PRIMARY CARE PROVIDER: Mirtha Tolliver NP CAUSE OF : 1. Influenza A pneumonia. 2. Acute hypoxemic respiratory failure due to the above. 3. Multifactorial encephalopathy. SECONDARY DIAGNOSES: 1. Non-ST elevation myocardial infarction. 2. Acute renal failure. 3. Acute decompensated systolic heart failure. 4. Intermittent tachycardia, nonsustained. 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 He was diagnosed with Influenza A and treated with Tamiflu. He continued to be hypoxemic and requiring ventilatory support. He was also placed on broad-spectrum antibiotics and seen by our infectious disease specialist. He developed encephalopathy, initially agitated and needed to be sedated. At the end of his life, he was basically minimally responsive and Neurology followed the patient throughout his hospital stay for his encephalopathy. During his hospital stay, his troponin peaked at 5.81 and the patient was diagnosed with non-ST elevation TX. During the hospital stay, the patient was seen by our neurology team as well as infectious disease team. Dr. Joel from palliative care also participated in the patient's care. At the end of the patient's hospital stay, it became apparent that the patient's encephalopathy was progressing and he was severely hypoxemic and he will require to have tracheostomy and placement in long- term facility. At this point, the family decided for the patient to be placed in comfort care. He was placed on comfort care on 10/13/19 and shortly after midnight on 10/14/19. At this point, upon his pronouncement, the patient was noted to be unresponsive to all stimuli without any spontaneous respirations and no heart beat on auscultation. His pupils were fixed and his was pronounced at 12: 03 on 10/14/19. The family was notified via phone and his daughter, Michelle Medina, requested no autopsy to be performed. Please note this is a short summary of the patient's prolonged and complicated hospital stay. Please refer to further medical records for details. [id number]/[facility] #: [id number] MTDD
== END 2019-10-14 00:03 | disposition expired | DRG 870 ==
LOC: ED 04:04 → ICU 06:23
PROVIDERS: ADMIT Surgery Surgical Critical Care; ATTEND Internal Medicine
PROC: 5A09357 Assistance with Respiratory Ventilation, Less than 24 Consecutive Hours, Continuous Positive Airway Pressure (ICD-10-PCS; 2019-09-21)
PROC: 5A09357 Assistance with Respiratory Ventilation, Less than 24 Consecutive Hours, Continuous Positive Airway Pressure (ICD-10-PCS; 2019-09-28)
PROC: 02HV33Z Insertion of Infusion Device into Superior Vena Cava, Percutaneous Approach (ICD-10-PCS; 2019-09-28)
PROC: 5A1955Z Respiratory Ventilation, Greater than 96 Consecutive Hours (ICD-10-PCS; principal; 2019-10-02)
PROC: 0BH17EZ Insertion of Endotracheal Airway into Trachea, Via Natural or Artificial Opening (ICD-10-PCS; 2019-10-02)
PROC: 4A00X4Z Measurement of Central Nervous Electrical Activity, External Approach (ICD-10-PCS; 2019-10-02)
PROC: 0B9J7ZX Drainage of Left Lower Lung Lobe, Via Natural or Artificial Opening, Diagnostic (ICD-10-PCS; 2019-10-06)
PROC: 0B9C7ZX Drainage of Right Upper Lung Lobe, Via Natural or Artificial Opening, Diagnostic (ICD-10-PCS; 2019-10-06)
PROC: 0B9G7ZX Drainage of Left Upper Lung Lobe, Via Natural or Artificial Opening, Diagnostic (ICD-10-PCS; 2019-10-06)
PROC: 0B9D7ZX Drainage of Right Middle Lung Lobe, Via Natural or Artificial Opening, Diagnostic (ICD-10-PCS; 2019-10-06)
PROC: 0B9F7ZX Drainage of Right Lower Lung Lobe, Via Natural or Artificial Opening, Diagnostic (ICD-10-PCS; 2019-10-06)
PROC: 00JU3ZZ Inspection of Spinal Canal, Percutaneous Approach (ICD-10-PCS; 2019-10-08)
PROC: 009U3ZX Drainage of Spinal Canal, Percutaneous Approach, Diagnostic (ICD-10-PCS; 2019-10-10)
DX: A41.9 Sepsis, unspecified organism (principal); J96.22 Acute and chronic respiratory failure with hypercapnia; I50.23 Acute on chronic systolic (congestive) heart failure; J10.01 Influenza due to other identified influenza virus with the same other identified influenza virus pneumonia; I21.4 Non-ST elevation (NSTEMI) myocardial infarction; J96.21 Acute and chronic respiratory failure with hypoxia; I13.0 Hypertensive heart and chronic kidney disease with heart failure and stage 1 through stage 4 chronic kidney disease, or unspecified chronic kidney disease; I42.9 Cardiomyopathy, unspecified; G93.40 Encephalopathy, unspecified; N17.9 Acute kidney failure, unspecified; J44.0 Chronic obstructive pulmonary disease with (acute) lower respiratory infection; J44.1 Chronic obstructive pulmonary disease with (acute) exacerbation; E87.2 Acidosis; Z66 Do not resuscitate; E66.01 Morbid (severe) obesity due to excess calories; I25.10 Atherosclerotic heart disease of native coronary artery without angina pectoris; E78.5 Hyperlipidemia, unspecified; N18.3 Chronic kidney disease, stage 3 (moderate); E11.22 Type 2 diabetes mellitus with diabetic chronic kidney disease; I48.91 Unspecified atrial fibrillation; R00.0 Tachycardia, unspecified; Z51.5 Encounter for palliative care; G47.30 Sleep apnea, unspecified; R21 Rash and other nonspecific skin eruption; Z95.1 Presence of aortocoronary bypass graft; Z85.830 Personal history of malignant neoplasm of bone; Z89.211 Acquired absence of right upper limb below elbow; Z99.81 Dependence on supplemental oxygen; Z88.2 Allergy status to sulfonamides; Z87.891 Personal history of nicotine dependence
CPT/HCPCS: 36415; 70450; 70551; 71045; 71250; 74018; 80048; 80053; 80076; 80202; 81003; 81015; 82140; 82330; 82550; 82565; 82607; 82784; 82803; 82945; 82947; 83519; 83605; 83735; 83880; 83930; 83935; 84100; 84145; 84157; 84300; 84443; 84484; 84520; 85014; 85018; 85025; 85027; 85610; 85730; 86140; 86255; 86341; 86618; 87040; 87070; 87071; 87086; 87103; 87106; 87205; 87529; 87641; 87899; 89051; 93005; 93306; 94003; 94640; 95819; 96374; 99285; A9270-GY; C1751; C8929; J0330; J0456; J0610; J0692; J0696; J1160; J1630; J1644; J1650; J1940; J2020; J2060; J2185; J2250; J2270; J2704; J2920; J2930; J3010; J3370; J3490